=== PATIENT | female | born 1940 | race Caucasian/White ===

== ENCOUNTER 2019-07-21 08:13 | Outpatient (CLI) | payer MEDICARE, SELFPAY ==
[2019-07-21 08:27] LABS: Basophils Absolute Auto 0.03 K/mm3 (0.00-0.10); Basophils Percent Auto 0.4 % (0.0-1.0); Eosinophils Absolute Auto 0.29 K/mm3 (0.02-0.50); Eosinophils Percent Auto 3.7 % (1.0-6.0); Hematocrit 42.3 % (35.0-42.0); Hemoglobin 14.2 g/dL (11.7-13.8); Immature Granulocyte Absolute 0.02 K/mm3 (0.00-0.00); Immature Granulocyte Percent A 0.3 % (0.0-0.0); Lymphocytes Absolute Auto 2.96 K/mm3 (1.10-4.50); Lymphocytes Percent Auto 37.9 % (18.0-42.0); Mean Corpuscular HGB Conc 33.6 g/dL (32.0-36.0); Mean Corpuscular Hemoglobin 30.5 pg (27.0-31.0); Mean Platelet Volume 9.1 fl (9.2-11.8); Monocytes Absolute Auto 0.55 K/mm3 (0.10-0.90); Neutrophils Percent Auto 50.7 % (50.0-70.0); Platelet Count Result 251 K/mm3 (150-420); Red Blood Count 4.65 M/mm3 (4.20-5.40); Red Cell Distribution Width 13.3 % (11.6-14.4); White Blood Count 7.8 K/mm3 (4.8-10.8)
[2019-07-21 08:36] LABS: Hemoglobin A1C 6.1 % (<5.7)
[2019-07-21 09:27] LABS: Alanine Aminotransferase 34 U/L (14-59); Albumin Level 3.7 g/dL (3.4-5.0); Alkaline Phosphatase 80 U/L (46-116); Anion Gap 13.1 mmol/L (7-16); Aspartate Amino Transferase 28 U/L (15-37); Bilirubin,Total 0.7 mg/dL (0.00-1.00); Blood Urea Nitrogen 16 mg/dL (7-18); Calcium 9.6 mg/dL (8.5-10.1); Carbon Dioxide 29 mmol/L (21-32); Chloride 104 mmol/L (98-108); Cholesterol 162 mg/dL (0-200); Creatine Kinase 74 U/L (26-192); Estimated Glomerular Filt Rate 57; Free T4 Free Thyroxine 0.96 ng/dL (0.76-1.46); Glucose 111 mg/dL (70-99); HDL Direct 47 mg/dL (40-60); LDL Cholesterol Calculated 74 mg/dL (<130); Osmolality Calculated 296 mOsm/kg (285-295); Potassium 4.1 mmol/L (3.5-5.1); Sodium 142 mmol/L (136-145); Thyroid Stimulating Hormone 4.94 uIU/mL (0.36-3.74); Total Protein 7.3 g/dL (6.4-8.2); Triglycerides 203 mg/dL (0-150)
[2019-07-22 11:22] LABS: Appearance Urine Clear (Clear); Bilirubin Urine Negative (Negative); Blood Urine Negative (Negative); Color Urine Yellow (Yellow); Glucose Urine UA Negative (Negative); Ketones Urine Negative (Negative); Leukocyte Esterase Ur Negative (Negative); Nitrate Urine Negative (Negative); Protein Urine Negative (Negative); Specific Grav Ur 1.025 (1.010-1.020); Urobilinogen Urine 0.2 mg/dL (0.2-1.0)
[2019-07-22 11:23] LABS: Add Urine Microscopic? NO
[2019-07-25 12:19] LABS: Vitamin D 25 Hydroxy 35 ng/mL (30-100)
== END 2019-07-21 08:14 | disposition home or self-care (01) ==
PROVIDERS: Visit Provider Internal Medicine
DX: E78.2 Mixed hyperlipidemia (principal); E11.9 Type 2 diabetes mellitus without complications; I10 Essential (primary) hypertension; M79.7 Fibromyalgia; E03.4 Atrophy of thyroid (acquired); R53.83 Other fatigue; E55.9 Vitamin D deficiency, unspecified
CPT/HCPCS: 36415; 80053; 80061; 81003; 82306; 82550; 83036; 84439; 84443; 84481; 85025

== ENCOUNTER 2020-02-09 07:48 | Outpatient (CLI) | payer MEDICARE, SELFPAY ==
--- NOTE | ~2020-02-09 | US_ITS ---
EXAMINATION: US carotid duplex BI DATE: 02/09/2020 08:37 INDICATION: Carotid stenosis TECHNIQUE: Grayscale, color Doppler, and pulsed Doppler images of the cervical carotid arteries were obtained. The degree of vessel stenosis is placed in one of the following categories: normal, <50%, 5 0-69%, >=70% but less than near-occlusion, near-occlusion, or total occlusion. Note that percent sten osis relative to normal distal artery lumen diameter is indirectly measured from velocity measurement s as described by Nirav, et al. Radiology 2003; [id number]:[id number]. Notes: Normal: Peak systolic velocity <125 centimeters/sec and no plaque <50%. Peak systolic velocity <125 ( EDV <40; ICA/CCA PSV ratio <2.0; used these factors only a tandem lesions or low cardiac output or co ntralateral disease) 50-69 %: PSV 125-230 (EDV 40-100; ratio 2-4) >= 70% but less than near occlusion: PSV greater than 230 (EDV > 100; ratio> 4.0) Near Occlusion: PSV that is variable; markedly narrowed lumen Occlusion: Absent flow on color/spectral Doppler and no lumen on carpenter scale. COMPARISON: None. FINDINGS: Incidental note is made of bilateral thyroid masses measuring 2 cm maximum dimension on the right and 1.8 cm on the left. RIGHT: The right common carotid artery (CCA) peak systolic velocity (PSV) is 82 cm/s. The right internal car otid artery (ICA) PSV is 104 cm/s. The right ICA end-diastolic velocity (EDV) is 24 cm/s. The right I CA/CCA PSV ratio is 1.3. The external carotid artery (ECA) PSV is 77 cm/s. There is antegrade flow in the right vertebral artery. LEFT: The left CCA PSV is 111 cm/s. The left ICA PSV is 108 cm/s. The left ICA EDV is 29 cm/s. The left ICA /CCA PSV ratio is 1.0. The ECA PSV is 69 cm/s. There is antegrade flow in the left vertebral artery. IMPRESSION: 1. Less than 50% stenosis in the right internal carotid artery by sonographic criteria. 2. Less than 50% stenosis in the left internal carotid artery by sonographic criteria. 3: Bilateral thyroid masses. Dedicated thyroid ultrasound recommended. Reviewed, dictated and finalized at location A. IMPRESSION: 1. Less than 50% stenosis in the right internal carotid artery by sonographic c riteria. 2. Less than 50% stenosis in the left internal carotid artery by sonographic cr iteria. 3: Bilateral thyroid masses. Dedicated thyroid ultrasound recommended.
--- NOTE | ~2020-02-09 | MM_ITS ---
EXAMINATION: MM screening johnson BI w anton HISTORY: Screening mammogram TECHNIQUE: Craniocaudal and mediolateral oblique 3-D tomosynthesis images were obtained and synthetic 2-D images were generated. CAD analysis was submitted and interpreted. COMPARISON: No prior mammogram is available for comparison at this institution. BREAST PARENCHYMAL COMPOSITION: The breasts are heterogeneously dense, which may obscure small masses . FINDINGS: There is no mammographic evidence for malignancy in the right breast. There are new subareo lar/periareolar masses, largest measuring 1.6 cm. IMPRESSION: 1. New left breast masses. 2. Additional mammographic views and possible breast ultrasound are recommended. BI-RADS Category 0: Incomplete: Needs additional imaging evaluation. Reviewed, dictated and finalized at location A. IMPRESSION: 1. New left breast masses. 2. Additional mammographic views and possible breast ultrasound are recommended . BI-RADS Category 0: Incomplete: Needs additional imaging evaluation.
[2020-02-09 08:11] LABS: Add Urine Microscopic? YES; Appearance Urine Clear (Clear); Bilirubin Urine Negative (Negative); Blood Urine Negative (Negative); Color Urine Yellow (Yellow); Glucose Urine UA Negative (Negative); Ketones Urine Negative (Negative); Leukocyte Esterase Ur Trace (Negative); Nitrate Urine Negative (Negative); Protein Urine Negative (Negative); Specific Grav Ur >= 1.030 (1.010-1.020); Urobilinogen Urine 0.2 mg/dL (0.2-1.0); pH Urine 5.5 (5.0-8.0)
[2020-02-09 08:16] LABS: Hemoglobin A1C 6.3 % (<5.7)
[2020-02-09 08:21] LABS: Bacteria Urine 4+ /hpf; RBC Urine 0-2 /hpf (0-2); Squamous Epithelial Cell Urine Many /hpf (Few)
[2020-02-09 08:37] LABS: Creatinine Urine 267.08 mg/dL (40-278); MALB Creatinine Ratio 3.4 mg/g (0-30); Microalbumin Urine Random 9.2 mg/L
[2020-02-09 08:57] LABS: Alanine Aminotransferase 38 U/L (14-59); Albumin Level 3.8 g/dL (3.4-5.0); Alkaline Phosphatase 73 U/L (46-116); Aspartate Amino Transferase 28 U/L (15-37); Bilirubin,Total 0.6 mg/dL (0.00-1.00); Blood Urea Nitrogen 15 mg/dL (7-18); Calcium 9.2 mg/dL (8.5-10.1); Carbon Dioxide 29 mmol/L (21-32); Chloride 101 mmol/L (98-108); Cholesterol 157 mg/dL (0-200); Creatine Kinase 163 U/L (26-192); Estimated Glomerular Filt Rate 51; Free T4 Free Thyroxine 1.08 ng/dL (0.76-1.46); Glucose 101 mg/dL (70-99); HDL Direct 51 mg/dL (40-60); LDL Cholesterol Calculated 84 mg/dL (<130); Osmolality Calculated 290 mOsm/kg (285-295); Sodium 140 mmol/L (136-145); Thyroid Stimulating Hormone 3.82 uIU/mL (0.36-3.74); Total Protein 6.9 g/dL (6.4-8.2); Triglycerides 108 mg/dL (0-150)
== END 2020-02-09 07:49 | disposition home or self-care (01) ==
LOC: CHSIMG 07:49
PROVIDERS: PCP Internal Medicine; Visit Provider Internal Medicine
DX: Z12.31 Encounter for screening mammogram for malignant neoplasm of breast (principal); E03.4 Atrophy of thyroid (acquired); I10 Essential (primary) hypertension; E78.2 Mixed hyperlipidemia; R73.01 Impaired fasting glucose; I65.23 Occlusion and stenosis of bilateral carotid arteries
CPT/HCPCS: 36415; 77063; 77067; 80053; 80061; 81001; 82043; 82550; 83036; 84439; 84443; 93880

== ENCOUNTER 2020-02-16 09:56 | Outpatient (CLI) | payer MEDICARE, SELFPAY ==
--- NOTE | ~2020-02-16 | MMUS_ITS ---
EXAMINATION: MM diagnostic johnson LT w anton, US breast LT limited HISTORY: Left breast mass on screening mammogram TECHNIQUE: Additional 3-D tomosynthesis images of the left breast were performed and synthetic 2-D im ages were generated. CAD analysis was submitted and interpreted. High resolution limited left breast ultrasound was performed. COMPARISON: 02/08/2019, 10/04/2018, 09/20/2018, 07/25/2016 FINDINGS: MAMMOGRAPHIC FINDINGS: Obscured masses are present in the anterior and middle third of the upper outer quadrant of the breas t which measure up to 1.6 cm. Some demonstrate interval increase in size when compared to prior mammo grams. No definite suspicious calcification or architectural distortion are identified. ULTRASOUND: There is a 1.5 cm cyst at the 1:00 location 2 cm from the nipple corresponding to the largest mammogr aphic mass identified. Several additional smaller cysts are present. There is a 6 mm oval, circumscri bed, parallel, hypoechoic mass with posterior acoustic enhancement and no internal vascularity at the 1:00 location 2 cm from the nipple. IMPRESSION: 1. Cysts and a probably benign mass at the 1:00 location in the upper outer quadrant of the breast. 2. Recommend 6 month follow-up left diagnostic mammogram and ultrasound. BI-RADS category 3, probably benign findings. Reviewed, dictated and finalized at location A. IMPRESSION: 1. Cysts and a probably benign mass at the 1:00 location in the upper outer lora drant of the breast. 2. Recommend 6 month follow-up left diagnostic mammogram and ultrasound. BI-RADS category 3, probably benign findings.
--- NOTE | ~2020-02-16 | US_ITS ---
EXAMINATION: US thyroid DATE: 02/16/2020 11:05 INDICATION: Thyroid nodule. TECHNIQUE: Multiple ultrasound images of the thyroid were obtained. COMPARISON: None. FINDINGS: The right thyroid lobe measures 3.7 x 2.2 x 1.5 cm. The left thyroid lobe measures 3.8 x 2.0 x 1.0 c m. The thyroid demonstrates heterogeneous echogenicity and normal vascularity. In the right thyroid lobe, there is a 2.2 cm solid, hypoechoic, [id number]-mymn-cebe nodule with ill-defined margin without ech ogenic foci (TI-RADS TR4). In the left thyroid lobe, there is a 13 mm solid, hyperechoic, wider-than- tall nodule with ill-defined margin without echogenic foci (TR3). IMPRESSION: 1. Thyroid nodules. Ultrasound-guided fine-needle aspiration of the right thyroid nodule is recommend ed. Reviewed, dictated and finalized at location A. IMPRESSION: 1. Thyroid nodules. Ultrasound-guided fine-needle aspiration of the right thyro id nodule is recommended.
== END 2020-02-16 09:57 | disposition home or self-care (01) ==
LOC: CHSIMG 09:57
PROVIDERS: PCP Internal Medicine; Visit Provider Internal Medicine
DX: E04.1 Nontoxic single thyroid nodule (principal); R92.8 Other abnormal and inconclusive findings on diagnostic imaging of breast
CPT/HCPCS: 76536; 76642; 77061; 77065; G0279

== ENCOUNTER 2020-03-04 10:00 | Outpatient (CLI) | payer MEDICARE, SELFPAY ==
--- NOTE | ~2020-03-04 | US_ITS ---
EXAMINATION: US FNA w image guidance DATE: 03/04/2020 11:00 INDICATION: Right thyroid nodule. TECHNIQUE: The procedure and its benefits, risks, and benefits were discussed with the patient. Risks specifical ly discussed included bleeding. The patient verbalized understanding of the risks and agreed to proce ed. The neck was prepped and draped in the usual sterile manner. 1% lidocaine was used for local ane sthesia. 5 passes were made with a 25G needle into the lesion. Appropriate needle location was docu mented with continuous sonographic guidance. There were no immediate complications. The patient unde rstood to call the ordering physician for results after a week and a half and verbalized that underst anding. FINDINGS: Grayscale ultrasound images demonstrate needles advanced into a 2.2 cm hypoechoic solid nodule in rig ht thyroid lobe for biopsy. IMPRESSION: 1. Ultrasound-guided fine needle aspiration of a right thyroid nodule. Reviewed, dictated and finalized at location A.
== END 2020-03-04 10:01 | disposition home or self-care (01) ==
PROVIDERS: PCP Internal Medicine; Visit Provider Internal Medicine
DX: E04.9 Nontoxic goiter, unspecified (principal)
CPT/HCPCS: 10005; 88173; 88305

== ENCOUNTER 2020-07-26 10:34 | Outpatient (CLI) | payer MEDICARE, SELFPAY ==
[2020-07-26 10:42] LABS: Basophils Absolute Auto 0.03 K/mm3 (0.00-0.10); Basophils Percent Auto 0.5 % (0.0-1.0); Eosinophils Absolute Auto 0.23 K/mm3 (0.02-0.50); Eosinophils Percent Auto 3.6 % (1.0-6.0); Hematocrit 41.9 % (35.0-42.0); Hemoglobin 13.6 g/dL (11.7-13.8); Immature Granulocyte Absolute 0.03 K/mm3 (0.00-0.00); Immature Granulocyte Percent A 0.5 % (0.0-0.0); Lymphocytes Absolute Auto 2.47 K/mm3 (1.10-4.50); Lymphocytes Percent Auto 38.7 % (18.0-42.0); Mean Corpuscular HGB Conc 32.5 g/dL (32.0-36.0); Mean Corpuscular Hemoglobin 29.7 pg (27.0-31.0); Mean Corpuscular Volume 91.5 fL (78.0-102.0); Mean Platelet Volume 9.1 fl (9.2-11.8); Monocytes Absolute Auto 0.39 K/mm3 (0.10-0.90); Monocytes Percent Auto 6.1 % (2.0-11.0); Neutrophils Absolute Auto 3.2 K/mm3 (1.7-7.2); Neutrophils Percent Auto 50.6 % (50.0-70.0); Platelet Count Result 285 K/mm3 (150-420); Red Blood Count 4.58 M/mm3 (4.20-5.40); Red Cell Distribution Width 13.6 % (11.6-14.4); White Blood Count 6.4 K/mm3 (4.8-10.8)
[2020-07-26 11:50] LABS: Erythrocyte Sedimentation Rate 42 mm/hr (0-20)
[2020-07-26 12:10] LABS: Anion Gap 9 mmol/L (8-16); Blood Urea Nitrogen 18 mg/dL (7-18); CRP 0.5 mg/dL (0.0-0.9); Calcium 9.1 mg/dL (8.5-10.1); Carbon Dioxide 29 mmol/L (21-32); Chloride 104 mmol/L (98-108); Estimated Glomerular Filt Rate 55; Glucose 118 mg/dL (70-99); Osmolality Calculated 296 mOsm/kg (285-295); Potassium 4.2 mmol/L (3.5-5.1); Sodium 142 mmol/L (136-145); Uric Acid 8.1 mg/dL (2.6-6.0)
== END 2020-07-26 10:35 | disposition home or self-care (01) ==
LOC: CHSLAB 10:35
PROVIDERS: PCP Internal Medicine; Visit Provider Internal Medicine
DX: M79.89 Other specified soft tissue disorders (principal); M79.676 Pain in unspecified toe(s)
CPT/HCPCS: 36415; 80048; 84550; 85025; 85652; 86140

== ENCOUNTER 2020-08-20 09:48 | Outpatient (CLI) | payer MEDICARE, SELFPAY ==
--- NOTE | ~2020-08-20 | MMUS_ITS ---
EXAMINATION: MM diagnostic johnson LT w anton, US breast LT limited HISTORY: Six-month follow-up for probably benign left breast mass TECHNIQUE: Craniocaudal, mediolateral, and mediolateral oblique 3-D tomosynthesis images of the left breast were performed and synthetic 2-D images were generated. CAD analysis was submitted and interpr eted. High resolution limited left breast ultrasound was performed. COMPARISON: 02/16/2020, 02/09/2020, 10/04/2018, 09/20/2018 BREAST PARENCHYMAL COMPOSITION: The breasts are heterogeneously dense, which may obscure small masses . FINDINGS: MAMMOGRAPHIC FINDINGS: Again seen are obscured masses in the anterior and middle third of the breast without suspicious inte rval change. No suspicious calcification or architectural distortion are identified. ULTRASOUND: There is a 1.4 cm cyst at the 1:00 location 2 cm from the nipple. A 0.7 cm cyst is present at the 12: 00 location 2 cm from the nipple. No persistent hypoechoic mass is identified. IMPRESSION: 1. No mammographic or sonographic evidence of malignancy. 2. Recommend routine screening mammography, due on the right in six months. BI-RADS Category 2: Benign finding(s). Reviewed, dictated and finalized at location A. B IMPRESSION: 1. No mammographic or sonographic evidence of malignancy. 2. Recommend routine screening mammography, due on the right in six months. BI-RADS Category 2: Benign finding(s).
== END 2020-08-20 09:49 | disposition home or self-care (01) ==
LOC: CHSIMG 09:49
PROVIDERS: PCP Internal Medicine; Visit Provider Internal Medicine
DX: R92.8 Other abnormal and inconclusive findings on diagnostic imaging of breast (principal)
CPT/HCPCS: 76642; 77061; 77065; G0279

== ENCOUNTER 2020-09-22 08:42 | Outpatient (CLI) | payer MEDICARE, SELFPAY ==
[2020-09-22 08:57] LABS: Basophils Absolute Auto 0.04 K/mm3 (0.00-0.10); Basophils Percent Auto 0.5 % (0.0-1.0); Eosinophils Percent Auto 3.8 % (1.0-6.0); Hematocrit 40.7 % (35.0-42.0); Immature Granulocyte Absolute 0.02 K/mm3 (0.00-0.00); Immature Granulocyte Percent A 0.3 % (0.0-0.0); Lymphocytes Absolute Auto 3.44 K/mm3 (1.10-4.50); Lymphocytes Percent Auto 43.6 % (18.0-42.0); Mean Corpuscular HGB Conc 34.4 g/dL (32.0-36.0); Mean Corpuscular Hemoglobin 30.5 pg (27.0-31.0); Mean Corpuscular Volume 88.7 fL (78.0-102.0); Mean Platelet Volume 9.2 fl (9.2-11.8); Monocytes Absolute Auto 0.52 K/mm3 (0.10-0.90); Monocytes Percent Auto 6.6 % (2.0-11.0); Neutrophils Absolute Auto 3.6 K/mm3 (1.7-7.2); Neutrophils Percent Auto 45.2 % (50.0-70.0); Platelet Count Result 287 K/mm3 (150-420); Red Blood Count 4.59 M/mm3 (4.20-5.40); Red Cell Distribution Width 13.6 % (11.6-14.4); White Blood Count 7.9 K/mm3 (4.8-10.8)
[2020-09-22 09:14] LABS: Hemoglobin A1C 6.2 % (<5.7)
[2020-09-22 09:55] LABS: Erythrocyte Sedimentation Rate 44 mm/hr (0-20)
[2020-09-22 10:19] LABS: Alanine Aminotransferase 35 U/L (14-59); Albumin Level 3.6 g/dL (3.4-5.0); Alkaline Phosphatase 82 U/L (46-116); Anion Gap 8 mmol/L (8-16); Aspartate Amino Transferase 25 U/L (15-37); Bilirubin,Total 0.5 mg/dL (0.00-1.00); Blood Urea Nitrogen 19 mg/dL (7-18); CRP < 0.5 mg/dL (0.0-0.9); Calcium 9.2 mg/dL (8.5-10.1); Carbon Dioxide 32 mmol/L (21-32); Chloride 102 mmol/L (98-108); Cholesterol 260 mg/dL (0-200); Creatine Kinase 66 U/L (26-192); Estimated Glomerular Filt Rate 49; Free T3 2.69 pg/mL (2.18-3.98); Free T4 Free Thyroxine 1.11 ng/dL (0.76-1.46); Glucose 104 mg/dL (70-99); HDL Direct 39 mg/dL (40-60); LDL Cholesterol Calculated 176 mg/dL (<130); Osmolality Calculated 296 mOsm/kg (285-295); Potassium 3.9 mmol/L (3.5-5.1); Sodium 142 mmol/L (136-145); Thyroid Stimulating Hormone 1.04 uIU/mL (0.36-3.74); Total Protein 7.1 g/dL (6.4-8.2); Triglycerides 223 mg/dL (0-150); Uric Acid 6.6 mg/dL (2.6-6.0); Vitamin B12 552 pg/mL (193-986)
[2020-09-23 09:05] LABS: Add Urine Microscopic? NO; Appearance Urine Clear (Clear); Bilirubin Urine Negative (Negative); Blood Urine Negative (Negative); Color Urine Yellow (Yellow); Glucose Urine UA Negative (Negative); Ketones Urine Negative (Negative); Leukocyte Esterase Ur Negative (Negative); Nitrate Urine Negative (Negative); Protein Urine Negative (Negative); Specific Grav Ur >= 1.030 (1.010-1.020); Urobilinogen Urine 0.2 mg/dL (0.2-1.0); pH Urine 5.5 (5.0-8.0)
[2020-09-27 20:12] LABS: Vitamin D 25 Hydroxy 30 ng/mL (30-100)
== END 2020-09-22 08:43 | disposition home or self-care (01) ==
LOC: CHSLAB 08:43
PROVIDERS: PCP Internal Medicine; Visit Provider Internal Medicine
DX: E79.0 Hyperuricemia without signs of inflammatory arthritis and tophaceous disease (principal); I10 Essential (primary) hypertension; E78.2 Mixed hyperlipidemia; E03.4 Atrophy of thyroid (acquired); E11.42 Type 2 diabetes mellitus with diabetic polyneuropathy; G62.9 Polyneuropathy, unspecified; E55.9 Vitamin D deficiency, unspecified
CPT/HCPCS: 36415; 80053; 80061; 81003; 82306; 82550; 82607; 83036; 84439; 84443; 84481; 84550; 85025; 85652; 86140

== ENCOUNTER 2021-02-16 15:42 | Outpatient (CLI) | payer MEDICARE, SELFPAY ==
--- NOTE | ~2021-02-16 | MR_ITS ---
EXAMINATION: MR lumbar spine wo con DATE: 02/16/2021 16:50 INDICATION: Lumbar spinal stenosis. TECHNIQUE: Magnetic resonance imaging (MRI) of the lumbar spine was performed without intravenous con trast. Sequences included sagittal T2-weighted FSE, sagittal T2-weighted FS FSE, sagittal T1-weighted FSE, and axial T2-weighted FSE. COMPARISON: Lumbar spine MRI 04/17/2015 FINDINGS: There is 6 mm anterolisthesis of L4 on L5. Vertebral body heights are normal. There is mild ly decreased disc height at L3-L4, L4-L5, and L5-S1. The distal spinal cord signal intensity is yasmin l. The conus medullaris is at L1. The following disc levels are specifically discussed: L1-L2: The disc is mildly bulging. There is mild bilateral facet joint osteoarthritis. There is no ne ural foraminal stenosis. There is mild central canal stenosis. L2-L3: The disc is mildly bulging. There is mild bilateral facet joint osteoarthritis. There is no ne ural foraminal stenosis. There is no central canal stenosis. L3-L4: The disc is bulging. There is moderate bilateral facet joint osteoarthritis. There is mild teodoro ateral neural foraminal stenosis. There is mild central canal stenosis. L4-L5: The disc does not extend beyond the endplate margin. There is severe bilateral facet joint ost eoarthritis. There is mild bilateral neural foraminal stenosis. There is mild central canal stenosis. L5-S1: The disc does not extend beyond the endplate margin. There is severe bilateral facet joint ost eoarthritis. There is mild left neural foraminal stenosis. There is no central canal stenosis. IMPRESSION: 1. Mild lumbar spondylosis, stable from 04/17/2015. Reviewed, dictated and finalized at location A.
== END 2021-02-16 15:43 | disposition home or self-care (01) ==
PROVIDERS: PCP Internal Medicine; Visit Provider Orthopaedic Surgery
DX: M47.817 Spondylosis without myelopathy or radiculopathy, lumbosacral region (principal); M48.07 Spinal stenosis, lumbosacral region
CPT/HCPCS: 72148

== ENCOUNTER 2021-03-23 17:05 | Outpatient (RCR) | payer MEDICARE, SELFPAY ==
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
--- NOTE | 2021-03-31 15:19 | PTOPEVAL ---
Thank you for referring Nayely Hicks to [facility].? The patient is scheduled to be seen for therapy? ____x/week for ___ weeks. Please review, sign, date and return this plan of care ALIVIA. I agree with and certify that the following plan of care is medically necessary. Referring Physician Date Admitting Provider: Attending Provider: Kamila Rob, RETURNER Referring Provider: *PT Outpatient Evaluation Start: 03/23/21 17:17 Freq: Status: Active Protocol: Document 03/31/21 15:00 [facility] (Rec: 03/31/21 15:19 [facility] [id number]) Therapy Assessment Status Assessment Status Assessment Status Discharge Evaluation Information Problem Diagnosis vertigo Onset 03/03/21 Additional Evaluation Detail DHI = 4% functionally declined Subjective Information patient reports she feels Query Text:As Reported By Patient/ great this date. she reports Family no more symptoms of dizziness or vertigo since her first therapy visit. Pain Assessment Timing of Pain Assessment Timing of Pain Assessment Assessment Self Report Self Report Pain Level 0 Pain Score Pain Score 0: Self Report Palpation Assessment Palpation Palpation negative migue garcia pike negative nystagmus patient completing cawthrone roya exercises in supine and sitting at home. PT Clinical Summary Clinical Summary Protocol: PTEVCODE PT Clinical Summary mrs. hicks has met all goals for therapy regarding her BPPV symptoms. she reports being symptom free now, and ready to begin therapy on her back. she will DC skilled PT this date and continue with cawthrone roya (CC) supine, sitting, and standing habituation exercises independently at home for 1 more week. Persons Assisting in Goal Achievement patient Patient/Caregiver Informed of Benefits/ Yes Risks of Rehabilitation Patient/Caregiver Participated in Plan Yes of Care Patient/Caregiver Agreed with Problem Yes List/POC/Goals Treatment Frequency and Duration DC to independent CC exercises PT Procedures Place of Service Place of Service Clinic Visit: [id number] PT Minutes Total Minutes Of Individual PT This 11 Session (Minutes) Query Text:The Provision O
== END 2021-03-31 15:24 | disposition home or self-care (01) ==
LOC: CHSPT 17:05
PROVIDERS: PCP Nurse Practitioner Family; Visit Provider Nurse Practitioner Family
DX: R42 Dizziness and giddiness (principal)
CPT/HCPCS: 97110; 97161

== ENCOUNTER 2021-03-31 09:31 | Outpatient (CLI) | payer MEDICARE, SELFPAY ==
[2021-03-31 09:48] LABS: Basophils Absolute Auto 0.02 K/mm3 (0.00-0.10); Basophils Percent Auto 0.3 % (0.0-1.0); Eosinophils Absolute Auto 0.26 K/mm3 (0.02-0.50); Eosinophils Percent Auto 3.5 % (1.0-6.0); Hematocrit 40.5 % (35.0-42.0); Hemoglobin 13.4 g/dL (11.7-13.8); Immature Granulocyte Absolute 0.01 K/mm3 (0.00-0.00); Immature Granulocyte Percent A 0.1 % (0.0-0.0); Lymphocytes Absolute Auto 2.79 K/mm3 (1.10-4.50); Lymphocytes Percent Auto 37.8 % (18.0-42.0); Mean Corpuscular HGB Conc 33.1 g/dL (32.0-36.0); Mean Corpuscular Hemoglobin 29.8 pg (27.0-31.0); Monocytes Absolute Auto 0.39 K/mm3 (0.10-0.90); Monocytes Percent Auto 5.3 % (2.0-11.0); Neutrophils Absolute Auto 3.9 K/mm3 (1.7-7.2); Platelet Count Result 253 K/mm3 (150-420); Red Cell Distribution Width 13.3 % (11.6-14.4); White Blood Count 7.4 K/mm3 (4.8-10.8)
[2021-03-31 10:49] LABS: Alanine Aminotransferase 28 U/L (14-59); Albumin Level 3.3 g/dL (3.4-5.0); Alkaline Phosphatase 73 U/L (46-116); Anion Gap 12 mmol/L (8-16); Aspartate Amino Transferase 16 U/L (15-37); Bilirubin,Total 0.4 mg/dL (0.00-1.00); Blood Urea Nitrogen 10 mg/dL (7-18); Calcium 8.9 mg/dL (8.5-10.1); Carbon Dioxide 30 mmol/L (21-32); Chloride 106 mmol/L (98-108); Cholesterol 149 mg/dL (0-200); Creatine Kinase 51 U/L (26-192); Estimated Glomerular Filt Rate > 60; Free T3 2.81 pg/mL (2.18-3.98); Free T4 Free Thyroxine 1.14 ng/dL (0.76-1.46); Glucose 103 mg/dL (70-99); HDL Direct 49 mg/dL (40-60); LDL Cholesterol Calculated 65 mg/dL (<130); Osmolality Calculated 305 mOsm/kg (285-295); Sodium 148 mmol/L (136-145); Thyroid Stimulating Hormone 0.09 uIU/mL (0.36-3.74); Total Protein 6.4 g/dL (6.4-8.2); Triglycerides 173 mg/dL (0-150); Uric Acid 6.1 mg/dL (2.6-6.0)
[2021-03-31 15:07] LABS: Add Urine Microscopic? NO; Appearance Urine Clear (Clear); Bilirubin Urine Negative (Negative); Blood Urine Negative (Negative); Color Urine Light Yellow (Yellow); Glucose Urine UA Negative (Negative); Ketones Urine Negative (Negative); Leukocyte Esterase Ur Negative (Negative); Nitrate Urine Negative (Negative); Protein Urine Negative (Negative); Urobilinogen Urine 0.2 mg/dL (0.2-1.0); pH Urine 7.5 (5.0-8.0)
[2021-03-31 15:16] LABS: Creatinine Urine 48.89 mg/dL (40-278); MALB Creatinine Ratio 26.5 mg/g (0-30); Microalbumin Urine Random < 13.0 mg/L
== END 2021-03-31 09:32 | disposition home or self-care (01) ==
LOC: CHSLAB 09:34
PROVIDERS: PCP Internal Medicine; Visit Provider Internal Medicine
DX: E78.2 Mixed hyperlipidemia (principal); I10 Essential (primary) hypertension; E03.4 Atrophy of thyroid (acquired); E11.42 Type 2 diabetes mellitus with diabetic polyneuropathy; G62.9 Polyneuropathy, unspecified; E79.0 Hyperuricemia without signs of inflammatory arthritis and tophaceous disease
CPT/HCPCS: 36415; 80053; 80061; 81003; 82043; 82550; 83036; 84439; 84443; 84481; 84550; 85025

== ENCOUNTER 2021-04-05 14:59 | Outpatient (RCR) | payer MEDICARE, SELFPAY ==
--- NOTE | 2021-04-05 17:00 | PTOPEVAL ---
Thank you for referring Nayely Mtz to [facility].? The patient is scheduled to be seen for therapy? ____x/week for ___ weeks. Please review, sign, date and return this plan of care ALIVIA. I agree with and certify that the following plan of care is medically necessary. Referring Physician Date Admitting Provider: Attending Provider: Luis Alberto Carter MD Referring Provider: *PT Outpatient Evaluation Start: 04/05/21 15:01 Freq: Status: Active Protocol: Document 04/05/21 15:01 [facility] (Rec: 04/05/21 16:06 [facility] [email or web address]) Therapy Assessment Status Assessment Status Assessment Status Evaluation Evaluation Information Problem Diagnosis low back pain Onset 02/09/21 Subjective Information Patient states that she has Query Text:As Reported By Patient/ had back pain for awhile. She Family states that it hurts the worst when she walks for a distance , stands for a period of time, works in the yard, navigating stairs, and getting in and out of the car. The patient states that the R side is worse than the L. Patient states she got an MRI which showed some spodylosis. Patient states that if she bends over it feels a bit better. Patient states that her goal for therapy is to be able to walk and navigate steps easier. Prior Level of Function Activity Level (Last 3 Months) Occupation retired Hand Dominance Ambidextrous Activity of Daily Living Ability Independent Indoor/Home Mobility Independent Community Mobility Independent Stairs Ability Independent Functional Cognition (Planning, Shopping Independent , Taking Medications) Cooking Yes Cleaning Yes Laundry Yes Shopping Yes Driving Yes Pain Assessment Timing of Pain Assessment Timing of Pain Assessment Assessment Pain Scale Pain Scale Used Numeric (1 - 10) Self Report Pain Assessment Lower Back Reported Pain Level 4 Pain Description Aching,Dull Greatest Pain Intensity 7 Pain Score Pain Score 4: Self Report Interventions Used Interventions Used By Clinicians Activity or ADL's,Exercise Cervical and Lumbar ROM Lumbar
--- NOTE | 2021-04-20 16:05 | PTOPEVAL ---
Thank you for referring Nayely Mtz to [facility].? The patient is scheduled to be seen for therapy? ____x/week for ___ weeks. Please review, sign, date and return this plan of care ALIVIA. I agree with and certify that the following plan of care is medically necessary. Referring Physician Date Admitting Provider: Attending Provider: Luis Alberto Carter MD Referring Provider: *PT Outpatient Evaluation Start: 04/05/21 15:01 Freq: Status: Active Protocol: Document 04/20/21 15:00 [facility] (Rec: 04/20/21 16:01 [facility]CR [email or web address]) Therapy Assessment Status Assessment Status Assessment Status Discharge Evaluation Information Problem Diagnosis low back pain Onset 02/09/21 Subjective Information Patient reports that since Query Text:As Reported By Patient/ beginning therapy for her back Family , her pain has been minimal. She feels she is able to do more before needing a break such as mopping. She states the pain subsides quicker as well. She believes she can do all of the exercises at home and can be discharged at this time. Pain Assessment Timing of Pain Assessment Timing of Pain Assessment Assessment Pain Scale Pain Scale Used Numeric (1 - 10) Self Report Pain Assessment Lower Back Reported Pain Level 4 Lowest Pain Intensity 0 Greatest Pain Intensity 4 Pain Score Pain Score 4: Self Report Interventions Used Interventions Used By Clinicians Activity or ADL's,Electrical Stimulation,Exercise,Heat Cervical and Lumbar ROM Lumbar ROM Lumbar ROM 75% of Normal Lower Extremity Muscle Strength Testing Hip Strength Right Hip Flexion Strength 5 Normal Hip Abduction Strength 4 Good Left Hip Flexion Strength 5 Normal Hip Abduction Strength 4 Good Knee Strength Right Knee Flexion Strength 5 Normal Knee Extension Strength 5 Normal Left Knee Flexion Strength 5 Normal Knee Extension Strength 5 Normal Muscle Length Testing Muscle Length Testing Piriformis w/Hip Neutral (R) Moderate Tightness,(L) Moderate Tightness Naomi's Test Hip Muscle Length (R) Moderate Tightness,(L) Moderate Tightness Left Hamstring Length 35 Query Text:(90 - 90 Position) Right Hamstring Length 25 Query Text:(90 - 90 Position) Palpation Assessment Palpation Palpation
== END 2021-04-20 16:33 | disposition home or self-care (01) ==
LOC: CHSPT 14:59
PROVIDERS: PCP Internal Medicine; Visit Provider Orthopaedic Surgery
DX: M47.816 Spondylosis without myelopathy or radiculopathy, lumbar region (principal)
CPT/HCPCS: 97014; 97110; 97161; G0283

== ENCOUNTER 2021-04-22 13:57 | Outpatient (RCR) | payer MEDICARE, SELFPAY ==
--- NOTE | 2021-04-22 16:01 | PTOPEVAL ---
Thank you for referring Nayely Mtz to [facility].? The patient is scheduled to be seen for therapy? ____x/week for ___ weeks. Please review, sign, date and return this plan of care ALIVIA. I agree with and certify that the following plan of care is medically necessary. Referring Physician Date Admitting Provider: Attending Provider: Jacinda Beck MD Referring Provider: *PT Outpatient Evaluation Start: 04/22/21 13:58 Freq: Status: Active Protocol: Document 04/22/21 13:59 ACR (Rec: 04/22/21 15:17 ACR [email or web address]) Therapy Assessment Status Assessment Status Assessment Status Evaluation Evaluation Information Problem Diagnosis neck and R shoulder pain Onset 04/13/21 Subjective Information Patient states that she has Query Text:As Reported By Patient/ pain in the neck, shoulder Family blade, and in the shoulder especially when she lifts her arm up. Patient states that pain is up and down depending on the weather. Patient denies numbness and tingling, but reports pain in the thenar eminence. Patient also denies headaches. She states it is difficult to put her clothes on, looking into her blind spots when driving, looking down to read or watching TV, and reaching overhead. Patient states massage and exercise is helpful. Patient reports her goal for therapy is to have less tightness and stiffness. Prior Level of Function Activity Level (Last 3 Months) Occupation retired Hand Dominance Ambidextrous Activity of Daily Living Ability Independent Indoor/Home Mobility Independent Community Mobility Independent Stairs Ability Independent Functional Cognition (Planning, Shopping Independent , Taking Medications) Cooking Yes Cleaning Yes Laundry Yes Shopping Yes Driving Yes Pain Assessment Timing of Pain Assessment Timing of Pain Assessment Assessment Pain Scale Pain Scale Used Numeric (1 - 10) Self Report Pain Assessment Neck Reported Pain Level 2 Lowest Pain Intensity 0 Greatest Pain Intensity
--- NOTE | 2021-05-18 15:06 | PTOPEVAL ---
Thank you for referring Nayely Mtz to [facility].? The patient is scheduled to be seen for therapy? __2__x/week for 4 visits. Please review, sign, date and return this plan of care ALIVIA. I agree with and certify that the following plan of care is medically necessary. Referring Physician Date Admitting Provider: Attending Provider: Jacinda Beck MD Referring Provider: *PT Outpatient Evaluation Start: 04/22/21 13:58 Freq: Status: Active Protocol: Document 05/18/21 14:00 [facility] (Rec: 05/18/21 15:05 [facility] [email or web address]) Therapy Assessment Status Assessment Status Assessment Status Progress Evaluation Information Problem Diagnosis neck and shoulder pain Onset 04/13/21 Subjective Information Pt. reports that pain is less Query Text:As Reported By Patient/ intense. She is sleeping Family better. She states that she is still limited in regards to turning her head while driving . she reports that mobility in her shoulder is better. She states that she was expereincing a fullness and tension in the right side of the neck which is no longer present. she reports she still avoids heavy lifting with the right arm. Pain Assessment Pain Scale Pain Scale Used Numeric (1 - 10) Self Report Pain Assessment Neck Reported Pain Level 1 Right Shoulder(s) Reported Pain Level 2 Pain Score Pain Score 1,2: Self Report Interventions Used Interventions Used By Clinicians Electrical Stimulation, Exercise,Heat Cervical and Lumbar ROM Cervical ROM Cervical Flexion (0-60) 45 Query Text:Active in Degrees Cervical Extension (0-70) 40 Query Text:Active in Degrees Cervical Rotation Right (0-90) 57 Query Text:Active in Degrees Cervical Rotation Left (0-90) 59 Query Text:Active in Degrees Upper Extremity Range of Motion Scapular/ Shoulder Range of Motion Right Shoulder Flexion - Active 159 Shoulder Medial Rotation - Active 80 Shoulder Lateral Rotation - Active 81 Upper Extremity Muscle Strength Testing Scapular/Shoulder Right Shoulder Flexion Strength 4+ Good + Shoulder Abduction Strength 4+ Good + Shoulder Medial Rotation Strength 4+ Good + Shoulder Lateral Rotation Strength 4 Good Left Shoulder Flexion Strength 4+ Good + Shoulder Abduction Strength 4+ Good + Shoulder Medial Rotation Strength 4+ Good
--- NOTE | 2021-06-02 14:10 | PTOPEVAL ---
Thank you for referring Nayely Mtz to [facility].? The patient is scheduled to be seen for therapy? ____x/week for ___ weeks. Please review, sign, date and return this plan of care ALIVIA. I agree with and certify that the following plan of care is medically necessary. Referring Physician Date Admitting Provider: Attending Provider: Jacinda Beck MD Referring Provider: *PT Outpatient Evaluation Start: 04/22/21 13:58 Freq: Status: Active Protocol: Document 06/02/21 13:00 ACR (Rec: 06/02/21 13:59 ACR [id number]) Therapy Assessment Status Assessment Status Assessment Status Discharge Evaluation Information Problem Subjective Information Patient states that she Query Text:As Reported By Patient/ believes therapy has really Family helped her and she needs to keep up with the exercises in order to maintain how good she feels. Patient states that she is able to read longer without increased pain, she is sleeping better, and she is able to put her clothes on with better ease. Patient reports that she still has some stiffness, but it is not as bad as before. Pain Assessment Timing of Pain Assessment Timing of Pain Assessment Pre-Treatment Pain Scale Pain Scale Used Numeric (1 - 10) Self Report Pain Assessment Neck Reported Pain Level 2 Greatest Pain Intensity 4 Right Shoulder(s) Reported Pain Level 0 Greatest Pain Intensity 4 Pain Score Pain Score 2,0: Self Report Interventions Used Interventions Used By Clinicians Activity or ADL's,Electrical Stimulation,Exercise,Heat Cervical and Lumbar ROM Cervical ROM Cervical Flexion (0-60) 46 Query Text:Active in Degrees Cervical Extension (0-70) 40 Query Text:Active in Degrees Cervical Rotation Right (0-90) 62 Query Text:Passive in Degrees Cervical Rotation Left (0-90) 50 Query Text:Passive in Degrees Upper Extremity Range of Motion Scapular/ Shoulder Range of Motion Right Shoulder Flexion - Active 168 Shoulder Medial Rotation - Active 79 Shoulder Lateral Rotation - Active 77 Upper Extremity Muscle Strength Testing Scapular/Shoulder Right Shoulder Flexion Strength 5 Normal Shoulder Abduction Strength 5 Normal Shoulder Medial Rotation Strength 5 Normal Shoulder Lateral Rotation Strength 5 Normal Left Shoulder Flexion Strength 5 Normal Shoulder Abduction Strength
== END 2021-06-02 15:12 | disposition home or self-care (01) ==
LOC: CHSPT 13:57
PROVIDERS: PCP Internal Medicine; Visit Provider Internal Medicine
DX: M54.2 Cervicalgia (principal); M25.511 Pain in right shoulder
CPT/HCPCS: 97014; 97110; 97140; 97161; G0283

== ENCOUNTER 2021-09-27 08:36 | Outpatient (CLI) | payer MEDICARE, SELFPAY ==
[2021-09-27 09:01] LABS: Basophils Absolute Auto 0.04 K/mm3 (0.00-0.10); Basophils Percent Auto 0.5 % (0.0-1.0); Eosinophils Absolute Auto 0.23 K/mm3 (0.02-0.50); Eosinophils Percent Auto 2.8 % (1.0-6.0); Hematocrit 45.3 % (35.0-42.0); Hemoglobin 14.9 g/dL (11.7-13.8); Immature Granulocyte Absolute 0.02 K/mm3 (0.00-0.00); Immature Granulocyte Percent A 0.2 % (0.0-0.0); Lymphocytes Absolute Auto 2.89 K/mm3 (1.10-4.50); Lymphocytes Percent Auto 35.2 % (18.0-42.0); Mean Corpuscular HGB Conc 32.9 g/dL (32.0-36.0); Mean Corpuscular Volume 91.3 fL (78.0-102.0); Mean Platelet Volume 9.5 fl (9.2-11.8); Monocytes Absolute Auto 0.39 K/mm3 (0.10-0.90); Monocytes Percent Auto 4.8 % (2.0-11.0); Neutrophils Absolute Auto 4.6 K/mm3 (1.7-7.2); Neutrophils Percent Auto 56.5 % (50.0-70.0); Platelet Count Result 238 K/mm3 (150-420); Red Blood Count 4.96 M/mm3 (4.20-5.40); Red Cell Distribution Width 13.3 % (11.6-14.4); White Blood Count 8.2 K/mm3 (4.8-10.8)
[2021-09-27 09:08] LABS: Add Urine Microscopic? NO; Appearance Urine Clear (Clear); Bilirubin Urine Negative (Negative); Blood Urine Negative (Negative); Color Urine Light Yellow (Yellow); Glucose Urine UA Negative (Negative); Ketones Urine Negative (Negative); Leukocyte Esterase Ur Negative (Negative); Nitrate Urine Negative (Negative); Protein Urine Negative (Negative); Specific Grav Ur 1.025 (1.010-1.020); Urobilinogen Urine 0.2 mg/dL (0.2-1.0); pH Urine 5.5 (5.0-8.0)
[2021-09-27 09:23] LABS: Creatinine Urine 160.23 mg/dL (40-278); MALB Creatinine Ratio 8.1 mg/g (0-30); Microalbumin Urine Random < 13.0 mg/L
[2021-09-27 09:27] LABS: Hemoglobin A1C 6.1 % (<5.7)
[2021-09-27 09:57] LABS: Alanine Aminotransferase 28 U/L (14-59); Albumin Level 3.7 g/dL (3.4-5.0); Alkaline Phosphatase 80 U/L (46-116); Anion Gap 9 mmol/L (8-16); Aspartate Amino Transferase 16 U/L (15-37); Bilirubin,Total 0.5 mg/dL (0.00-1.00); Blood Urea Nitrogen 19 mg/dL (7-18); Calcium 9.3 mg/dL (8.5-10.1); Carbon Dioxide 31 mmol/L (21-32); Chloride 103 mmol/L (98-108); Cholesterol 160 mg/dL (0-200); Creatine Kinase 47 U/L (26-192); Estimated Glomerular Filt Rate 57; Free T4 Free Thyroxine 1.11 ng/dL (0.76-1.46); Glucose 117 mg/dL (70-99); HDL Direct 54 mg/dL (40-60); LDL Cholesterol Calculated 72 mg/dL (<130); Osmolality Calculated 299 mOsm/kg (285-295); Potassium 3.9 mmol/L (3.5-5.1); Sodium 143 mmol/L (136-145); Thyroid Stimulating Hormone 0.57 uIU/mL (0.36-3.74); Total Protein 7.2 g/dL (6.4-8.2); Triglycerides 169 mg/dL (0-150); Uric Acid 6.1 mg/dL (2.6-6.0); Vitamin B12 371 pg/mL (193-986)
[2021-09-27 10:00] LABS: CRP < 0.5 mg/dL (0.0-0.9)
[2021-09-27 10:03] LABS: Erythrocyte Sedimentation Rate 40 mm/hr (0-20)
[2021-09-30 14:54] LABS: Vitamin D 25 Hydroxy 25 ng/mL (30-100)
== END 2021-09-27 08:37 | disposition home or self-care (01) ==
LOC: CHSLAB 08:38
PROVIDERS: PCP Internal Medicine; Visit Provider Internal Medicine
DX: E78.2 Mixed hyperlipidemia (principal); I10 Essential (primary) hypertension; R73.01 Impaired fasting glucose; E03.4 Atrophy of thyroid (acquired); E79.0 Hyperuricemia without signs of inflammatory arthritis and tophaceous disease; G62.9 Polyneuropathy, unspecified; M81.0 Age-related osteoporosis without current pathological fracture
CPT/HCPCS: 36415; 80053; 80061; 81003; 82043; 82306; 82550; 82607; 83036; 84439; 84443; 84481; 84550; 85025; 85652; 86140

== ENCOUNTER 2021-09-30 11:42 | Outpatient (CLI) | payer MEDICARE, SELFPAY ==
--- NOTE | ~2021-09-30 | MM_ITS ---
EXAMINATION: MM screening [facility] BI [facility] [place] HISTORY: Screening TECHNIQUE: Craniocaudal and mediolateral oblique 3-D tomosynthesis images were obtained and synthetic 2-D images were generated. CAD analysis was submitted and interpreted. COMPARISON: Comparison to multiple prior studies sequentially, with oldest reviewed study dated 03/2019. BREAST PARENCHYMAL COMPOSITION: The breasts are heterogeneously dense, which may obscure small masses . FINDINGS: Benign left breast masses are stable. There is no evidence of suspicious mass, calcificatio n, or architectural distortion to suggest malignancy in either breast. There has been no suspicious i nterval change. IMPRESSION: 1. No mammographic evidence of malignancy. 2. Recommend routine screening mammography in one year. BI-RADS Category 2: Benign finding(s). Reviewed, dictated and finalized at location A. [employer]
== END 2021-09-30 11:43 | disposition home or self-care (01) ==
LOC: CHSIMG 11:42
PROVIDERS: PCP Internal Medicine; Visit Provider Internal Medicine
DX: Z12.31 Encounter for screening mammogram for malignant neoplasm of breast (principal)
CPT/HCPCS: 77063; 77067

== ENCOUNTER 2021-12-02 09:44 | Outpatient (CLI) | payer MEDICARE, SELFPAY ==
--- NOTE | 2021-12-02 10:52 | ECG_ITS ---
Measurements Intervals [place] Rate: 58 P: 0 NC: 152 QRS: 27 QRSD: 81 T: 20 QT: 419 QTc: 413 Interpretive Statements SINUS BRADYCARDIA OTHERWISE NORMAL ECG NO PREVIOUS ECG AVAILABLE FOR COMPARISON Electronically Signed On 12-02-2021 15:26:19 CDT by Arpan Valencia M.D.
[2021-12-02 11:21] LABS: Basophils Percent Auto 0.5 % (0.2-1.2); Eosinophils Absolute Auto 0.3 K/mm3 (0-0.3); Eosinophils Percent Auto 3.9 % (0-4.4); Hematocrit 41.4 % (37.0-47.0); Hemoglobin 13.7 g/dL (12.0-15.0); Immature Granulocyte Absolute 0.02 K/mm3 (0.00-0.031); Immature Granulocyte Percent A 0.2 % (0-0.5); Lymphocytes Absolute Auto 3.47 K/mm3 (0.9-3.2); Lymphocytes Percent Auto 39.7 % (18.3-44.2); Mean Corpuscular HGB Conc 33.1 g/dl (32-36); Mean Corpuscular Hemoglobin 30.4 pg (26-34); Mean Corpuscular Volume 91.8 fl (80-100); Mean Platelet Volume 9.3 fl (7.4-10.4); Monocytes Absolute Auto 0.6 K/mm3 (0.1-0.6); Monocytes Percent Auto 6.7 % (2.6-8.5); Neutrophils Absolute Auto 4.3 K/mm3 (1.3-6.7); Platelet Count Result 266 k/mm3 (150-375); Red Blood Count 4.51 M/mm3 (4.2-5.4); Red Cell Distribution Width 13.9 % (11.5-14.5); White Blood Count 8.8 K/mm3 (4.5-10.0)
[2021-12-02 11:36] LABS: Albumin Level 4.4 g/dL (3.5-5.1); Anion Gap 9 mmol/L (8-16); Blood Urea Nitrogen 17 mg/dL (7-17); Calcium 9.3 mg/dL (8.4-10.2); Carbon Dioxide 26 mmol/L (22-30); Chloride 104 mmol/L (98-107); Estimated Glomerular Filt Rate > 60; Glucose 105 mg/dL (65-110); Potassium 3.7 mmol/L (3.4-5.0); Sodium 139 mmol/L (137-145)
[2021-12-02 11:39] LABS: Urine Cotinine NEGATIVE
== END 2021-12-02 09:45 | disposition home or self-care (01) ==
LOC: ANHSURGERY 09:47
PROVIDERS: PCP Internal Medicine; Visit Provider Orthopaedic Surgery
DX: Z01.818 Encounter for other preprocedural examination (principal); M17.11 Unilateral primary osteoarthritis, right knee
CPT/HCPCS: 36415; 80048; 80307; 82040; 85025; 86850; 86900; 86901; 87070; 93005

== ENCOUNTER 2021-12-14 01:31 | Day surgery (SDC) | payer MEDICARE, SELFPAY ==
--- NOTE | 2021-12-02 09:48 | PC.NURSE ---
Report to the Outpatient Waiting Room, entrance under the green pavilion located off [facility], at time _0600_ on date _12/14/21_. OR Time: _0730_. - You and your visitor will be asked a series of questions to screen for COVID 19 for your protection. - A mask is required within the hospital. One visitor will be allowed to accompany the patient into the hospital. Patients visitor will be instructed to remain with patient at all times or leave the building. We will allow the visitor to come back to the postoperative area when patient is ready. Preoperative COVID Testing Requirements: NONE Patients may have clear liquids (water, carbonated beverages, clear teas, apple juice) until 3 hours prior to surgery (0430 AM) with a maximum of 20 ounces. - No food from midnight until time of surgery Take the following medications with a SIP of water the morning of surgery: _DULOXETINE, LEVOTHYROXINE, METOPROLOL_ Medications to discontinue _ ALEVE 7 DAYS PRIOR TO SURGERY PER DR. CHATTERJEE, Date to take last dose 12/06/21, ALL VITAMINS & SUPPLEMENTS 3 DAYS PRIOR TO SURGERY PER ANESTHESIA, Date to take last dose 12/10/21_ Please no make-up, nail sinhala, hairspray, perfume, deodorant, or body powder the day of surgery. No jewelry (including any body piercings) or valuables the day of surgery, leave them at home. Please take a shower or bath the night before, or the morning of, surgery with an antibacterial soap. Wear comfortable, loose fitting clothing. - Jewelry must be removed prior to entering the operating room. Rings and piercings that are not removed may be cut off. - The hospital will not accept responsibility for valuables. - Please leave all valuables, including medications, at home the day of surgery. If you are going home after surgery, a licensed corporate driver must drive you home. - NO public transportation without another adult. - We recommend that an adult stay with you for 24 hours following discharge. - We also recommend that you do not drive, make important decision, drink alcoholic beverages, or take any drugs that were not prescribed by your health care provider for at least 24 hours after your discharge time. Follow any additional instructions given to you from DR. CHATTERJEE. Instructions given to ___PT and asked if any additional questions and then verbalized understanding. Patient advised to call surgeon office or pre surgery nurse liaison [phone] if any additional questions.
[2021-12-02 10:03] VITALS: BP 154/76; PULSE 64; RESP 18; TEMP 36.5; O2SAT 94; BMI 37.3
--- NOTE | 2021-12-12 17:36 | PM.IMHP ---
H&P: HPI History of Present Illness Date/Time: 12/12/21 17:36 81-year-old female patient who presents today for a right total knee arthroplasty. She has been having pain in this knee for years progressively worsening. She has advanced medial compartment osteoarthritis. She has tried cortisone injections in the has given her minimal relief. She takes Aleve 2 per day again with minimal relief. She not only pain but also give way episodes in the knee which are worrying her about falling. She feels at this point she would like proceed with total knee arthroplasty Rather than continuing nonsurgical treatment. <KENDALL Marcum - Last Filed: 12/12/21 17:41> Chief Complaint: right knee DJD <KENDALL Marcum - Last Filed: 12/12/21 17:41> Review of Systems Review of Systems: All systems reviewed & are unremarkable except as noted in HPI and below <KENDALL Marcum - Last Filed: 12/12/21 17:41> [facility] Past Medical History Medical History: Medical History Arthritis Fibromyalgia Hyperlipidemia Hypertension Hypothyroid JULIANNE (obstructive sleep apnea) SVT (supraventricular tachycardia) <KENDALL Marcum - Last Filed: 12/12/21 17:41> Social History Social History: Social History Years smoked: 15 Smoking status: Former smoker Tobacco type: cigarettes Second hand tobacco smoke exposure: No Additional smoking assessment comments: STATES <PK/DAY/15YRS-QUIT 1991, CURRENTLY DENIES ALL FORMS OF TOBBACO USE Alcohol intake: current Alcohol use details: STATES 1-2 DRINKS/MONTH Substance use: current Substance use type: marijuana Other substance usage details: 1 EDIBLE GUMMY NIGHTLY FOR SLEEP Last use: 12/01/21 Living arrangements: with family Spiritual care concerns: No <KENDALL Marcum - Last Filed: 12/12/21 17:41> Meds Home Medications and Allergies Home medications: Home Medications Medication Instructions Recorded Confirmed Type Cannabis 1 gummy HS 12/02/21 12/14/21 History Total Restore 1 tab-cap BID 12/02/21 12/14/21 History allopurinol 100 mg PO QAM 12/02/21 12/14/21 History cyanocobalamin (vitamin B-12) 2,500 mcg PO QAM 12/02/21 12/14/21 History duloxetine 20 mg PO BID 12/02/21 12/14/21 History levothyroxine 100 mcg PO QAM 12/02/21 12/14/21 History lidocaine 1 applic TOPICAL DAILY PRN 12/02/21 12/02/21 History losartan-hydrochlorothiazide 1 tablet HS 12/02/21 12/14/21 History melatonin 5 mg PO HS 12/02/21 12/14/21 History metoprolol succinate 25 mg PO QAM 12/02/21 12/14/21 History naproxen sodium [Aleve] 220 mg PO BID PRN 12/02/21 12/14/21 History oxybutynin chloride 10 mg PO QAM 12/02/21 12/14/21 History pantoprazole 40 mg PO QAM 12/02/21 12/14/21 History rosuvastatin 10 mg PO HS 12/02/21 12/14/21 History tizanidine 2 mg HS 12/02/21 12/14/21 History <KENDALL Marcum - Last Filed: 12/12/21 17:41> Allergies/Adverse reactions: Allergies Allergy/AdvReac Type Severity Reaction Status Date / Time Penicillins Allergy Severe LIPS AND Unverified 12/14/21 06:02 MOUTH SWELLED Sulfa (Sulfonamide Allergy Severe Rash, Unverified 12/14/21 06:02 Antibiotics) ITCHING <KENDALL Marcum - Last Filed: 12/12/21 17:41> Exam Narrative: 81-year-old female alert pleasant. She is 5 ft 1 hand to 198 lb. BMI is 37.4. Her right knee range of motion is from 12-95 degrees. She has no effusion in the right knee. Normal quad strength. Moderately severe tenderness over the medial joint line palpation. Hip range of motion is full without discomfort. Negative Stinchfield maneuver. 2+ dorsalis pedis and post tibial artery pulse palpable. Normal sensation to light touch to her lower extremities. There is no edema in either lower extremity. <KENDALL Marcum - Last Filed: 12/12/21 17:41> Resp: Auscultation: clear to auscultat
[2021-12-14] VITALS (16 sets, daily range): BP systolic 134–170; BP diastolic 57–91; PULSE 70–91; RESP 10–20; TEMP 36.3–36.8; O2SAT 91–99
--- NOTE | ~2021-12-14 | XR_ITS ---
EXAMINATION: XR knee RT 2V DATE: 12/14/2021 11:33 INDICATION: Total right knee arthroplasty. Postop. TECHNIQUE: 2 views of right knee were obtained. COMPARISON: Right knee radiographs 04/04/2016 FINDINGS: There is a total right knee arthroplasty with patellar resurfacing in near-anatomic alignme nt. No fracture. There is gas in the knee joint and soft tissues, consistent with recent surgery. IMPRESSION: 1. Total right knee arthroplasty in near-anatomic alignment. Reviewed, dictated and finalized at location B.
[2021-12-14] MEDS: ACETAMINOPHEN 500 MG TABLET 1000 MG PO ×3 (06:23→23:22)
[2021-12-14] MEDS: LACTATED RINGERS 1,000 ML 30 ML IV CONT ×2 (06:35→11:36)
--- NOTE | 2021-12-14 06:49 | WPDANESEPPF ---
Anes - Initial Pre Proc Eval Procedure: Operation Date: 12/14/21 07:30 Proposed Procedures p Right Total Knee Arthroplasty - Luis Alberto Carter MD Date/Time: 12/14/21 06:49 Surgeon: Luis Alberto Carter MD Pre Op Diagnosis: OA right knee Patient Data Age: 81 Gender: F Height: 1.56 m Weight: 89.1 kg Last Vital Signs Temp 36.4 C L 12/14/21 06:01 Pulse 70 12/14/21 06:01 Resp 20 12/14/21 06:01 BP 148/79 H 12/14/21 06:01 Pulse Ox 99 12/14/21 06:01 Allergies Allergy/AdvReac Type Severity Reaction Status Date / Time Penicillins Allergy Severe LIPS AND Unverified 12/14/21 06:02 MOUTH SWELLED Sulfa (Sulfonamide Allergy Severe Rash, Unverified 12/14/21 06:02 Antibiotics) ITCHING Home Medications Medication Instructions Recorded Confirmed Type Cannabis 1 gummy HS 12/02/21 12/14/21 History Total Restore 1 tab-cap BID 12/02/21 12/14/21 History allopurinol 100 mg PO QAM 12/02/21 12/14/21 History cyanocobalamin (vitamin B-12) 2,500 mcg PO QAM 12/02/21 12/14/21 History duloxetine 20 mg PO BID 12/02/21 12/14/21 History levothyroxine 100 mcg PO QAM 12/02/21 12/14/21 History lidocaine 1 applic TOPICAL DAILY PRN 12/02/21 12/02/21 History losartan-hydrochlorothiazide 1 tablet HS 12/02/21 12/14/21 History melatonin 5 mg PO HS 12/02/21 12/14/21 History metoprolol succinate 25 mg PO QAM 12/02/21 12/14/21 History naproxen sodium [Aleve] 220 mg PO BID PRN 12/02/21 12/14/21 History oxybutynin chloride 10 mg PO QAM 12/02/21 12/14/21 History pantoprazole 40 mg PO QAM 12/02/21 12/14/21 History rosuvastatin 10 mg PO HS 12/02/21 12/14/21 History tizanidine 2 mg HS 12/02/21 12/14/21 History Patient hx anesthesia problems: post op nausea/vomiting Family hx anesthesia problems: none Results Review: All pre-operative results and documents have been reviewed as part of the pre-operative evaluation. [facility] Past Medical History Medical History Arthritis Fibromyalgia Hyperlipidemia Hypertension Hypothyroid JULIANNE (obstructive sleep apnea) SVT (supraventricular tachycardia) Social History Social History Years smoked: 15 Smoking status: Former smoker Tobacco type: cigarettes Second hand tobacco smoke exposure: No Additional smoking assessment comments: STATES <PK/DAY/15YRS-QUIT 1991, CURRENTLY DENIES ALL FORMS OF TOBBACO USE Alcohol intake: current Alcohol use details: STATES 1-2 DRINKS/MONTH Substance use: current Substance use type: marijuana Other substance usage details: 1 EDIBLE GUMMY NIGHTLY FOR SLEEP Last use: 12/01/21 Living arrangements: with family Spiritual care concerns: No Anes - Eval Final PreProcedure Day of Procedure 12/14/21 06:49 Patient weight: obese Heart: regular rate and rhythm Lungs: decreased breath sounds Airway: Mallampati scale class II Neurological: alert and oriented Last oral intake: >/= 8 hours ASA classification: III Emergent: no Anesthetic plan: proceed Anesthesia type and monitoring: general LMA and standard monitoring Results Review: All pre-operative results and documents have been reviewed as part of the pre-operative evaluation. Informed Consent: The patient's anesthetic plan and its attendant risks and benefits were discussed with the patient/family/POA. Questions were solicited and answers provided to the satisfaction of the patient/family/POA.
[2021-12-14] MEDS: TRANEXAMIC ACID 1,000MG/ISO100 1,000 MG/100 ML BAG 200 MG IVPB (07:00)
--- NOTE | 2021-12-14 07:18 | WPDHPUPDATE1 ---
History and Physical Update Update Date/Time: 12/14/21 07:18 History and Physical has been reviewed, including an updated exam of the patient. There are NO changes in the patient's condition. Risks, benefits, and alternatives have been discussed and questions answered. Patient agrees to proceed with procedure.
[2021-12-14] MEDS: ceFAZolin 2 GM/D5W 50 ML 2 GM/50 ML BAG IVPB (07:30)
[2021-12-14] MEDS: ceFAZolin SODIUM 1 GM VIAL 3 GM IRRIGATION (08:03)
[2021-12-14] MEDS: GENTAMICIN BONE CEMENT REFOBACIN 1 EACH TOPICAL (08:05)
[2021-12-14] MEDS: ceFAZolin SODIUM 1 GM VIAL IV PUSH (10:39)
[2021-12-14] MEDS: TRANEXAMIC ACID 1,000 MG/10 ML AMPUL 1000 MG IV PUSH (10:41)
--- NOTE | 2021-12-14 11:27 | W.PM.PROC2 ---
Procedure Note - Detailed Date of Procedure 12/14/21 Pre-op Diagnosis OA right knee and LEFT KNEE Post-op Diagnosis Same Procedure Performed RIGHT TOTAL KNEE ARTHROPLASTY, CORTISONE INJECTION LEFT KNEE Surgeon Luis Alberto Carter MD [employer] Wil[place] Anesthesia General Description of Procedure Patient was brought to the operating room and general anesthesia was administered. She received 2 g of Ancef weight based vancomycin 1 g of tranexamic acid preoperatively. The left knee was prepped with chlorhexidine alcohol prepped and 80 mg of Depo-Medrol 3 cc 1% lidocaine injected without difficulty. The right knee was prepped draped usual fashion. Limb was exsanguinated tourniquet elevated to 300 mmHg. She had at least 10 degree flexion contracture under anesthesia. Under anesthesia I could get her to bend about 105? this hard endpoint. Wilmer 7 in longitudinal midline incision was used and a vastus medialis splitting approach utilized splitting the vastus medialis at the superior pole of the patella. Infrapatellar and suprapatellar fat pads were excised a quadriceps synovectomy carried out. The patella measured 22 mm in thickness. It was scalloped centrally. It was cut to 16 mm and protector cap applied. Bone quality looks very good. A guide alfa was inserted down the femoral canal after aspiration of canal contents using 5 degree valgus cutting bushing 9 mm of bone removed the distal femur. Next the tibial plateau was cut attempting to make a skim cut off the low point of the medial tibial plateau.. This was a mm shy of the defect posteromedially on the tibia. This removed about 8.5 mm laterally. Meniscal remnants were excised and the PCL recessed. Flexion gap was too tight to accept the 8 mm spacer at 90? and the lateral side except the tight10 mm. Therefore, an additional 2 mm of bone removed the tibial plateau at this time. The cut was made perpendicular to the axis of the tibia. Flexion gap now measured 8 mm medially and 11 mm laterally. Sizing guide was applied the femur set at 4? of external rotation which matched Whitesides line. Posterior referencing pinholes were placed. The 62.5 cutting block was applied but we could see this was going to notch. She had a significant curve into flexion of the distal femur so we went up to the 65 and made cuts for the 65. The 65 course was too wide. The flexion gap seemed close. The lateral side was about 1 mm with the 10 CR at 90? of flexion and the medial side about a mm half. The tibia was punched after sizing this to a 67 placed at proper rotation which fit line to line medial to lateral anteromedial the posterolateral. It is displaced at proper rotation. Bone quality in the tibial plateau and distal femur was excellent. We trialed with the 10 insert. At 90? we had appropriate anterior stability with the 10 insert. We had removed medial tibial osteophyte and posteromedial tibial osteophyte. The medial side was slightly looser than the lateral side which I felt was appropriate. The knee was quite tight and extension. Satisfied with the rotation of the femur we elected to remove about a mm and half of distal femur and in doing so increased the flexion slightly. The 62.5 cutting block was now applied the femur in slight flexion and the anterior cut was made until her as flush with cortex and in this position we pinned the cutting block with the threaded pins maintain this position. Chamfer cuts were made and the size 62.5 femur fit nicely with no significant mediolateral overhang in the fit. Posterior femoral osteophytes were removed. We had made a provisional central posterior capsular release earlier but a more thorough posterior release was performed this time releasing the posterior capsule from the lateral gastroc tendon insertion to the medial gastroc tendon surface. On trialing, the knee with a 10 insert had a fairly positive bounce. There was no significant medial plate a valgus stress in fle
--- NOTE | 2021-12-14 11:44 | W.PM.PROC2 ---
Procedure Note - Detailed Date of Procedure 12/14/21 Pre-op Diagnosis OA right knee Post-op Diagnosis Same Procedure Performed see Surgeon Luis Alberto Carter MD Description of Procedure see Implants biomet Estimated Blood Loss -250.0 Tourniquet Time 105 Drains No Packing No Pathology None sent Complications No immediate complications Condition Stable Disposition PACU
[2021-12-14] MEDS: ONDANSETRON INJ 4 MG/2 ML VIAL IV PUSH ×2 (13:00→16:53)
--- NOTE | 2021-12-14 13:30 | SUR.PHASEI ---
this nurse was about to send pt up stairs and then pt started to become nauseated and sweating. VSS. pt denies any cp/sob jaw or shoulder pain. this nurse called dr strickland and he ordered 12.5 of Benadryl
[2021-12-14] MEDS: diphenhydrAMINE HCl INJ 50 MG/ML VIAL 12.5 MG IV PUSH (13:33)
--- NOTE | 2021-12-14 13:56 | PC.NURSE ---
This patient, Nayely Mtz, was admitted to 2 Medical Room 256-. Patient/family oriented to hospital policies and general routines including ID bracelet, bed and alarms, visiting hours, pain management, procedures, bathroom and other care routines, personal items, smoking policy, room service/diet, and visiting hours. Information on how to activate the Rapid Response Team has been discussed. Patient/Family are encouraged to report perceived risks to care and to ask questions if they do not understand what they are told or what they should do.
--- NOTE | 2021-12-14 14:00 | PCOTNOTE ---
Attempted OT evaluation, per RN hold due to patient not feeling well at this time, will follow.
[2021-12-14] MEDS: SODIUM CHLORIDE 0.9% IV 1,000 ML 125 ML IV CONT (14:29)
[2021-12-14] MEDS: DULoxetine HCL 20 MG CAPSULE.DR PO (16:49)
[2021-12-14] MEDS: SENNA/DOCUSATE SODIUM TABLET 2 TAB PO (16:49)
[2021-12-14] MEDS: oxyCODONE HCL (*CRX) 5 MG TAB IR PO ×2 (16:49→20:31)
[2021-12-14] MEDS: LOSARTAN POTASSIUM 50 MG TABLET PO (20:30)
[2021-12-14] MEDS: FAMOTIDINE 20 MG TABLET PO (20:30)
[2021-12-14] MEDS: hydroCHLOROthiazide 12.5 MG CAPSULE PO (20:30)
[2021-12-14] MEDS: ROSUVASTATIN 10 MG TABLET PO (20:31)
[2021-12-14] MEDS: TIZANIDINE HCL 2 MG TABLET PO (20:33)
[2021-12-14 20:55] LABS: Basophils Percent Auto 0.3 % (0.2-1.2); Eosinophils Absolute Auto 0.5 K/mm3 (0-0.3); Eosinophils Percent Auto 3.4 % (0-4.4); Hematocrit 37.8 % (37.0-47.0); Hemoglobin 12.3 g/dL (12.0-15.0); Immature Granulocyte Absolute 0.04 K/mm3 (0.00-0.031); Immature Granulocyte Percent A 0.3 % (0-0.5); Lymphocytes Percent Auto 7.3 % (18.3-44.2); Mean Corpuscular HGB Conc 32.5 g/dl (32-36); Mean Corpuscular Hemoglobin 30.7 pg (26-34); Mean Corpuscular Volume 94.3 fl (80-100); Mean Platelet Volume 9.6 fl (7.4-10.4); Monocytes Absolute Auto 0.8 K/mm3 (0.1-0.6); Neutrophils Absolute Auto 12.6 K/mm3 (1.3-6.7); Neutrophils Percent Auto 83.7 % (45.5-73.1); Platelet Count Result 232 k/mm3 (150-375); Red Blood Count 4.01 M/mm3 (4.2-5.4); Red Cell Distribution Width 13.3 % (11.5-14.5); White Blood Count 15.1 K/mm3 (4.5-10.0)
[2021-12-14 21:09] LABS: Alanine Aminotransferase 22 U/L (4-35); Albumin Level 3.9 g/dL (3.5-5.1); Alkaline Phosphatase 58 U/L (38-126); Anion Gap 9 mmol/L (8-16); Aspartate Amino Transferase 35 U/L (14-36); Bilirubin,Total 0.5 mg/dL (0.2-1.3); Blood Urea Nitrogen 14 mg/dL (7-17); Calcium 8.1 mg/dL (8.4-10.2); Carbon Dioxide 25 mmol/L (22-30); Chloride 102 mmol/L (98-107); Estimated CRCL calculation 58 ml/min; Estimated Glomerular Filt Rate > 60; Glucose 173 mg/dL (65-110); Potassium 3.6 mmol/L (3.4-5.0); Sodium 136 mmol/L (137-145)
[2021-12-14] MEDS: WATER FOR IRRIGATION, STERILE 1,000 ML BOTTLE 1000 ML (22:34)
[2021-12-14] MEDS: BENZOCAINE/MENTHOL (*BKC) 18 EA LOZENGE 1 LOZENGE PO (22:43)
--- NOTE | 2021-12-14 22:56 | PM.IMCN ---
Assessment and Plan Assessment and plan (1) JULIANNE (obstructive sleep apnea): Code(s): G47.33 - Obstructive sleep apnea (adult) (pediatric) Status: Acute Assessment and Plan: continue CPAP with home settings (2) Hypothyroid: Code(s): E03.9 - Hypothyroidism, unspecified Status: Acute Assessment and Plan: TSH normal, continue synthroid (3) Hypertension: Code(s): I10 - Essential (primary) hypertension Status: Acute Assessment and Plan: continue losartan and HCTZ, continue toprol xl (4) Hyperlipidemia: Code(s): E78.5 - Hyperlipidemia, unspecified Status: Acute Assessment and Plan: continue crestor (5) Arthritis: Code(s): M19.90 - Unspecified osteoarthritis, unspecified site Status: Acute Assessment and Plan: s/p R TKA and L knee steroid injection 12/14/21. Pain management per ortho. On DVT ppx with eliquis per ortho. Encouraged IS use (6) Leukocytosis: Code(s): D72.829 - Elevated white blood cell count, unspecified Status: Acute Assessment and Plan: likely 2/2 stress post-op, continue to monitor HPI Data of Consult Consult date: 12/14/21 Requesting Physician: Luis Alberto Carter MD Primary Care Provider: Jacinda Beck MD Consult Narrative Narrative: Nayely Mtz is a 81 year old female PMHx of hypothyroidism, JULIANNE on CPAP, HTN/HLD, gout. Presented for elective R TKA and L knee steroid injection. Patient denies any pain. Denies fevers/chills, SOB, cough, CP, palpitations, v/d/c, dysuria, hematuria, blood in stool. Patient states she was nauseous post-op, but now resolved. Review of Systems Review of Systems: 10 point ROS completed, negative unless otherwise specified per HPI PMFSH Past Medical History Medical History (Updated 12/14/21 @ 23:08 by John Galvan DO) Arthritis Fibromyalgia Hyperlipidemia Hypertension Hypothyroid JULIANNE (obstructive sleep apnea) SVT (supraventricular tachycardia) Social History Social History Years smoked: 15 Smoking status: Former smoker Second hand tobacco smoke exposure: No Additional smoking assessment comments: STATES <PK/DAY/15YRS-QUIT 1991, CURRENTLY DENIES ALL FORMS OF TOBBACO USE Alcohol intake: current Alcohol use details: STATES 1-2 DRINKS/MONTH Substance use: current Substance use type: marijuana Other substance usage details: 1 EDIBLE GUMMY NIGHTLY FOR SLEEP Last use: 12/01/21 Spiritual care concerns: No Meds Home Medications and Allergies Home Medications Medication Instructions Recorded Confirmed Type Cannabis 1 gummy 12/02/21 12/14/21 History Total Restore 1 tab-cap BID 12/02/21 12/14/21 History allopurinol 100 mg PO QAM 12/02/21 12/14/21 History cyanocobalamin (vitamin B-12) 2,500 mcg PO QAM 12/02/21 12/14/21 History duloxetine 20 mg PO BID 12/02/21 12/14/21 History levothyroxine 100 mcg PO QAM 12/02/21 12/14/21 History lidocaine 1 applic TOPICAL DAILY PRN 12/02/21 12/14/21 History losartan-hydrochlorothiazide 1 tablet HS 12/02/21 12/14/21 History melatonin 5 mg PO HS 12/02/21 12/14/21 History metoprolol succinate 25 mg PO QAM 12/02/21 12/14/21 History naproxen sodium [Aleve] 220 mg PO BID PRN 12/02/21 12/14/21 History oxybutynin chloride 10 mg PO QAM 12/02/21 12/14/21 History pantoprazole 40 mg PO QAM 12/02/21 12/14/21 History rosuvastatin 10 mg PO HS 12/02/21 12/14/21 History tizanidine 2 mg HS 12/02/21 12/14/21 History Allergies Allergy/AdvReac Type Severity Reaction Status Date / Time Penicillins Allergy Severe LIPS AND Verified 12/14/21 14:51 MOUTH SWELLED Sulfa (Sulfonamide Allergy Severe Rash, Verified 12/14/21 14:51 Antibiotics) ITCHING Vital Signs Vital Signs - 24 hr 12/14/21 06:01 12/14/21 11:35 12/14/21 11:50 Temperature 97.5 F L 98.2 F Pulse Rate 70 76 77 Respiratory Rate 20 10 L 11 L Blood Pressure 148/79
[2021-12-14] MEDS: MELATONIN 5 MG TABLET PO (23:22)
[2021-12-15 00:30] VITALS: BP 118/60; PULSE 80; RESP 14; TEMP 36.7; O2SAT 98
[2021-12-15 03:11] VITALS: PULSE 80; O2SAT 96
[2021-12-15] MEDS: BENZOCAINE/MENTHOL (*BKC) 18 EA LOZENGE 1 LOZENGE PO (05:00)
[2021-12-15] MEDS: oxyCODONE HCL (*CRX) 5 MG TAB IR PO ×4 (05:17→13:40)
[2021-12-15 05:46] VITALS: BP 120/52; PULSE 78; RESP 16; TEMP 36.4; O2SAT 95
[2021-12-15 06:16] LABS: Basophils Percent Auto 0.3 % (0.2-1.2); Hemoglobin 10.9 g/dL (12.0-15.0); Immature Granulocyte Absolute 0.04 K/mm3 (0.00-0.031); Immature Granulocyte Percent A 0.3 % (0-0.5); Lymphocytes Absolute Auto 1.59 K/mm3 (0.9-3.2); Lymphocytes Percent Auto 13.6 % (18.3-44.2); Mean Corpuscular HGB Conc 31.1 g/dl (32-36); Mean Corpuscular Hemoglobin 30.4 pg (26-34); Mean Corpuscular Volume 97.5 fl (80-100); Mean Platelet Volume 9.8 fl (7.4-10.4); Monocytes Percent Auto 8.4 % (2.6-8.5); Neutrophils Absolute Auto 9.1 K/mm3 (1.3-6.7); Neutrophils Percent Auto 77.4 % (45.5-73.1); Platelet Count Result 232 k/mm3 (150-375); Red Blood Count 3.59 M/mm3 (4.2-5.4); Red Cell Distribution Width 13.5 % (11.5-14.5); White Blood Count 11.7 K/mm3 (4.5-10.0)
[2021-12-15 06:24] LABS: Anion Gap 9 mmol/L (8-16); Blood Urea Nitrogen 15 mg/dL (7-17); Carbon Dioxide 25 mmol/L (22-30); Chloride 100 mmol/L (98-107); Estimated CRCL calculation 51 ml/min; Estimated Glomerular Filt Rate > 60; Glucose 158 mg/dL (65-110); Sodium 134 mmol/L (137-145)
--- NOTE | 2021-12-15 07:23 | PM.PNORT ---
Subjective Subjective Date/Time Seen: 12/15/21 07:23POD 1 avss alert, pt having a lot of nausea yesterday , no vomiting, PT unable to work with pt due to that, pt has been up to chair and to restroom multiple times overnight, dressing dry , pain is controlled well, plan to have pt work with PT today if does well plan to send home this afternoon, labs-noted Objective Data Vital Signs Vital Signs: Vital Signs - 24 hr 12/14/21 11:35 12/14/21 11:50 12/14/21 12:05 Temperature 36.8 C Pulse Rate 76 77 86 Respiratory Rate 10 L 11 L 12 Blood Pressure 136/66 141/66 H 134/68 Pulse Oximetry 94 93 93 12/14/21 12:25 12/14/21 12:40 12/14/21 12:55 Temperature Pulse Rate 91 81 82 Respiratory Rate 16 16 14 Blood Pressure 169/91 H 170/84 H 159/74 H Pulse Oximetry 94 95 95 12/14/21 13:10 12/14/21 13:25 12/14/21 13:40 Temperature Pulse Rate 75 80 74 Respiratory Rate 14 14 10 L Blood Pressure 169/88 H 156/85 H 160/57 H Pulse Oximetry 95 95 96 12/14/21 14:08 12/14/21 14:36 12/14/21 15:36 Temperature 36.5 C 36.7 C 36.3 C L Pulse Rate 78 78 79 Respiratory Rate 14 14 14 Blood Pressure 134/89 143/70 H 138/78 Pulse Oximetry 98 99 99 12/14/21 20:00 12/14/21 22:33 12/14/21 22:55 Temperature 36.5 C Pulse Rate 80 83 Respiratory Rate 16 Blood Pressure 152/64 H Pulse Oximetry 99 91 92 12/15/21 00:30 12/15/21 03:11 12/15/21 05:46 Temperature 36.7 C 36.4 C Pulse Rate 80 80 78 Respiratory Rate 14 16 Blood Pressure 118/60 120/52 L Pulse Oximetry 98 96 95 Intake/Output Intake/Output: Intake & Output 12/12/21 12/13/21 12/14/21 12/15/21 23:59 23:59 23:59 23:59 Intake Total 2500 550 Balance 2500 550 Meds/Results Medications: Active Medications Generic Name Dose Route Start Last Admin Trade Name Freq PRN Reason Stop Dose Admin Acetaminophen 1,000 mg 12/14/21 18:00 12/15/21 05:17 Acetaminophen 500 Mg Tablet PO Not Given Q6HR [facility] Allopurinol 100 mg 12/15/21 09:00 Allopurinol 100 Mg Tablet PO QAM [facility] Apixaban 2.5 mg 12/15/21 09:00 Apixaban 2.5 Mg Tablet PO 12/26/21 21:01 Q12HR [facility] Benzocaine 1 lozenge 12/14/21 22:16 12/15/21 05:00 Benzocaine/Menthol (*[facility]) 18 Ea Lozenge PO 1 lozenge PRN PRN Administration Sore Throat Cephalexin HCl 500 mg 12/15/21 12:00 Cephalexin 500 Mg Capsule PO Q6HR [facility] Diphenhydramine HCl 25 mg 12/14/21 13:51 Diphenhydramine Hcl Inj 50 Mg/Ml Vial IV PUSH Q6H PRN Itching Duloxetine HCl 20 mg 12/14/21 17:00 12/14/21 16:49 Duloxetine Hcl 20 Mg Capsule.Dr PO 20 mg BID [facility] Administration Famotidine 20 mg 12/14/21 21:00 12/14/21 20:30 Famotidine 20 Mg Tablet PO 20 mg Q12HR [facility] Administration Hydrochlorothiazide 12.5 mg 12/14/21 21:00 12/14/21 20:30 Hydrochlorothiazide 12.5 Mg Capsule PO 01/13/22 20:59 12.5 mg HS [facility] Administration Cefazolin Sodium 1 gm in 50 mls @ 100 mls/hr 12/14/21 15:00 12/15/21 06:49 Ancef 1 Gm/D5w 50 Ml Pm IVPB 12/15/21 07:29 100 mls/hr Q8H [facility] Administration Levothyroxine Sodium 100 mcg 12/15/21 09:00 Levothyroxine Sodium 100 Mcg Tablet PO QAM [facility] Losartan Potassium 50 mg 12/14/21 21:00 12/14/21 20:30 Losartan Potassium 50 Mg Tablet PO 01/13/22 20:59 50 mg HS [facility] Administration Magnesium Hydroxide 30 ml 12/14/21 13:51 Magnesium Hydroxide Susp 30 Ml Udc PO BID PRN Constipation Melatonin 5 mg 12/14/21 23:10 12/14/21 23:22 Melatonin 5 Mg Tablet PO 5 mg HS LAYNE Administration Meloxicam 7.5 mg 12/15/21 08:00 Meloxicam 7.5 Mg Tablet PO DAILY@0800 [facility] Metoprolol Succinate 25 mg 12/15/21 09:00 Metoprolol Succinate Ext Rel 25 Mg Tabcr PO QAM [facility] Naloxone HCl 0.1 mg 12/14/21 13:51 Naloxone Hcl 0.4 Mg/Ml Vial IV PUSH Q2M PRN Opiate Reversal Ondansetron HCl 4 mg 12/14/21 13:51 12/14/21 16:53 Ondansetron Inj 4 Mg/2 Ml Vial IV PUSH 4
--- NOTE | 2021-12-15 07:31 | PM.DS ---
DS: Admitting Diagnosis Discharge Date 12/15 Admitting Diagnosis Right knee DJD DS: Summary Hospital Course Hospital Course: Stable Time Spent with Patient Time attestation: Total time spent providing and/or coordinating discharge services: 81 y/o female who under went right total knee by dr Carter on 12/14. Patient had quite a bit of nausea postoperatively that improved overnight. No episodes of vomiting. She was up to the restroom overnight multiple times doing well. She sat up in the chair date of surgery tolerated this well. Overall pain is well controlled with the scheduled Tylenol as well as the oxycodone 5 mg and meloxicam 7.5 mg. Patient is weight-bearing as tolerated. She will be discharged to home on 12/15. She is on Eliquis for DVT prophylaxis. She was calm and Senokot and MiraLax. She is on a 10 day course of Keflex as well. Patient was advised to keep leg elevated to help with swelling she has outpatient therapy starting next Sunday. She was advise any questions or concerns she should call the office otherwise we will see her at her appointment date. DS: Data Data Completed and Pending Labs on day of discharge: Labs from last 24 hours 12/15/21 12/15/21 12/14/21 05:55 05:55 20:45 WBC 11.7 H RBC 3.59 L Hgb 10.9 L Hct 35.0 L MCV 97.5 MCH 30.4 MCHC 31.1 L RDW 13.5 Plt Count 232 MPV 9.8 Immature Gran % (Auto) 0.3 Neut % (Auto) 77.4 H Lymph % (Auto) 13.6 L [place] % (Auto) 8.4 Eos % (Auto) 0.0 Baso % (Auto) 0.3 Lymph # (Auto) 1.59 [place] # (Auto) 1.0 H Eos # (Auto) 0.0 Baso # (Auto) 0.0 Abs Immat Gran (auto) 0.04 H Absolute Neuts (auto) 9.1 H Absolute Nucleated RBC 0.0 Nucleated RBC % 0.0 Sodium 134 L Potassium 4.0 Chloride 100 Carbon Dioxide 25 Anion Gap 9 BUN 15 Creatinine 0.80 Estim Creat Clear Calc 51 Estimated GFR > 60 Glucose 158 H Calcium 8.0 L Total Bilirubin AST ALT Alkaline Phosphatase Total Protein Albumin TSH 0.680 12/14/21 12/14/21 20:45 20:45 WBC 15.1 H RBC 4.01 L Hgb 12.3 Hct 37.8 MCV 94.3 MCH 30.7 MCHC 32.5 RDW 13.3 Plt Count 232 MPV 9.6 Immature Gran % (Auto) 0.3 Neut % (Auto) 83.7 H Lymph % (Auto) 7.3 L [place] % (Auto) 5.0 Eos % (Auto) 3.4 Baso % (Auto) 0.3 Lymph # (Auto) 1.10 [place] # (Auto) 0.8 H Eos # (Auto) 0.5 H Baso # (Auto) 0.0 Abs Immat Gran (auto) 0.04 H Absolute Neuts (auto) 12.6 H Absolute Nucleated RBC 0.0 Nucleated RBC % 0.0 Sodium 136 L Potassium 3.6 Chloride 102 Carbon Dioxide 25 Anion Gap 9 BUN 14 Creatinine 0.70 Estim Creat Clear Calc 58 Estimated GFR > 60 Glucose 173 H Calcium 8.1 L Total Bilirubin 0.5 AST 35 ALT 22 Alkaline Phosphatase 58 Total Protein 7.0 Albumin 3.9 TSH Discharge Plan Discharge Patient Disposition: Home, Self-Care Discharge Instructions: LUIS ALBERTO CARTER M.D SOLOM[facility], [place] [address] [address] POST-OPERATIVE DISCHARGE INSTRUCTIONS TOTAL KNEE ARTHROPLASTY 1. When resting, lie on back with leg elevated above heart to minimize swelling. Significant swelling could indicate a blood clot and if this occurs call the office (or go to the ER) to have a venous ultrasound. 2. Do exercise 5 times a day. 3. Do not sit with leg down except for meals. 4. Wound Care: Nursing will give additional dressings at discharge. Patient to change dressing at home 1 week from surgery, then maintain until seen in office. 5. May shower with dressing in place. . Stand Alone Forms: General Discharge Instructions Follow-up/Referrals: Luis Alberto Carter MD [Physician] - Keep Reg. Scheduled Appt. Discharge Medications: New polyethylene glycol 3350 [Miralax] 17 gram Powder In Packet 17 g PO QAM Qty: 30 RF: 0 sennosides-docusate sodi
[2021-12-15] MEDS: allopurinoL 100 MG TABLET PO (08:28)
[2021-12-15] MEDS: APIXABAN 2.5 MG TABLET PO (08:29)
[2021-12-15] MEDS: PANTOPRAZOLE 40 MG TABLET PO (08:30)
[2021-12-15] MEDS: DULoxetine HCL 20 MG CAPSULE.DR PO (08:30)
--- NOTE | 2021-12-15 08:30 | PM.IMPN ---
Progress Note: A&P Assessment and Plan (1) S/P TKR (total knee replacement): Code(s): Z96.659 - Presence of unspecified artificial knee joint Status: Acute Assessment and Plan: POD 1 Post op care per ortho Analgesics and antiemetic on board PT/OT DVT per ortho (2) JULIANNE (obstructive sleep apnea): Code(s): G47.33 - Obstructive sleep apnea (adult) (pediatric) Status: Acute Assessment and Plan: continue CPAP with home settings (3) Hypothyroid: Code(s): E03.9 - Hypothyroidism, unspecified Status: Acute Assessment and Plan: TSH normal, continue synthroid (4) Hypertension: Code(s): I10 - Essential (primary) hypertension Status: Acute Assessment and Plan: Current BP is 145/70 seems stable continue losartan and HCTZ, continue toprol xl (5) Hyperlipidemia: Code(s): E78.5 - Hyperlipidemia, unspecified Status: Acute Assessment and Plan: continue crestor (6) Arthritis: Code(s): M19.90 - Unspecified osteoarthritis, unspecified site Status: Acute Assessment and Plan: s/p R TKA and L knee steroid injection 12/14/21. Pain management per ortho. On DVT ppx with eliquis per ortho. Encouraged IS use (7) Leukocytosis: Code(s): D72.829 - Elevated white blood cell count, unspecified Status: Acute Assessment and Plan: likely 2/2 stress post-op, continue to monitor Trending down and is 11.7 today Time Spent With Patient Time with patient: Greater than 35 minutes Subjective Date/time seen: 12/15/21 0830 Interval history: Patient is doing well today. It seems most of her issues from yesterday with nausea, vomiting, dizziness all were stem from anesthesia. She also states that she had a sore throat however she has been using throat lozenges which have been working well. Her other complaint was that she feels that she has not and her buttocks and thigh and was requesting something like Biofreeze. She has been walking and her pain with walking or pressure movement activity is 7 to 8/10 and stated that the medication does help. She is moving her leg back and forth and working her knee. She denies any chest pain, shortness a breath, nausea, vomiting, diarrhea, constipation, weakness or fatigue. Patient looks to be stable for discharge at this time Review of Systems Review of Systems: All systems reviewed & are unremarkable except as noted in HPI and below Exam Const: General: cooperative, healthy appearing, no acute distress, well developed, alert and awake Nutritional Appearance: well nourished Orientation/consciousness: oriented to person, oriented to place, oriented to time and patient oriented x3 Limitations: no limitations HENMT: Head: normal to inspection Ears: hearing grossly normal bilaterally General nose exam: Normal external nose present Mouth: Yes Normal oral and palatal mucosa present, Yes lip normal and Yes tongue normal Teeth and gingiva: abnormal tooth and associated gingiva and poor dentition Eyes: General: appearance normal, both eyes and all related structures Neck: Neck: normal visual inspection, full ROM, trachea midline and supple Chest: Chest palpation & inspection: normal inspection of the chest Resp: Effort & Inspection: normal respiratory effort and able to speak in complete sentences Auscultation: clear to auscultation bilaterally Cardio: Jugular venous distension: no JVD Rate: regular rate Rhythm: regular rhythm Heart sounds: S1 normal heart sound present and S2 normal heart sound present Peripheral pulses: Peripheral pulses 2+ throughout GI: Inspection: normal to inspection GI Palp: Yes Soft to palpation and No Tenderness to palpation present (GI) Auscultation: normal bowel sounds Skin: General skin exam: normal color Lesions: no lesions Rashes: no rashes Trauma: laceration Wounds: wounds
[2021-12-15] MEDS: METOPROLOL SUCCINATE EXT REL 25 MG TABCR PO (08:31)
[2021-12-15] MEDS: LEVOTHYROXINE SODIUM 100 MCG TABLET PO (08:31)
[2021-12-15] MEDS: MELOXICAM 7.5 MG TABLET PO (08:32)
[2021-12-15] MEDS: SENNA/DOCUSATE SODIUM TABLET 2 TAB PO (08:34)
[2021-12-15] MEDS: polyethylene glycoL 3350 17 GM POWD.PACK PO (08:41)
[2021-12-15 09:34] VITALS: BP 145/70; PULSE 84; RESP 12; TEMP 36.7; O2SAT 93
[2021-12-15] MEDS: FAMOTIDINE 20 MG TABLET PO (10:50)
[2021-12-15 11:36] VITALS: BP 135/52; PULSE 89; RESP 14; TEMP 36.2; O2SAT 96
[2021-12-15] MEDS: CEPHALEXIN 500 MG CAPSULE PO (11:55)
[2021-12-15] MEDS: ACETAMINOPHEN 500 MG TABLET 1000 MG PO (11:56)
--- NOTE | 2021-12-15 14:25 | P.PNAN_ITS ---
Anes - Prog Note Post-Op Date/Time: 12/15/21 14:25 Cardiovascular status: normal Respiratory status: normal Airway patency: baseline Mental status: baseline Post-Op hydration status: normal Vital Signs: Last Vital Signs Temp 36.2 C L 12/15/21 11:36 Pulse 89 12/15/21 11:36 Resp 14 12/15/21 11:36 BP 135/52 L 12/15/21 11:36 Pulse Ox 96 12/15/21 11:36 Pain Score (VAS): 4 I/O: Intake & Output 12/14/21 12/15/21 12/15/21 23:59 07:59 15:59 Intake Total 1300 550 600 Balance 1300 550 600 Laboratory Tests 12/15/21 05:55 12/15/21 05:55 12/14/21 12/14/21 12/14/21 20:45 20:45 20:45 WBC 15.1 H RBC 4.01 L Hgb 12.3 Hct 37.8 MCV 94.3 MCH 30.7 MCHC 32.5 RDW 13.3 Plt Count 232 MPV 9.6 Immature Gran % (Auto) 0.3 Neut % (Auto) 83.7 H Lymph % (Auto) 7.3 L [place] % (Auto) 5.0 Eos % (Auto) 3.4 Baso % (Auto) 0.3 Lymph # (Auto) 1.10 [place] # (Auto) 0.8 H Eos # (Auto) 0.5 H Baso # (Auto) 0.0 Abs Immat Gran (auto) 0.04 H Absolute Neuts (auto) 12.6 H Absolute Nucleated RBC 0.0 Nucleated RBC % 0.0 Sodium 136 L Potassium 3.6 Chloride 102 Carbon Dioxide 25 Anion Gap 9 BUN 14 Creatinine 0.70 Estim Creat Clear Calc 58 Estimated GFR > 60 Glucose 173 H Calcium 8.1 L Total Bilirubin 0.5 AST 35 ALT 22 Alkaline Phosphatase 58 Total Protein 7.0 Albumin 3.9 TSH 0.680 12/15/21 12/15/21 05:55 05:55 WBC 11.7 H RBC 3.59 L Hgb 10.9 L Hct 35.0 L MCV 97.5 MCH 30.4 MCHC 31.1 L RDW 13.5 Plt Count 232 MPV 9.8 Immature Gran % (Auto) 0.3 Neut % (Auto) 77.4 H Lymph % (Auto) 13.6 L [place] % (Auto) 8.4 Eos % (Auto) 0.0 Baso % (Auto) 0.3 Lymph # (Auto) 1.59 [place] # (Auto) 1.0 H Eos # (Auto) 0.0 Baso # (Auto) 0.0 Abs Immat Gran (auto) 0.04 H Absolute Neuts (auto) 9.1 H Absolute Nucleated RBC 0.0 Nucleated RBC % 0.0 Sodium 134 L Potassium 4.0 Chloride 100 Carbon Dioxide 25 Anion Gap 9 BUN 15 Creatinine 0.80 Estim Creat Clear Calc 51 Estimated GFR > 60 Glucose 158 H Calcium 8.0 L Total Bilirubin AST ALT Alkaline Phosphatase Total Protein Albumin TSH Patient Feedback: Patient satisfied with anesthetic care.
== END 2021-12-15 14:40 | disposition home or self-care (01) ==
LOC: ANHSURGERY 07:47 → ANH2MED 13:53
PROVIDERS: Internal Medicine; Physician Assistant Surgical; PCP Internal Medicine; Visit Provider Orthopaedic Surgery
PROC: (CPT 27447; principal; 2021-12-14 07:30)
DX: M17.0 Bilateral primary osteoarthritis of knee (principal); M25.561 Pain in right knee; E03.9 Hypothyroidism, unspecified; M19.90 Unspecified osteoarthritis, unspecified site; M79.7 Fibromyalgia; E78.5 Hyperlipidemia, unspecified; I10 Essential (primary) hypertension; G47.33 Obstructive sleep apnea (adult) (pediatric); I47.1 Supraventricular tachycardia; Z87.891 Personal history of nicotine dependence; E66.9 Obesity, unspecified; Z68.36 Body mass index [BMI] 36.0-36.9, adult; D72.829 Elevated white blood cell count, unspecified; F12.90 Cannabis use, unspecified, uncomplicated
CPT/HCPCS: 27447; 20610; 36415; 73560; 80048; 80053; 80307; 82040; 84443; 85025; 86850; 86900; 86901; 87070; 93005; 97110; 97116; 97161; 97165; 97530; A9270; C1713; C1776; J0171; J0690; J1040; J1100; J1200; J2250; J2270; J2405; J2704; J2795; J3010; J3370; J7030; J7120

== ENCOUNTER 2021-12-19 12:49 | Outpatient (RCR) | payer MEDICARE, SELFPAY ==
--- NOTE | 2021-12-19 13:48 | PTOPEVAL ---
Thank you for referring Nayely Mtz to [facility].? The patient is scheduled to be seen for therapy? ___2_x/week for 12 visits. Please review, sign, date and return this plan of care ALIVIA. I agree with and certify that the following plan of care is medically necessary. Referring Physician Date Admitting Provider: Attending Provider: Luis Alberto Carter MD Referring Provider: *PT Outpatient Evaluation Start: 12/19/21 13:06 Freq: Status: Active Protocol: Document 12/19/21 13:07 AMADOR (Rec: 12/19/21 13:24 AMADOR [id number]) Therapy Assessment Status Assessment Status Assessment Status Evaluation Outpatient Past Medical History Neurological History Hx Neurological Disorders No Significant History Cardiovascular History Hx Cardiac Arrhythmia Yes: SVT 2000 Hx Hypercholesterolemia Yes Hx Hypertension Yes Respiratory History Hx Sleep Apnea Yes: UTILIZES CPAP Gastrointestinal History Hx Irritable Bowel Yes Genitourinary History Hx Bladder Surgery Yes: BLADDER REPAIR FOR INCONTINENCE Musculoskeletal History Hx Arthritis Yes: GENERALIZED Hx Fibromyalgia Yes Hematological History Hx Hematological Disorders No Significant History Endocrine History Hx Hypothyroidism Yes HEENT History Hx Cataracts Yes: BILATERALLY REMOVED Hx Other HEENT Disorders Yes: GLASSES, TMJ RT SIDE Integumentary History Hx Skin Disorders No Significant History Reproductive History Hx Other Reproductive Disorders Yes: BSO WITH BLADDER REPAIR Psychosocial History Hx Depression Yes Pain History Has Past Pain Affected Your Daily Life Yes: ARTHRITIS Anesthesia History Hx Post-Op Nausea/Vomiting Yes Other History Hx Cancer Yes: CERVICAL Evaluation Information Problem Diagnosis Right TKA Onset 12/14/21 Subjective Information Pt. reports she underwent Query Text:As Reported By Patient/ right TKA last week. She Family states that she has been doing exercise at home. She reports that pain is in the front of the right knee. She reports that she is currently using a walker. She reports that she was independent with all IADL's prior to surgery and did not require use of an AD. She reports her goal is to return to walking normal. Pain Assessment Timing of Pain Assessment Timing of Pain Assessment P
== END 2022-01-26 17:47 | disposition home or self-care (01) ==
LOC: CHSPT 12:49
PROVIDERS: Visit Provider Orthopaedic Surgery
DX: M17.11 Unilateral primary osteoarthritis, right knee (principal); Z96.651 Presence of right artificial knee joint
CPT/HCPCS: 97016; 97110; 97112; 97116; 97161; 97530

== ENCOUNTER 2022-03-20 07:16 | Outpatient (CLI) | payer MEDICARE, SELFPAY ==
[2022-03-20 07:35] LABS: Add Urine Microscopic? NO; Appearance Urine Clear (Clear); Bilirubin Urine Negative (Negative); Blood Urine Negative (Negative); Color Urine Yellow (Yellow); Glucose Urine UA Negative (Negative); Ketones Urine Negative (Negative); Leukocyte Esterase Ur Negative (Negative); Nitrate Urine Negative (Negative); Protein Urine Negative (Negative); Specific Grav Ur 1.025 (1.010-1.020); Urobilinogen Urine 0.2 mg/dL (0.2-1.0); pH Urine 5.5 (5.0-8.0)
[2022-03-20 07:43] LABS: Basophils Absolute Auto 0.04 K/mm3 (0.00-0.10); Basophils Percent Auto 0.5 % (0.0-1.0); Eosinophils Absolute Auto 0.33 K/mm3 (0.02-0.50); Eosinophils Percent Auto 3.9 % (1.0-6.0); Hematocrit 39.2 % (35.0-42.0); Hemoglobin 12.6 g/dL (11.7-13.8); Immature Granulocyte Absolute 0.02 K/mm3 (0.00-0.00); Immature Granulocyte Percent A 0.2 % (0.0-0.0); Lymphocytes Absolute Auto 3.73 K/mm3 (1.10-4.50); Lymphocytes Percent Auto 43.7 % (18.0-42.0); Mean Corpuscular HGB Conc 32.1 g/dL (32.0-36.0); Mean Corpuscular Volume 90.1 fL (78.0-102.0); Mean Platelet Volume 9.5 fl (9.2-11.8); Monocytes Absolute Auto 0.52 K/mm3 (0.10-0.90); Monocytes Percent Auto 6.1 % (2.0-11.0); Neutrophils Absolute Auto 3.9 K/mm3 (1.7-7.2); Neutrophils Percent Auto 45.6 % (50.0-70.0); Platelet Count Result 300 K/mm3 (150-420); Red Blood Count 4.35 M/mm3 (4.20-5.40); Red Cell Distribution Width 13.7 % (11.6-14.4); White Blood Count 8.5 K/mm3 (4.8-10.8)
[2022-03-20 09:04] LABS: Hemoglobin A1C 6.4 % (<5.7)
[2022-03-20 09:09] LABS: Erythrocyte Sedimentation Rate 47 mm/hr (0-20)
[2022-03-20 09:24] LABS: Alanine Aminotransferase 24 U/L (14-59); Albumin Level 3.3 g/dL (3.4-5.0); Alkaline Phosphatase 86 U/L (46-116); Anion Gap 8 mmol/L (8-16); Aspartate Amino Transferase 18 U/L (15-37); Bilirubin,Total 0.3 mg/dL (0.00-1.00); Blood Urea Nitrogen 18 mg/dL (7-18); CRP < 0.2 mg/dL (0.0-0.9); Calcium 9.1 mg/dL (8.5-10.1); Carbon Dioxide 31 mmol/L (21-32); Chloride 105 mmol/L (98-108); Cholesterol 148 mg/dL (0-200); Creatine Kinase 84 U/L (26-192); Estimated Glomerular Filt Rate 55; Free T3 2.45 pg/mL (2.18-3.98); Free T4 Free Thyroxine 1.06 ng/dL (0.76-1.46); Glucose 104 mg/dL (70-99); HDL Direct 45 mg/dL (40-60); LDL Cholesterol Calculated 61 mg/dL (<130); Osmolality Calculated 299 mOsm/kg (285-295); Potassium 4.1 mmol/L (3.5-5.1); Sodium 144 mmol/L (136-145); Thyroid Stimulating Hormone 1.15 uIU/mL (0.36-3.74); Total Protein 6.5 g/dL (6.4-8.2); Triglycerides 212 mg/dL (0-150); Vitamin B12 1137 pg/mL (193-986)
[2022-03-22 22:29] LABS: Vitamin D 25 Hydroxy 26 ng/mL (30-100)
== END 2022-03-20 07:17 | disposition home or self-care (01) ==
LOC: CHSLAB 07:18
PROVIDERS: PCP Internal Medicine; Visit Provider Internal Medicine
DX: G62.9 Polyneuropathy, unspecified (principal); I10 Essential (primary) hypertension; E79.0 Hyperuricemia without signs of inflammatory arthritis and tophaceous disease; E78.2 Mixed hyperlipidemia; E03.4 Atrophy of thyroid (acquired); M81.0 Age-related osteoporosis without current pathological fracture; R73.01 Impaired fasting glucose
CPT/HCPCS: 36415; 80053; 80061; 81003; 82306; 82550; 82607; 83036; 84439; 84443; 84481; 85025; 85652; 86140

== ENCOUNTER 2022-10-02 09:43 | Outpatient (CLI) | payer MEDICARE, SELFPAY ==
--- NOTE | ~2022-10-02 | MM_ITS ---
EXAMINATION: MM screening johnson BI w anton HISTORY: Screening mammogram TECHNIQUE: Craniocaudal and mediolateral oblique 3-D tomosynthesis images were obtained and synthetic 2-D images were generated. CAD analysis was submitted and interpreted. COMPARISON: September 30, 2021 bilateral screening mammogram August 20, 2020 diagnostic left mammogram and limited left breast ultrasound 02/16/2020 diagnostic left mammogram and limited left breast ultrasound 02/09/2020 bilateral screening mammogram BREAST PARENCHYMAL COMPOSITION: FINDINGS: There is a biopsy marker in each breast. History of bilateral benign breast biopsies. Circumscribed 1.4 cm opacity is noted in the inner aspect of the mid to upper outer left breast; this has benign mammographic features.. Possible architectural distortion in the anterior mid to upper outer left breast. Diagnostic left mammogram and left breast ultrasound examination are recommended. Otherwise there is no evidence of suspicious mass, calcification, or architectural distortion to sug gest malignancy in either breast. There has been no is another suspicious interval change. IMPRESSION: 1. Possible architectural distortion in the mid to upper outer left breast 2. Diagnostic left mammogram and left breast ultrasound examination are recommended. BI-RADS Category 0: Incomplete: Needs additional imaging evaluation. Reviewed, dictated and finalized at location A. LESS TUBE DRAWER IMPRESSION: 1. Possible architectural distortion in the mid to upper outer left breast 2. Diagnostic left mammogram and left breast ultrasound examination are recomme nded. BI-RADS Category 0: Incomplete: Needs additional imaging evaluation.
[2022-10-02 09:56] LABS: Basophils Absolute Auto 0.03 K/mm3 (0.00-0.10); Basophils Percent Auto 0.4 % (0.0-1.0); Eosinophils Percent Auto 3.7 % (1.0-6.0); Hematocrit 39.7 % (35.0-42.0); Immature Granulocyte Absolute 0.02 K/mm3 (0.00-0.00); Immature Granulocyte Percent A 0.2 % (0.0-0.0); Lymphocytes Absolute Auto 3.06 K/mm3 (1.10-4.50); Lymphocytes Percent Auto 38.1 % (18.0-42.0); Mean Corpuscular HGB Conc 32.7 g/dL (32.0-36.0); Mean Corpuscular Hemoglobin 29.5 pg (27.0-31.0); Mean Corpuscular Volume 90.2 fL (78.0-102.0); Mean Platelet Volume 9.2 fl (9.2-11.8); Monocytes Absolute Auto 0.46 K/mm3 (0.10-0.90); Monocytes Percent Auto 5.7 % (2.0-11.0); Neutrophils Absolute Auto 4.2 K/mm3 (1.7-7.2); Neutrophils Percent Auto 51.9 % (50.0-70.0); Platelet Count Result 278 K/mm3 (150-420); Red Cell Distribution Width 14.3 % (11.6-14.4)
[2022-10-02 10:01] LABS: Add Urine Microscopic? YES; Appearance Urine Clear (Clear); Bilirubin Urine Negative (Negative); Blood Urine Negative (Negative); Color Urine Light Yellow (Yellow); Glucose Urine UA Negative (Negative); Ketones Urine Negative (Negative); Leukocyte Esterase Ur Trace (Negative); Nitrate Urine Negative (Negative); Protein Urine Negative (Negative); Specific Grav Ur 1.025 (1.010-1.020); Urobilinogen Urine 0.2 mg/dL (0.2-1.0)
[2022-10-02 10:07] LABS: Bacteria Urine Trace /hpf; RBC Urine None seen /hpf (0-2); Squamous Epithelial Cell Urine Few /hpf (Few); WBC Urine 0-3 /hpf (0-3)
[2022-10-02 10:08] LABS: Hemoglobin A1C 6.2 % (<5.7)
[2022-10-02 10:12] LABS: Creatinine Urine 139.15 mg/dL (40-278); MALB Creatinine Ratio 9.3 mg/g (0-30); Microalbumin Urine Random < 13.0 mg/L
[2022-10-02 10:40] LABS: Alanine Aminotransferase 23 U/L (14-59); Albumin Level 3.6 g/dL (3.4-5.0); Alkaline Phosphatase 88 U/L (46-116); Anion Gap 6 mmol/L (8-16); Aspartate Amino Transferase 18 U/L (15-37); Bilirubin,Total 0.5 mg/dL (0.00-1.00); Blood Urea Nitrogen 14 mg/dL (7-18); Calcium 8.9 mg/dL (8.5-10.1); Carbon Dioxide 32 mmol/L (21-32); Chloride 106 mmol/L (98-108); Creatine Kinase 89 U/L (26-192); Estimated Glomerular Filt Rate > 60; Free T3 2.42 pg/mL (2.18-3.98); Free T4 Free Thyroxine 1.08 ng/dL (0.76-1.46); Glucose 97 mg/dL (70-99); Osmolality Calculated 298 mOsm/kg (285-295); Potassium 3.9 mmol/L (3.5-5.1); Sodium 144 mmol/L (136-145); Thyroid Stimulating Hormone 1.74 uIU/mL (0.36-3.74); Uric Acid 5.9 mg/dL (2.6-6.0)
[2022-10-03 17:42] LABS: Cholesterol 151 mg/dL (0-200); HDL Direct 48 mg/dL (40-60); LDL Cholesterol Calculated 73 mg/dL (<130); Triglycerides 148 mg/dL (0-150)
== END 2022-10-02 09:44 | disposition home or self-care (01) ==
LOC: CHSIMG 09:45
PROVIDERS: PCP Internal Medicine; Visit Provider Internal Medicine
DX: Z12.31 Encounter for screening mammogram for malignant neoplasm of breast (principal); E03.4 Atrophy of thyroid (acquired); I10 Essential (primary) hypertension; E78.2 Mixed hyperlipidemia; E79.0 Hyperuricemia without signs of inflammatory arthritis and tophaceous disease; E11.42 Type 2 diabetes mellitus with diabetic polyneuropathy; R92.8 Other abnormal and inconclusive findings on diagnostic imaging of breast
CPT/HCPCS: 36415; 77063; 77067; 80053; 80061; 81001; 82043; 82550; 83036; 84439; 84443; 84481; 84550; 85025

== ENCOUNTER 2022-10-09 09:23 | Outpatient (CLI) | payer MEDICARE, SELFPAY ==
--- NOTE | ~2022-10-09 | MMUS_ITS ---
EXAMINATION: MM diagnostic johnson LT w anton, US breast LT complete HISTORY: Possible architectural distortion reported in anterior mid to upper outer left breast on Sep screening mammogram TECHNIQUE: Additional 3-D tomosynthesis images of the left breast were performed and synthetic 2-D im ages were generated. CAD analysis was submitted and interpreted. High resolution complete left breast ultrasound examination including all 4 quadrants and subareolar area was performed. COMPARISON: October 02, 2022 bilateral screening mammogram FINDINGS: MAMMOGRAPHIC FINDINGS: There is a circumscribed approximately 12 mm opacity in the anterior upper outer left breast, likely benign. There is focal architectural distortion and an adjacent biopsy marker in the upper inner to mid left breast. History of prior benign left breast biopsy. ULTRASOUND: 2:00 near nipple: 9.9 x 13.6 x 11.8 mm sonolucency with through transmission posterior enhancement, c onsistent with simple cyst. 6:00 near nipple: 2.5 x 2.6 x 2.1 mm cyst No suspicious mass or shadowing or other significant sonographic abnormality of the left breast is de tected. IMPRESSION: 1. Benign findings 2. Routine annual mammographic screening is recommended BI-RADS Category 2: Benign finding(s). Reviewed, dictated and finalized at location A. T OFFICE SPEC IMPRESSION: 1. Benign findings 2. Routine annual mammographic screening is recommended BI-RADS Category 2: Benign finding(s).
== END 2022-10-09 09:24 | disposition home or self-care (01) ==
LOC: CHSIMG 09:24
PROVIDERS: PCP Internal Medicine; Visit Provider Internal Medicine
DX: R92.8 Other abnormal and inconclusive findings on diagnostic imaging of breast (principal)
CPT/HCPCS: 76641; 77061; 77065; G0279

== ENCOUNTER 2023-01-26 14:18 | Outpatient (RCR) | payer MEDICARE, SELFPAY ==
--- NOTE | 2023-01-26 14:04 | PTOPEVAL1 ---
Assessment and note entered by JT File, PT Evaluation Information Assessment Status Evaluation Diagnosis lower back pain, sciatica Onset 01/10/23 Subjective Information patient reports she has been having symptoms for a few months. she reports she has pain from the back down the bilateral legs. she reports it runs down the glutes and to the sides of the legs. she reports it will switch from side to side. she reports she also feels she has knots in her thighs. she reports she has tried steroids and mm relaxors/anti-inflamatories. she reports the pain will still come and go. she reports today is a better day, but sitting too long causes increased pain and stiffness. she reports she does not feel even with her hips. she reports she does wear a lift on the L LE. she reports she has increased pain with standing, walking, and lifting. she reports prior to a few months she was able to clean house, sit, and standing without limitations or pain. she reports she also was not having an issue with steps prior to her symptoms beginning, but now has increased pain and has to hold onto the door jams to get up steps. Reported Pain Level Pain Score 1: Self Report Assessment PT Clinical Summary mrs. hicks is an 82 yo woman who presents to skilled PT services for evaluation and treatment of lower back pain/sciatica. she presents with deficits in trunk mobility, LE strength, core stability, and is tender to palpation in the bilateral hips/buttocks. she would benefit from continued skilled PT and exercises to improve her objective/functional deficits and progress towards a return to her prior level functional activity performance and quality of life. Plan of Care Interventions Electrical Stimulation,Gait Training,Hot Pack/Cold Pack,Manual Therapy,Neuro Re-education,Patient/ Caregiver Educati,Therapeutic Activities, Therapeutic Exercise PT Services Indicated Yes Treatment Frequency and 3x weekly for 12 visits Duration These treatments will address the objective and functional deficits as defined above. The patient will be advanced safely and appropriately in order for the patient to progress towards his/her prior level of function. Additional exercises will be introduced and as well as a comprehensive home exercise program upon discharge, if needed, ?to ensure carryover of functional gains achieved in the clinic. This treatment plan has been reviewed and agreement upon by the patient.
== END 2023-02-26 14:09 | disposition home or self-care (01) ==
LOC: CHSPT 14:18
PROVIDERS: Visit Provider Orthopaedic Surgery
DX: M54.50 Low back pain, unspecified (principal); H81.13 Benign paroxysmal vertigo, bilateral
CPT/HCPCS: 95992; 97014; 97110; 97140; 97161; G0283

== ENCOUNTER 2023-04-01 13:21 | Outpatient (CLI) | payer MEDICARE, SELFPAY ==
--- NOTE | ~2023-04-01 | MR_ITS ---
EXAMINATION: MR lumbar spine wo con DATE: 04/01/2023 14:14 INDICATION: Low back pain. TECHNIQUE: Magnetic resonance imaging (MRI) of the lumbar spine was performed without intravenous con trast. Sequences included sagittal T2-weighted FSE, sagittal T2-weighted FS FSE, sagittal T1-weighted FSE, and axial T2-weighted FSE. COMPARISON: Lumbar spine MRI 02/16/2021 FINDINGS: There is 3 degrees levocurvature of lumbar spine. There is 6 mm anterolisthesis of L4 on L5 and 4 mm anterolisthesis of L5 on S1. There are Schmorl's nodes at multiple levels. There is mildly decreased disc height at L3-L4 and L4-L5. The distal spinal cord signal intensity is normal. The conu s medullaris is at T12-L1. The following disc levels are specifically discussed: L1-L2: The disc is bulging. There is mild bilateral facet joint osteoarthritis. There is mild left ne ural foraminal stenosis. There is mild central canal stenosis. L2-L3: The disc is bulging. There is severe right and mild left facet joint osteoarthritis. There is mild bilateral neural foraminal stenosis. There is mild central canal stenosis. L3-L4: The disc is bulging. There is severe right and moderate left facet joint osteoarthritis. There is mild bilateral neural foraminal stenosis. There is mild central canal stenosis. L4-L5: The disc is bulging. There is severe bilateral facet joint osteoarthritis. There is mild bilat eral neural foraminal stenosis. There is mild central canal stenosis. L5-S1: The disc is bulging. There is severe bilateral facet joint osteoarthritis. There is mild left neural foraminal stenosis. There is mild central canal stenosis. IMPRESSION: 1. Mild lumbar spondylosis, stable from 02/16/2021. Reviewed, dictated and finalized at location A.
== END 2023-04-01 13:22 | disposition home or self-care (01) ==
LOC: ANHIMG 13:25
PROVIDERS: PCP Internal Medicine; Visit Provider Physician Assistant Surgical
DX: M47.896 Other spondylosis, lumbar region (principal)
CPT/HCPCS: 72148

== ENCOUNTER 2023-05-02 08:03 | Outpatient (CLI) | payer MEDICARE, SELFPAY ==
[2023-05-02 08:17] LABS: Basophils Absolute Auto 0.03 K/mm3 (0.00-0.10); Basophils Percent Auto 0.4 % (0.0-1.0); Eosinophils Absolute Auto 0.28 K/mm3 (0.02-0.50); Eosinophils Percent Auto 4.2 % (1.0-6.0); Hematocrit 38.2 % (35.0-42.0); Hemoglobin 12.3 g/dL (11.7-13.8); Immature Granulocyte Absolute 0.02 K/mm3 (0.00-0.00); Immature Granulocyte Percent A 0.3 % (0.0-0.0); Lymphocytes Absolute Auto 2.91 K/mm3 (1.10-4.50); Lymphocytes Percent Auto 43.2 % (18.0-42.0); Mean Corpuscular HGB Conc 32.2 g/dL (32.0-36.0); Mean Corpuscular Hemoglobin 28.9 pg (27.0-31.0); Mean Corpuscular Volume 89.9 fL (78.0-102.0); Mean Platelet Volume 9.4 fl (9.2-11.8); Monocytes Absolute Auto 0.58 K/mm3 (0.10-0.90); Monocytes Percent Auto 8.6 % (2.0-11.0); Neutrophils Absolute Auto 2.9 K/mm3 (1.7-7.2); Neutrophils Percent Auto 43.3 % (50.0-70.0); Platelet Count Result 258 K/mm3 (150-420); Red Blood Count 4.25 M/mm3 (4.20-5.40); Red Cell Distribution Width 15.6 % (11.6-14.4); White Blood Count 6.7 K/mm3 (4.8-10.8)
[2023-05-02 08:30] LABS: Appearance Urine Clear (Clear); Bilirubin Urine Negative (Negative); Blood Urine Negative (Negative); Color Urine Yellow (Yellow); Glucose Urine UA Negative (Negative); Ketones Urine Negative (Negative); Leukocyte Esterase Ur Negative (Negative); Nitrate Urine Negative (Negative); Protein Urine Negative (Negative); Specific Grav Ur >= 1.030 (1.010-1.020); Urobilinogen Urine 0.2 mg/dL (0.2-1.0); pH Urine 5.5 (5.0-8.0)
[2023-05-02 08:34] LABS: Add Urine Microscopic? NO
[2023-05-02 08:38] LABS: Creatinine Urine 287.96 mg/dL (40-278); Hemoglobin A1C 6.2 % (<5.7); MALB Creatinine Ratio 4.5 mg/g (0-30); Microalbumin Urine Random < 13.0 mg/L
[2023-05-02 09:24] LABS: Alanine Aminotransferase 25 U/L (14-59); Albumin Level 3.3 g/dL (3.4-5.0); Alkaline Phosphatase 72 U/L (46-116); Anion Gap 11 mmol/L (8-16); Aspartate Amino Transferase 27 U/L (15-37); Bilirubin,Total 0.4 mg/dL (0.00-1.00); Blood Urea Nitrogen 19 mg/dL (7-18); Carbon Dioxide 27 mmol/L (21-32); Chloride 108 mmol/L (98-108); Cholesterol 137 mg/dL (0-200); Creatine Kinase 65 U/L (26-192); Estimated Glomerular Filt Rate > 60; Free T3 2.27 pg/mL (2.18-3.98); Free T4 Free Thyroxine 0.93 ng/dL (0.76-1.46); Glucose 97 mg/dL (70-99); HDL Direct 48 mg/dL (40-60); LDL Cholesterol Calculated 64 mg/dL (<130); Osmolality Calculated 304 mOsm/kg (285-295); Potassium 4.2 mmol/L (3.5-5.1); Sodium 146 mmol/L (136-145); Thyroid Stimulating Hormone 5.82 uIU/mL (0.36-3.74); Total Protein 6.3 g/dL (6.4-8.2); Triglycerides 124 mg/dL (0-150); Vitamin B12 676 pg/mL (193-986)
== END 2023-05-02 08:04 | disposition home or self-care (01) ==
LOC: CHSLAB 08:05
PROVIDERS: PCP Internal Medicine; Visit Provider Internal Medicine
DX: E78.2 Mixed hyperlipidemia (principal); I10 Essential (primary) hypertension; E03.4 Atrophy of thyroid (acquired); G62.9 Polyneuropathy, unspecified; E11.42 Type 2 diabetes mellitus with diabetic polyneuropathy; E79.0 Hyperuricemia without signs of inflammatory arthritis and tophaceous disease
CPT/HCPCS: 36415; 80053; 80061; 81003; 82043; 82550; 82607; 83036; 84439; 84443; 84481; 85025

== ENCOUNTER 2023-05-18 08:56 | Outpatient (CLI) | payer MEDICARE, SELFPAY ==
--- NOTE | ~2023-05-18 | CT_ITS ---
EXAMINATION: CT abdomen pelvis w con DATE: 05/18/2023 09:29 INDICATION: Left lower quadrant abdominal pain TECHNIQUE: Computed tomography (CT) of the abdomen and pelvis was performed with 100 CC Omnipaque 350 intravenous contrast. Automated exposure control and iterative reconstruction technique were employe d. Exam dose: 1005.89 mGy-cm total exam DLP. COMPARISON: 12/12/2017 CT abdomen pelvis FINDINGS: The lung bases are clear. Heart size is within normal limits. No pericardial or pleural eff usion. Small sliding hiatal hernia. Suspected stones in the dependent aspect of the gallbladder; ultrasound would be more definitive for evaluation of the gallbladder. Hepatic steatosis. No hepatic, splenic, pancreatic, adrenal space-occupying mass lesion. No bile duct or pancreatic duct dilatation or pancreatic calcification. No splenomegaly. Heterogeneous approximately 1.6 hypoenhancing mass lesion is noted in the medial aspect of the upper pole the right kidney. Hypernephroma is suspected. 1.4 cm right renal cyst. A couple of additional very small right renal cysts are suggested. No left renal mass lesion is detected. No urinary tract calculus or hydroureteronephrosis. Status post hysterectomy. Diverticulosis of the colon; no CT evidence of diverticulitis. No bowel obstruction, bowel wall thick ening, pneumatosis or intraperitoneal free air is detected. Small fat-containing umbilical hernia. Prominent degenerative change at the apophyseal joints of the lumbar spine with associated grade 1 an terolisthesis at L4-5. Diffuse idiopathic skeletal hyperostosis of the thoracolumbar spine. No suspicious osteolytic or osteoblastic lesions are identified. IMPRESSION: Diverticulosis of the colon; no CT evidence of diverticulitis 1.6 cm medial upper pole right renal soft tissue mass suspicious for hypernephroma Right renal cysts Hepatic steatosis. Suspected cholelithiasis; consider gallbladder confirmation Small sliding hiatal hernia. Status post hysterectomy Reviewed, dictated and finalized at [facility]. Reviewed, dictated and finalized at location B. IMPRESSION: Diverticulosis of the colon; no CT evidence of diverticulitis 1.6 cm medial upper pole right renal soft tissue mass suspicious for hypernephr semaj Right renal cysts Hepatic steatosis. Suspected cholelithiasis; consider gallbladder confirmation Small sliding hiatal hernia. Status post hysterectomy
== END 2023-05-18 08:57 | disposition home or self-care (01) ==
LOC: CHSIMG 08:57
PROVIDERS: PCP Internal Medicine; Visit Provider Internal Medicine
DX: R10.32 Left lower quadrant pain (principal); K57.90 Diverticulosis of intestine, part unspecified, without perforation or abscess without bleeding; N28.89 Other specified disorders of kidney and ureter; K76.0 Fatty (change of) liver, not elsewhere classified; K44.9 Diaphragmatic hernia without obstruction or gangrene; Z90.710 Acquired absence of both cervix and uterus
CPT/HCPCS: 74177; Q9967

== ENCOUNTER 2023-05-30 14:09 | Outpatient (CLI) | payer MEDICARE, SELFPAY ==
--- NOTE | ~2023-05-30 | MR_ITS ---
EXAMINATION: MR abdomen wo/w con DATE: 05/30/2023 15:28 INDICATION: Renal cell carcinoma. TECHNIQUE: Magnetic resonance imaging (MRI) of the abdomen was performed without and with 17 mL Multi Ben intravenous contrast. COMPARISON: CT abdomen and pelvis 05/18/2023 FINDINGS: There is diffuse hepatic steatosis. There is a small sliding hiatal hernia. There are gallstones in t he gallbladder, which is contracted. There is cystic dilatation of the fundus of the gallbladder, con sistent with adenomyomatosis. The spleen, pancreas, and adrenal glands are normal. There are cysts in the kidneys measuring up to 13 mm on the right. There is a 16 mm enhancing mass in right kidney cont aining fat, consistent with an angiomyolipoma. There are no dilated loops of bowel. There are no path ologically enlarged lymph nodes. There is no free intraperitoneal fluid. IMPRESSION: 1. 16 mm mass containing fat in right kidney, consistent with an angiomyolipoma. Reviewed, dictated and finalized at location E. IMPRESSION: 1. 16 mm mass containing fat in right kidney, consistent with an angiomyolipoma .
== END 2023-05-30 14:10 | disposition home or self-care (01) ==
PROVIDERS: PCP Internal Medicine; Visit Provider Internal Medicine
DX: C64.1 Malignant neoplasm of right kidney, except renal pelvis (principal)
CPT/HCPCS: 74183; A9577

== ENCOUNTER 2023-06-06 06:23 | Day surgery (SDC) | payer MEDICARE, SELFPAY ==
[2023-05-30 14:54] VITALS: BMI 35.6
[2023-06-06 07:13] VITALS: BP 162/71; PULSE 73; RESP 16; TEMP 36.3; O2SAT 97
[2023-06-06] MEDS: LACTATED RINGERS 1,000 ML 150 ML IV CONT (07:21)
--- NOTE | 2023-06-06 08:22 | WPDANESEPPF ---
Anes - Initial Pre Proc Eval Procedure: Operation Date: 06/06/23 08:30 Proposed Procedures p Diagnostic Colonoscopy - Wei Kinney DO Date/Time: 06/06/23 08:22 Surgeon: Wei Kinney DO Pre Op Diagnosis: Change in bowel habits, LLQ pain Patient Data Age: 82 Gender: F Height: 1.57 m Weight: 86.5 kg Last Vital Signs Temp 36.3 C L 06/06/23 07:13 Pulse 73 06/06/23 07:13 Resp 16 06/06/23 07:13 BP 162/71 H 06/06/23 07:13 Pulse Ox 97 06/06/23 07:13 O2 Del Method Room Air 06/06/23 07:13 Allergies Allergy/AdvReac Type Severity Reaction Status Date / Time Penicillins Allergy Severe LIPS AND Verified 06/06/23 07:13 MOUTH SWELLED Sulfa (Sulfonamide Allergy Severe Rash, Verified 06/06/23 07:13 Antibiotics) ITCHING Home Medications Medication Instructions Recorded Confirmed Type allopurinol 100 mg tablet 100 mg PO QAM 12/02/21 06/06/23 History duloxetine 20 mg capsule,delayed 20 mg PO BID 12/02/21 06/06/23 History release levothyroxine 100 mcg tablet 100 mcg PO QAM 12/02/21 06/06/23 History losartan 50 mg-hydrochlorothiazide 1 tablet HS 12/02/21 06/06/23 History 12.5 mg tablet metoprolol succinate 25 mg 25 mg PO QAM 12/02/21 06/06/23 History tablet,extended release 24 hr oxybutynin chloride 10 mg 10 mg PO QAM 12/02/21 06/06/23 History tablet,extended release 24 hr pantoprazole 40 mg tablet,delayed 40 mg PO QAM 12/02/21 06/06/23 History release rosuvastatin 10 mg tablet 10 mg PO HS 12/02/21 06/06/23 History tizanidine 4 mg tablet 2 mg HS 12/02/21 06/06/23 History polyethylene glycol 3350 17 gram 17 g PO QAM #30 ea 12/15/21 06/06/23 Rx oral powder packet (Miralax) sennosides 8.6 mg-docusate sodium 2 tab PO BID #60 tabs 12/15/21 06/06/23 Rx 50 mg tablet (Senokot-S) Adult One Daily Multivitamin 1 cap PO DAILY 05/31/23 06/06/23 History cholecalciferol (vitamin D3) 1 cap PO DAILY 05/31/23 06/06/23 History meloxicam 15 mg tablet 15 mg PO DAILY 05/31/23 06/06/23 History Patient hx anesthesia problems: none Family hx anesthesia problems: none Results Review: All pre-operative results and documents have been reviewed as part of the pre-operative evaluation. [facility] Past Medical History Medical History Arthritis Fibromyalgia Hyperlipidemia Hypertension Hypothyroid JULIANNE (obstructive sleep apnea) SVT (supraventricular tachycardia) Social History Social History Years smoked: 15 Smoking status: Former smoker Second hand tobacco smoke exposure: No Additional smoking assessment comments: STATES <PK/DAY/15YRS-QUIT 1991, CURRENTLY DENIES ALL FORMS OF TOBBACO USE Alcohol intake: current Alcohol use details: STATES 1-2 DRINKS/MONTH Substance use: current Substance use type: marijuana Other substance usage details: 1 EDIBLE GUMMY NIGHTLY FOR SLEEP Last use: 12/01/21 Living arrangements: with family Spiritual care concerns: No Anes - Eval Final PreProcedure Day of Procedure 06/06/23 08:22 Patient weight: obese Heart: regular rate and rhythm Lungs: clear to auscultation Airway: Mallampati scale Neurological: alert and oriented Last oral intake: >/= 8 hours ASA classification: III Emergent: no Anesthetic plan: proceed Anesthesia type and monitoring: general GIVS and standard monitoring Results Review: All pre-operative results and documents have been reviewed as part of the pre-operative evaluation. Informed Consent: The patient's anesthetic plan and its attendant risks and benefits were discussed with the patient/family/POA. Questions were solicited and answers provided to the satisfaction of the patient/family/POA.
--- NOTE | 2023-06-06 08:43 | PM.IMHP ---
H&P: HPI History of Present Illness Date/Time: 06/06/23 08:43 Chief Complaint: LLQ pain Narrative: 82 yo woman presents for colonoscopy. She has been experiencing LLQ pain but CT was normal. Her last colonoscopy was several years ago. She denies fam hx colon cancer. Review of Systems Review of Systems: All systems reviewed & are unremarkable except as noted in HPI and below Constitutional: Constitutional: Denies chills, Denies fever(s), Denies headache(s) and Denies weight loss Eyes: Eyes: Denies change in vision ENT: Denies dizziness, Denies headache(s), Denies neck mass and Denies throat swelling Cardiovascular: Cardiovascular: Denies chest pain, Denies lightheadedness and Denies dyspnea Respiratory: Respiratory: Denies cough, Denies dyspnea and Denies wheezing Gastrointestinal: Gastrointestinal: Denies abdominal pain, Denies change in bowel habits, Denies nausea and Denies vomiting Genitourinary: Genitourinary: Denies hematuria and Denies dysuria Musculoskeletal: Musculoskeletal: Reports as per HPI Integumentary/Breasts: Skin/Breast: Reports as per HPI Neurologic: Denies dizziness and Denies headache(s) Allergic/Immunologic: Allergic/Immunologic: Denies throat swelling and Denies wheezing PMFSH Past Medical History Medical History Arthritis Fibromyalgia Hyperlipidemia Hypertension Hypothyroid JULIANNE (obstructive sleep apnea) SVT (supraventricular tachycardia) Social History Social History Years smoked: 15 Smoking status: Former smoker Second hand tobacco smoke exposure: No Additional smoking assessment comments: STATES <PK/DAY/15YRS-QUIT 1991, CURRENTLY DENIES ALL FORMS OF TOBBACO USE Alcohol intake: current Alcohol use details: STATES 1-2 DRINKS/MONTH Substance use: current Substance use type: marijuana Other substance usage details: 1 EDIBLE GUMMY NIGHTLY FOR SLEEP Last use: 12/01/21 Living arrangements: with family Spiritual care concerns: No Meds Home Medications and Allergies Home Medications Medication Instructions Recorded Confirmed Type allopurinol 100 mg tablet 100 mg PO QAM 12/02/21 06/06/23 History duloxetine 20 mg capsule,delayed 20 mg PO BID 12/02/21 06/06/23 History release levothyroxine 100 mcg tablet 100 mcg PO QAM 12/02/21 06/06/23 History losartan 50 mg-hydrochlorothiazide 1 tablet HS 12/02/21 06/06/23 History 12.5 mg tablet metoprolol succinate 25 mg 25 mg PO QAM 12/02/21 06/06/23 History tablet,extended release 24 hr oxybutynin chloride 10 mg 10 mg PO QAM 12/02/21 06/06/23 History tablet,extended release 24 hr pantoprazole 40 mg tablet,delayed 40 mg PO QAM 12/02/21 06/06/23 History release rosuvastatin 10 mg tablet 10 mg PO HS 12/02/21 06/06/23 History tizanidine 4 mg tablet 2 mg HS 12/02/21 06/06/23 History polyethylene glycol 3350 17 gram 17 g PO QAM #30 ea 12/15/21 06/06/23 Rx oral powder packet (Miralax) sennosides 8.6 mg-docusate sodium 2 tab PO BID #60 tabs 12/15/21 06/06/23 Rx 50 mg tablet (Senokot-S) Adult One Daily Multivitamin 1 cap PO DAILY 05/31/23 06/06/23 History cholecalciferol (vitamin D3) 1 cap PO DAILY 05/31/23 06/06/23 History meloxicam 15 mg tablet 15 mg PO DAILY 05/31/23 06/06/23 History Allergies Allergy/AdvReac Type Severity Reaction Status Date / Time Penicillins Allergy Severe LIPS AND Verified 06/06/23 07:13 MOUTH SWELLED Sulfa (Sulfonamide Allergy Severe Rash, Verified 06/06/23 07:13 Antibiotics) ITCHING Vital Signs Vital Signs - 24 hr 06/06/23 07:13 Temperature 36.3 C L Pulse Rate 73 Respiratory Rate 16 Blood Pressure 162/71 H Pulse Oximetry 97 Oxygen Delivery Room Air Exam Const: General: no acute distress and alert Orientation/consciousness: patient oriented x3 HENMT: Head: normocephalic and atraumatic Ears: hearing grossly normal bilateral
[2023-06-06 09:15] VITALS: BP 150/73; PULSE 70; RESP 18; O2SAT 96
[2023-06-06 09:25] VITALS: BP 145/78; PULSE 64; RESP 16; O2SAT 98
[2023-06-06 09:35] VITALS: BP 156/60; PULSE 60; RESP 16; O2SAT 99
--- NOTE | 2023-06-06 09:39 | WPDANESPN ---
Anes - Prog Note Post-Op Date/Time: 06/06/23 09:39 Cardiovascular status: normal Respiratory status: normal Airway patency: baseline Mental status: baseline Vital Signs: Last Vital Signs Temp 36.3 C L 06/06/23 07:13 Pulse 64 06/06/23 09:25 Resp 16 06/06/23 09:25 BP 145/78 H 06/06/23 09:25 Pulse Ox 98 06/06/23 09:25 O2 Del Method Room Air 06/06/23 09:25 Pain Score (VAS): 0/10 I/O: Intake & Output 06/05/23 06/06/23 06/06/23 23:59 07:59 15:59 Intake Total 400 Balance 400 Patient Feedback: Patient satisfied with anesthetic care.
== END 2023-06-06 09:50 | disposition home or self-care (01) ==
PROVIDERS: PCP Internal Medicine; Visit Provider Surgery
PROC: 0DJD8ZZ Inspection of Lower Intestinal Tract, Via Natural or Artificial Opening Endoscopic (ICD-10-PCS; CPT 45378; principal; 2023-06-06 08:30)
DX: R10.32 Left lower quadrant pain (principal); K57.30 Diverticulosis of large intestine without perforation or abscess without bleeding
CPT/HCPCS: 45330

== ENCOUNTER 2023-07-02 07:27 | Outpatient (CLI) | payer MEDICARE, SELFPAY ==
--- NOTE | ~2023-07-02 | XR_ITS ---
EXAMINATION: XR_ENEMABAC_CR DATE: 07/02/2023 09:13 INDICATION: Left lower quadrant abdominal pain TECHNIQUE: A financial compliance examiner radiograph was obtained. A catheter was inserted into the patient's rectum. Contra st was infused by gravity. Gas was infused by hand pump. A total of 46 fluoroscopic spot images and 1 5 conventional radiographs were obtained. Fluoroscopy exposure time was 1.2 minutes. COMPARISON: CT dated 05/18/2023 FINDINGS: There is an adequate prep with only negligible amount of mobile stool or gas bubbles within the colon . Mild to moderate sigmoid predominant diverticulosis. No strictures, polyps/masses or concerning muc osal irregularities identified. IMPRESSION: 1. Mild to moderate sigmoid predominant diverticulosis. Reviewed, dictated and finalized at location A. RICT ADVISER
== END 2023-07-02 07:28 | disposition home or self-care (01) ==
PROVIDERS: PCP Internal Medicine; Visit Provider Surgery
DX: K57.30 Diverticulosis of large intestine without perforation or abscess without bleeding (principal)
CPT/HCPCS: 74280

== ENCOUNTER 2023-11-16 08:48 | Outpatient (CLI) | payer MEDICARE, SELFPAY ==
[2023-11-16 09:11] LABS: Basophils Absolute Auto 0.04 K/mm3 (0.00-0.10); Basophils Percent Auto 0.5 % (0.0-1.0); Eosinophils Absolute Auto 0.28 K/mm3 (0.02-0.50); Eosinophils Percent Auto 3.8 % (1.0-6.0); Hematocrit 37.9 % (35.0-42.0); Hemoglobin 12.3 g/dL (11.7-13.8); Immature Granulocyte Absolute 0.02 K/mm3 (0.00-0.00); Immature Granulocyte Percent A 0.3 % (0.0-0.0); Lymphocytes Absolute Auto 2.63 K/mm3 (1.10-4.50); Mean Corpuscular HGB Conc 32.5 g/dL (32-36); Mean Corpuscular Hemoglobin 28.9 pg (27.0-31.0); Mean Platelet Volume 9.3 fl (9.2-11.8); Monocytes Absolute Auto 0.45 K/mm3 (0.10-0.90); Monocytes Percent Auto 6.2 % (2.0-11.0); Neutrophils Absolute Auto 3.88 K/mm3 (1.70-7.20); Neutrophils Percent Auto 53.2 % (50.0-70.0); Platelet Count Result 267 K/mm3 (150-420); Red Blood Count 4.26 M/mm3 (4.20-5.40); Red Cell Distribution Width 14.2 % (11.6-14.4); White Blood Count 7.3 K/mm3 (4.8-10.8)
[2023-11-16 09:12] LABS: Appearance Urine Clear (Clear); Bilirubin Urine Negative (Negative); Blood Urine Negative (Negative); Color Urine Yellow (Yellow); Glucose Urine UA Negative (Negative); Ketones Urine Negative (Negative); Leukocyte Esterase Ur Trace LEU/UL (Negative); Nitrate Urine Negative (Negative); Protein Urine Negative (Negative); Specific Grav Ur >= 1.030 (1.010-1.020); Urobilinogen Urine 0.2 mg/dL (0.2-1.0)
[2023-11-16 09:15] LABS: Add Urine Microscopic? YES; Bacteria Urine Trace /hpf; RBC Urine None seen /hpf (0-2); Squamous Epithelial Cell Urine Few /hpf (Few); WBC Urine 0-5 /hpf (0-3)
[2023-11-16 09:19] LABS: Creatinine Urine 235.02 mg/dL (40-278); MALB Creatinine Ratio 21.6 mg/g (0-30); Microalbumin Urine Random 50.9 mg/L
[2023-11-16 09:23] LABS: Hemoglobin A1C 5.7 % (<5.7)
[2023-11-16 10:16] LABS: Alanine Aminotransferase 23 U/L (14-59); Albumin Level 3.4 g/dL (3.4-5.0); Alkaline Phosphatase 74 U/L (46-116); Anion Gap 10 mmol/L (4-12); Aspartate Amino Transferase 18 U/L (15-37); Bilirubin,Total 0.3 mg/dL (0.00-1.00); Blood Urea Nitrogen 25 mg/dL (7-18); Calcium 8.8 mg/dL (8.5-10.1); Carbon Dioxide 26 mmol/L (21-32); Chloride 107 mmol/L (98-108); Cholesterol 153 mg/dL (0-200); Creatine Kinase 59 U/L (26-192); Estimated Glomerular Filt Rate 50; Free T3 2.14 pg/mL (2.18-3.98); Free T4 Free Thyroxine 0.99 ng/dL (0.76-1.46); Glucose 94 mg/dL (70-99); HDL Direct 52 mg/dL (40-60); LDL Cholesterol Calculated 74 mg/dL (<130); Osmolality Calculated 300 mOsm/kg (285-295); Potassium 4.2 mmol/L (3.5-5.1); Sodium 143 mmol/L (136-145); Total Protein 6.4 g/dL (6.4-8.2); Triglycerides 137 mg/dL (0-150); Uric Acid 5.6 mg/dL (2.6-6.0)
== END 2023-11-16 08:49 | disposition home or self-care (01) ==
LOC: CHSLAB 08:50
PROVIDERS: PCP Internal Medicine; Visit Provider Internal Medicine
DX: N39.0 Urinary tract infection, site not specified (principal); E78.2 Mixed hyperlipidemia; I10 Essential (primary) hypertension; E03.4 Atrophy of thyroid (acquired); E11.42 Type 2 diabetes mellitus with diabetic polyneuropathy; E79.0 Hyperuricemia without signs of inflammatory arthritis and tophaceous disease
CPT/HCPCS: 36415; 80053; 80061; 81001; 82043; 82550; 83036; 84439; 84443; 84481; 84550; 85025

== ENCOUNTER 2023-11-23 11:59 | Outpatient (CLI) | payer MEDICARE, SELFPAY ==
--- NOTE | ~2023-11-23 | MM_ITS ---
EXAMINATION: MM screening [facility] BI [facility] [place] HISTORY: Screening TECHNIQUE: Craniocaudal and mediolateral oblique 3-D tomosynthesis images were obtained and synthetic 2-D images were generated. CAD analysis was submitted and interpreted. COMPARISON: Comparison to multiple prior studies sequentially, with oldest reviewed study dated 02/08. BREAST PARENCHYMAL COMPOSITION: Not dense: There are scattered areas of fibroglandular density. FINDINGS: There is no evidence of suspicious mass, calcification, or architectural distortion to sugg est malignancy in either breast. There has been no suspicious interval change. IMPRESSION: 1. No mammographic evidence of malignancy. 2. Recommend routine screening mammography in one year. BI-RADS Category 1: Negative Reviewed, dictated and finalized at location A.
== END 2023-11-23 12:00 | disposition home or self-care (01) ==
LOC: CHSIMG 12:01
PROVIDERS: PCP Internal Medicine; Visit Provider Internal Medicine
DX: Z12.31 Encounter for screening mammogram for malignant neoplasm of breast (principal)
CPT/HCPCS: 77063; 77067

== ENCOUNTER 2023-12-06 13:32 | Outpatient (CLI) | payer MEDICARE, SELFPAY ==
--- NOTE | 2023-12-06 13:39 | ECG_ITS ---
SEE SCANNED COPY FOR CONFIRMED REPORT MTDD
== END 2023-12-06 13:33 | disposition home or self-care (01) ==
LOC: CHSCARD 13:36
PROVIDERS: PCP Internal Medicine; Visit Provider Internal Medicine Cardiovascular Disease
DX: Z01.810 Encounter for preprocedural cardiovascular examination (principal); R00.1 Bradycardia, unspecified
CPT/HCPCS: 93005

== ENCOUNTER 2023-12-07 13:21 | Outpatient (CLI) | payer MEDICARE, SELFPAY ==
[2023-12-07 15:12] LABS: Urine Cotinine NEGATIVE
== END 2023-12-07 13:22 | disposition home or self-care (01) ==
LOC: ANHSURGERY 13:27
PROVIDERS: PCP Internal Medicine; Visit Provider Orthopaedic Surgery
DX: Z01.818 Encounter for other preprocedural examination (principal); M17.12 Unilateral primary osteoarthritis, left knee
CPT/HCPCS: 80307; 87081

== ENCOUNTER 2023-12-24 00:59 | Day surgery (SDC) | payer MEDICARE, SELFPAY ==
[2023-12-07 13:57] VITALS: BP 158/75; PULSE 65; RESP 16; TEMP 37.2; O2SAT 98; BMI 37.1
--- NOTE | 2023-12-07 14:15 | PC.NURSE ---
Report to the Outpatient Waiting Room, entrance under the green pavilion located off [facility], at time ___6:00AM____ on date ___12/24/23____. Planned Procedure Time: __7:30AM . Time changes happen often and if your time is changed the preop area will call you the afternoon before. - You and your visitor will be asked to self-screen and do not enter if you have any COVID symptoms. - A mask is optional within the hospital at this time. Patients may have clear liquids (water, carbonated beverages, clear teas, apple juice) until 3 hours prior to surgery with a maximum of 20 ounces. - No food from midnight until time of surgery. Take the following medications with a SIP of water the morning of surgery: ____DULOXETINE, LEVOTHYROXINE DO NOT STOP ANY OF YOUR OTHER PRESCRIPTION MEDICATIONS PRIOR TO SURGERY ?EXCEPT THE FOLLOWING Medications to discontinue per physician __HOLD MELOXICAM AND VITAMINS/SUPPLEMENTS 7 DAYS PRE-OP PER DR CHATTERJEE Date to take last dose____12/16/23 Please no make-up, nail citizen of [place], hairspray, perfume, deodorant, or body powder the day of surgery. No jewelry (including any body piercings) or valuables the day of surgery, leave them at home. Please take a shower or bath the night before, or the morning of, surgery with an antibacterial soap. Wear comfortable, loose fitting clothing. - Jewelry must be removed prior to entering the operating room. Rings and piercings that are not removed may be cut off. - The hospital will not accept responsibility for valuables. - Please leave all valuables, including medications, at home the day of surgery. If you are going home after surgery, a licensed concrete truck driver must drive you home. - NO public transportation without another adult if you receive anesthesia. - We recommend that an adult stay with you for 24 hours following discharge. - We also recommend that you do not drive, make important decision, drink alcoholic beverages, or take any drugs that were not prescribed by your health care provider for at least 24 hours after your discharge time. Follow any additional instructions given to you from your surgeon. If you or anyone in your household have experienced Covid symptoms in the past week, please notify your surgeon or the nurse liaison at the phone number below for possible testing. Telephone instructions given to ___PATIENT and asked if any additional questions and then verbalized understanding. Patient advised to call surgeon office or pre surgery nurse liaison [phone] if any additional questions.
[2023-12-24] VITALS (16 sets, daily range): BP systolic 107–160; BP diastolic 51–83; PULSE 71–95; RESP 12–18; TEMP 35.7–36.5; O2SAT 93–100
--- NOTE | ~2023-12-24 | XR_ITS ---
EXAMINATION: [id number] DATE: 12/24/2023 13:05 INDICATION: Postoperative evaluation following left total knee arthroplasty. TECHNIQUE: Anteroposterior and lateral views of the left knee were obtained. COMPARISON: None. FINDINGS: Left total knee arthroplasty with patellar resurfacing appears well seated and in near anatomic align ment. No fractures identified. Expected postoperative subcutaneous and intra-articular gas. IMPRESSION: 1. Left total knee arthroplasty, negative for postoperative purposes. Reviewed, dictated and finalized at location B.
--- NOTE | 2023-12-24 06:47 | PM.IMHP ---
H&P: HPI History of Present Illness Date/Time: 12/24/23 06:47 Chief Complaint: Severe osteoarthritis left knee Narrative: patient is an 83-year-old female who has advanced osteoarthritis in her left knee and presents for total knee arthroplasty. She underwent right total knee arthroplasty November of 2021 and did well. Her knee replacement was complicated by severe nausea day after surgery which limit her from participating physical therapy the day after. She had significant flexion contractures in both knees and since her knee replacement she has worn a felt heel lift under the left knee as the right knee was straightened out She is a patient of Dr Beck. She has failed non operative management. She continues to take meloxicam 15 mg daily and has had several cortisone injections which have failed to give her lasting relief. She did see Dr. Pulliam last month for cardiac clearance. History of PSVT. Patient has history of torturous colon and diverticulosis. Radiographs demonstrate lido-dt-pdud medial compartment osteoarthritis moderately severe lateral compartment osteoarthritis pronounced osteophytes throughout the knee. [facility] Past Medical History Medical History Arthritis Diverticulosis Fibromyalgia Hyperlipidemia Hypertension Hypothyroid JULIANNE (obstructive sleep apnea) SVT (supraventricular tachycardia) Tortuous colon Surgical History Surgical History History of bladder repair surgery History of partial hysterectomy History of tonsillectomy History of total right knee replacement 11/2021 Family History Family History Father CHF (congestive heart failure) Diabetes mellitus Mother Cerebrovascular accident Son Melanoma Diabetes mellitus Social History Social History Smoking packs per day: 1 Smoking cigarettes per day: 20.0 Years smoked: 15 Smoking pack-years: 15.00 Smoking status: Former smoker Tobacco type: cigarettes Second hand tobacco smoke exposure: No Smoking end date: 02/11/88 Additional smoking assessment comments: STATES <PK/DAY/15YRS-QUIT 1991, CURRENTLY DENIES ALL FORMS OF TOBBACO USE Alcohol intake: current Alcohol use details: STATES 1-2 DRINKS/MONTH Substance use: current Substance use type: marijuana Other substance usage details: 1 EDIBLE GUMMY NIGHTLY FOR SLEEP Do You Feel Safe in your Home?: Yes Lack of Transportation: No Lack of Food: Never True Current Housing: I Have Housing Concerned About Future Housing: No Difficulty Paying Gas/Electric Bills: No Difficulty Paying for Meds: No Currently Unemployed: No Education: Master's Degree or Higher Difficulty w/ Childcare or Family Care: No Living arrangements: with family Additional living arrangements comments: [facility] Occupation/Education: retired Spiritual care concerns: No Meds Home Medications and Allergies Home Medications Medication Instructions Recorded Confirmed Type allopurinol 100 mg tablet 100 mg PO [facility] 12/02/21 12/24/23 History duloxetine 20 mg capsule,delayed 20 mg PO BID 12/02/21 12/24/23 History release levothyroxine 100 mcg tablet 100 mcg PO [facility] 12/02/21 12/24/23 History losartan 50 mg-hydrochlorothiazide 2 tablet PO [facility] 12/02/21 12/24/23 History 12.5 mg tablet metoprolol succinate 25 mg 25 mg PO 12/02/21 12/24/23 History tablet,extended release 24 hr pantoprazole 40 mg tablet,delayed 40 mg PO [facility] 12/02/21 12/24/23 History release rosuvastatin 10 mg tablet 10 mg PO HS 12/02/21 12/24/23 History tizanidine 4 mg tablet 4 mg PO 12/02/21 12/24/23 History meloxicam 15 mg tablet 15 mg PO DAILY 05/31/23 12/24/23 History Thc, Cbd, Cbn 0.5 gummy PO 12/07/23 12/24/23 History cholecalciferol (vitamin D3) 25 50 m
--- NOTE | 2023-12-24 06:57 | WPDANESEPPF ---
Anes - Initial Pre Proc Eval Procedure: Operation Date: 12/24/23 07:30 Proposed Procedures p Left Total Knee Arthroplasty - Luis Alberto Carter MD Date/Time: 12/24/23 06:57 Surgeon: Luis Alberto Carter MD Pre Op Diagnosis: OA left knee Patient Data Age: 83 Gender: F Height: 1.55 m Weight: 89.2 kg Last Vital Signs Temp 99.0 F 12/07/23 13:57 Pulse 65 12/07/23 13:57 Resp 16 12/07/23 13:57 BP 158/75 H 12/07/23 13:57 Pulse Ox 98 12/07/23 13:57 O2 Del Method Room Air 12/07/23 13:57 Allergies Allergy/AdvReac Type Severity Reaction Status Date / Time Penicillins Allergy Severe LIPS AND Verified 12/07/23 13:36 MOUTH SWELLED Sulfa (Sulfonamide Allergy Severe Rash, Verified 12/07/23 13:36 Antibiotics) ITCHING Home Medications Medication Instructions Recorded Confirmed Type allopurinol 100 mg tablet 100 mg PO QAM 12/02/21 12/07/23 History duloxetine 20 mg capsule,delayed 20 mg PO BID 12/02/21 12/07/23 History release levothyroxine 100 mcg tablet 100 mcg PO QAM 12/02/21 12/07/23 History losartan 50 mg-hydrochlorothiazide 2 tablet PO QAM 12/02/21 12/07/23 History 12.5 mg tablet metoprolol succinate 25 mg 25 mg PO HS 12/02/21 12/07/23 History tablet,extended release 24 hr pantoprazole 40 mg tablet,delayed 40 mg PO QAM 12/02/21 12/07/23 History release rosuvastatin 10 mg tablet 10 mg PO HS 12/02/21 12/07/23 History tizanidine 4 mg tablet 4 mg PO HS 12/02/21 12/07/23 History meloxicam 15 mg tablet 15 mg PO DAILY 05/31/23 12/07/23 History Thc, Cbd, Cbn 0.5 gummy PO HS 12/07/23 12/07/23 History cholecalciferol (vitamin D3) 25 50 mcg PO DAILY 12/07/23 12/07/23 History mcg (1,000 unit) capsule dimenhydrinate 25 mg chewable 25 mg PO Q4-6H PRN Vertigo 12/07/23 12/07/23 History tablet (Dramamine) inulin 2.5 gram chewable tablet 2.5 g PO DAILY 12/07/23 12/07/23 History multivitamin 1 tablet PO DAILY 12/07/23 12/07/23 History oxybutynin chloride 5 mg tablet 5 mg PO DAILY 12/07/23 12/07/23 History vitamin B complex 1 ea PO BID 12/07/23 12/07/23 History Patient hx anesthesia problems: post op nausea/vomiting Family hx anesthesia problems: none Results Review: All pre-operative results and documents have been reviewed as part of the pre-operative evaluation. [facility] Past Medical History Medical History Arthritis Diverticulosis Fibromyalgia Hyperlipidemia Hypertension Hypothyroid JULIANNE (obstructive sleep apnea) SVT (supraventricular tachycardia) Tortuous colon Surgical History Surgical History History of bladder repair surgery History of partial hysterectomy History of tonsillectomy History of total right knee replacement 11/2021 Family History Family History Father CHF (congestive heart failure) Diabetes mellitus Mother Cerebrovascular accident Son Melanoma Diabetes mellitus Social History Social History Smoking packs per day: 1 Smoking cigarettes per day: 20.0 Years smoked: 15 Smoking pack-years: 15.00 Smoking status: Former smoker Tobacco type: cigarettes Second hand tobacco smoke exposure: No Smoking end date: 02/11/88 Additional smoking assessment comments: STATES <PK/DAY/15YRS-QUIT 1991, CURRENTLY DENIES ALL FORMS OF TOBBACO USE Alcohol intake: current Alcohol use details: STATES 1-2 DRINKS/MONTH Substance use: current Substance use type: marijuana Other substance usage details: 1 EDIBLE GUMMY NIGHTLY FOR SLEEP Do You Feel Safe in your Home?: Yes Lack of Transportation: No Lack of Food: Never True Current Housing: I Have Housing Concerned About Future Housing: No Difficulty Paying Gas/Electric Bills: No Difficulty Paying for Meds: No Currently Unemployed: No Ed
[2023-12-24] MEDS: LACTATED RINGERS 1,000 ML 30 ML IV CONT ×2 (07:00→12:35)
[2023-12-24] MEDS: ACETAMINOPHEN 500 MG TABLET 1000 MG PO ×3 (07:00→23:39)
[2023-12-24] MEDS: TRANEXAMIC ACID 1,000MG/ISO100 1,000 MG/100 ML BAG 200 MG IVPB (07:00)
[2023-12-24] MEDS: VANCOMYCIN 1,250 MG/NS 250 ML BAG 166.67 MG IVPB (07:00)
--- NOTE | 2023-12-24 07:07 | WPDHPUPDATE1 ---
History and Physical Update Update Date/Time: 12/24/23 07:07 History and Physical has been reviewed, including an updated exam of the patient. There are NO changes in the patient's condition. Risks, benefits, and alternatives have been discussed and questions answered. Patient agrees to proceed with procedure.
[2023-12-24] MEDS: ceFAZolin 2 GM/D5W 50 ML 2 GM/50 ML BAG IVPB (07:35)
[2023-12-24] MEDS: ceFAZolin SODIUM 1 GM VIAL 3 GM IRRIGATION (09:26)
[2023-12-24] MEDS: SODIUM CHLORIDE 0.9% IV 37.7 ML, MORPHINE SULFATE INJ (*CRX) 2 MG, ROPivacaine HCL 1% 2... INFILTRATE (09:27)
[2023-12-24] MEDS: ceFAZolin SODIUM 1 GM VIAL 2 GM IV PUSH (11:33)
[2023-12-24] MEDS: TRANEXAMIC ACID 1,000 MG/10 ML AMPUL 1000 MG IV PUSH (11:36)
--- NOTE | 2023-12-24 12:04 | W.PM.PROC2 ---
Procedure Note - Detailed Date of Procedure 12/24/23 Pre-op Diagnosis OA left knee Post-op Diagnosis Same Procedure Performed Left total knee arthroplasty Surgeon Luis Alberto Carter MD Photographer [employer] Irine[place] Anesthesia General Description of Procedure Patient was brought to the operating room and general anesthesia was administered. The left knee showed range of motion from 15-85 degrees under anesthesia. It could not be pushed into further flexion. She received 2 g of Ancef weight based vancomycin 1 g of tranexamic acid preoperatively as well as 8 mg of Decadron. The left knee was prepped draped usual fashion. Limb was exsanguinated tourniquet elevated to 300 mmHg. A 7 in longitudinal midline incision was used as vastus medialis splitting approach utilized splitting the vastus medialis at the level the superior pole of patella. The lateral retinaculum was very tight and a conservative lateral retinacular release was performed stain distal to the superior lateral geniculate vessels. Infrapatellar and suprapatellar fat pads were excised quadriceps synovectomy carried out. Patella measured 22 mm in thickness was cut to 15.5 mm protector cap applied. A guide alfa was inserted down the femoral canal after aspiration of canal contents using the 5 degree cutting bushing 9 mm of bone removed the distal femur. Next the tibial plateau was cut. We made a skin cut just under the low point of the medial tibial plateau. She had severe tibial wear medially posteriorly with pronounced anterior subluxation of tibia on femur in flexion. Meniscal remnants were excised and the PCL recessed the extent possible. Large encroaching osteophytes removed from the intercondylar notch this time. Flexion gap at 90? measured only 5 mm medially 7 mm laterally. Additional 3 mm of bone removed the tibial plateau at this time. After making this cut we could see that there was evidence of ununited posteromedial tibial osteophyte. This was quite thin. The deep capsule was firmly attached still to the mid medial tibial plateau margin. We avoided stripping any medial capsule because she did not have a varus deformity. The femoral sizing guide was applied the distal femur posterior referencing pinholes placed set at 3? of external rotation which matched [place] line. The size 65 cutting block was applied as we are unsure of any change in rotation be necessary of femoral cuts. AP and chamfer cuts were made. The 65 trial was too wide. Posterior femoral osteophyte was removed at this time and this was very large. Thorough posterior capsular release was performed from the femur. On trialing we had equal play with the 10 CR insert 2 mm medial 2 mm lateral opening at 90?. In extension however the medial side opened up 4 mm the lateral side 2 mm. We lacked a few degrees of extension with barely positive bounce with the 10 insert. I felt that using posterior stabilized would be best for this patient. The tibia was sized to a 63. The 67 was going to overhang a little bit anteromedial or posterolateral at proper rotation. Bone quality was excellent. This was punched. The femur was downsized to the 62.5 which fit line to line medial to lateral. The intercondylar box was cut for the open box. On trialing we still lacked just a few degrees of extension but we had play medially laterally as discussed above. We revisited the posterior capsule release and completed this from the insertion of the lateral gastrocnemius to the insertion of the medial gastrocnemius to mobilize the fabella laterally over the and on read trialing now the knee came out to full extension with negative bounce with 3 mm medial opening 1 mm lateral opening. At 90? there were 2 or 3 mm of anterior drawer with a PS insert and 1-2 mm of medial and lateral opening to valgus and varus stress at 90?. [place] flexion was to 125. The patella was sized to a 31 thin and we trialed and there was central patellar tracking throughout r
--- NOTE | 2023-12-24 14:35 | ADMGEN ---
This patient, Nayely Mtz, was admitted to -. Patient/family oriented to hospital policies and general routines including ID bracelet, bed and alarms, visiting hours, pain management, procedures, bathroom and other care routines, personal items, smoking policy, room service/diet, and visiting hours. Information on how to activate the Rapid Response Team has been discussed. Patient/Family are encouraged to report perceived risks to care and to ask questions if they do not understand what they are told or what they should do.
[2023-12-24] MEDS: ceFAZolin 1 GM/NS 50 ML 1 GM/50 ML BAG IVPB ×2 (16:04→23:43)
[2023-12-24] MEDS: SENNA/DOCUSATE SODIUM TABLET 2 TAB PO (16:04)
[2023-12-24] MEDS: oxyCODONE HCL (*CRX) 2.5 MG TAB IR PO ×3 (16:04→23:39)
[2023-12-24] MEDS: SODIUM CHLORIDE 0.9% IV 1,000 ML 125 ML IV CONT (16:04)
[2023-12-24] MEDS: DULoxetine HCL 20 MG CAPSULE.DR PO (16:05)
[2023-12-24] MEDS: VANCOMYCIN 1,000 MG/NS 250 ML 1,000 MG/250 ML BAG 125 MG IVPB (17:51)
--- NOTE | 2023-12-24 18:45 | WPDCN ---
Assessment and Plan Assessment and plan (1) Primary osteoarthritis of left knee: Code(s): M17.12 - Unilateral primary osteoarthritis, left knee Status: Acute Assessment and Plan: Postoperative day 0 status post left total knee arthroplasty. Wound care, pain control, and DVT prophylaxis deferred to Dr. Carter. (2) Hypertension: Code(s): I10 - Essential (primary) hypertension Status: Acute Assessment and Plan: Blood pressures were reviewed and they have been running a bit high postoperatively likely due to pain. Continue antihypertensives and monitor blood pressures closely. (3) Hyperlipidemia: Code(s): E78.5 - Hyperlipidemia, unspecified Status: Acute Assessment and Plan: Continue resume his statin and check LFTs in a.m. (4) Hypothyroidism: Code(s): E03.9 - Hypothyroidism, unspecified Status: Acute Assessment and Plan: Continue levothyroxine; recent TSH was well within normal limits. (5) Obstructive sleep apnea on CPAP: Code(s): G47.33 - Obstructive sleep apnea (adult) (pediatric) Status: Acute Assessment and Plan: Patient may use CPAP from home. Plan Thank you for allowing us to participate in this patient's care. Please do not hesitate to contact us with any questions. HPI Data of Consult Date/Time: 12/24/23 21:00 Requesting Physician: Luis Alberto Carter MD Consult Narrative Reason for consult: Medical management Narrative: This is an 83-year-old female with osteoarthritis, fibromyalgia, hypertension, hyperlipidemia, hypothyroidism, and obstructive sleep apnea whom the hospitalist service has been consulted for help managing her medical conditions postoperatively. She presented today for elective left total knee arthroplasty due to ongoing pain despite conservative outpatient treatment. Her surgery was performed under general anesthesia with no immediate complications documented. Postoperatively she has done well. Her pain is well controlled. She denies fever, chills, sweats, chest pain, shortness a breath. She also denies paresthesias, skin color, and temperature changes distal to the surgical site. No history of venous thromboembolism. Regarding her chronic medical conditions, she reports that they are well controlled on medication. She is compliant with her CPAP at nighttime. Review of Systems Review of Systems: 12 systems were reviewed and are negative except for as per HPI. [facility] Past Medical History Medical History Arthritis Diverticulosis Fibromyalgia Hyperlipidemia Hypertension Hypothyroidism Obstructive sleep apnea on CPAP Supraventricular tachycardia (2000) Tortuous colon Surgical History Surgical History History of appendectomy History of bladder repair surgery History of partial hysterectomy For cervical cancer. 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 Code status: Full code. Smoking packs per day: 1 Smoking cigarettes per day: 20.0 Years smoked: 15 Smoking pack-years: 15.00 Smoking status: Former smoker Second hand tobacco smoke exposure: No Alcohol intake: current Alcohol use details: 1 to 2 drinks a month. Do You Feel Safe in your Home?: Yes Lack of Transportation: No Lack of Food: Never True Current Housing: I Have Housing Concerned About Future Housing: No [place]
[2023-12-24] MEDS: TIZANIDINE HCL 4 MG TABLET PO (20:40)
[2023-12-24] MEDS: ROSUVASTATIN 10 MG TABLET PO (20:40)
[2023-12-24] MEDS: METOPROLOL SUCCINATE EXT REL 25 MG TABCR PO (20:40)
[2023-12-24] MEDS: WATER FOR IRRIGATION, STERILE 1,000 ML BOTTLE 1000 ML (23:23)
[2023-12-25] VITALS: BP 108/50; PULSE 63; PULSE 68; RESP 16; TEMP 36.3; O2SAT 96
[2023-12-25 04:00] VITALS: BP 112/51; PULSE 65; PULSE 84; RESP 16; TEMP 36.3; O2SAT 99
[2023-12-25] MEDS: ACETAMINOPHEN 500 MG TABLET 1000 MG PO (05:42)
[2023-12-25] MEDS: LEVOTHYROXINE SODIUM 100 MCG TABLET PO (05:43)
[2023-12-25] MEDS: VANCOMYCIN 1,000 MG/NS 250 ML 1,000 MG/250 ML BAG 125 MG IVPB (05:43)
[2023-12-25 06:41] LABS: Basophils Percent Auto 0.2 % (0.2-1.2); Eosinophils Percent Auto 0.1 % (0-4.4); Hematocrit 28.9 % (37.0-47.0); Hemoglobin 9.7 g/dL (12.0-15.0); Immature Granulocyte Absolute 0.07 K/mm3 (0.00-0.031); Immature Granulocyte Percent A 0.5 % (0-0.5); Lymphocytes Absolute Auto 2.12 K/mm3 (0.9-3.2); Lymphocytes Percent Auto 15.1 % (18.3-44.2); Mean Corpuscular HGB Conc 33.6 g/dl (32-36); Mean Corpuscular Hemoglobin 30.3 pg (26-34); Mean Corpuscular Volume 90.3 fl (80-100); Mean Platelet Volume 9.7 fl (7.4-10.4); Monocytes Absolute Auto 1.2 K/mm3 (0.1-0.6); Monocytes Percent Auto 8.6 % (2.6-8.5); Neutrophils Absolute Auto 10.6 K/mm3 (1.3-6.7); Neutrophils Percent Auto 75.5 % (45.5-73.1); Platelet Count Result 231 k/mm3 (150-375); Red Cell Distribution Width 13.9 % (11.5-14.5); White Blood Count 14.1 K/mm3 (4.5-10.0)
[2023-12-25 07:00] LABS: Alanine Aminotransferase 17 U/L (6-35); Albumin Level 3.6 g/dL (3.5-5.1); Alkaline Phosphatase 56 U/L (38-126); Anion Gap 6 mmol/L (4-12); Aspartate Amino Transferase 32 U/L (14-36); Bilirubin,Total 0.5 mg/dL (0.2-1.3); Blood Urea Nitrogen 24 mg/dL (7-17); Calcium 8.7 mg/dL (8.4-10.2); Carbon Dioxide 26 mmol/L (22-30); Chloride 101 mmol/L (98-107); Estimated CRCL calculation 42 ml/min; Estimated Glomerular Filt Rate 53; Glucose 123 mg/dL (65-110); Potassium 3.6 mmol/L (3.4-5.0); Sodium 133 mmol/L (137-145)
[2023-12-25 07:56] VITALS: BP 120/50; PULSE 65; RESP 18; TEMP 36.2; O2SAT 96
[2023-12-25 08:00] VITALS: PULSE 65; RESP 18; O2SAT 96
--- NOTE | 2023-12-25 09:20 | PM.IMPN ---
Progress Note: A&P Assessment and Plan (1) Primary osteoarthritis of left knee: Code(s): M17.12 - Unilateral primary osteoarthritis, left knee Status: Acute Assessment and Plan: Postoperative day 0 status post left total knee arthroplasty. Wound care, pain control, and DVT prophylaxis deferred to Dr. Carter. (2) Hypertension: Code(s): I10 - Essential (primary) hypertension Status: Acute Assessment and Plan: Blood pressures were reviewed and they have been running a bit high postoperatively likely due to pain. Continue antihypertensives 12/24- BP stabilized (3) Hyperlipidemia: Code(s): E78.5 - Hyperlipidemia, unspecified Status: Acute Assessment and Plan: Continue resume his statin check LFTs - WNL (4) Hypothyroidism: Code(s): E03.9 - Hypothyroidism, unspecified Status: Acute Assessment and Plan: Continue levothyroxine; recent TSH was well within normal limits. (5) Obstructive sleep apnea on CPAP: Code(s): G47.33 - Obstructive sleep apnea (adult) (pediatric) Status: Acute Assessment and Plan: Patient may use CPAP from home. Plan Thank you for allowing us to participate in this patient's care. Please do not hesitate to contact us with any questions. Subjective Date/time seen: 12/25/23 09:20 Review of Systems Review of Systems: 12 systems were reviewed and are negative except for as per HPI. Exam Narrative: General: Well-developed, nontoxic-appearing female in the semi-Leung position in bed. Weight: 87.1 kg. BMI: 36.3. HEENT: PERRL, EOMI. Sclera anicteric. Oral mucosa moist. Neck: Supple. Respiratory: Lungs are clear to auscultation bilaterally. Cardiovascular: Regular rate and rhythm with S1-S2. Gastrointestinal: Abdomen is soft, nontender, and nondistended with positive bowel sounds. Skin: Warm and dry. No rash or lesions on limited exam. Extremities: No cyanosis, clubbing, or edema. Radial and pedal pulses intact. Musculoskeletal: Left knee dressing is clean, dry, intact. She is neurovascularly intact distal to the surgical site. Neurological: Alert. Cranial nerves 2-12 grossly intact. No gross focal deficits to casual conversation. Psychiatric: Pleasant and cooperative with normal mood and affect. Judgment and insight intact. Objective Data Vital Signs Vital Signs: Vital Signs - 24 hr 12/24/23 12:35 12/24/23 12:45 12/24/23 13:00 Temperature 97.7 F Pulse Rate 79 80 87 Respiratory Rate 13 13 15 Blood Pressure 107/51 L 122/61 141/73 H Pulse Oximetry 94 93 93 Oxygen Delivery Simple Face Mask Simple Face Mask Simple Face Mask Oxygen Flow Rate 8 8 8 12/24/23 13:04 12/24/23 13:15 12/24/23 13:30 Temperature Pulse Rate 95 93 Respiratory Rate 16 13 Blood Pressure 156/83 H 158/62 H Pulse Oximetry 97 99 100 Oxygen Delivery Simple Face Mask Nasal Cannula Nasal Cannula Oxygen Flow Rate 8 2 2 12/24/23 13:45 12/24/23 14:00 12/24/23 14:15 Temperature Pulse Rate 94 94 92 Respiratory Rate 14 12 12 Blood Pressure 160/70 H 154/74 H 153/59 H Pulse Oximetry 100 100 100 Oxygen Delivery Nasal Cannula Nasal Cannula Nasal Cannula Oxygen Flow Rate 2 2 2 12/24/23 14:56 12/24/23 16:20 12/24/23 16:00 Temperature Pulse Rate 88 Respiratory Rate Blood Pressure Pulse Oximetry Oxygen Delivery Room Air Room Air Oxygen Flow Rate 12/24/23 14:55 12/24/23 15:10 12/24/23 15:50 Temperature 97.1 F L 97.7 F 97.1 F L Pulse Rate 90 86 88 Respiratory Rate 18 18 16 Blood Pressure 139/57 L 148/66 H 140/66 Pulse Oximetry 99 98 95 Oxygen Delivery Oxygen Flow Rate 12/24/23 16:40 12/24/23 20:00 12/24/23 20:00 Temperature 96.2 F L 97.5 F L Pulse Rate 81 76 Respiratory Rate 16 18 Blood Pressure 139/56 L 122/75 Pulse Oximetry 97 93 93 Oxygen Delivery Room Air Oxygen Flow Rate 12/25/23 00:00 12/24/23 20:00 12/25/23 0
[2023-12-25] MEDS: ceFAZolin 1 GM/NS 50 ML 1 GM/50 ML BAG IVPB (09:33)
[2023-12-25] MEDS: oxyBUTYnin CHLORIDE XL 5 MG TAB.ER.24 PO (09:34)
[2023-12-25] MEDS: SENNA/DOCUSATE SODIUM TABLET 2 TAB PO (09:34)
[2023-12-25] MEDS: PANTOPRAZOLE 40 MG TABLET PO (09:35)
[2023-12-25] MEDS: amLODIPine BESYLATE 5 MG TABLET PO (09:35)
[2023-12-25] MEDS: MELOXICAM 7.5 MG TABLET PO (09:35)
[2023-12-25] MEDS: APIXABAN 2.5 MG TABLET PO (09:35)
[2023-12-25] MEDS: DULoxetine HCL 20 MG CAPSULE.DR PO (09:35)
[2023-12-25] MEDS: CHOLECALCIFEROL 1,000 UNITS TABLET 2000 UNITS PO (09:35)
[2023-12-25] MEDS: oxyCODONE HCL (*CRX) 2.5 MG TAB IR PO (09:35)
[2023-12-25] MEDS: LOSARTAN POTASSIUM 50 MG TABLET PO (09:35)
[2023-12-25] MEDS: polyethylene glycoL 3350 17 GM POWD.PACK PO (09:36)
--- NOTE | 2023-12-25 09:52 | WPDANESPN ---
Anes - Prog Note Post-Op Date/Time: 12/25/23 09:52 Cardiovascular status: normal Respiratory status: normal Airway patency: baseline Mental status: baseline Post-Op hydration status: normal Vital Signs: Last Vital Signs Temp 36.2 C L 12/25/23 07:56 Pulse 65 12/25/23 07:56 Resp 18 12/25/23 07:56 BP 120/50 L 12/25/23 07:56 Pulse Ox 96 12/25/23 07:56 O2 Del Method Room Air 12/24/23 20:00 O2 Flow Rate 2 12/24/23 14:15 Pain Score (VAS): 09/22 I/O: Intake & Output 12/24/23 12/25/23 12/25/23 23:59 07:59 15:59 Intake Total 540 600 Balance 540 600 Laboratory Tests 12/25/23 05:42 12/25/23 05:42 12/25/23 05:42 WBC 14.1 H RBC 3.20 L Hgb 9.7 L Hct 28.9 L MCV 90.3 MCH 30.3 MCHC 33.6 RDW 13.9 Plt Count 231 MPV 9.7 Immature Gran % (Auto) 0.5 Neut % (Auto) 75.5 H Lymph % (Auto) 15.1 L [place] % (Auto) 8.6 H Eos % (Auto) 0.1 Baso % (Auto) 0.2 Lymph # (Auto) 2.12 [place] # (Auto) 1.2 H Eos # (Auto) 0.0 Baso # (Auto) 0.0 Abs Immat Gran (auto) 0.07 H Absolute Neuts (auto) 10.6 H Absolute Nucleated RBC 0.000 Nucleated RBC % 0.0 Sodium 133 L Potassium 3.6 Chloride 101 Carbon Dioxide 26 Anion Gap 6 BUN 24 H Creatinine 1.00 Estim Creat Clear Calc 42 Estimated GFR 53 L Glucose 123 H Calcium 8.7 Magnesium 2.0 Total Bilirubin 0.5 Direct Bilirubin 0.0 AST 32 ALT 17 Alkaline Phosphatase 56 Total Protein 6.0 L Albumin 3.6 Post-procedural complaints: none Patient Feedback: Patient satisfied with anesthetic care.
--- NOTE | 2023-12-25 09:53 | PM.PNORT ---
Progress Note: A&P Assessment and Plan (1) Status post left knee replacement: Code(s): Z96.652 - Presence of left artificial knee joint Status: Acute Assessment and Plan: patient is postop day 1 after left total knee arthroplasty yesterday. She has done very well. Unlike her experience with severe nausea after her right knee replacement 2 years ago, she has had no nausea With this knee replacement. Her pain is minimal. On exam she has intact sensorimotor function the left foot and she is able do a straight leg raise quite easily moves leg around easily. There is no blood on the dressing visible. She has mild swelling around the knee no swelling in the foot or calf. She was up weight-bearing as tolerated several times last night to go to the bathroom and finds that she has no difficulty with ambulation and she feels that she will be safe going home today. Her laboratory studies today show hemoglobin 9.7 mild to moderate acute blood loss anemia, creatinine is 1.0 which is down from 1.1 on her preop testing. I have discussed with her that long-term it would be best that she no longer take the meloxicam 15 mg daily as it may contribute to further impairment of renal function over time. I am going to prescribe the 7.5 mg daily for the next 2 weeks that she can use if she has rather severe pain but if she does not she will avoid that. Subjective Subjective Date/Time Seen: 12/25/23 09:53 Objective Data Vital Signs Vital Signs: Vital Signs - 24 hr 12/24/23 12:35 12/24/23 12:45 12/24/23 13:00 Temperature 36.5 C Pulse Rate 79 80 87 Respiratory Rate 13 13 15 Blood Pressure 107/51 L 122/61 141/73 H Pulse Oximetry 94 93 93 Oxygen Delivery Simple Face Mask Simple Face Mask Simple Face Mask Oxygen Flow Rate 8 8 8 12/24/23 13:04 12/24/23 13:15 12/24/23 13:30 Temperature Pulse Rate 95 93 Respiratory Rate 16 13 Blood Pressure 156/83 H 158/62 H Pulse Oximetry 97 99 100 Oxygen Delivery Simple Face Mask Nasal Cannula Nasal Cannula Oxygen Flow Rate 8 2 2 12/24/23 13:45 12/24/23 14:00 12/24/23 14:15 Temperature Pulse Rate 94 94 92 Respiratory Rate 14 12 12 Blood Pressure 160/70 H 154/74 H 153/59 H Pulse Oximetry 100 100 100 Oxygen Delivery Nasal Cannula Nasal Cannula Nasal Cannula Oxygen Flow Rate 2 2 2 12/24/23 14:56 12/24/23 16:20 12/24/23 16:00 Temperature Pulse Rate 88 Respiratory Rate Blood Pressure Pulse Oximetry Oxygen Delivery Room Air Room Air Oxygen Flow Rate 12/24/23 14:55 12/24/23 15:10 12/24/23 15:50 Temperature 36.2 C L 36.5 C 36.2 C L Pulse Rate 90 86 88 Respiratory Rate 18 18 16 Blood Pressure 139/57 L 148/66 H 140/66 Pulse Oximetry 99 98 95 Oxygen Delivery Oxygen Flow Rate 12/24/23 16:40 12/24/23 20:00 12/24/23 20:00 Temperature 35.7 C L 36.4 C L Pulse Rate 81 76 Respiratory Rate 16 18 Blood Pressure 139/56 L 122/75 Pulse Oximetry 97 93 93 Oxygen Delivery Room Air Oxygen Flow Rate 12/25/23 00:00 12/24/23 20:00 12/25/23 00:00 Temperature 36.3 C L Pulse Rate 63 79 68 Respiratory Rate 16 Blood Pressure 108/50 L Pulse Oximetry 96 Oxygen Delivery Oxygen Flow Rate 12/25/23 04:00 12/25/23 04:00 12/25/23 07:56 Temperature 36.3 C L 36.2 C L Pulse Rate 84 65 65 Respiratory Rate 16 18 Blood Pressure 112/51 L 120/50 L Pulse Oximetry 99 96 Oxygen Delivery Oxygen Flow Rate Intake/Output Intake/Output: Intake & Output 12/22/23 12/23/23 12/24/23 12/25/23 23:59 23:59 23:59 23:59 Intake Total 640 600 Balance 640 600 Meds/Results Medications: Active Medications Generic Name Dose Route Start Last Admin Trade Name Freq PRN Reason Stop Dose Admin Acetaminophen 1,000 mg 12/24/23 12:00 12/25/23 05:42 Acetaminophen 500 Mg Tablet PO 1,000 mg Q6H [facility] Administration Allopurinol 100 mg 12/25/23 09:00 Allopurinol 100 Mg Tablet PO QAM [facility] Amlodipin
--- NOTE | 2023-12-25 10:14 | PM.DS ---
DS: Admitting Diagnosis Discharge Date 12/21/2023 Admitting Diagnosis osteoarthritis left DS: Discharge Diagnosis Discharge Diagnosis (1) Status post left knee replacement: Code(s): Z96.652 - Presence of left artificial knee joint Status: Acute DS: Summary Hospital Course Hospital Course: patient has had an uneventful postoperative course. She does not have the severe nausea that she had 2 years ago with her other knee replacement. Hemoglobin is 9.7 mild to moderate acute blood loss anemia. Creatinine is stable at 1.0. It was 1.1 preoperatively indicating mild renal insufficiency. I have advised her that it would be best for her to not take the meloxicam anymore. I have left her instructions to call us if her pain becomes severe and she requires locks a cam in the early postoperative period and we would use 7.5 mg daily. She is having essentially no significant discomfort and has been up walking around and tolerating this very well so we will not send her home with meloxicam and just use the oxycodone and Tylenol for pain. She did have 1 episode of relatively low blood pressure systolic 108 around midnight last night. Prior to that it had been elevated in the 150s and this morning systolic blood pressure was 120 we will ask the hospitalist service to make recommendations on her antihypertensive medication regimen she should take after going home. I did put her hydrochlorothiazide component of the losartan hydrochlorothiazide combo on hold minimize risk of elevation of creatinine perioperatively. Time Spent with Patient Time attestation: Total time spent providing and/or coordinating discharge services: DS: Data Data Completed and Pending Labs on day of discharge: Labs from last 24 hours 12/25/23 05:42 WBC 14.1 H RBC 3.20 L Hgb 9.7 L Hct 28.9 L MCV 90.3 MCH 30.3 MCHC 33.6 RDW 13.9 Plt Count 231 MPV 9.7 Immature Gran % (Auto) 0.5 Neut % (Auto) 75.5 H Lymph % (Auto) 15.1 L [place] % (Auto) 8.6 H Eos % (Auto) 0.1 Baso % (Auto) 0.2 Lymph # (Auto) 2.12 [place] # (Auto) 1.2 H Eos # (Auto) 0.0 Baso # (Auto) 0.0 Abs Immat Gran (auto) 0.07 H Absolute Neuts (auto) 10.6 H Absolute Nucleated RBC 0.000 Nucleated RBC % 0.0 Sodium 133 L Potassium 3.6 Chloride 101 Carbon Dioxide 26 Anion Gap 6 BUN 24 H Creatinine 1.00 Estim Creat Clear Calc 42 Estimated GFR 53 L Glucose 123 H Calcium 8.7 Magnesium 2.0 Total Bilirubin 0.5 Direct Bilirubin 0.0 AST 32 ALT 17 Alkaline Phosphatase 56 Total Protein 6.0 L Albumin 3.6 Discharge Plan Discharge Patient Disposition: Home, Self-Care Discharge Instructions: TAMELA CHATTERJEE M.D [facility] [address] [address] [address] [place] [address] POST-OPERATIVE DISCHARGE INSTRUCTIONS TOTAL KNEE ARTHROPLASTY 1. When resting, do not rest in the chair.When resting, lie on your back, with back flat on the couch or bed, with leg elevated above heart to minimize swelling. You may put a pillow under your head. . Significant swelling could indicate a blood clot and if this occurs call the office (or go to the ER) to have a venous ultrasound. Therefore, do not rest in a chair. 2. At least five times a day spend several minutes stretching your knee into flexion while sitting in the chair and also stretching your knee out straight The abilities to bend your knee fully and straighten your knee fully are two most important knee functions to focus on during your recovery. 3. It is ok to sit in chair to eat, use the toilet and receive a guest and to do your stretching exercises, but, sitting in a chair will cause your leg to swell. Therefore, avoid additional time sitting in the chair. and don't rest in the chair. 4. Wound Care: Nursing will give you an additional Mepilex dressing at the time of discharge. Patient to remove the dressing and apply a new Mepilex dressing at home 7 days after mujica
--- NOTE | 2023-12-25 11:47 | PM.IMCN ---
Assessment and Plan Assessment and plan (1) Primary osteoarthritis of left knee: Code(s): M17.12 - Unilateral primary osteoarthritis, left knee Status: Acute (2) Hypertension: Code(s): I10 - Essential (primary) hypertension Status: Acute Assessment and Plan: She had been taking metoprolol 25 mg, losartan 25/hctz12.5 mg and her bp was elevated. 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 She had mild bump in cr. She had low BP at 108 last night. - so will hold HCTZ and start losartan 50mg. she is to contine amlodipine 5 mg and metoprolol. Monitor BP in am and PM and keep log. Goal to stay under 140/90. She needs to f/u with pcp within a week or two for BP med adjustment and lab repeat to see if Cr back to normal. I disucss the regimen with her and she knows to reach out to PCP if any low/nenita BP readings. There had been a lot of adjustements lately so need to get on a regimen now and eval by her (3) Hyperlipidemia: Code(s): E78.5 - Hyperlipidemia, unspecified Status: Acute Assessment and Plan: continue home meds (4) Hypothyroidism: Code(s): E03.9 - Hypothyroidism, unspecified Status: Acute (5) Obstructive sleep apnea on CPAP: Code(s): G47.33 - Obstructive sleep apnea (adult) (pediatric) Status: Acute HPI Date of Consult Consult date: 12/25/23 Requesting Physician: Luis Alberto Carter MD Primary Care Provider: Jacinda Beck MD Consult Narrative Reason for consult: BP med Narrative: Nayely Mtz is a 83 year old female postop day 1 after left total knee arthroplasty yesterday.? She has done very well. She had been taking metoprolol 25 mg, losartan 25/hctz12.5 mg and her bp was elevated. 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 She had mild bump in cr. She had low BP at 108 last night. - so will hold HCTZ and start losartan 50mg. she is to contine amlodipine 5 mg and metoprolol. Monitor BP in am and PM and keep log. Goal to stay under 140/90. She needs to f/u with pcp within a week or two for BP med adjustment and lab repeat to see if Cr back to normal. I disucss the regimen with her and she knows to reach out to PCP if any low/nenita BP readings. There had been a lot of adjustements lately so need to get on a regimen now and eval by herp Review of Systems Cardiovascular: Cardiovascular: Denies chest pain and Denies diaphoresis Respiratory: Respiratory: Denies chest congestion and Denies cough Genitourinary: Genitourinary: Denies hematuria Integumentary/Breasts: Skin/Breast: Denies breast pain Neurologic: Denies Abnormal speech present [facility] Past Medical History Medical History Arthritis Diverticulosis Fibromyalgia Hyperlipidemia Hypertension Hypothyroidism Obstructive sleep apnea on CPAP Supraventricular tachycardia (2000) Tortuous colon Surgical History Surgical History History of appendectomy History of bladder repair surgery History of partial hysterectomy For cervical cancer. 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 Code status: Full code. Smoking packs per day: 1 Smoking cigarettes per day: 20.0 Years smoked: 15 Smoking pack-years: 15.00 Smoking status: Former smoker Second hand tobacco smoke exposure: No Alcohol intake: current Alcohol use details: 1 to 2 drinks a month.
[2023-12-25 11:48] VITALS: BP 119/48; PULSE 72; RESP 16; TEMP 36.7; O2SAT 97
== END 2023-12-25 13:15 | disposition home or self-care (01) ==
LOC: ANHSURGERY 06:03 → ANH3MEDSUR 14:40
PROVIDERS: Physician Assistant; PCP Internal Medicine; Visit Provider Orthopaedic Surgery
PROC: (CPT 27447; principal; 2023-12-24 07:30)
DX: M17.12 Unilateral primary osteoarthritis, left knee (principal); D62 Acute posthemorrhagic anemia; I10 Essential (primary) hypertension; E78.5 Hyperlipidemia, unspecified; E03.9 Hypothyroidism, unspecified; I47.10 Supraventricular tachycardia, unspecified; M79.7 Fibromyalgia; G47.33 Obstructive sleep apnea (adult) (pediatric); Z87.891 Personal history of nicotine dependence; E66.01 Morbid (severe) obesity due to excess calories; Z68.41 Body mass index [BMI] 40.0-44.9, adult
CPT/HCPCS: 27447; 36415; 73560; 80048; 80076; 80307; 83735; 85025; 86850; 86900; 86901; 87081; 97110; 97116; 97161; 97165; 97530; 97535; A9270; C1713; C1776; J0171; J0330; J0690; J1100; J1170; J1200; J1885; J2270; J2405; J2704; J2795; J3010; J3370; J7030; J7120

== ENCOUNTER 2023-12-27 11:04 | Outpatient (RCR) | payer MEDICARE, SELFPAY ==
--- NOTE | 2023-12-27 11:52 | OPREHPOC ---
Outpatient Therapy Plan of Care This is a Multidisciplinary Plan of Care that may contain components documented by all disciplines (PT, OT, and ST.) PT Problem 1 PT Problem #1 Knowledge Deficit PT Goal 1 Goal 1. independent and compliant with HEP Target Visit 6 PT Problem 2 PT Problem #2 Pain PT Goal 1 Goal 1. 2/10 pain or less in the L knee to return to prior level functional activity performance/ quality of life. Target Visit 12 PT Problem 3 PT Problem #3 Impaired Range of Motion PT Goal 1 Goal 1. 0-120 degrees active L knee mobility Target Visit 12 PT Problem 4 PT Problem #4 Impaired Strength PT Goal 1 Goal 1. 4/5 or better L hip flex 2. 5/5 L knee strength 3. 5/5 L ankle DF Target Visit 12 PT Problem 5 PT Problem #5 Impaired Functional Mobil PT Goal 1 Goal 1. LEFS to display 30% or less functional deficits 2. patient to display 2cm or less girth measurement difference compared to the R knee jt line. 3. patient to return to normal gait mechanics on level surface without AD 4. patient to ambulate up and down steps with reciprocal gait mechanics with 1 hand rail hold Target Visit 12
--- NOTE | 2023-12-27 11:52 | PTOPEVAL1 ---
Assessment and note entered by JT File, PT Evaluation Information Assessment Status Evaluation Diagnosis s/p L TKA Onset 12/24/23 Subjective Information patient had a L TKA on 12/24/23. she has had a R TKA in the past. she reports so far this one is harder than the R one. she reports she has had a lot more pain with this knee. she reports she went home Sunday after surgery, and has had a rough go at it since being home. she reports she almost went to the hospital due to pain yesterday. she reports the surgeon told her she was very stiff. patient reports the surgeon told her he had to do more cleaning/scraping with this knee. she reports she returns to the surgeon for follow up on 01/04/24. Reported Pain Level Pain Score 2: Self Report Assessment PT Clinical Summary mrs. hicks is an 83 yo woman who presents to skilled PT services for evaluation and treatment s /p L TKA. she does have a history of a R TKA in the past few years. today, she displays deficits in rom, strength, flexibility, gait mechanics, and displays swelling and pain. continued skilled PT is indicated to improve patients objective/ functional deficits and progress towards return to prior level functional activity performance and quality of life. Plan of Care Interventions Electrical Stimulation,Gait Training,Hot Pack/Cold Pack,Intermittent Compression,Manual Therapy, Neuro Re-education,Patient/Caregiver Educati, Therapeutic Activities,Therapeutic Exercise PT Services Indicated Yes Treatment Frequency and 3x weekly for 12 visits Duration These treatments will address the objective and functional deficits as defined above. The patient will be advanced safely and appropriately in order for the patient to progress towards his/her prior level of function. Additional exercises will be introduced and as well as a comprehensive home exercise program upon discharge, if needed, ?to ensure carryover of functional gains achieved in the clinic. This treatment plan has been reviewed and agreement upon by the patient.
--- NOTE | 2024-01-24 09:44 | OPREHPOC ---
Outpatient Therapy Plan of Care This is a Multidisciplinary Plan of Care that may contain components documented by all disciplines (PT, OT, and ST.) PT Problem 1 PT Problem #1 Knowledge Deficit PT Goal 1 Goal 1. independent and compliant with HEP Target Visit 6 Progress Met PT Problem 2 PT Problem #2 Pain PT Goal 1 Goal 1. 2/10 pain or less in the L knee to return to prior level functional activity performance/ quality of life. Target Visit 19 Progress Not Met PT Problem 3 PT Problem #3 Impaired Range of Motion PT Goal 1 Goal 1. 0-120 degrees active L knee mobility Target Visit 19 Progress Not Met PT Problem 4 PT Problem #4 Impaired Strength PT Goal 1 Goal 1. 4/5 or better L hip flex 2. 5/5 L knee strength 3. 5/5 L ankle DF Target Visit 19 Progress Not Met PT Problem 5 PT Problem #5 Impaired Functional Mobil PT Goal 1 Goal 1. LEFS to display 30% or less functional deficits 2. patient to display 2cm or less girth measurement difference compared to the R knee jt line. 3. patient to return to normal gait mechanics on level surface without AD 4. patient to ambulate up and down steps with reciprocal gait mechanics with 1 hand rail hold Target Visit 19 Progress Not Met
--- NOTE | 2024-01-24 09:44 | PTOPPROG ---
Assessment and note entered by JT File, PT Evaluation Information Assessment Status Progress Diagnosis s/p L TKA Onset 12/24/23 Subjective Information patient reports the knee feels Alright today. however, she reports she has been dealing with sciatic symptoms. she reports these symptoms are worse currently than the knee pain. she reports bending the knee increases her sciatic pain. she reports she is walking with a cane around the home . Assessment PT Clinical Summary mrs. hicks presents to skilled PT for her 10th skilled therapy visit today. she presents today with improved L knee rom since her initial evaluation, and improved gait mechanics with a walker. however, she has been complicated by the development of sciatica in the L LE during her rehab of L TKA. she has made progress towards goals for ambulation, rom, and pain as of this date. however, given her continued deficits in objective/functional measures and slowed progress due to sciatica, patient would benefit from continued skilled PT. Plan of Care Interventions Electrical Stimulation,Gait Training,Hot Pack/Cold Pack,Intermittent Compression,Manual Therapy, Neuro Re-education,Patient/Caregiver Educati, Therapeutic Activities,Therapeutic Exercise PT Services Indicated Yes Treatment Frequency and continue skilled PT 3x weekly for 9 more visits Duration from today (19 total) These treatments will address the objective and functional deficits as defined above. The patient will be advanced safely and appropriately in order for the patient to progress towards his/her prior level of function. Additional exercises will be introduced and as well as a comprehensive home exercise program upon discharge, if needed, ?to ensure carryover of functional gains achieved in the clinic. This treatment plan has been reviewed and agreement upon by the patient.
--- NOTE | 2024-01-28 15:56 | PCPTNOTE ---
Pt. called and cancelled her appointment on this date due to being ill.
--- NOTE | 2024-01-31 09:27 | PCPTNOTE ---
left VM with surgeons office regarding getting a progressive brace to increase flexion or trying dry needling to the quads.
--- NOTE | 2024-02-01 17:02 | PCPTNOTE ---
surgeon called back today to report he does not want to brace or splint the patient at this time. he would also not like to do any dry needling yet. he is confident in continuing exercises (espeically the chair knee flexion stretch) to gain her remaining knee flexion rom.
--- NOTE | 2024-02-11 13:48 | PTOPPROG ---
Assessment and note entered by Arpan Santos Evaluation Information Assessment Status Discharge Diagnosis s/p L TKA ICD-10 Condition Codes (PT) Pain in left knee M25.562,Z47.1 Onset 12/24/23 Subjective Information Pt. reports that she is happy with her functional outcome. She reports that she notices pain across the knee that is limiting her. She notices that she does have consistent swelling. She reports she returns to the doctor in about 2 weeks. She reports she is noticing that the left knee remains stiff Assessment PT Clinical Summary Pt. has attended a total of 19 treatment sessions. She has had a difficult time establishing ROM due to chronic edema in the left knee. She is educated in regards to techniques to reduce edema and assures that she has been using them at home. While she demonstrates good functional improvements, recommend continued skilled PT up until her follow up with doctor to continue to normalize mobility in order to maximize function. Plan of Care Interventions Electrical Stimulation,Manual Therapy,Neuro Re- education,Patient/Caregiver Educati,Therapeutic Activities,Therapeutic Exercise PT Services Indicated Yes Treatment Frequency and 2x/week x 4 visits Duration These treatments will address the objective and functional deficits as defined above. The patient will be advanced safely and appropriately in order for the patient to progress towards his/her prior level of function. Additional exercises will be introduced and as well as a comprehensive home exercise program upon discharge, if needed, ?to ensure carryover of functional gains achieved in the clinic. This treatment plan has been reviewed and agreement upon by the patient.
--- NOTE | 2024-03-13 08:23 | OPREHPOC ---
Outpatient Therapy Plan of Care This is a Multidisciplinary Plan of Care that may contain components documented by all disciplines (PT, OT, and ST.) PT Problem 1 PT Problem #1 Knowledge Deficit PT Goal 1 Goal 1. independent and compliant with HEP Target Visit 6 Progress Met PT Problem 2 PT Problem #2 Pain PT Goal 1 Goal 1. 2/10 pain or less in the L knee to return to prior level functional activity performance/ quality of life. Target Visit 23 Progress Met PT Problem 3 PT Problem #3 Impaired Range of Motion PT Goal 1 Goal 1. 0-120 degrees active L knee mobility Target Visit 23 Progress Not Met PT Problem 4 PT Problem #4 Impaired Strength PT Goal 1 Goal 1. 4/5 or better L hip flex 2. 5/5 L knee strength 3. 5/5 L ankle DF Target Visit 19 Progress Met PT Problem 5 PT Problem #5 Impaired Functional Mobil PT Goal 1 Goal 1. LEFS to display 30% or less functional deficits . not met 2. patient to display 2cm or less girth measurement difference compared to the R knee jt line. not met 3. patient to return to normal gait mechanics on level surface without AD. met 4. patient to ambulate up and down steps with reciprocal gait mechanics with 1 hand rail hold. met Target Visit 23 Progress Partially Met
--- NOTE | 2024-03-13 08:24 | PTOPDC ---
Assessment and note entered by JT File, PT Evaluation Information Assessment Status Discharge Diagnosis s/p L TKA ICD-10 Condition Codes (PT) Pain in left knee M25.562,Z47.1 Onset 12/24/23 Subjective Information patient reports she feels Good today. she reports she has been DC'd from her surgeons care. she reports she is ready to DC skilled PT today. she reports she will continue her HEP independent at home. Assessment PT Clinical Summary mrs. hicks presents to skilled PT services having been DC'd from MD services for the L knee. she presents today having met all goals for skilled PT, except for LEFS score and arom of the L knee. she is walking without pain and with normal gait mechanics. she will DC skilled PT this date, and continue with HEP independent at home. she was instructed to follow up with PT if any regression occurs. Plan of Care PT Services Indicated Yes
== END 2024-02-28 14:42 | disposition home or self-care (01) ==
LOC: CHSPT 11:04
PROVIDERS: PCP Internal Medicine; Visit Provider Orthopaedic Surgery
DX: M17.12 Unilateral primary osteoarthritis, left knee (principal); Z96.652 Presence of left artificial knee joint
CPT/HCPCS: 97014; 97016; 97110; 97112; 97140; 97150; 97161; G0283

== ENCOUNTER 2024-01-04 08:05 | Outpatient (CLI) | payer MEDICARE, SELFPAY ==
[2024-01-04 08:57] LABS: Basophils Percent Auto 0.4 % (0.2-1.2); Eosinophils Absolute Auto 0.2 K/mm3 (0-0.3); Eosinophils Percent Auto 2.3 % (0-4.4); Hematocrit 28.2 % (37.0-47.0); Hemoglobin 8.8 g/dL (12.0-15.0); Immature Granulocyte Absolute 0.08 K/mm3 (0.00-0.031); Immature Granulocyte Percent A 0.8 % (0-0.5); Lymphocytes Absolute Auto 2.03 K/mm3 (0.9-3.2); Lymphocytes Percent Auto 20.4 % (18.3-44.2); Mean Corpuscular HGB Conc 31.2 g/dl (32-36); Mean Corpuscular Hemoglobin 29.7 pg (26-34); Mean Corpuscular Volume 95.3 fl (80-100); Mean Platelet Volume 8.9 fl (7.4-10.4); Monocytes Absolute Auto 0.5 K/mm3 (0.1-0.6); Monocytes Percent Auto 4.7 % (2.6-8.5); Neutrophils Absolute Auto 7.1 K/mm3 (1.3-6.7); Neutrophils Percent Auto 71.4 % (45.5-73.1); Platelet Count Result 417 k/mm3 (150-375); Red Blood Count 2.96 M/mm3 (4.2-5.4); Red Cell Distribution Width 15.5 % (11.5-14.5)
== END 2024-01-04 08:06 | disposition home or self-care (01) ==
PROVIDERS: PCP Internal Medicine; Visit Provider Orthopaedic Surgery
DX: D64.9 Anemia, unspecified (principal)
CPT/HCPCS: 36415; 85025

== ENCOUNTER 2024-02-11 11:06 | Outpatient (CLI) | payer MEDICARE, SELFPAY ==
[2024-02-11 11:18] LABS: Hematocrit 36.2 % (35.0-42.0); Hemoglobin 11.4 g/dL (11.7-13.8); Mean Corpuscular HGB Conc 31.5 g/dL (32-36); Mean Corpuscular Hemoglobin 27.4 pg (27.0-31.0); Mean Platelet Volume 8.6 fl (9.2-11.8); Platelet Count Result 461 K/mm3 (150-420); Red Blood Count 4.16 M/mm3 (4.20-5.40); Red Cell Distribution Width 13.8 % (11.6-14.4); White Blood Count 9.6 K/mm3 (4.8-10.8)
[2024-02-11 12:10] LABS: Anion Gap 8 mmol/L (4-12); Blood Urea Nitrogen 15 mg/dL (7-18); Calcium 9.5 mg/dL (8.5-10.1); Carbon Dioxide 28 mmol/L (21-32); Chloride 102 mmol/L (98-108); Estimated Glomerular Filt Rate > 60; Ferritin 44 ng/mL (8-252); Glucose 93 mg/dL (70-99); Iron 39 ug/dL (50-170); Osmolality Calculated 286 mOsm/kg (285-295); Potassium 4.2 mmol/L (3.5-5.1); Sodium 138 mmol/L (136-145)
== END 2024-02-11 11:07 | disposition home or self-care (01) ==
LOC: CHSLAB 11:07
PROVIDERS: PCP Internal Medicine; Visit Provider Internal Medicine
DX: I10 Essential (primary) hypertension (principal); D64.9 Anemia, unspecified
CPT/HCPCS: 36415; 80048; 82728; 83540; 85027

== ENCOUNTER 2024-03-13 07:50 | Outpatient (CLI) | payer MEDICARE, SELFPAY ==
[2024-03-13 08:03] LABS: Hematocrit 36.8 % (35.0-42.0); Hemoglobin 11.7 g/dL (11.7-13.8); Mean Corpuscular HGB Conc 31.8 g/dL (32-36); Mean Corpuscular Hemoglobin 26.7 pg (27.0-31.0); Mean Corpuscular Volume 83.8 fL (78.0-102.0); Mean Platelet Volume 8.6 fl (9.2-11.8); Platelet Count Result 379 K/mm3 (150-420); Red Blood Count 4.39 M/mm3 (4.20-5.40); Red Cell Distribution Width 14.1 % (11.6-14.4); White Blood Count 8.2 K/mm3 (4.8-10.8)
[2024-03-13 09:13] LABS: Anion Gap 8 mmol/L (4-12); Blood Urea Nitrogen 20 mg/dL (7-18); Calcium 9.3 mg/dL (8.5-10.1); Carbon Dioxide 30 mmol/L (21-32); Chloride 104 mmol/L (98-108); Estimated Glomerular Filt Rate > 60; Ferritin 25 ng/mL (8-252); Glucose 100 mg/dL (70-99); Iron 40 ug/dL (50-170); Osmolality Calculated 296 mOsm/kg (285-295); Potassium 4.1 mmol/L (3.5-5.1); Sodium 142 mmol/L (136-145)
== END 2024-03-13 07:51 | disposition home or self-care (01) ==
LOC: CHSLAB 07:51
PROVIDERS: PCP Internal Medicine; Visit Provider Internal Medicine
DX: D50.9 Iron deficiency anemia, unspecified (principal); E86.0 Dehydration; I10 Essential (primary) hypertension
CPT/HCPCS: 36415; 80048; 82728; 83540; 85027

== ENCOUNTER 2024-05-21 08:55 | Outpatient (CLI) | payer MEDICARE, SELFPAY ==
[2024-05-21 09:18] LABS: Basophils Absolute Auto 0.03 K/mm3 (0.00-0.10); Basophils Percent Auto 0.4 % (0.0-1.0); Eosinophils Absolute Auto 0.27 K/mm3 (0.02-0.50); Eosinophils Percent Auto 3.3 % (1.0-6.0); Hematocrit 41.1 % (35.0-42.0); Hemoglobin 13.8 g/dL (11.7-13.8); Immature Granulocyte Absolute 0.02 K/mm3 (0.00-0.00); Immature Granulocyte Percent A 0.2 % (0.0-0.0); Lymphocytes Absolute Auto 3.26 K/mm3 (1.10-4.50); Lymphocytes Percent Auto 40.1 % (18.0-42.0); Mean Corpuscular HGB Conc 33.6 g/dL (32-36); Mean Corpuscular Hemoglobin 28.1 pg (27.0-31.0); Mean Corpuscular Volume 83.7 fL (78.0-102.0); Mean Platelet Volume 8.8 fl (9.2-11.8); Monocytes Absolute Auto 0.53 K/mm3 (0.10-0.90); Monocytes Percent Auto 6.5 % (2.0-11.0); Neutrophils Absolute Auto 4.01 K/mm3 (1.70-7.20); Neutrophils Percent Auto 49.5 % (50.0-70.0); Platelet Count Result 316 K/mm3 (150-420); Red Blood Count 4.91 M/mm3 (4.20-5.40); Red Cell Distribution Width 16.9 % (11.6-14.4); White Blood Count 8.1 K/mm3 (4.8-10.8)
[2024-05-21 09:19] LABS: Add Urine Microscopic? YES; Appearance Urine Clear (Clear); Bilirubin Urine Negative (Negative); Blood Urine Negative (Negative); Color Urine Light Yellow (Yellow); Glucose Urine UA Negative (Negative); Ketones Urine Negative (Negative); Leukocyte Esterase Ur 2+ (Negative); Nitrate Urine Negative (Negative); Protein Urine Negative (Negative); Specific Grav Ur <= 1.005 (1.010-1.020); Urobilinogen Urine 0.2 mg/dL (0.2-1.0)
[2024-05-21 09:24] LABS: Bacteria Urine Trace /hpf; RBC Urine 0-2 /hpf (0-2); Squamous Epithelial Cell Urine Few /hpf (Few)
[2024-05-21 09:26] LABS: Creatinine Urine 51.08 mg/dL (40-278); Hemoglobin A1C 5.8 % (<5.7); MALB Creatinine Ratio 25.4 mg/g (0-30); Microalbumin Urine Random < 13.0 mg/L
[2024-05-21 10:17] LABS: Alanine Aminotransferase 27 U/L (14-59); Albumin Level 3.6 g/dL (3.4-5.0); Alkaline Phosphatase 90 U/L (46-116); Anion Gap 9 mmol/L (4-12); Aspartate Amino Transferase 18 U/L (15-37); Bilirubin,Total 0.6 mg/dL (0.00-1.00); Blood Urea Nitrogen 18 mg/dL (7-18); Calcium 9.4 mg/dL (8.5-10.1); Carbon Dioxide 30 mmol/L (21-32); Chloride 102 mmol/L (98-108); Cholesterol 169 mg/dL (0-200); Creatine Kinase 184 U/L (26-192); Estimated Glomerular Filt Rate 50; Ferritin 81 ng/mL (8-252); Free T3 2.81 pg/mL (2.18-3.98); Free T4 Free Thyroxine 1.05 ng/dL (0.76-1.46); Glucose 106 mg/dL (70-99); HDL Direct 49 mg/dL (40-60); Iron 66 ug/dL (50-170); LDL Cholesterol Calculated 78 mg/dL (<130); Osmolality Calculated 293 mOsm/kg (285-295); Potassium 3.3 mmol/L (3.5-5.1); Sodium 141 mmol/L (136-145); Thyroid Stimulating Hormone 2.99 uIU/mL (0.36-3.74); Total Protein 7.1 g/dL (6.4-8.2); Triglycerides 208 mg/dL (0-150)
== END 2024-05-21 08:56 | disposition home or self-care (01) ==
LOC: CHSLAB 08:57
PROVIDERS: PCP Internal Medicine; Visit Provider Internal Medicine
DX: E03.4 Atrophy of thyroid (acquired) (principal); I10 Essential (primary) hypertension; E78.2 Mixed hyperlipidemia; E79.0 Hyperuricemia without signs of inflammatory arthritis and tophaceous disease; E11.42 Type 2 diabetes mellitus with diabetic polyneuropathy
CPT/HCPCS: 36415; 80053; 80061; 81001; 82043; 82550; 82728; 83036; 83540; 84439; 84443; 84481; 85025

== ENCOUNTER 2024-06-12 11:56 | Outpatient (CLI) | payer MEDICARE, SELFPAY ==
--- NOTE | 2024-06-12 12:03 | ECHO_ITS ---
Patient Info Name: Nayely Mtz Age: 83 years : 1940 Gender: Female Ht: 61 in Wt: 194 lbs BSA: 1.99 m2 HR: 65 bpm BP: 145 / 102 mmHg Heart Rhythm: Sinus Rhythm Technical Quality: Good Exam Date: 06/12/2024 11:55 AM Exam Location: [facility] Patient Status: Outpatient Admit Date: 06/12/2024 Staff Ordering Physician: Tonny Pulliam DO Casino Runner: Jonathan Becerra RDCS Attending Provider: Tonny Pulliam DO Referring Physician: Heraclio FERRIS; Exam Type: CA echo doppler color flow Study Info Indications - localized edema Complete two-dimensional, color flow and Doppler transthoracic echocardiogram is performed. Summary 1. Complete two-dimensional, color flow and Doppler transthoracic echocardiogram is performed. 2. Left ventricular chamber dimension is normal. 3. Left ventricular systolic function is normal, estimated at 60-65%. 4. There is mild concentric increased left ventricular wall thickness. 5. The left ventricular diastolic function is grade I diastolic dysfunction. 6. E/e' 9 is minimally elevated. 7. There is mild aortic valve sclerosis. 8. There is mild aortic valve regurgitation. 9. There is trace tricuspid valve regurgitation. 10. No pulmonary hypertension, estimated pulmonary arterial systolic pressure is 37 mmHg. 11. There is trace pulmonic regurgitation. Left Ventricle E/e' 9 is minimally elevated. Left ventricular chamber dimension is normal. Left ventricular systolic function is normal, estimated at 60-65%. There is mild concentric increased left ventricular wall thickness. The left ventricular diastolic function is grade I diastolic dysfunction. Right Ventricle Right ventricular systolic function is normal and with normal TAPSE 2.4 cm. Right ventricular chamber dimension is normal. Left Atria Left atrial chamber dimension is normal. Right Atria Right atrial chamber dimension is normal. Aortic Valve The aortic valve is trileaflet. There is mild aortic valve sclerosis. There is no aortic valve stenosis. There is mild aortic valve regurgitation. Pulmonic Valve There is trace pulmonic regurgitation. Mitral Valve There is no mitral valve stenosis. There is no mitral valve regurgitation. Tricuspid Valve There is trace tricuspid valve regurgitation. No pulmonary hypertension, estimated pulmonary arterial systolic pressure is 37 mmHg. Pericardium/Pleural There is no pericardial effusion. Inferior Vena Cava Normal inferior vena cava with >50% collapse upon inspiration consistent with normal right atrial pressure, 5 mmHg. Aorta The aortic root size at the sinus of Valsalva is normal. Left Ventricular Outflow Tract Name Value Normal LVOT 2D LVOT Diameter 2.0 cm LVOT Doppler LVOT Peak Velocity 114 cm/s LVOT Peak Gradient 5 mmHg LVOT Mean Gradient 3 mmHg LVOT VTI 28 cm LVOT VTI/AV VTI Ratio 0.8 LVOT Stroke Volume 88 ml Pulmonic Valve Name Value Normal PV Regurgitation Doppler OH Peak End Diastolic Velocity 96 cm/s Mitral Valve Name Value Normal MV Doppler MV Decel Wayne 258 cm/s2 MV PHT 81 ms MV Area (PHT) 2.7 cm2 4.0-5.0 MV Diastolic Function MV E Peak Velocity 72 cm/s MV A Peak Velocity 91 cm/s MV E/A 0.8 MV Decel Time 279 ms Tricuspid Valve Name Value Normal TV Regurgitation Doppler TR Peak Velocity 284 cm/s TR Peak Gradient 32 mmHg Estimated PAP/RSVP RA Pressure 5 mmHg <=5 PA Systolic Pressure 37 mmHg <36 RV Systolic Pressure 37 mmHg <36 Aortic Valve Name Value Normal AV Doppler AV Peak Velocity 150 cm/s AV Peak Gradient 9 mmHg AV Mean Gradient 6 mmHg AV VTI 36 cm AV Area (Cont Eq VTI) 2.4 cm2 >=3.0 AV Area (Cont Eq Santosh) 2.4 cm2 AV V1/V2 Ratio 0.76 AV Regurgitation 2D LVOT Area 3.1 cm2 AV Regurgitation Doppler AR Decel Time 31,485 ms AR Decel Wayne 10 cm/s2 AR PHT 9,131 ms Ventricles Name Value Normal LV Dimensions 2D/MM IVS Diastolic Thickness (2D) 1.3 cm 0.6-1.0 LVID Diastole (2D) 4.5 cm 3.8-5.2 LVIW Diastolic Thickness (2D) 1.3 cm 0.6-0.9 LVID Systole (2D) 3.1 cm 2.2-3.5 LVOT Diameter 2.0 cm LV Mass (2D Cubed) 219.19 g 67.00-162.00 LV Mass Index (2D Cubed) 110 g/m2 43-95 Relative Wall Thickness (2D) 0.57 LV Fractional Shortening/Ejection Fraction 2D/MM LV Fractional Shortening (2D) 31 % 27-45 LV EF (2D Teicholz) 58 % 54-74 LV Diastolic Volume (4C MOD) 88 ml LV EF (4C MOD) 58 % LV Diastolic Volume (2C MOD) 104 ml LV EF (2C MOD) 77 % LV Diastolic Volume (BP MOD) 96 ml 46-106 LV Diastolic Volume Index (BP MOD) 48 ml/m2 29-61 LV Systolic Volume (BP MOD) 31 ml 14-42 LV Systolic Volume Index (BP MOD) 16 ml/m2 8-24 LV EF (BP MOD) 68 % 54-74 LV Diastolic Length (4C) 7.9 cm LV Systolic Length (4C) 6.2 cm LV Stroke Volume (4C MOD) 51 ml Atria Name Value Normal LA Dimensions LA Volume (4C A-L) 19 ml LA Volume (BP A-L) 22 ml RA Dimensions RA Area (4C) 8.2 cm2 <=18.0 Report Signatures
== END 2024-06-12 11:57 | disposition home or self-care (01) ==
LOC: CHSIMG 11:56
PROVIDERS: PCP Internal Medicine; Visit Provider Internal Medicine Cardiovascular Disease
DX: R60.0 Localized edema (principal); I35.8 Other nonrheumatic aortic valve disorders; I35.1 Nonrheumatic aortic (valve) insufficiency; I50.30 Unspecified diastolic (congestive) heart failure
CPT/HCPCS: 93306

== ENCOUNTER 2024-06-16 08:56 | Outpatient (CLI) | payer MEDICARE, SELFPAY ==
[2024-06-16 10:22] LABS: Anion Gap 10 mmol/L (4-12); Blood Urea Nitrogen 20 mg/dL (7-18); Calcium 9.2 mg/dL (8.5-10.1); Carbon Dioxide 29 mmol/L (21-32); Chloride 103 mmol/L (98-108); Estimated Glomerular Filt Rate 44; Glucose 99 mg/dL (70-99); Magnesium 2.4 mg/dL (1.8-2.4); Osmolality Calculated 296 mOsm/kg (285-295); Potassium 3.8 mmol/L (3.5-5.1); Sodium 142 mmol/L (136-145)
== END 2024-06-16 08:57 | disposition home or self-care (01) ==
LOC: CHSLAB 08:57
PROVIDERS: PCP Internal Medicine; Visit Provider Internal Medicine Cardiovascular Disease
DX: E78.5 Hyperlipidemia, unspecified (principal)
CPT/HCPCS: 36415; 80048; 83735

== ENCOUNTER 2024-07-28 11:42 | Outpatient (CLI) | payer MEDICARE, SELFPAY ==
[2024-07-28 12:39] LABS: Anion Gap 12 mmol/L (4-12); Blood Urea Nitrogen 23 mg/dL (7-18); Calcium 10.1 mg/dL (8.5-10.1); Carbon Dioxide 28 mmol/L (21-32); Chloride 103 mmol/L (98-108); Estimated Glomerular Filt Rate 49; Glucose 119 mg/dL (70-99); Osmolality Calculated 300 mOsm/kg (285-295); Sodium 143 mmol/L (136-145)
== END 2024-07-28 11:43 | disposition home or self-care (01) ==
PROVIDERS: PCP Internal Medicine; Visit Provider Nurse Practitioner Family
DX: I10 Essential (primary) hypertension (principal)
CPT/HCPCS: 36415; 80048

== ENCOUNTER 2025-01-22 14:54 | Outpatient (CLI) | payer MEDICARE, SELFPAY ==
--- NOTE | ~2025-01-22 | CT_ITS ---
CT abdomen pelvis w con Ordering provider: Irene Waldron, INTRAOPERATIVE NEURO TECH History: 84 years Female with . diverticulitis, rectal bleeding . Comparison: May 18, 2023 Technique: CT abdomen and pelvis with IV and without oral contrast. Automated exposure control and it erative reconstruction technique were employed. The dose-length product was 887.19 mGy-cm. 100 mL Omn ipaque 350 was given IV. Findings: VISUALIZED LOWER CHEST: Normal. UPPER ABDOMINAL ORGANS: Liver: Fat infiltration. Gallbladder: Cholelithiasis. Spleen: Normal. Stomach/duodenum: Sliding hiatus hernia. Pancreas: Normal. Adrenals: Normal. Kidneys: Small hypodensity seen in the left kidney upper pole anteriorly measuring 1.3 cm. Mass canno t be excluded. Follow-up advised. A cyst is seen in the right kidney lower pole measuring 1.5 cm. Soft tissue density seen previously in the right kidney upper pole measures 1.8 cm. Mass cannot be ex cluded. Follow-up advised. Calcification seen in the right upper abdomen with surrounding soft tissue density is not changed. No definite ureteric stones. PELVIC ORGANS: The bladder is underfilled. BOWEL AND MESENTERY: Colon: Thickened wall of the sigmoid and descending colon colon is seen which may indicate colitis. D iverticulitis is less likely. Possibility of a thrombus in the vein draining the sigmoid colon and de scending is noted which raises the possibility of venous ischemia. Follow-up advised. The appendix is not demonstrated. Small Bowel: Normal. No obstruction. Peritoneum/mesentery: No free air. Trace of free fluid is seen in the right and left paracolic gutter .. No mesenteric lymphadenopathy. RETROPERITONEUM: Mild atheromatous disease of the abdominal aorta. Soft tissue density seen anterior to the left psoas muscle measuring 1.9 cm suggestive of enlarged lymph node which appears slightly l arger than the previous study.. MUSCULOSKELETAL: Superficial soft tissues: The superficial soft tissues are normal. Bones: Age appropriate degenerative changes of the spine. Bilateral sacroiliacs. Bilateral hip osteoa rthritic changes. Pubic symphysitis. IMPRESSION: 1. Thrombosis seen in one of the tributaries of the portal vein which drains the descending and sigm oid colon which raises the possibility of venous ischemic changes. Other differential of the thickeni ng seen in the sigmoid and descending colon includes colitis and diverticulitis. 2. Cholelithiasis. 3. Fat infiltration of the liver. 4. Sliding hiatus hernia. 5. Bilateral renal hypodensities which may indicate masses. Further evaluation and Follow-up advised . 6. Retroperitoneal lymphadenopathy. The hematology technologist was able to reach to the doctor of the patient and he will inform her of t he findings. This was done at 6:34 PM on January 22, 2025. Reviewed, dictated and finalized at location A. IMPRESSION: 1. Thrombosis seen in one of the tributaries of the portal vein which drains t he descending and sigmoid colon which raises the possibility of venous ischemic changes. Other differential of the thickening seen in the sigmoid and descendi ng colon includes colitis and diverticulitis. 2. Cholelithiasis. 3. Fat infiltration of the liver. 4. Sliding hiatus hernia. 5. Bilateral renal hypodensities which may indicate masses. Further evaluation and Follow-up advised. 6. Retroperitoneal lymphadenopathy. The hematology technologist was able to reach to the doctor of the patient and h e will inform her of the findings. This was done at 6:34 PM on January 22, 2025.
[2025-01-22 15:27] LABS: Basophils Absolute Auto 0.03 K/mm3 (0.00-0.10); Basophils Percent Auto 0.2 % (0.0-1.0); Eosinophils Absolute Auto 0.26 K/mm3 (0.02-0.50); Hemoglobin 12.6 g/dL (11.7-13.8); Immature Granulocyte Absolute 0.05 K/mm3 (0.00-0.00); Immature Granulocyte Percent A 0.4 % (0.0-0.0); Lymphocytes Percent Auto 28.8 % (18.0-42.0); Mean Corpuscular HGB Conc 32.3 g/dL (32-36); Mean Corpuscular Hemoglobin 29.7 pg (27.0-31.0); Mean Platelet Volume 9.4 fl (9.2-11.8); Monocytes Absolute Auto 0.69 K/mm3 (0.10-0.90); Monocytes Percent Auto 5.4 % (2.0-11.0); Neutrophils Percent Auto 63.2 % (50.0-70.0); Platelet Count Result 283 K/mm3 (150-420); Red Blood Count 4.24 M/mm3 (4.20-5.40); Red Cell Distribution Width 13.6 % (11.6-14.4); White Blood Count 12.8 K/mm3 (4.8-10.8)
[2025-01-22 15:33] LABS: Alanine Aminotransferase 15 U/L (6-35); Albumin Level 3.9 g/dL (3.5-5.1); Alkaline Phosphatase 70 U/L (38-126); Anion Gap 6 mmol/L (4-12); Aspartate Amino Transferase 23 U/L (14-36); Bilirubin,Total 0.8 mg/dL (0.2-1.3); Blood Urea Nitrogen 13 mg/dL (7-17); Calcium 8.6 mg/dL (8.4-10.2); Carbon Dioxide 27 mmol/L (22-30); Chloride 107 mmol/L (98-107); Estimated Glomerular Filt Rate 56; Glucose 91 mg/dL (65-110); Osmolality Calculated 290 mOsm/kg (285-295); Sodium 140 mmol/L (137-145)
--- OUTSIDE RECORDS SUMMARY | 2025-01-22 15:34 | XMS_ITS | Encounter Summary ---
Author Organization [facility] Address [address] [place] [address] Care Team Providers Care Teacher Kindergarten Name Role Phone Unavailable Primary Care Provider Unavailabl e Encounter Details Date Type Department Care Team (Late st Contact Info) Description 11/11/1998 Outpatient Historical [facility] Winifred Monteiro MD [address] [place] [address] Ventricular flutter (CMS/HCC) (Primary Dx) Social History Tobacco Use Types Packs/Day Years Used Date Smoking Tobacco: Never Assessed Comments Unknown Sex and Gender Information Value Date Recorded Sex Assigned at Not on file 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
--- OUTSIDE RECORDS SUMMARY | 2025-01-22 15:34 | XMS_ITS | Clinical Summary ---
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
--- OUTSIDE RECORDS SUMMARY | 2025-01-22 15:34 | XMS_ITS | Data Portability ---
Author Organization [place] [facility], Main Office Address [address] [place] [address] Care Team Providers Care Classification Control Clerk Name Role Phone MARBELLA CONLEY Primary Care Provider MARBELLA CONLEY Referring Provider Assessment Encounter Date Assessment Date Assessment LastModified by Organization Details LastModified Time 01/10/2023 01/10/2023 HPI: Patient returns. She is here for 2 complaints. First 1 is that she is ready for another injection in the left knee. Last 1 was 3 months ago. She has severe osteoarthritis in the knee and gets relatively good relief from the injections. Her 2nd complaint is that she has been having pain in the low back. This pain goes across low back occasionally into the right leg. This pain started earlier this year. She has been helping out a friend starting in August and has been doing a lot more lifting and carrying to help her friend and she contributes her symptoms to that. We have seen her in the past for her back in 2020. She had an MRI scan done at that time which showed minimal pathology. Her back was doing well up until August when she started helping her friend. Patient at this point is on no anti-inflammatorie s. She has been on them in the past and tolerated them well but just has not been taking them. She has been taking A muscle relaxer for her back but has run out of that. Physical exam: 82-year-old female alert pleasant. She is obese through the abdomen. Her left knee she has a 15 degree flexion contracture and flexes to 125 . Her right knee range of motion is from 0-130 degrees. Left knee she has moderate tenderness over the medial joint line palpation. Hip range of motion is full without discomfort bilaterally. She has no numbness or tingling in the right leg or the left leg. She has a negative straight leg raise in both legs. She has normal motor function in both lower extremities. There is no tenderness the low back to palpation. After ChloraPrep was used on skin 20 mg Kenalog and 3 cc of 0.5% ropivacaine was injected into the left knee. Risk of infection discussed. 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 There has been advancement on the x-rays. Overall her symptoms in the left knee are very tolerable. She remains using the heel lift in the left shoe that we gave her in her recovery from the right total knee arthroplasty. When she walks she walks very smoothly without limp. She wishes to continue with injections in the knee and we will see her in 3 months for that. With regard to her low back pain she has no neurological deficits. I have recommended putting her back on meloxicam which she has taken in the past and tolerated this well. I am also going to refill her muscle relaxers. Also going to prescribe her a Medrol Dosepak, she will take this 1st and once this has been completed she was advised start taking meloxicam after that to avoid any GI upset. Recommended a course of formal physical therapy on her low back and will set this up as well. I will see her back in a month for re-evaluation. 30 minutes was spent treatment patient more than half of this heip-pa-pvmh conversation Not available 01/10/2023 16:48:03 02/07/2023 02/07/2023 HPI: Patient returns. She is here for follow-up of her low back pain. She with physical therapy. She took the Medrol Dosepak as well as taking the meloxicam 15 mg daily. All this helped quite a bit with her symptoms. She will occasionally get a twinge of pain in her back but overall very satisfactory improvement. She has 1 more visit with therapy today. She is going to continue the meloxicam. Patient wanted to discuss total knee arthroplasty. She has severe bicompartmental osteoarthritis with a significant flexion contracture in the left knee. She has been using the heel left in the left shoe but feels that she is still not walking normally and the knee is bothering her enough on a daily basis that she is thinking about having her knee replaced as she did on the right. She is a very youthful 82-year-old in did very well with her right total knee and I think would do equally as well with the left. Right now her is dealing with an inguinal hernia that is going to need surgery and she is waiting to figure out when he is going to have surgery and recovery before she makes a definite decision on surgery. I will schedule her to come back in 2 months for repeat cortisone injection in the left knee if she feels she needs it. If she decides she wants to discuss surgery she will call and reschedule with Dr. Carter for surgical consultation. 20 minutes was spent in treatment patient more than half of this in wfzz-ev-mckn conversation Not available 02/07/2023 14:35:29 04/04/2023 04/04/2023 HPI: Patient returns. She had an MRI scan down on some of her L-spine. Show some mild degenerative changes in her back. Mild neuroforaminal stenosis at multi levels. No central spinal stenosis. No moderate to severe foraminal stenosis . Her back is still a bit sore. Last time I saw her she was doing better after physical therapy and the Medrol Dosepak. Patient feels that her left knee being arthritic and having limited range motion is probably aggravating her back and I would agree with this. She is also having some more soreness in her right knee replacement which was done in November 2021. Again I think this is more been overloaded issue than anything else. Patient remains on meloxicam 15 mg daily. Impression: Patient has degenerative changes in her back which were overall very mild particularly for age. Again I think a lot of her symptoms are coming from the fact that left knee has a significant flexion contracture and she is walking comes today for pain in left knee. She feels that she wants to proceed with total knee arthroplasty on the left. She wishes to do this in late June once her has finished his deer hunting season which she is very adamant about doing every year. We will plan on having her come in mid May to have surgical consultation and planning to proceed and late June. We talked about cortisone injection in the knee and she did not feel that she needed did at this point. Discussed with her that be on today we would not be able do a cortisone injection without to laying her surgery she understands that. Not available 04/04/2023 14:32:01 07/30/2023 07/30/2023 Impression: Patient has advanced osteoarthritis left knee pronounced stiffness. She is happy with her result of her right knee replacement that was done in December 02 and she would like to proceed with left knee replacement as she feels her left knee is causing her a great deal of pain as well as limiting her activity substantially. I have discussed risks of surgery with her in detail. I reviewed that there will be numbness lateral to the incision that patients have difficulty kneeling after knee replacement in some patients will have chronic anterior knee pain. Risk of infection was discussed and I reviewed my preference for her using antibiotics before any dental work in the future. Risk of blood clots was discussed. We discussed use of Eliquis for 2 weeks and the aspirin twice daily for 4 weeks after surgery and she use this regimen her last knee replacement and tolerated this well. Risk of component loosening wear fracture ligament injury instability and need for revision surgery was discussed. Risk of stiffness bleeding transfusion nerve injury and medical complications such as heart attack stroke pulmonary embolism and were reviewed. I discussed with her that risk of mortality in Octogenarians is 1/200. We would ask Dr. Rankin for a formal cardiac risk assessment before surgery as well as have her see Dr. Conley for pre-surgical medical evaluation. I have given her a copy of the Ortho info on total knee replacement for review and recommended that she stop the meloxicam 7 days before surgery. We will plan to use low-dose 7.5 mg meloxicam in the postop period for pain control as we did last time. Her questions were answered. Time schedule this for her as discussed. 40 minutes were spent total care this patient more than half the time spent in xahh-mw-lvla care. Not available 08/06/2023 15:08:23 Plan of Treatment Reminders Order Date Submit Date Provider Last Modified By Organization Details Last Modified Time Details Appointments None recorded. Lab None recorded. Referral None recorded. Procedures injection/a spiration joint/bursa (PROC) - in office procedure, administere d by provider 2022 023 [email or web address] In-Office Order, Internal Use Only DO Not Attach Compendium DO Not Attach Compendium, Do Not Delete/merge, [id number] 3 15:24:21 Surgeries None recorded. Imaging XR, knee 2022 023 [email or web address] [facility] [place], [address], [place], [address], 3 17:25:16 XR, knee 2022 023 [email or web address] [facility] [place], [address], [place], [address], 3 17:25:16 Medication Orders Medrol (William) 4 mg tablets in a dose pack 2022 023 [facility], [address], [place], [address], 3 15:10:12 meloxicam 15 mg tablet 2022 023 [facility], [address] [place], [address], 3 17:02:21 tizanidine 4 mg tablet 2022 023 [facility], [address], [place], [address], 3 17:02:21 Kenalog 10 mg/mL suspension for injection 2022 023 [email or web address] [facility], [address], [place], [address], 3 15:10:01 ropivacaine (PF) 5 mg/mL (0.5 %) injection solution 2022 023 [email or web address] [facility], [address], [place], [address], 3 15:10:19 Patient TargetsNo targets recorded. Patient Instructions Encounter Date Encounter Id Patient Instructions Last Modified By Organization Details Last Modified Time 01/10/2023 [id number] physical therapy* [email or web address] Not availab le 01/10/2023 15:34:59 Reason for Referral None Reported. Results Created Date Observation Date Name Description Value Unit Range Abnormal Flag Note LastModifiedBy Organization Detail LastModifiedTime 01/11/20 XR, knee No observ ation record ed. [facility] [place] [address], [place], [address], 01/10/2023 16:43:17 01/11/20 XR, knee No observ ation record ed. [facility] [place] [address], [place], [address], 01/10/2023 16:42:58 04/01/2004/01/2023 MRI, lumba r spine , w/o contr ast No observ ation record ed. [address], [place], [address], 04/02/2023 09:06:50 Result Notes None recorded. Problems Name Problem SNOMED Code Status Onset Date Resolution Date Notes Provider Name and Address Organization Details Recorded Time Osteoarthr itis of left knee joint 6117403326157 09 Active 2021 Not Available [facility] 3 22:43:58 Osteoarthr itis 548516825 Active 2021 Not Available [facility] 3 22:43:58 Low back pain 583059272 Active 2022 Oralia Melgoza CMA null, [place] [facility] 15:32:44 Problem Notes None recorded. Procedures Surgical History Date Name Laterality Status Provider Name and Address Organization Details Recorded Time procedure on urinary bladder completed Not Available [facility] 10/11/2022 22:42:41 Hysterectomy, Partial completed Not Available [facility] 10/11/2022 22:42:41 Tonsillectomy completed Camille LATHAM S [facility] 01/10/2023 14:40:59 Imaging Results None recorded. Procedure Notes None recorded. Medical Equipment None Reported. Allergies Allergen ID Allergen Name Allergen Category Reaction Reaction Severity Criticality Documentation Date Start Date Code Code System Note Provider Name and Address Organization Details Recorded Time 69725 Substance with sulfonami de structure and antibacte rial mechanism of action (substanc e) medicatio n Not available Not available Not available 10/11/2022 36401 8003 SNOMED Not Available [facility] 3 22:45:25 14334 Product containin g penicilli n (product) medicatio n facial swelling Not available Not available 10/11/2022 15578 8001 SNOMED Not Available [facility] 3 22:45:25 Medications Name Sig Start Date Stop Date Status Note LastModified by Organization Details LastModified Time prednisone 10 mg tablet 11/15 completed Not Available Not Available Not Available oxybutynin chloride ER 10 mg tablet,exte nded release 24 hr active Not Available Not Available Not Available tizanidine 4 mg tablet take 1 tablet PO daily active Not Available Not Available No t Available valacyclovi r 1 gram tablet active Not Available Not Available Not Available meloxicam 15 mg tablet Take 1 tablet every day by oral route. active Not Available Not Available No t Available bupivacaine HCl 0.5 % (5 mg/mL) injection solution In office injection administe red by the provider 10/31 completed Not Available Not Available Not Available allopurinol 100 mg tablet active Not Available Not Available Not Available tramadol 50 mg tablet 05/30 completed Not Available Not Available Not Available meloxicam 7.5 mg tablet Take 1 tablet every day by oral route. active Not Available Not Available No t Available levothyroxi ne 100 mcg tablet active Not Available Not Available Not Available Kenalog 10 mg/mL suspension for injection in office procedure , administe red by provider 07/30 completed NDC: 0003- 0494- 20 Not Available Not Available Not Available cephalexin 500 mg capsule 01/11 completed Not Available Not Available Not Available pantoprazol e 40 mg tablet,chelsi yed release active Not Available Not Available Not Available lidocaine 5 % topical patch active Not Available Not Available Not Available metoprolol succinate ER 25 mg tablet,exte nded release 24 hr active Not Available Not Available Not Available methylpredn isolone 4 mg tablets in a dose pack Take the medrol dose pack PO as directed 07/30 completed Not Available Not Available Not Available losartan 50 mg-hydrochl orothiazide 12.5 mg tablet active Not Available Not Available Not Available oxybutynin chloride 5 mg tablet active Not Available Not Available No t Available oxycodone 5 mg tablet Take 1 tablet every 4 hours by oral route. active Not Available Not Available No t Available rosuvastati n 10 mg tablet active Not Available Not Available Not Available duloxetine 20 mg capsule,del ayed release active Not Available Not Available Not Available lidocaine (PF) 10 mg/mL (1 %) injection solution In office injection administe red by the provider 10/31 completed [facility]: [phone]- [phone]- [phone] Not Available Not Available Not Available lidocaine (PF) 5 mg/mL (0.5 %) injection solution In office injection administe red by the provider 01/10 completed Not Available Not Available Not Available ropivacaine (PF) 5 mg/mL (0.5 %) injection solution in office procedure , administe red by provider 07/30 completed [facility] [phone] Not Available Not Available Not Available Eliquis 2.5 mg tablet 01/11 completed Not Available Not Available Not Available lidocaine 5 % medicated patch and dimethicone 5 % topical cream active Not Available Not Available Not Available Vitals Date Recorded Body height Provider Name an d Address Organization Details Last Updated DateTime 10/04/2022 154.94 cm Not Available [facility] 22:43:01 Date Recorded Body height Body mass index (BMI) Body weight Provider Name and Address Organization Details Last Updated DateTime 01/10/2023 154.94 cm 37.6 kg/m2 15306.[address] [employer] [facility] [employer] [facility] 01/10/2023 14:45:37 Date Recorded Body height Provider Name an d Address Organization Details Last Updated DateTime 02/07/2023 154.94 cm CARLOS Harmon [facility] [employer] [facility] 02/07/2023 14:02:14 Date Recorded Body height Provider Name an d Address Organization Details Last Updated DateTime 04/04/2023 154.94 cm [facility] [place] [employer] [facility] 04/04/2023 14:08:02 Date Recorded Body height Body mass index (BMI) Body weight Provider Name and Address Organization Details Last Updated DateTime 07/30/2023 154.94 cm 36.3 kg/m2 [address]3988.[address] [facility] [employer] [facility] 07/30/2023 15:18:19 Social History Question Answer Notes LastModified by [employer] Details LastModified Time Tobacco Smoking Status Former Smoker quit 1984 Not Available [facility] 10/11/2022 22:42:22 What Was The Date Of Your Most Recent Tobacco Screening? 11/15/2020 [id number] Information not available 10/11/2022 Sex: Unknown Functional Status Question Answer Note LastModified by [employer] Details LastModified Time What is your level of alcohol consumption? Occasional [id number] Information not available 10/11/2022 Mental Status None recorded. Family History Relationship Description Onset Age of this Age Resolved Age Notes LastModified by Organization Details LastModified Time Father Heart disease [id number] Not available 10/11/2022 22:42:42 Father Diabetes mellitus [id number] Not available 10/11/2022 22:42:42 Mother Heart disease [id number] Not available 10/11/2022 22:42:42 Mother Family history of stroke [id number] Not available 10/11/2022 22:42:42 Sister Complication of anesthesia nausea [id number] Not available 10/11/2022 22:42:42 Medical History Condition Response BLINDNESS N KIDNEY STONES N MRSA N CARPAL TUNNEL SYNDROME N LUNG DISEASE/DISORDER N HISTORY OF DRUG ABUSE N RADIATION / CHEMOTHERAPY N COPD N SPORTS INJURY N ANKLE PAIN N BLOOD DISEASES N SCHIZOPHRENIA N SHINGLES N BOWEL PROBLEMS N SHOULDER PAIN N DEPRESSION (INCLUDING POST ) N STROKE/TIA N KNEE PAIN N ULCERS N BENIGN PROSTATIC HYPERPLASIA N OBESITY N GERD/NAUSEA N ANEURYSM N URINARY/BLADDER/KIDNEY PROBLEMS N CORONARY ARTERY DISEASE (CAD) N ADDICTION CONCERNS N USE OF BLOOD THINNERS N SKIN PROBLEMS Y EMPHYSEMA N MUSCLE,JOINT OR BONE PROBLEMS N DVT N STOMACH ULCERS N BLOOD CLOTS N USE OF NSAIDS N CONCUSSION OR SPINAL TRAUMA N NEUROPATHY N AIDS/HIV N FRACTURES N ELBOW PAIN N HYPERTENSION Y TOURETTE'S N ANXIETY DISORDER N Metal allergy N BLOOD TRANSFUSION N ANEMIA/BLOOD DISORDER N BIPOLAR DISORDER N BRONCHITIS N OSTEOARTHRITIS N TUBERCULOSIS N FOOT PROBLEM N HEART VALVE DISORDERS N ALLERGIES/HAYFEVER N SOFT TISSUE INJURY N INFECTIOUS DISEASE N HEART ARRHYTHMIA N INSOMNIA N RHEUMATOID ARTHRITIS N HIGH CHOLESTEROL / HYPERLIPIDEMIA N EDEMA N CHRONIC PAIN SYNDROME N CAROTID BLOCKAGE N BACK / NECK PROBLEMS N HAVE YOU BEEN HOSPITALIZED OR SEEN IN [facility] IN THE PAST YEAR ? N BURSITIS N HERNIATED DISC N DIALYSIS N FIBROMYALGIA N OSTEOPOROSIS N ARTHRITIS Y NO SIGNIFICANT PAST MEDICAL HISTORY N PERIPHERAL NEUROPATHY N DIABETES, TYPE N HEARTBURN / REFLUX N HEPATITIS / LIVER DISEASE N GOUT Y SLEEP DISORDER N ALZHEIMER'S DISEASE N HERPES N SEIZURES/EPILEPSY N HEADACHES/MIGRAINES N VASCULAR DISEASE N HIP PAIN N Blood Disorder N DIZZINESS N HEAD TRAUMA OR INJURY N HEART DISEASE/HEART PROBLEMS N MULTIPLE SCLEROSIS N CARDIAC ARRHYTHMIA N CANCER: SPECIFY Y ANESTHESIA COMPLICATIONS N ATRIAL FIBRILLATION N AUTOIMMUNE DISEASE N Gynecological HistoryNo gynecological history recorded. Obstetrics History GPAL:G 0 P 0 0 0 0 Past Encounters Encounter ID Performer Location Encounter Start Date Encounter Closed Date Diagnosis/Indication Diagnosis SNOMED-CT Code Diagnosis ICD10 Code Diagnosis Note [id number] Luis Alberto Carter MD [facility] [place] [address] [facility] [address] [address] [place] [address] 11/15/2020 00:00:00 11/15/2020 16:57:30 [id number] Luis Alberto Carter MD [facility] [place] [address] [facility] [address] [place] [address] 02/09/2021 00:00:00 02/20/2021 12:36:50 [id number] Luis Alberto Carter MD [facility] [place] [address] [facility] [address] [place] [address] 03/16/2021 00:00:00 03/20/2021 17:04:20 [id number] Luis Alberto Carter MD [facility] [place] [address] [facility] [address] [place] [address] 05/30/2021 00:00:00 05/30/2021 14:52:01 [id number] Luis Alberto Carter MD [facility] [place] [address] [place] [address] 2021 00:00:00 2021 14:44:22 [id number] Luis Alberto Carter MD [facility] [place] [address] [place] [address] 10/31/2021 00:00:00 10/31/2021 16:09:18 [id number] Luis Alberto Carter MD [facility] [place] [address] [place] [address] 12/26/2021 00:00:00 12/26/2021 14:43:43 [id number] MD [facility] [place] [address] [place] [address] 01/11/2022 00:00:00 01/16/2022 13:02:21 [id number] MD SATNAM [facility] [place] [address] [place] [address] 01/25/2022 00:00:00 01/25/2022 11:18:51 [id number] MD SATNAM [facility] [place] [address] [place] [address] 03/08/2022 00:00:00 03/08/2022 11:30:38 [id number] Luis Alberto Carter MD [facility] [place] [address] [place] [address] 06/21/2022 00:00:00 06/21/2022 16:26:19 [id number] MD SATNAM [facility] [place] [address] [place] [address] 10/04/2022 00:00:00 10/04/2022 15:40:47 [id number] MD SATNAM [facility] [place] [address] [place] [address] 01/10/2023 14:20:46 01/10/2023 17:25:15 Osteoarthritis of left knee joint 0137124771 07169 M17.12 History of right total knee replacement 5955226285 901010 Z96.651 Low back pain 812210395 M54.50 [id number] Luis Alberto Carter MD [facility] [place] [address] [place] [address] 02/07/2023 13:59:05 02/07/2023 14:52:03 Low back pain 708313173 M54.50 [id number] Luis Alberto Carter MD [facility] [place] [address] [place] [address] 04/04/2023 14:03:52 04/04/2023 14:57:57 Low back pain 576994139 M54.50 [id number] Luis Alberto Carter MD [facility] [place] [address] [place] [address] 07/30/2023 15:04:17 08/08/2023 15:20:06 Osteoarthritis of left knee joint 4695708851 93954 M17.12 Health Concerns Section Related Observation LastModified by Organization Detai ls LastModified Time None Recorded Concern Status LastModified by Organization Details LastModified Time None Recorded Advance Directives Directive None Recorded Payers Insurance Date Sequence Insurance Name Policy Number Policy Meek Covered Member ID Meek Member ID Guarantor Name 08/09/2023 1 [employer] (MEDICARE REPLACEMENT/ ADVANTAGE - PPO) [id number] 1 Nayely Mtz [id number] Nayely Mtz Notes Date Note Type Note Provider Name and Address Organization Details Recorded Time 07/30/2023 text/html patient returns. She has decided that she would like to proceed with left total knee replacement. Her back pain has improved. She continues to take meloxicam 15 mg daily. X-rays of her left knee from January demonstrate [id number]-hc-ilid medial compartment osteoarthritis in the left knee moderately severe lateral compartment joint space narrowing and huge posterior femoral osteophytes. Patient underwent right total knee arthroplasty in November 2021 she is pleased with her result. She did have severe nausea the day after surgery and had to stay in the hospital an extra day because of that. Patient has a CPAP machine that she uses and would bring that in with her. She saw her card cutter helper Dr. Rankin 2 months ago and he said that she should be stable from a cardiac standpoint to undergo knee replacement. Luis Alberto Carter MD [address] [place] [address], [place], [id number], [place] - [facility] 08/06/2023 15:08:47 OBGyn Episode No OBEpisode recorded.
--- OUTSIDE RECORDS SUMMARY | 2025-01-22 15:34 | XMS_ITS | Clinical Summary ---
Author Organization [facility] Address [address] [place] [address] Care Team Providers Care Certified Forklift Operator Name Role Phone Michael Beck MD Primary Care Provider Unavailabl e Source Comments [facility],non-owned Affiliates and Associated Physician Practices is amultiple site organization consisting of ambulatory clinics and hospital sitesin [place], [place], [place] and [place]. This disclosure is being madepursuant to the Care Everywhere program and may not contain all information available regarding this patient. Last updated 18.[facility] Allergies Active Allergy Reactions Criticality Noted Date Comments Penicillins Swelling Low 01/16/2017 Sulfa Drugs Other Low 01/16/2017 Flu like symptoms Medications * Be aware that medications may not be up to date on this document. Alwaysverify current medications with the patient. pantoprazole EC (PROTONIX) 20 MG tablet Take by mouth. 7 Active metoprolol succinate XL 24hr (TOPROL XL) 25 MG tablet Take 25 mg by mouth DAILY. 7 Active losartan - hydroCHLOROthiazide (HYZAAR) 50-12.5 MG tablet Take by mouth. 7 Active DULoxetine (CYMBALTA) 20 MG capsule Take by mouth. 7 Active rosuvastatin (CRESTOR) 5 MG tablet Take by mouth. 7 Active levothyroxine (SYNTHROID) 25 MCG tablet Take by mouth. 7 Active traMADol (ULTRAM) 50 MG tablet Take by mouth. 7 Active oxybutynin (DITROPAN) 5 MG tablet Take 10 mg by mouth. 7 Active aspirin (ASPIRIN) 81 MG tablet Take 81 mg by mouth DAILY. 7 Active tiZANidine HCl 4 MG Take 4 mg by mouth TID. 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 Overview (11/12/2017): inframammary folds and inguinal folds Anxiety disorder 01/16/2017 Irritable bowel syndrome without diarrhea 2016 Pure hypercholesterolemia 01/16/2017 Malignant neoplasm of cervix uteri 01/16/2017 Fibromyalgia 01/16/2017 Major depressive disorder, single episode 2016 Essential (primary) hypertension 01/16/2017 Osteoarthritis 01/16/2017 Encounters Date Type Department Care Team Description 12/15/2024 Travel from Last 3 Months Family History Medical History Relation Name Comments Cancer - Skin, Melanoma Sister Stat us: Alive Cancer - Skin, Melanoma Son Stat us: Alive Relation Name Status Comments Sister Son Social History Tobacco Use Types Packs/Day Years Used Date Smoking Tobacco: Former Smokeless Tobacco: Never Alcohol Use Standard Drinks/Week Comments Yes 0 (1 standard drink = 0.6 oz pur e alcohol) Comments Unknown Sex and Gender Information Value Date Recorded Sex Assigned at Not on file 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 Gender Identity Not on file Sexual Orientation Not on file Last Filed Vital Signs Vital Sign Reading Time Taken Comments Blood Pressure - - Pulse - - Temperature - - Respiratory Rate - - Oxygen Saturation - - Inhaled Oxygen Concentration - - Weight 90.3 kg (199 lb) 01/16/2017 5:38 PM CDT Height 160 cm (5' 3) 01/16/2017 5:38 PM CDT Body Mass Index 35.25 01/16/2017 5:38 PM CDT Plan of Treatment Upcoming Encounters Date Type Department Care Team (Late st Contact Info) Description 02/23/2025 1:00 PM CDT Office Visit [facility] - [facility] [address] [place] [phone] Wei Hart, DMD [address] [place] [address] [place] [address] Health Maintenance Due Date Last Done Comments BONE DENSITY TESTING 1942 DTAP/TDAP/TD VACCINES (1 - Tdap) 1961 PNEUMOCOCCAL VACCINE 50+ (1 of 1 - PCV) 1992 ZOSTER VACCINE (1 of 2) 1992 Respiratory Syncytial Virus (RSV) Vaccine Pt: or over 60 yrs (1 - 1-dose 75+ series) 2017 COVID-19 VACCINE ( - 2023-2 5 season) 2024 DEPRESSION SCREENING 08/13/2024 MEDICARE AWV CALENDAR YEAR 2024 INFLUENZA VACCINE (Season Ended) 2025 HEPATITIS B VACCINE Aged Out No longe r eligible based on patient's age to complete this topic HIB VACCINE Aged Out No longer eligi ble based on patient's age to complete this topic HPV VACCINE Aged Out No longer eligi ble based on patient's age to complete this topic MENINGOCOCCAL (Group B) VACC INE SHARED DECISION-MAKING Aged Out No longer eligibl e based on patient's age to complete this topic MENINGOCOCCAL GROUPS A/C/Y/W VACCINE Aged Out No longer eligible b ased on patient's age to complete this topic Insurance [facility] MANAGED MEDICARE ADV AETNA MEDICARE ADV Care Teams Certified Forklift Operator Relationship Specialty Start Date End Date Michael Beck MD PCP - General 03/15/20
== END 2025-01-22 14:55 | disposition home or self-care (01) ==
LOC: CHSLAB 14:57
PROVIDERS: PCP Internal Medicine; Visit Provider Nurse Practitioner Family
DX: K57.92 Diverticulitis of intestine, part unspecified, without perforation or abscess without bleeding (principal); K62.5 Hemorrhage of anus and rectum; R10.31 Right lower quadrant pain; I81 Portal vein thrombosis; K80.20 Calculus of gallbladder without cholecystitis without obstruction; K76.0 Fatty (change of) liver, not elsewhere classified; K44.9 Diaphragmatic hernia without obstruction or gangrene; N20.0 Calculus of kidney; R59.0 Localized enlarged lymph nodes
CPT/HCPCS: 36415; 74177; 80053; 85025; Q9967

== ENCOUNTER 2025-01-22 19:10 | Emergency (ER) | payer MEDICARE, SELFPAY ==
[2025-01-22] VITALS (32 sets, daily range): BP systolic 57–155; BP diastolic 43–134; PULSE 59–76; RESP 12–26; TEMP 36; O2SAT 94–100
--- OUTSIDE RECORDS SUMMARY | 2025-01-22 19:13 | XMS_ITS | Encounter Summary ---
Author Organization [employer] Address 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
--- OUTSIDE RECORDS SUMMARY | 2025-01-22 19:13 | XMS_ITS | Clinical Summary ---
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
--- OUTSIDE RECORDS SUMMARY | 2025-01-22 19:13 | XMS_ITS | Clinical Summary ---
Author Organization [facility] Address [address] [place] [address] Care Team Providers Care Roustabout Pusher Name Role Phone Michael Beck MD Primary Care Provider Unavailabl e Source Comments [facility],non-owned Affiliates and Associated Physician Practices is amultiple site organization consisting of ambulatory clinics and hospital sitesin [place], [place], [place] and [place]. This disclosure is being madepursuant to the Care Everywhere program and may not contain all information available regarding this patient. 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
--- NOTE | 2025-01-22 19:31 | ECG_ITS ---
Test Date: 2025-01-22 19:37:47 Measurements Intervals [place] Rate: 68 P: -10 MO: 137 QRS: 14 QRSD: 86 T: 29 QT: 409 QTc: 437 Interpretive Statements SINUS RHYTHM EARLY PRECORDIAL R/S TRANSITION BASELINE ARTIFACT- I, II, AVR, AVL, AVF BORDERLINE ECG No previous ECG available for comparison Electronically Signed On 01-22-2025 21:02:59 CDT by Tonyn Pulliam D.O.
[2025-01-22 19:52] LABS: Occult Blood Positive (Negative)
--- OUTSIDE RECORDS SUMMARY | 2025-01-22 19:58 | XMS_ITS | Clinical Summary ---
Author Organization [facility] [employer] Address [address] [place] [address] Care Team Providers Care Walnut Dehydrator Operator Name Role Phone Michael Beck MD Primary Care Provider Unavailabl e Source Comments [facility] [employer],non-owned Affiliates and Associated Physician Practices is amultiple site organization consisting of ambulatory clinics and hospital sitesin [place], [place], [place] and [place]. This disclosure is being madepursuant to the Care Everywhere program and may not contain all information available regarding this patient. 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
--- OUTSIDE RECORDS SUMMARY | 2025-01-22 19:58 | XMS_ITS | Clinical Summary ---
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
--- OUTSIDE RECORDS SUMMARY | 2025-01-22 19:58 | XMS_ITS | Encounter Summary ---
Author Organization [employer] Address [address] [place] [address] Care Team Providers Care Assistant Manager Of Operations Name Role Phone Unavailable Primary Care Provider Unavailabl e Encounter Details Date Type Department Care Team (Late st Contact Info) Description 11/11/1998 Outpatient Historical [facility] Winifred Monteiro MD 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
[2025-01-22 20:04] LABS: Partial Thromboplastin Time 26.8 Sec (23.9-30.70); Prothrombin Time 10.9 Seconds (9.50-12.1)
[2025-01-22 20:07] LABS: Lactic Acid Reflex 1.7 mmol/L (0.4-2.0); Lipase 38 U/L (23-300)
[2025-01-22] MEDS: metroNIDAZOLE 500 MG/ISO 100ML 500 MG/100 ML BAG 100 MG IVPB (22:01)
[2025-01-22] MEDS: CIPROFLOXACIN 400 MG/D5W 200ML 200 ML 200 MG IVPB (22:02)
[2025-01-22] MEDS: MORPHINE SULFATE (*CRX) 2 MG/ML INJ IV PUSH (22:08)
[2025-01-22] MEDS: SODIUM CHLORIDE 0.9% IV 1,000 ML 999 ML IV CONT (22:08)
[2025-01-22 22:58] LABS: Basophils Absolute Auto 0.04 K/mm3 (0.00-0.10); Basophils Percent Auto 0.3 % (0.0-1.0); Eosinophils Absolute Auto 0.24 K/mm3 (0.02-0.50); Hematocrit 34.3 % (35.0-42.0); Hemoglobin 11.1 g/dL (11.7-13.8); Immature Granulocyte Absolute 0.04 K/mm3 (0.00-0.00); Immature Granulocyte Percent A 0.3 % (0.0-0.0); Lymphocytes Absolute Auto 3.09 K/mm3 (1.10-4.50); Lymphocytes Percent Auto 26.1 % (18.0-42.0); Mean Corpuscular HGB Conc 32.4 g/dL (32-36); Mean Corpuscular Hemoglobin 30.1 pg (27.0-31.0); Mean Platelet Volume 9.2 fl (9.2-11.8); Monocytes Absolute Auto 0.67 K/mm3 (0.10-0.90); Monocytes Percent Auto 5.6 % (2.0-11.0); Neutrophils Absolute Auto 7.78 K/mm3 (1.70-7.20); Neutrophils Percent Auto 65.7 % (50.0-70.0); Platelet Count Result 233 K/mm3 (150-420); Red Blood Count 3.69 M/mm3 (4.20-5.40); Red Cell Distribution Width 13.5 % (11.6-14.4); White Blood Count 11.9 K/mm3 (4.8-10.8)
[2025-01-22 23:08] LABS: Partial Thromboplastin Time 27.6 Sec (23.9-30.70); Prothrombin Time 11.4 Seconds (9.50-12.1)
[2025-01-22] MEDS: HEPARIN SODIUM 5,000 UNITS/ML VIAL 5000 UNITS IV PUSH (23:25)
[2025-01-22] MEDS: HEPARIN SOD/D5W 100 UNITS/ML 25,000 UNITS/250 ML BAG 12 UNITS IV CONT (23:25)
--- NOTE | 2025-01-22 23:46 | ED_ITS ---
HPI - Abdominal Pain General Chief Complaint: Recheck/Abnormal Lab/Rx Stated Complaint: occluded portal vein Time Seen by Provider: 01/22/25 19:12 Source: patient Mode of arrival: ambulatory Limitations: no limitations History of Present Illness HPI narrative: This is an 84-year-old female that presents from her primary care doctor's office with abdominal pain has a history of diverticulitis had an outpatient CT scan of the abdomen pelvis which showed portal vein thrombus. The patient has been having abdominal pain the left lower quadrant for the last couple of days and follow with her primary. Her primary center to the emergency room for further evaluation, patient has a history of diverticulitis with rectal bleed no overt rectal bleeding currently. There is no hematemesis no melena no fever chills no jaundice no chest pain or shortness of breath. Patient has a history of diverticulitis, hypothyroidism hypertension hyperlipidemia. MD elicited complaint: abdominal pain Onset (ago): day(s) Pain Consistency: constant Location: diffuse Quality: aching Related Data Home Medications ?Medication ?Instructions ?Recorded ?Confirmed ?Last Taken ?Type allopurinol 100 mg tablet 100 mg PO QAM 12/02/21 12/24/24 06/04/23 History duloxetine 20 mg capsule,delayed 20 mg PO BID 12/02/21 12/24/24 12/24/23 05:00 History release levothyroxine 100 mcg tablet 100 mcg PO QAM 12/02/21 12/24/24 12/24/23 05:00 History pantoprazole 40 mg tablet,delayed 40 mg PO QAM 12/02/21 12/24/24 06/05/23 History release rosuvastatin 10 mg tablet 10 mg PO HS 12/02/21 12/24/24 06/04/23 History Thc, Cbd, Cbn 0.5 gummy PO HS 12/07/23 12/24/24 Unknown History oxybutynin chloride 5 mg tablet 5 mg PO DAILY 12/07/23 12/24/24 Unknown History bisoprolol fumarate 10 mg tablet 10 mg PO 11/27/24 12/24/24 Unknown History Allergies Allergy/AdvReac Type Severity Reaction Status Date / Time Penicillins Allergy Severe LIPS AND Verified 01/22/25 20:50 MOUTH SWELLED Sulfa (Sulfonamide Allergy Severe Rash, Verified 01/22/25 20:50 Antibiotics) ITCHING Review of Systems 2 Review of Systems: All systems reviewed & are unremarkable except as noted in HPI and below PMFSH Past Medical History Medical History Supraventricular tachycardia (2000) Hypothyroidism Obstructive sleep apnea on CPAP Tortuous colon Diverticulosis Hypertension Hyperlipidemia Fibromyalgia Arthritis Surgical History Surgical History 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 History of tonsillectomy Family History Family History Father CHF (congestive heart failure) Diabetes mellitus Mother Cerebrovascular accident Son Melanoma Diabetes mellitus Sibling No problems noted. Social History Social History Social History: Surrogate medical decision maker: Jos Mtz, spouse. Code status: Full code. Smoking packs per day: 1 Smoking cigarettes per day: 20.0 Years smoked: 15 Smoking pack-years: 15.00 Smoking status: Former smoker Second hand tobacco smoke exposure: No Alcohol intake: current Alcohol use details: 1 to 2 drinks a month. Substance use: current Substance use type: marijuana Other substance usage details: gummies Do You Feel Safe in your Home?: Yes Lack of Transportation: No Lack of Food: Never True Current Housing: I Have Housing Concerned About Future Housing: No Difficulty Paying Gas/Electric Bills: No Difficulty Paying for Meds: No Currently Unemployed: No Education: Master's Degree or Higher Difficulty w/ Childcare or Family Care: No Living arrangements: with family Additional living arrangements comments: Lives with spouse in [place]. Occupation/Education: retired Additional occupation/education comments: [employer] Gender identity (if verbalized by the patient): Female Spiritual care concerns: No Exam 2 Const: General: healthy appearing and no acute distress O rientation/consciousness: patient oriented x3 Limitations: no limitations HENMT: Head: normal to inspection Eyes: Conjunctivae: conjunctivae normal Pupils: Equal, round and reactive pupils present EOM: EOMs intact bilaterally Neck: Neck: normal visual inspection, no lymphadenopathy and no meningeal signs Chest: Chest palpation & inspection: normal inspection of the chest Resp: Effort & Inspection: normal respiratory effort Auscultation: clear to auscultation bilaterally Cardio: Rate: regular rate Rhythm: regular rhythm GI: GI Palp: Yes Soft to palpation and Yes Tenderness to palpation present (GI) Auscultation: normal bowel sounds : General: Yes bladder normal to palpation Back/Spine/Pelvis: Back: no CVA tenderness Skin: General skin exam: normal color Rashes: no rashes Neuro: General: patient oriented x3, moves all extremities, no meningeal signs and no focal motor deficits Extrem: General: normal to inspection and no clubbing, cyanosis or edema Psych: Mental Status: mental status grossly normal Affect: normal affect Course Course Emergency Course: Patient had a CT scan of the abdomen pelvis which shows a thrombosis of the tributaries portal vein. So the thickening seen in the sigmoid and descending colon which includes colitis and diverticulitis. Patient blood work performed which showed a blood white blood cell count of 12.8 with an H&H of 12 and 39. Patient had a guaiac-positive stool, lactic acid of 1.7. Vital signs blood pressure 137/82. Patient with some CT scan evidence of portal thrombosis started on heparin with a bolus and current heparin drip with IV fluids and with evidence of diverticulitis started on Cipro and Flagyl. Patient given morphine for pain control, and spoke with [facility] were hospitalist and General Surgeon accepted the patient for transfer. Vital Signs Vital signs: Vital Signs Temperature 36.0 C L 01/22/25 19:16 Pulse Rate 70 01/22/25 19:16 Respiratory Rate 18 01/22/25 19:16 Blood Pressure 142/67 H 01/22/25 19:16 Pulse Oximetry 96 01/22/25 19:16 Oxygen Delivery Room Air 01/22/25 19:16 Temperature 36.0 C L 01/22/25 19:16 Pulse Rate 64 01/22/25 21:45 Respiratory Rate 17 01/22/25 21:31 Blood Pressure 124/66 01/22/25 21:45 Pulse Oximetry 96 01/22/25 21:45 Oxygen Delivery Room Air 01/22/25 19:16 MDM - Abdominal Pain Lab Data 01/22/25 22:50 Labs: Lab Results 01/22/25 01/22/25 Range/Units 19:40 22:50 WBC 11.9 H (4.8-10.8) K/mm3 RBC 3.69 L (4.20-5.40) M/mm3 Hgb 11.1 L (11.7-13.8) g/dL Hct 34.3 L (35.0-42.0) % MCV 93.0 (78.0-102.0) fL MCH 30.1 (27.0-31.0) pg MCHC 32.4 (32-36) g/dL RDW 13.5 (11.6-14.4) % Plt Count 233 (150-420) K/mm3 MPV 9.2 (9.2-11.8) fl Immature Gran % (Auto) 0.3 H (0.0-0.0) % Neut % (Auto) 65.7 (50.0-70.0) % Lymph % (Auto) 26.1 (18.0-42.0) % Griggs % (Auto) 5.6 (2.0-11.0) % Eos % (Auto) 2.0 (1.0-6.0) % Baso % (Auto) 0.3 (0.0-1.0) % Lymph # (Auto) 3.09 (1.10-4.50) K/mm3 Griggs # (Auto) 0.67 (0.10-0.90) K/mm3 Eos # (Auto) 0.24 (0.02-0.50) K/mm3 Baso # (Auto) 0.04 (0.00-0.10) K/mm3 Abs Immat Gran (auto) 0.04 H (0.00-0.00) K/mm3 Absolute Neuts (auto) 7.78 H (1.70-7.20) K/mm3 Absolute Nucleated RBC 0.00 (0.00-0.00) K/mm3 Nucleated RBC % 0.0 (0-0.0) % PT 10.9 11.4 (9.50-12.1) Seconds INR 1.0 1.0 APTT 26.8 27.6 (23.9-30.70) Sec Lactic Acid 1.7 (0.4-2.0) mmol/L Lipase 38 (23-300) U/L Stool Occult Blood Positive A (Negative) Critical Care Time Critical Care Time Critical Care Time: No Discharge Plan Discharge Clinical Impression: Portal vein thrombosis, Diverticulitis Patient Disposition: Acute Care Hospital Condition: Stable Patient Language: Montenegrin Prescriptions: No Action bisoprolol fumarate 10 mg tablet 10 mg PO allopurinol 100 mg Tablet 100 mg PO QAM levothyroxine 100 mcg Tablet 100 mcg PO QAM pantoprazole 40 mg Tablet,Delayed Release (Dr/Ec) 40 mg PO QAM rosuvastatin 10 mg Tablet 10 mg PO HS duloxetine 20 mg Capsule,Delayed Release(Dr/Ec) 20 mg PO BID oxybutynin chloride 5 mg Tablet 5 mg PO DAILY Thc, Cbd, Cbn 0.5 gummy PO HS losartan 50 mg tablet 50 mg PO DAILY Qty: 60 0RF spironolactone 25 mg tablet See Rx Instructions .ROUTE .COMPLEX Qty: 30 5RF Dose Instruction: TAKE ONE TABLET BY MOUTH DAILY Rx Instructions: TAKE ONE TABLET BY MOUTH DAILY Follow-up/Referrals: Jacinda Beck MD [Primary Care Provider] - Time of Disposition: 23:51
[2025-01-23] VITALS: BP 141/62; PULSE 63; RESP 14; O2SAT 97
[2025-01-23 00:01] VITALS: PULSE 66; RESP 22; O2SAT 96
[2025-01-23 00:15] VITALS: PULSE 64
[2025-01-23 00:23] VITALS: PULSE 66
[2025-01-23 00:30] VITALS: PULSE 63
--- NOTE | 2025-01-24 13:42 | PC.NURSE ---
blood culture preliminary no growth
--- NOTE | 2025-01-29 12:03 | PC.NURSE ---
Final blood culture results 2/2- no growth.
== END 2025-01-23 00:51 | disposition short-term general hospital (02) ==
PROVIDERS: Emergency Provider Emergency Medicine; PCP Internal Medicine
DX: I82.90 Acute embolism and thrombosis of unspecified vein (principal); K57.92 Diverticulitis of intestine, part unspecified, without perforation or abscess without bleeding; E03.9 Hypothyroidism, unspecified; I10 Essential (primary) hypertension; E78.5 Hyperlipidemia, unspecified; Z87.891 Personal history of nicotine dependence
CPT/HCPCS: 36415; 82272; 83605; 83690; 85025; 85610; 85730; 87040; 93005; 96361; 96365; 96368; 96375; 99285; J0744; J1644; J1836; J2270; J7030

== ENCOUNTER 2025-03-04 15:48 | Outpatient (CLI) | payer MEDICARE, SELFPAY ==
--- OUTSIDE RECORDS SUMMARY | 2025-03-04 15:51 | XMS_ITS | Clinical Summary ---
Author Organization [facility] Address [address] [place] [address] Phone Care Team Providers Care Solar Manager Name Role Phone Jacinda Beck MD Primary Care Provider + Allergies Active Allergy Reactions Criticality Noted Date Comments Penicillins Anaphylaxis High 01/23/2025 Sulfa (Sulfonamide Antibiotics) Rash Low 01/11 Medications DULoxetine (CYMBALTA) 30 mg Capsule, Delayed Release(E.C.) Take 30 mg by mouth 2 times daily. Active allopurinoL (ZYLOPRIM) 100 mg tablet Take 100 mg by mouth daily. Active levothyroxine 100 mcg tablet Take 100 mcg by mouth daily in the morning. Active pantoprazole (PROTONIX) 40 mg Tablet, Delayed Release (E.C.) Take 40 mg by mouth daily. Active rosuvastatin (CRESTOR) 10 mg tablet Take 10 mg by mouth daily. Active oxyBUTYnin (DITROPAN XL) 10 mg Extended Release 24 hour tablet Take 10 mg by mouth daily. Active bisoprolol (ZEBETA) 10 mg tablet Take 10 mg by mouth daily. Active losartan (COZAAR) 100 mg tablet Take 100 mg by mouth daily. Active spironolactone (ALDACTONE) 25 mg tablet Take 25 mg by mouth daily. Active apixaban (ELIQUIS) 5 mg tablet Take 2 Tablets (10 mg) by mouth 2 times daily for 6 days, THEN 1 Tablet (5 mg) 2 times daily. 144 Tablet 5 03/31/20 25 Active ciprofloxacin HCl (CIPRO) 500 mg tablet Take 1 Tablet (500 mg) by mouth 2 times daily for 10 days. Already has 7 days of antibiotics at home (additional 3 days to complete 10 day course) 6 Tablet 02/04/20 Active Problems Problem Noted Date Diagnosed Date Acute diverticulitis 01/24/2025 Hematochezia 01/24/2025 Sigmoid diverticulitis 01/23/2025 Portal vein thrombosis 01/23/2025 Primary hypertension 01/23/2025 JULIANNE (obstructive sleep apnea) 01/23/2025 Encounters Date Type Department Care Team Description 02/10/2025 External Device Data [facility] ABSTRACTION Provider, Abstract 02/10/2025 External Device Data [facility] ABSTRACTION Provider, Abstract 01/28/2025 External Device Data [facility] ABSTRACTION Provider, Abstract 01/27/2025 External Device Data [facility] ABSTRACTION Provider, Abstract 01/27/2025 External Device Data [facility] ABSTRACTION Provider, Abstract 01/23/2025 2:13 AM CDT - 01/24/2025 2:45 PM CDT Hospital Encounter [address] [place] [address] Dave Ramos, Miah Gracia MD Collins, Samantha, DO Sigmoid diverticulitis Discharge Disposition: Home or Self Care 01/23/2025 Travel from Last 3 Months Family History Medical History Relation Name Comments Heart Disease Father Stroke Mother Relation Name Status Comments Father Mother Social History Tobacco Use Types Packs/Day Years Used Date Smoking Tobacco: Never Tobacco Cessation:Counseling Given: Not Answered Comments Unknown Sex and Gender Information Value Date Recorded Sex Assigned at Not on file 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 Gender Identity Not on file Sexual Orientation Not on file Last Filed Vital Signs Vital Sign Reading Time Taken Comments Blood Pressure 111/53 01/24/2025 5:41 AM CDT Pulse 61 01/24/2025 5:41 AM CDT Temperature 36.4 C (97.6 F) 01/24/2025 5:41 AM CDT Respiratory Rate 16 01/24/2025 5:41 AM CDT Oxygen Saturation 98% 01/24/2025 5:41 AM CDT Inhaled Oxygen Concentration - - Weight 90.3 kg (199 lb) 01/23/2025 2:17 AM CDT Height 156.2 cm (5' 1.5) 01/23/2025 2:17 AM CDT Body Mass Index 36.99 01/23/2025 2:17 AM CDT Plan of Treatment Health Maintenance Due Date Last Done Comments DTAP/TDAP/TD VACCINES (1 - Tdap) 1959 PNEUMOCOCCAL VACCINE 50+ YEARS (1 of 1 - PCV) 09/05/18 93 ZOSTER VACCINE (1 of 2) 1992 OSTEOPOROSIS SCREENING 2007 RSV VACCINE (60+ or ) (1 - 1-dose 75+ series) 2017 INFLUENZA VACCINE (#1) 2025 Procedures Procedure Name Priority Date/Time Associated Diagnosis Comments US ABDOMEN LIMITED Routine 01/24/2025 8: 55 AM CDT CBC WITH DIFFERENTIAL Routine 01/24/2025 4:06 AM CDT EKG 12-LEAD Routine 01/23/2025 10:22 AM CDT C-REACTIVE PROTEIN Routine 01/23/2025 4: 59 AM CDT BASIC METABOLIC PANEL Timed Study 01/23/2025 4:59 AM CDT CBC WITH DIFFERENTIAL Routine 01/23/2025 4:59 AM CDT from Last 3 Months Results * US ABDOMEN LIMITED (01/24/2025 8:55 AM CDT) Anatomical Region Laterality Modality Abdomen Ultrasound 01/24/2025 8:56 AM CDT Impressions 01/24/2025 9:05 AM CDT IMPRESSION: 1. No sonographic evidence of an acute abnormality in the abdomen. 2. Sludge in the gallbladder. No cholelithiasis or evidence of cholecystitis. 3. No biliary ductal dilation. 4. Mildly hyperechoic hepatic echotexture, as can be seen in the setting of mild diffuse hepatic steatosis or other hepatic parenchymal disease. DICTATION LOCATION: [facility] Dee[facility]arekchristen Klein 01/24/2025 9:05 AM CDT EXAMINATION: US ABDOMEN LIMITED DATE: 01/24/2025 8:55 AM. HISTORY: Right upper quadrant abdominal pain. COMPARISON: None available. TECHNIQUE: Multiple grayscale and color Doppler ultrasound images of the right upper quadrant of the abdomen were obtained and saved to PACS. FINDINGS: Liver: The hepatic echotexture is homogeneous and mildly hyperechoic. There is no evidence of hepatic surface nodularity or a focal liver lesion. Vasculature: The visualized main portal and hepatic veins are patent with a normal direction of flow. The visualized abdominal aorta and inferior vena cava are normal in appearance on limited evaluation. Gallbladder: There is sludge in the gallbladder. There are no shadowing gallstones visualized. There is no gallbladder wall thickening or pericholecystic fluid. The sonographic West's sign is negative. Bile ducts: There is no intrahepatic or extrahepatic biliary ductal dilation. The common bile duct measures up to 4.3 mm in diameter. Right kidney: The right kidney measures 11.3 cm in length. Right renal cortical thickness and echogenicity are normal. There is no evidence of right hydronephrosis. There is a 1.2 x 1.0 x 1.2 cm anechoic benign simple cyst in the inferior right kidney. Pancreas: The pancreas is unremarkable on limited evaluation. Portions of the pancreas are obscured by bowel gas. Other: There is no evidence of ascites. Procedure Note Quinten Riggs MD - 01/24/2025 EXAMINATION: US ABDOMEN LIMITED DATE: 01/24/2025 8:55 AM. HISTORY: Right upper quadrant abdominal pain. COMPARISON: None available. TECHNIQUE: Multiple grayscale and color Doppler ultrasound images of the right upper quadrant of the abdomen were obtained and saved to PACS. FINDINGS: Liver: The hepatic echotexture is homogeneous and mildly hyperechoic. There is no evidence of hepatic surface nodularity or a focal liver lesion. Vasculature: The visualized main portal and hepatic veins are patent with a normal direction of flow. The visualized abdominal aorta and inferior vena cava are normal in appearance on limited evaluation. Gallbladder: There is sludge in the gallbladder. There are no shadowing gallstones visualized. There is no gallbladder wall thickening or pericholecystic fluid. The sonographic West's sign is negative. Bile ducts: There is no intrahepatic or extrahepatic biliary ductal dilation. The common bile duct measures up to 4.3 mm in diameter. Right kidney: The right kidney measures 11.3 cm in length. Right renal cortical thickness and echogenicity are normal. There is no evidence of right hydronephrosis. There is a 1.2 x 1.0 x 1.2 cm anechoic benign simple cyst in the inferior right kidney. Pancreas: The pancreas is unremarkable on limited evaluation. Portions of the pancreas are obscured by bowel gas. Other: There is no evidence of ascites. IMPRESSION: 1. No sonographic evidence of an acute abnormality in the abdomen. 2. Sludge in the gallbladder. No cholelithiasis or evidence of cholecystitis. 3. No biliary ductal dilation. 4. Mildly hyperechoic hepatic echotexture, as can be seen in the setting of mild diffuse hepatic steatosis or other hepatic parenchymal disease. DICTATION LOCATION: Leanna Oswald us Luisa Cortes DO US ORDERABLES Final Result * (ABNORMAL) CBC WITH DIFFERENTIAL (01/24/2025 4:06 AM CDT) Only the most recent of2 resultswithin the time period is included. WBC 8.8 4.0 - 9.8 K/uL 01/24/2025 4:42 AM CDT [facility] RBC 3.68(L) 3.90 - 4.90 M/uL 01/24/2025 4:42 AM CDT [facility] HEMOGLOBIN 10.8(L) 11.8 - 14.8 g/dL 01/24/2025 4:42 AM CDT [facility] HEMATOCRIT 34.2(L) 35.5 - 44.0 % 01/24/2025 4:42 AM CDT [facility] MCV 92.9 82.0 - 99.0 fL 01/24/2025 4:42 AM CDT [facility] MCH 29.3 27.2 - 32.6 pg 01/24/2025 4:42 AM CDT [facility] MCHC 31.6 31.5 - 35.5 g/dL 01/24/2025 4:42 AM CDT [facility] RDW 13.4 11.5 - 14.5 % 01/24/2025 4:42 AM CDT [facility] - [facility] RDW-STDEV 45.9 37.1 - 48.7 fL 01/24/2025 4:42 AM [facility] - [facility] PLATELETS 230 140 - 350 K/uL 01/24/2025 4:42 AM [facility] - [facility] MPV 9.6 9.3 - 12.4 fL 01/24/2025 4:42 AM [facility] - [facility] NEUTROPHILS 57 % 01/24/2025 4:42 AM [facility] LYMPHOCYTES 31 % 01/24/2025 4:42 AM [facility] MONOCYTES 7 % 01/24/2025 4:42 AM [facility] - [facility] EOSINOPHILS 3 % 01/24/2025 4:42 AM [facility] - [facility] BASOPHILS 1 % 01/24/2025 4:42 AM [facility] - [facility] IMMATURE GRANULOCYTES 1 % 01/24/2025 4:42 AM [facility] - [facility] Comment:IG (Immature Granulo cyte) count includes Metamyelocytes, Myelocytes, and Promyelocytes NEUTROPHIL ABSOLUTE 5.05 1.90 - 7.00 K/uL 01/24/2025 4:42 AM [facility] - . [facility] LYMPHOCYTE ABSOLUTE 2.74 0.70 - 4.50 K/uL 01/24/2025 4:42 AM [facility] - . [facility] MONOCYTE ABSOLUTE 0.65 0.10 - 1.30 K/uL 01/24/2025 4:42 AM [facility] - [facility] EOSINOPHIL ABSOLUTE 0.26 0.00 - 0.70 K/uL 01/24/2025 4:42 AM [facility] - [facility] BASOPHILS ABSOLUTE 0.04 0.00 - 0.20 K/uL 01/24/2025 4:42 AM [facility] - . [facility] IMMATURE GRANULOCYTES ABSOLUTE 0.04(H) 0.00 - 0.03 K/uL 01/24/2025 4:42 AM [facility] - . [facility] Blood Venipuncture / Unknown 01/24/2025 4:06 AM CDT 01/24/2025 4:15 AM CDT us Miah Orlando MD HEMATOLOGY ORDERABLES Final Resu lt [facility]# [id number] [address] [facility] [address] * EKG 12-LEAD (01/23/2025 10:22 AM CDT) 01/23/2025 10:2 2 AM CDT Narrative INTERFACE SYSTEM - 01/23/2025 11:18 AM CDT [facility] [address] [place] [address] Test Date: 2025-01-23 Pat Name: NAYELY MTZ Department: 41 Room: [facility] 1 Gender: Female Director Digital Advertising: ten : 1940 Requested By: DAVE Alvarez Order Number: [id number] Holland PARHAM: Charles Squires Measurements Intervals Bethany Rate: 59 P: 14 MA: 140 QRS: 30 QRSD: 84 T: 30 QT: 454 QTc: 450 Interpretive Statements Sinus rhythm Electronically Signed On 01-23-2025 11:18:02 CDT by Charles Squires Procedure Note Charles Squires MD - 01/23/2025 [facility] [address] [facility] [place] [address] Test Date: 2025-01-23 Pat Name: NAYELY MTZ Department: 41 Room: [facility] 1 Gender: Female Director Digital Advertising: ten : 1940 Requested By: DAVE Alvarez Order Number: [id number] Holland PARHAM: Charles Squires Measurements Intervals Bethany Rate: 59 P: 14 MA: 140 QRS: 30 QRSD: 84 T: 30 QT: 454 QTc: 450 Interpretive Statements Sinus rhythm Electronically Signed On 01-23-2025 11:18:02 CDT by Charles Squires us Luisa Cortes DO ECG ORDERABLES Final Result INTERFACE SYSTEM Refer to clinic/hospital department * (ABNORMAL) C-REACTIVE PROTEIN (01/23/2025 4:59 AM CDT) CRP 32.5(H) <5.0 mg/L 01/23/2025 6:15 AM CDT [facility] Blood Venipuncture / Unknown 01/23/2025 4:59 AM CDT 01/23/2025 5:27 AM CDT Miah Orlando MD CHEMISTRY ORDERABLES Final Resul t [facility] CLIA# [id number] [address] [place] [address] * (ABNORMAL) BASIC METABOLIC PANEL (01/23/2025 4:59 AM CDT) Pathologist [facility] SODIUM 139 136 - 145 mmol/L 01/23/2025 6:15 AM CDT [facility] POTASSIUM 3.7 3.5 - 5.0 mmol/L 01/23/2025 6:15 AM CDT [facility] CHLORIDE 107 98 - 107 mmol/L 01/23/2025 6:15 AM CDT [facility] - . [facility] CO2 22 22 - 29 mmol/L 01/23/2025 6:15 AM CDT [facility] CALCIUM 8.4(L) 8.6 - 10.2 mg/dL 01/23/2025 6:15 AM CDT [facility] - . [facility] BUN 11 8 - 23 mg/dL 01/23/2025 6:15 AM CDT [facility] - . [facility] CREATININE 0.94 0.51 - 0.95 mg/dL 01/23/2025 6:15 AM CDT [facility] Comment:The GFR result is no t clinically significant on patients <18 or >70 years of age. GLUCOSE 133(H) 74 - 99 mg/dL 01/23/2025 6:15 AM T [facility] GFR >60 mL/min/1.7 3 sq meter 01/23/2025 6:15 AM [facility] Comment:eGFR calculated with 2020 CKD-EPI equation. Vegetarian diet, extremely high or low muscle mass, and may affect results. Cystatin C with Glomerular Filtration Rate is a suitable alternative for these patients. ANION GAP 10 8 - 16 mmol/L 01/23/2025 6:15 AM [facility] Blood Venipuncture / Unknown 01/23/2025 4:59 AM CDT 01/23/2025 5:27 AM CDT Miah Orlando MD CHEMISTRY ORDERABLES Final Resul t [facility] [employer] [facility] CLIA# [id number] [address] [place] [address] from Last 3 Months Insurance [employer] O [facility] RX [employer] Medicare Part D RX [employer] Commercial Advance Directives For more information, please contact: [phone] * Full Code (Latest Code Status on File) Date Activated Date Inactivated Comments 01/23/2025 3:50 AM 01/24/2025 4:45 PM Care Teams Solar Manager Relationship Specialty Start Date End Date Jacinda Beck MD [address] [place] [id number] PCP - General Internal Medicine 01/23/25
--- OUTSIDE RECORDS SUMMARY | 2025-03-04 15:51 | XMS_ITS | Encounter Summary ---
Author Organization [facility] Address [address] [place] [address] Care Team Providers Care Help Desk Associate Name Role Phone Jacinda Beck MD Primary Care Provider + Encounter Details Date Type Department Care Team (Late st Contact Info) Description 11/11/1998 Outpatient Historical HIS NUCLEAR MEDICINE [facility] Winifred Monteiro MD 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 Gender Identity Not on file Sexual Orientation Not on file documented as of this encounter Plan of Treatment Not on file documented as of this encounter Visit Diagnoses Diagnosis Ventricular flutter (CMS/HCC)- Primary Ventricular flutter documented in this encounter Additional Health Concerns Infection Onset Date Last Indicated Resolved Time R/O GI Pathogen 01/23/2025 01/23/2025 01/24/2025 3 :30 PM CDT documented as of this encounter Care Teams Help Desk Associate Relationship Specialty Start Date End Date Jacinda Beck MD [address] [place] [id number] PCP - General Internal Medicine 01/23/25 documented as of this encounter
--- OUTSIDE RECORDS SUMMARY | 2025-03-04 15:51 | XMS_ITS | Clinical Summary ---
Author Organization [facility] Address [address] [place] [address] Care Team Providers Care Compliance Director Name Role Phone Jacinda Beck MD Primary Care Provider [phone] Chay Burnett MD Unavailable Unavailable Allergies Active Allergy Reactions Criticality Noted Date Comments Penicillins Unknown 03/22/2017 Sulfa Antibiotics Unknown 03/22/2017 Medications duloxetine 20 MG capsule Take 20 mg by mouth 2 (two) times daily. 01/18/2017 Active levothyroxine 88 MCG tablet Take 88 mcg by mouth daily. 12/18/2016 Active metoprolol succinate 25 MG 24 hr tablet 25 mg nightly. 12/18/2016 Active oxybutynin ER 10 MG 24 hr tablet Take 10 mg by mouth daily. 03/19/2017 Active pantoprazole 40 MG tablet Take 40 mg by mouth daily. 01/18/2017 Active tizanidine 4 MG tablet Take 2 mg by mouth nightly. 01/18/2017 Active traMADol 50 MG tablet Take 50 mg by mouth every 6 (six) hours as needed. 01/22/2017 Active hydrochlorothia zide 12.5 MG tablet Take 12.5 mg by mouth every morning. Active mirtazapine 7.5 MG Tab tabletIndicatio ns:Restless Sleep,take in place of tramadol. Take 7.5 mg by mouth nightly as needed. Indications: Restless Sleep, take in place of tramadol. Active Active Problems Problem Noted Date Diagnosed Date Paroxysmal SVT (supraventricular tachycardia) (H HS/HCC) 03/23/2017 Primary hypercholesterolemia 03/23/2017 Hypertension, essential Resolved Problems Problem Noted Date Diagnosed Date Resolved Date Heart palpitations 7 Family History Medical History Relation Comments Heart Attack Father Heart Attack Mother Stroke Mother Relation Status Comments Father (Age 91) Mother (Age 79) Sister 1 Alive Sister 2 Alive Social History Tobacco Use Types Packs/Day Years Used Date Smoking Tobacco: Former Cigarettes Q uit: 03/22/1988 Alcohol Use Standard Drinks/Week Comments Yes 0 (1 standard drink = 0.6 oz pur e alcohol) very little Comments Unknown Sex and Gender Information Value Date Recorded Sex Assigned at Not on file Legal Sex Female 10:34 AM CDT Gender Identity Not on file Sexual Orientation Not on file 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 Not on file Not on file Last Filed Vital Signs Vital Sign Reading Time Taken Comments Blood Pressure 110/68 03/22/2017 9:00 AM CDT Pulse 67 03/22/2017 9:00 AM CDT Temperature - - Respiratory Rate 16 03/22/2017 9:00 AM CDT Oxygen Saturation 96% 03/22/2017 9:00 AM CDT Inhaled Oxygen Concentration - - Weight 90.7 kg (200 lb) 03/22/2017 9:00 AM CDT Height 157.5 cm (5' 2) 03/22/2017 9:00 AM CDT Body Mass Index 36.58 03/22/2017 9:00 AM CDT Plan of Treatment Health Maintenance Due Date Last Done Comments DTaP, Tdap and Td Vaccines ( 1 - Tdap) 1961 Pneumococcal Vaccine: 50+ Ye ars (1 of 1 - PCV) 1992 Zoster Vaccines (1 of 2) 1992 Annual Medicare Wellness Visit 2007 Dexa Scan (General) 2007 RSV Immunization or 60+ Years (1 - 1-dose 75+ series) 2017 COVID-19 Vaccine ( - 2023-2 5 season) 2024 Meningococcal B Vaccine Aged Out No l onger eligible based on patient's age to complete this topic Meningococcal Vaccine Aged Out No cynthia josiah eligible based on patient's age to complete this topic RSV Immunizations Under 20 Months Aged Out No longer eligible based on patient's age to complete this topic Insurance MED REPLACE [facility] MEDICARE SOLUTIONS Care Teams Compliance Director Relationship Specialty Start Date End Date Jacinda Beck MD [address] [place] [phone] PCP - General INTERNAL MEDICINE 02/15/17 Chay Burnett MD formerly [facility] [place] [address] [place] Nurseryperson INTERVENTIONAL CARDIOLOGY 02/15/17
[2025-03-04 16:29] LABS: Anion Gap 5 mmol/L (4-12); Blood Urea Nitrogen 16 mg/dL (7-17); Calcium 9.0 mg/dL (8.4-10.2); Carbon Dioxide 27 mmol/L (22-30); Chloride 109 mmol/L (98-107); Estimated Glomerular Filt Rate > 60; Glucose 121 mg/dL (65-110); Osmolality Calculated 294 mOsm/kg (285-295); Potassium 4.3 mmol/L (3.4-5.0); Sodium 141 mmol/L (137-145)
[2025-03-04 16:33] LABS: Hematocrit 36.6 % (35.0-42.0); Hemoglobin 11.6 g/dL (11.7-13.8); Mean Corpuscular HGB Conc 31.7 g/dL (32-36); Mean Corpuscular Hemoglobin 28.5 pg (27.0-31.0); Mean Corpuscular Volume 89.9 fL (78.0-102.0); Platelet Count Result 357 K/mm3 (150-420); Red Blood Count 4.07 M/mm3 (4.20-5.40); White Blood Count 9.2 K/mm3 (4.8-10.8)
== END 2025-03-04 15:49 | disposition home or self-care (01) ==
LOC: CHSLAB 15:50
PROVIDERS: PCP Internal Medicine; Visit Provider Nurse Practitioner Family
DX: K57.92 Diverticulitis of intestine, part unspecified, without perforation or abscess without bleeding (principal)
CPT/HCPCS: 36415; 80048; 85027

== ENCOUNTER 2025-03-06 12:30 | Outpatient (CLI) | payer MEDICARE, SELFPAY ==
--- OUTSIDE RECORDS SUMMARY | 2025-03-06 12:36 | XMS_ITS | Clinical Summary ---
Author Organization [facility] Address [address] [place] [address] Phone Care Team Providers Care Coke Burner Name Role Phone Jacinda Beck MD Primary [...] (5 mg) 2 times daily. 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 DICTATION LOCATION: [facility] Osw[facility] Latoya 01/24/2025 9:05 AM CDT EXAMINATION: US ABDOMEN [...] or other hepatic parenchymal disease. DICTATION LOCATION: [facility] us Luisa Cortes DO US ORDERABLES Final Result * (ABNORMAL) CBC WITH DIFFERENTIAL (01/24/2025 4:06 AM CDT) Only the most recent of2 resultswithin the time period is included. WBC 8.8 4.0 - 9.8 K/uL 01/24/2025 4:42 AM CDT [employer] LABORATORY SERVICES [facility] RBC 3.68(L) 3.90 - 4.90 M/uL 01/24/2025 4:42 AM CDT [employer] LABORATORY SERVICES [facility] HEMOGLOBIN 10.8(L) 11.8 - 14.8 g/dL 01/24/2025 4:42 AM CDT [facility] LABORATORY SERVICES [facility] HEMATOCRIT 34.2(L) 35.5 - 44.0 % 01/24/2025 4:42 AM CDT [facility] LABORATORY SERVICES - [facility] MCV 92.9 82.0 - 99.0 fL 01/24/2025 4:42 AM CDT [facility] LABORATORY SERVICES [facility] MCH 29.3 27.2 - 32.6 pg 01/24/2025 4:42 AM CDT [facility] LABORATORY SERVICES [facility] MCHC 31.6 31.5 - 35.5 g/dL 01/24/2025 4:42 AM CDT [employer] LABORATORY SERVICES [facility] RDW 13.4 11.5 - 14.5 % 01/24/2025 4:42 AM CDT [facility] LABORATORY SERVICES [facility] RDW-STDEV 45.9 37.1 - 48.7 fL 01/24/2025 4:42 AM CDT [employer] LABORATORY SERVICES [facility] PLATELETS 230 140 - 350 K/uL 01/24/2025 4:42 AM CDT [employer] LABORATORY SERVICES - [facility] MPV 9.6 9.3 - 12.4 fL 01/24/2025 4:42 AM CDT [facility] LABORATORY SERVICES - . [facility] NEUTROPHILS 57 % 01/24/2025 4:42 AM T [facility] LABORATORY SERVICES - . [facility] LYMPHOCYTES 31 % 01/24/2025 4:42 AM T [facility] [employer] SERVICES - . [facility] MONOCYTES 7 % 01/24/2025 4:42 AM CDT [facility] LABORATORY SERVICES - . [facility] EOSINOPHILS 3 % 01/24/2025 4:42 AM CDT [facility] LABORATORY SERVICES - [facility] BASOPHILS 1 % 01/24/2025 4:42 AM CDT [facility] LABORATORY SERVICES - [facility] IMMATURE GRANULOCYTES 1 % 01/24/2025 4:42 AM T [facility] SERVICES - [facility] Comment:IG (Immature Granulo cyte) count includes Metamyelocytes, Myelocytes, and Promyelocytes NEUTROPHIL ABSOLUTE 5.05 1.90 - 7.00 K/uL 01/24/2025 4:42 AM CDT [facility] SERVICES [facility] LYMPHOCYTE ABSOLUTE 2.74 0.70 - 4.50 K/uL 01/24/2025 4:42 AM CDT [facility] LABORATORY SERVICES - . [facility] MONOCYTE ABSOLUTE 0.65 0.10 - 1.30 K/uL 01/24/2025 4:42 AM T [facility] LABORATORY [facility] - . [facility] EOSINOPHIL ABSOLUTE 0.26 0.00 - 0.70 K/uL 01/24/2025 4:42 AM T [facility] [facility] - . [facility] BASOPHILS ABSOLUTE 0.04 0.00 - 0.20 K/uL 01/24/2025 4:42 AM T [facility] SERVICES - [facility] IMMATURE GRANULOCYTES ABSOLUTE 0.04(H) 0.00 - 0.03 K/uL 01/24/2025 4:42 AM [facility] [employer] [facility] Blood Venipuncture / Unknown 01/24/2025 4:06 AM CDT 01/24/2025 4:15 AM CDT us Miah Orlando MD HEMATOLOGY ORDERABLES Final Resu lt [facility] LABORATORY SERVICES [facility]# [id number] [address] [place] [address] * EKG 12-LEAD (01/23/2025 10:22 AM CDT) 01/23/2025 10:2 2 AM CDT Narrative INTERFACE SYSTEM - 01/23/2025 11:18 AM CDT [facility] [address] [place] [address] Test Date: 2025-01-23 [facility] Department: 41 Room: [facility] 1 Gender: Female Junior Programmer: ten : 1940 Requested By: DAVE Alvarez Order Number: [id number] Reading MD: Charles Squires Measurements Intervals [place] Rate: 59 P: 14 [place]: 140 QRS: 30 QRSD: 84 T: 30 QT: 454 QTc: 450 Interpretive Statements Sinus rhythm Electronically Signed On 01-23-2025 11:18:02 CDT by Charles Squires Procedure Note Charles Squires MD - 01/23/2025 [facility] [address] [place] [address] Test Date: 2025-01-23 Pat [facility] Department: 41 Room: [facility] 1 Gender: Female Junior Programmer: ten : 1940 Requested By: DAVE Alvarez Order Number: [id number] Reading MD: Charles Squires Measurements Intervals [place] Rate: 59 P: 14 [place]: 140 QRS: 30 QRSD: 84 T: 30 QT: 454 QTc: 450 Interpretive Statements Sinus rhythm Electronically Signed On 01-23-2025 11:18:02 CDT by Charles Squires us Luisa Cortes DO ECG ORDERABLES Final Result INTERFACE SYSTEM Refer to clinic/hospital department * (ABNORMAL) C-REACTIVE PROTEIN (01/23/2025 4:59 AM CDT) CRP 32.5(H) <5.0 mg/L 01/23/2025 6:15 AM T [facility] Blood Venipuncture / Unknown 01/23/2025 4:59 AM CDT 01/23/2025 5:27 AM CDT Miah Orlando MD CHEMISTRY ORDERABLES Final Resul t [facility] [facility]# [id number] [address] [id number] * (ABNORMAL) BASIC METABOLIC PANEL (01/23/2025 4:59 AM CDT) Pathologist [facility] SODIUM 139 136 - 145 mmol/L 01/23/2025 6:15 AM [facility] LABORATORY [facility] POTASSIUM 3.7 3.5 - 5.0 mmol/L 01/23/2025 6:15 AM [facility] [employer] [facility] CHLORIDE 107 98 - 107 mmol/L 01/23/2025 6:15 AM [facility] CO2 22 22 - 29 mmol/L 01/23/2025 6:15 AM [facility] [employer] [facility] CALCIUM 8.4(L) 8.6 - 10.2 mg/dL 01/23/2025 6:15 AM [facility] LABORATORY [facility] BUN 11 8 - 23 mg/dL 01/23/2025 6:15 AM [facility] [employer] [facility] CREATININE 0.94 0.51 - 0.95 mg/dL 01/23/2025 6:[address] [facility] Comment:The GFR result is no t clinically significant on patients <18 or >70 years of age. GLUCOSE 133(H) 74 - 99 mg/dL 01/23/2025 6:15 AM [facility] [employer] [facility] GFR >60 mL/min/1.7 3 sq meter 01/23/2025 6:15 AM [facility] [employer] LABORATORY [facility] Comment:eGFR calculated with 2020 CKD-EPI equation. Vegetarian diet, extremely high or low muscle mass, and may affect results. Cystatin C with Glomerular Filtration Rate is a suitable alternative for these patients. ANION GAP 10 8 - 16 mmol/L 01/23/2025 6:15 AM CDT [facility] Blood Venipuncture / Unknown 01/23/2025 4:59 AM CDT 01/23/2025 5:27 AM CDT us Miah Orlando MD CHEMISTRY ORDERABLES Final Resul t [employer] [facility] CLIA# [id number] [address] [place] [address] from Last 3 Months Insurance [facility] RX AETNA Medicare Part D RX [employer] Commercial Advance Directives For more information, please contact: [phone] * Full Code (Latest Code Status on File) Date Activated Date Inactivated Comments 01/23/2025 3:50 AM 01/24/2025 4:45 PM Care Teams Coke Burner Relationship Specialty Start Date End Date Jacinda Beck MD [address] [place] [phone] PCP - General Internal Medicine 01/23/25
--- OUTSIDE RECORDS SUMMARY | 2025-03-06 12:36 | XMS_ITS | Encounter Summary ---
Author Organization [facility] Address 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
--- OUTSIDE RECORDS SUMMARY | 2025-03-06 12:36 | XMS_ITS | Clinical Summary ---
Author Organization [facility] Address [address] [place] [address] Care Team Providers Care Any Commodity Sales Deliverer Name Role Phone Jacinda Beck MD Primary Care Provider Chay Burnett MD Unavailable Unavailable Allergies Active [...] to complete this topic Insurance MED REPLACE [facility] MEDICARE SOLUTIONS Care Teams Any Commodity Sales Deliverer Relationship Specialty Start Date End Date Jacinda Beck MD [address] [place] [phone] PCP - General INTERNAL MEDICINE 02/15/17 Chay Burnett MD [facility] [place] [address] [place] Coal Deliverer INTERVENTIONAL CARDIOLOGY 02/15/17
[2025-03-06 12:49] LABS: Immature Reticulocyte Fraction 30.9 % (2.0-16.52); Reticulocyte Hemoglobin Conten 29.2 pg (28.0-35.0); Reticulocytes Absolute 0.08 M/mm3 (0.02-0.10)
[2025-03-06 13:02] LABS: Iron 58 ug/dL (37-170)
[2025-03-06 13:11] LABS: Percent Iron Saturation 13 % (20-50)
[2025-03-06 13:38] LABS: Ferritin 10.30 ng/mL (11.1-264)
[2025-03-06 14:09] LABS: Vitamin B12 360.0 pg/mL (239-931)
[2025-03-07 14:08] LABS: Folate, Hemolysate 311.0 ng/mL (Not Estab.); Folate, RBC 869 ng/mL (>498); Hematocrit 35.8 % (34.0-46.6)
== END 2025-03-06 12:31 | disposition home or self-care (01) ==
PROVIDERS: PCP Internal Medicine; Visit Provider Nurse Practitioner Family
DX: D64.9 Anemia, unspecified (principal)
CPT/HCPCS: 36415; 82607; 82728; 82746; 82747; 83540; 83550; 85046

== ENCOUNTER 2025-03-08 13:23 | Outpatient (CLI) | payer MEDICARE, SELFPAY ==
--- OUTSIDE RECORDS SUMMARY | 2025-03-08 13:27 | XMS_ITS | Encounter Summary ---
Author Organization [facility] Address [address] [place] [address] Care Team Providers Care Fur Cleaner Name Role Phone Jacinda Beck MD Primary Care Provider + Encounter Details Date Type Department Care Team (Late st Contact Info) Description 11/11/1998 Outpatient Historical [facility] Winifred Monteiro MD [address] [place], [place] [phone] Ventricular flutter (CMS/HCC) (Primary Dx) Social History Tobacco Use Types Packs/Day Years Used Date Smoking Tobacco: Never Assessed Comments Unknown Sex and Gender Information Value Date Recorded Sex Assigned at Not on file 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
--- OUTSIDE RECORDS SUMMARY | 2025-03-08 13:27 | XMS_ITS | Clinical Summary ---
Author Organization [facility] Address [address] [place] [address] Care Team Providers Care Dry Food Products Mixer Name Role Phone Jacinda Beck MD Primary Care Provider [phone] Chay Burnett MD Unavailable Unavailable Allergies Active [...] to complete this topic Insurance MED REPLACE [facility] MEDICARE SOLUTIONS Care Teams Dry Food Products Mixer Relationship Specialty Start Date End Date Jacinda Beck MD [address] [place] [phone] PCP - General INTERNAL MEDICINE 02/15/17 Chay Burnett MD [facility] [place] [address] [place] Gaming Department Head INTERVENTIONAL CARDIOLOGY 02/15/17
--- OUTSIDE RECORDS SUMMARY | 2025-03-08 13:27 | XMS_ITS | Clinical Summary ---
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 DICTATION LOCATION: [facility] us Luisa Cortes DO US ORDERABLES Final Result * (ABNORMAL) CBC WITH DIFFERENTIAL (01/24/2025 4:06 AM CDT) Only the most recent of2 resultswithin the time period is included. WBC 8.8 4.0 - 9.8 K/uL 01/24/2025 4:42 AM CDT [employer] LABORATORY SERVICES [facility] RBC 3.68(L) 3.90 - 4.90 M/uL 01/24/2025 4:42 AM CDT [employer] LABORATORY SERVICES [facility] HEMOGLOBIN 10.8(L) 11.8 - 14.8 g/dL 01/24/2025 4:42 AM CDT [employer] LABORATORY SERVICES [facility] HEMATOCRIT 34.2(L) 35.5 - 44.0 % 01/24/2025 4:42 AM CDT [employer] LABORATORY SERVICES - [facility] MCV 92.9 82.0 - 99.0 fL 01/24/2025 4:42 AM CDT [employer] LABORATORY SERVICES [facility] MCH 29.3 27.2 - 32.6 pg 01/24/2025 4:42 AM CDT [employer] LABORATORY SERVICES [facility] MCHC 31.6 31.5 - 35.5 g/dL 01/24/2025 4:42 AM CDT [employer] LABORATORY SERVICES [facility] RDW 13.4 11.5 - 14.5 % 01/24/2025 4:42 AM CDT [employer] LABORATORY SERVICES [facility] RDW-STDEV 45.9 37.1 - 48.7 fL 01/24/2025 4:42 AM CDT [employer] LABORATORY SERVICES [facility] PLATELETS 230 140 - 350 K/uL 01/24/2025 4:42 AM CDT [employer] LABORATORY SERVICES - [facility] MPV 9.6 9.3 - 12.4 fL 01/24/2025 4:42 AM CDT [facility] LABORATORY SERVICES - . [facility] NEUTROPHILS 57 % 01/24/2025 4:42 AM T [facility] LABORATORY SERVICES - . [facility] LYMPHOCYTES 31 % 01/24/2025 4:42 AM T [facility] [email or web address] SERVICES - . [facility] MONOCYTES 7 % 01/24/2025 4:42 AM CDT [facility] LABORATORY SERVICES - . [facility] EOSINOPHILS 3 % 01/24/2025 4:42 AM CDT [facility] LABORATORY SERVICES - [facility] BASOPHILS 1 % 01/24/2025 4:42 AM CDT [facility] LABORATORY SERVICES - [facility] IMMATURE GRANULOCYTES 1 % 01/24/2025 4:42 AM T [facility] [email or web address] SERVICES - [facility] Comment:IG (Immature Granulo cyte) count includes Metamyelocytes, Myelocytes, and Promyelocytes NEUTROPHIL ABSOLUTE 5.05 1.90 - 7.00 K/uL 01/24/2025 4:42 AM CDT [facility] [email or web address] SERVICES [facility] LYMPHOCYTE ABSOLUTE 2.74 0.70 - 4.50 K/uL 01/24/2025 4:42 AM CDT [facility] LABORATORY SERVICES - . [facility] MONOCYTE ABSOLUTE 0.65 0.10 - 1.30 K/uL 01/24/2025 4:42 AM T [facility] LABORATORY [facility] - . [facility] EOSINOPHIL ABSOLUTE 0.26 0.00 - 0.70 K/uL 01/24/2025 4:42 AM T [facility] [email or web address] [facility] - . [facility] BASOPHILS ABSOLUTE 0.04 0.00 - 0.20 K/uL 01/24/2025 4:42 AM T [facility] [email or web address] SERVICES - [facility] IMMATURE GRANULOCYTES ABSOLUTE 0.04(H) 0.00 - 0.03 K/uL 01/24/2025 4:42 AM [facility] [email or web address] [facility] Blood Venipuncture / Unknown 01/24/2025 4:06 AM CDT 01/24/2025 4:15 AM CDT us Miah Orlando MD HEMATOLOGY ORDERABLES Final Resu lt [facility] LABORATORY SERVICES [facility]# [id number] [address] [place] [address] * EKG 12-LEAD (01/23/2025 10:22 AM CDT) 01/23/2025 10:2 2 AM CDT Narrative INTERFACE SYSTEM - 01/23/2025 11:18 AM CDT [facility] [address] [place] [address] Test Date: 2025-01-23 Pat [facility] Department: 41 Room: [facility] 1 Gender: Female Drying Machine Receiver: ten : 1940 Requested By: DAVE Alvarez Order Number: [id number] Reading MD: Charles Squires Measurements Intervals [place] Rate: 59 P: 14 [place]: 140 QRS: 30 QRSD: 84 T: 30 QT: 454 QTc: 450 Interpretive Statements Sinus rhythm Electronically Signed On 01-23-2025 11:18:02 CDT by Charles Squires Procedure Note Charles Squires MD - 01/23/2025 [facility] [address] [place] [address] Test Date: 2025-01-23 Pat Name[facility] Department: 41 Room: [facility] 1 Gender: Female Drying Machine Receiver: ten : 1940 Requested By: DAVE Alvarez Order Number: [id number] Reading MD: Charles Squires Measurements Intervals [place] Rate: 59 P: 14 [place]: 140 QRS: 30 QRSD: 84 T: 30 QT: 454 QTc: 450 Interpretive Statements Sinus rhythm Electronically Signed On 01-23-2025 11:18:02 CDT by Charles Squires us Luisa Cortes DO ECG ORDERABLES Final Result INTERFACE SYSTEM Refer to clinic/hospital department * (ABNORMAL) C-REACTIVE PROTEIN (01/23/2025 4:59 AM CDT) CRP 32.5(H) <5.0 mg/L 01/23/2025 6:15 AM T [facility] [email or web address] [facility] Blood Venipuncture / Unknown 01/23/2025 4:59 AM CDT 01/23/2025 5:27 AM CDT Miah Orlando MD CHEMISTRY ORDERABLES Final Resul t [facility] [email or web address] [facility]# [id number] [address] [id number] * (ABNORMAL) BASIC METABOLIC PANEL (01/23/2025 4:59 AM CDT) Pathologist [facility] SODIUM 139 136 - 145 mmol/L 01/23/2025 6:15 AM [facility] LAB[facility] POTASSIUM 3.7 3.5 - 5.0 mmol/L 01/23/2025 6:15 AM [facility] 1calendar [email or web address] [facility] CHLORIDE 107 98 - 107 mmol/L 01/23/2025 6:15 AM [facility] CO2 22 22 - 29 mmol/L 01/23/2025 6:15 AM [facility] [email or web address] [facility] CALCIUM 8.4(L) 8.6 - 10.2 mg/dL 01/23/2025 6:15 AM [facility] LABOR[facility] BUN 11 8 - 23 mg/dL 01/23/2025 6:15 AM [facility] [email or web address] [facility] CREATININE 0.94 0.51 - 0.95 mg/dL 01/23/2025 6:15 AM T [facility] Comment:The GFR result is no t clinically significant on patients <18 or >70 years of age. GLUCOSE 133(H) 74 - 99 mg/dL 01/23/2025 6:15 AM [facility] 1[email or web address] [facility] GFR >60 mL/min/1.7 3 sq meter 01/23/2025 6:15 AM [facility] [employer] LABORATORY [facility] Comment:eGFR calculated with 2020 CKD-EPI equation. Vegetarian diet, extremely high or low muscle mass, and may affect results. Cystatin C with Glomerular Filtration Rate is a suitable alternative for these patients. ANION GAP 10 8 - 16 mmol/L 01/23/2025 6:15 AM CDT [facility] LABORATORY [facility] Blood Venipuncture / Unknown 01/23/2025 4:59 AM CDT 01/23/2025 5:27 AM CDT us Miah Orlando MD CHEMISTRY ORDERABLES Final Resul t 1calendar [email or web address] [facility] CLIA# [id number] [address] [place] [address] from Last 3 Months [facility] A[employer] Medicare Part D RX [employer] Commercial Advance Directives For more information, please contact: [phone] * Full Code (Latest Code Status on File) Date Activated Date Inactivated Comments 01/23/2025 3:50 AM 01/24/2025 4:45 PM Care Teams Communications Project Lead Relationship Specialty Start Date End Date Jacinda Beck MD [address] [place] [phone] PCP - General Internal Medicine 01/23/25
== END 2025-03-08 13:24 | disposition home or self-care (01) ==
LOC: CHSLAB 13:25
PROVIDERS: PCP Internal Medicine; Visit Provider Nurse Practitioner Family
DX: D64.9 Anemia, unspecified (principal)
CPT/HCPCS: 82272

== ENCOUNTER 2025-03-09 15:24 | Outpatient (CLI) | payer MEDICARE, SELFPAY ==
--- OUTSIDE RECORDS SUMMARY | 2025-03-09 15:29 | XMS_ITS | Clinical Summary ---
Author Organization [facility] Address [address] [place] [address] Care Team Providers Care Hand Silvering Supervisor Name Role Phone Jacinda Beck MD Primary Care Provider [phone] Chay Burnett MD Unavailable Unavailable Allergies Active [...] to complete this topic Insurance MED REPLACE [facility] MEDICARE SOLUTIONS Care Teams Hand Silvering Supervisor Relationship Specialty Start Date End Date Jacinda Beck MD [address] [place] [phone] PCP - General INTERNAL MEDICINE 02/15/17 Chay Burnett MD [facility] [place] [address] [place] Speech Lang Path Therapist INTERVENTIONAL CARDIOLOGY 02/15/17
--- OUTSIDE RECORDS SUMMARY | 2025-03-09 15:29 | XMS_ITS | Clinical Summary ---
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 DICTATION LOCATION: [facility] Darek us Luisa Cortes DO US ORDERABLES Final Result * (ABNORMAL) CBC WITH DIFFERENTIAL (01/24/2025 4:06 AM CDT) Only the most recent of2 resultswithin the time period is included. WBC 8.8 4.0 - 9.8 K/uL 01/24/2025 4:42 AM CDT [facility] RBC 3.68(L) 3.90 - 4.90 M/uL 01/24/2025 4:42 AM CDT [facility] HEMOGLOBIN 10.8(L) 11.8 - 14.8 g/dL 01/24/2025 4:42 AM CDT [facility] HEMATOCRIT 34.2(L) 35.5 - 44.0 % 01/24/2025 4:42 AM CDT [facility] MCV 92.9 82.0 - 99.0 fL 01/24/2025 4:42 AM CDT [facility] MCH 29.3 27.2 - 32.6 pg 01/24/2025 4:42 AM CDT [facility] MCHC 31.6 31.5 - 35.5 g/dL 01/24/2025 4:42 AM CDT [facility] RDW 13.4 11.5 - 14.5 % 01/24/2025 4:42 AM CDT [facility] RDW-STDEV 45.9 37.1 - 48.7 fL 01/24/2025 4:42 AM CDT [facility] - [facility] PLATELETS 230 140 - 350 K/uL 01/24/2025 4:42 AM T [facility] - . [facility] MPV 9.6 9.3 - 12.4 fL 01/24/2025 4:42 AM T [facility] - [facility] NEUTROPHILS 57 % 01/24/2025 4:42 AM [facility] - . [facility] LYMPHOCYTES 31 % 01/24/2025 4:42 AM [facility] - . [facility] MONOCYTES 7 % 01/24/2025 4:42 AM T [facility] - . [facility] EOSINOPHILS 3 % 01/24/2025 4:42 AM T [facility] - . [facility] BASOPHILS 1 % 01/24/2025 4:42 AM T [facility] - . [facility] IMMATURE GRANULOCYTES 1 % 01/24/2025 4:42 AM T [facility] - . [facility] Comment:IG (Immature Granulo cyte) count includes Metamyelocytes, Myelocytes, and Promyelocytes NEUTROPHIL ABSOLUTE 5.05 1.90 - 7.00 K/uL 01/24/2025 4:42 AM [facility] - . [facility] LYMPHOCYTE ABSOLUTE 2.74 0.70 - 4.50 K/uL 01/24/2025 4:42 AM T [facility] - . [facility] MONOCYTE ABSOLUTE 0.65 0.10 - 1.30 K/uL 01/24/2025 4:42 AM [facility] - . [facility] EOSINOPHIL ABSOLUTE 0.26 0.00 - 0.70 K/uL 01/24/2025 4:42 AM [facility] - . [facility] BASOPHILS ABSOLUTE 0.04 0.00 - 0.20 K/uL 01/24/2025 4:42 AM [facility] - . [facility] IMMATURE GRANULOCYTES ABSOLUTE 0.04(H) 0.00 - 0.03 K/uL 01/24/2025 4:42 AM [facility] - . [facility] Blood Venipuncture / Unknown 01/24/2025 4:06 AM CDT 01/24/2025 4:15 AM CDT Miah Orlando MD HEMATOLOGY ORDERABLES Final Resu lt [facility]# [id number] [address] [place] [address] * EKG 12-LEAD (01/23/2025 10:22 AM CDT) 01/23/2025 10:2 2 AM CDT Narrative INTERFACE SYSTEM - 01/23/2025 11:18 AM CDT [address] [address] Test Date: 2025-01-23 Pat Name: [facility] Department: 41 Room: [facility] 1 Gender: Female Rn Hospital: ten : 1940 Requested By: DAVE Alvarez Order Number: [id number] Reading : Charles Squires Measurements Intervals [place] Rate: 59 P: 14 DE: 140 QRS: 30 QRSD: 84 T: 30 QT: 454 QTc: 450 Interpretive Statements Sinus rhythm Electronically Signed On 01-23-2025 11:18:02 CDT by Charles Squires Procedure Note Charles Squires MD - 01/23/2025 [facility] [address] [place] [address] Test Date: 2025-01-23 Pat Name: [facility] Department: 41 Room: [facility] 1 Gender: Female Rn Hospital: ten : 1940 Requested By: DAVE Alvarez Order Number: [id number] Reading : Charles Squires Measurements Intervals [place] Rate: 59 P: 14 DE: 140 QRS: 30 QRSD: 84 T: 30 QT: 454 QTc: 450 Interpretive Statements Sinus rhythm Electronically Signed On 01-23-2025 11:18:02 CDT by Charles Squires Luisa Cortes DO ECG ORDERABLES Final Result Performing Organization Address City/[facility]/ZIP Co de Phone Number INTERFACE SYSTEM Refer to clinic/hospital department * (ABNORMAL) C-REACTIVE PROTEIN (01/23/2025 4:59 AM CDT) CRP 32.5(H) <5.0 mg/L 01/23/2025 6:15 AM T [facility] Blood Venipuncture / Unknown 01/23/2025 4:59 AM CDT 01/23/2025 5:27 AM CDT Miah Orlando MD CHEMISTRY ORDERABLES Final Resul t [facility]# [id number] [address] [facility] [place] [address] * (ABNORMAL) BASIC METABOLIC PANEL (01/23/2025 4:59 AM CDT) Pathologist [facility] SODIUM 139 136 - 145 mmol/L 01/23/2025 6:15 AM T [facility] POTASSIUM 3.7 3.5 - 5.0 mmol/L 01/23/2025 6:15 AM T [facility] CHLORIDE 107 98 - 107 mmol/L 01/23/2025 6:15 AM T [facility] CO2 22 22 - 29 mmol/L 01/23/2025 6:15 AM T [facility] CALCIUM 8.4(L) 8.6 - 10.2 mg/dL 01/23/2025 6:15 AM T [facility] BUN 11 8 - 23 mg/dL 01/23/2025 6:15 AM T [facility] CREATININE 0.94 0.51 - 0.95 mg/dL 01/23/2025 6:15 AM T [facility] Comment:The GFR result is no t clinically significant on patients <18 or >70 years of age. GLUCOSE 133(H) 74 - 99 mg/dL 01/23/2025 6:15 AM T [facility] GFR >60 mL/min/1.7 3 sq meter 01/23/2025 6:15 AM T [facility] Comment:eGFR calculated with 2020 CKD-EPI equation. Vegetarian diet, extremely high or low muscle mass, and may affect results. Cystatin C with Glomerular Filtration Rate is a suitable alternative for these patients. ANION GAP 10 8 - 16 mmol/L 01/23/2025 6:15 AM CDT [facility] Blood Venipuncture / Unknown 01/23/2025 4:59 AM CDT 01/23/2025 5:27 AM CDT us Miah Orlando MD CHEMISTRY ORDERABLES Final Resul t [facility] Ellie [facility] CLIA# [id number] [address] [address] from Last 3 Months Insurance AETNA PPO [facility] RX AETNA Medicare Part D RX [employer] Commercial Advance Directives For more information, please contact: [phone] * Full Code (Latest Code Status on File) Date Activated Date Inactivated Comments 01/23/2025 3:50 AM 01/24/2025 4:45 PM Care Teams Lithographic Photographer Apprentice Relationship Specialty Start Date End Date Jacinda Beck MD [address] [place] [phone] PCP - General Internal Medicine 01/23/25
--- OUTSIDE RECORDS SUMMARY | 2025-03-09 15:29 | XMS_ITS | Encounter Summary ---
Author Organization [facility] Address [address] [place] [address] Care Team Providers Care Environmental Management Specialist Name Role Phone Jacinda Beck MD Primary Care Provider + Encounter Details Date Type Department Care Team (Late st Contact Info) Description 11/11/1998 Outpatient Historical HIS NUCLEAR MEDICINE [facility] Winifred Monteiro MD 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
[2025-03-09 15:38] LABS: Hematocrit 35.6 % (35.0-42.0); Hemoglobin 11.2 g/dL (11.7-13.8); Immature Granulocyte Percent A 0.5 % (0.0-0.0); Lymphocytes Absolute Auto 3.27 K/mm3 (1.10-4.50); Mean Corpuscular HGB Conc 31.5 g/dL (32-36); Mean Corpuscular Hemoglobin 28.1 pg (27.0-31.0); Mean Corpuscular Volume 89.2 fL (78.0-102.0); Nucleated Red Blood Cells Absolute Auto 0.00 K/mm3 (0.00-0.00); Nucleated Red Blood Cells Perc 0.0 % (0-0.0); Platelet Count Result 374 K/mm3 (150-420); Red Blood Count 3.99 M/mm3 (4.20-5.40); White Blood Count 10.2 K/mm3 (4.8-10.8)
== END 2025-03-09 15:25 | disposition home or self-care (01) ==
LOC: CHSLAB 15:26
PROVIDERS: PCP Internal Medicine; Visit Provider Nurse Practitioner Family
DX: D50.9 Iron deficiency anemia, unspecified (principal)
CPT/HCPCS: 36415; 85025

== ENCOUNTER 2025-03-26 13:24 | Outpatient (CLI) | payer MEDICARE, SELFPAY ==
--- OUTSIDE RECORDS SUMMARY | 2025-03-26 13:29 | XMS_ITS | Encounter Summary ---
Author Organization [facility] Address [address] [place] [address] Care Team Providers Care Ophthalmology Surgical Technician Name Role Phone Jacinda Beck MD Primary Care Provider + Encounter Details Date Type Department Care Team (Late st Contact Info) Description 11/11/1998 Outpatient Historical [facility]UC[facility]IC[facility] Winifred Monteiro MD 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
--- OUTSIDE RECORDS SUMMARY | 2025-03-26 13:29 | XMS_ITS | Clinical Summary ---
Author Organization [facility] Address [address] [place] [address] Phone Care Team Providers Care Shopper Insights Manager Name Role Phone Jacinda Beck MD [...] Encounters Date Type Department Care Team Description 03/24/2025 External Device Data ST[facility] ABSTRACTION Provider, Abstract 03/10/2025 Abstract [facility] Gastroenterology [facility] [address] [facility] [address] [place] [address] Antonella Underwood RN 02/10/2025 External Device Data ST[facility] ABSTRACTION Provider, Abstract 02/10/2025 External Device Data [facility] ABSTRACTION Provider, Abstract 01/28/2025 External Device Data [facility] ABSTRACTION Provider, Abstract 01/27/2025 External Device Data [facility] ABSTRACTION Provider, Abstract 01/27/2025 External Device Data [facility] ABSTRACTION Provider, Abstract 01/23/2025 2:13 AM CDT - 01/24/2025 2:45 PM CDT Hospital Encounter [address] [place] [address] Dave Ramos, Miah Gracia MD Collins, Samantha, [...] on file Legal 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 DICTATION LOCATION: Leanna Oswald Narrative 01/24/2025 9:05 AM CDT EXAMINATION: US ABDOMEN [...] - 9.8 K/uL 01/24/2025 4:42 AM CDT [facility] RBC 3.68(L) 3.90 - 4.90 M/uL 01/24/2025 4:42 AM CDT [facility] HEMOGLOBIN 10.8(L) 11.8 - 14.8 g/dL 01/24/2025 4:42 AM CDT [facility] HEMATOCRIT 34.2(L) 35.5 - 44.0 % 01/24/2025 4:42 AM CDT [facility] MCV 92.9 82.0 - 99.0 fL 01/24/2025 4:42 AM CDT [facility] MCH 29.3 27.2 - 32.6 pg 01/24/2025 4:42 AM CDT [facility] MCHC 31.6 31.5 - 35.5 g/dL 01/24/2025 4:42 AM CDT [facility] RDW 13.4 11.5 - 14.5 % 01/24/2025 4:42 AM CDT [facility] - [facility] RDW-STDEV 45.9 37.1 - 48.7 fL 01/24/2025 4:42 AM [employer] - [facility] PLATELETS 230 140 - 350 K/uL 01/24/2025 4:42 AM [facility] - [facility] MPV 9.6 9.3 - 12.4 fL 01/24/2025 4:42 AM [facility] - . [facility] NEUTROPHILS 57 % 01/24/2025 4:42 AM [facility] - . [facility] LYMPHOCYTES 31 % 01/24/2025 4:42 AM [facility] - . [facility] MONOCYTES 7 % 01/24/2025 4:42 AM [facility] - . [facility] EOSINOPHILS 3 % 01/24/2025 4:42 AM [facility] - . [facility] BASOPHILS 1 % 01/24/2025 4:42 AM [facility] - . [facility] IMMATURE GRANULOCYTES 1 % 01/24/2025 4:42 AM [facility] - [facility] Comment:IG (Immature Granulo cyte) count includes Metamyelocytes, Myelocytes, and Promyelocytes NEUTROPHIL ABSOLUTE 5.05 1.90 - 7.00 K/uL 01/24/2025 4:42 AM [facility] - [facility] LYMPHOCYTE ABSOLUTE 2.74 0.70 - 4.50 K/uL 01/24/2025 4:42 AM [facility] - . [facility] MONOCYTE ABSOLUTE 0.65 0.10 - 1.30 K/uL 01/24/2025 4:42 AM [facility] - . [facility] EOSINOPHIL ABSOLUTE 0.26 0.00 - 0.70 K/uL 01/24/2025 4:42 AM [facility] - . [facility] BASOPHILS ABSOLUTE 0.04 0.00 - 0.20 K/uL 01/24/2025 4:42 AM [facility] - . [facility] IMMATURE GRANULOCYTES ABSOLUTE 0.04(H) 0.00 - 0.03 K/uL 01/24/2025 4:42 AM [facility] - [facility] Blood Venipuncture / Unknown 01/24/2025 4:06 AM CDT 01/24/2025 4:15 AM CDT us Miah Orlando MD HEMATOLOGY ORDERABLES Final Resu lt [facility] LAB[facility]ATORY SERVICES [facility]# [id number] [address] [facility] [place] [address] * EKG 12-LEAD (01/23/2025 10:22 AM CDT) 01/23/2025 10:2 2 AM CDT Narrative INTERFACE SYSTEM - 01/23/2025 11:18 AM CDT [place] [address] [place] [address] Test Date: 2025-01-23 [facility] Department: 41 Room: [facility] 1 Gender: Female Bindery Manager: ten : 1940 Requested By: DAVE Alvarez Order Number: [id number] [place] PARHAM: Charles Squires Measurements Intervals [place] Rate: 59 P: 14 WV: 140 QRS: 30 QRSD: 84 T: 30 QT: 454 QTc: 450 Interpretive Statements Sinus rhythm Electronically Signed On 01-23-2025 11:18:02 CDT by Charles Squires Procedure Note Charles Squires MD - 01/23/2025 [facility] [address] [facility] [place] [address] Test Date: 2025-01-23 Pat Name: NAYELY MTZ Department: 41 Room: [facility] 1 Gender: Female Bindery Manager: ten : 1940 Requested By: DAVE Alvarez Order Number: [id number] [place] PARHAM: Charles Squires Measurements Intervals [place] Rate: 59 P: 14 WV: 140 QRS: 30 QRSD: 84 T: 30 QT: 454 QTc: 450 Interpretive Statements Sinus rhythm Electronically Signed On 01-23-2025 11:18:02 CDT by Charles Duderija us Luisa Cortes DO ECG ORDERABLES Final Result INTERFACE SYSTEM Refer to clinic/hospital department * (ABNORMAL) C-REACTIVE PROTEIN (01/23/2025 4:59 AM CDT) CRP 32.5(H) <5.0 mg/L 01/23/2025 6:15 AM CDT [facility] Blood Venipuncture / Unknown 01/23/2025 4:59 AM CDT 01/23/2025 5:27 AM CDT Miah Orlando MD CHEMISTRY ORDERABLES Final Resul t Performing Organization Address City/[facility]/ZIP Co de Phone Number [facility] SERVICES [facility] CLIA# [id number] [address] [place] [address] * (ABNORMAL) BASIC METABOLIC PANEL (01/23/2025 4:59 AM CDT) SODIUM 139 136 - 145 mmol/L 01/23/2025 6:15 AM CDT [facility] - [facility] POTASSIUM 3.7 3.5 - 5.0 mmol/L 01/23/2025 6:15 AM CDT [facility] - [facility] CHLORIDE 107 98 - 107 mmol/L 01/23/2025 6:15 AM CDT [facility] [facility] - [facility] CO2 22 22 - 29 mmol/L 01/23/2025 6:15 AM CDT [facility] - [facility] CALCIUM 8.4(L) 8.6 - 10.2 mg/dL 01/23/2025 6:15 AM CDT [facility] - . [facility] BUN 11 8 - 23 mg/dL 01/23/2025 6:15 AM CDT [facility] - . [facility] CREATININE 0.94 0.51 - 0.95 mg/dL 01/23/2025 6:15 AM CDT [facility] - [facility] Comment:The GFR result is no t clinically significant on patients <18 or >70 years of age. GLUCOSE 133(H) 74 - 99 mg/dL 01/23/2025 6:15 AM T [facility] LABORATORY [facility] GFR >60 mL/min/1.7 3 sq meter 01/23/2025 6:15 AM [facility] Comment:eGFR calculated with 2020 CKD-EPI equation. Vegetarian diet, extremely high or low muscle mass, and may affect results. Cystatin C with Glomerular Filtration Rate is a suitable alternative for these patients. ANION GAP 10 8 - 16 mmol/L 01/23/2025 6:15 AM T [facility]ORY [facility] Blood Venipuncture / Unknown 01/23/2025 4:59 AM CDT 01/23/2025 5:27 AM CDT Miah Orlando MD CHEMISTRY ORDERABLES Final Resul t [facility] CLIA# [id number] [address] [place] [address] from Last 3 Months Insurance AETNA PPO [facility] RX AETNA Medicare Part D RX [employer] Commercial Advance Directives For more information, please contact: [phone] * Full Code (Latest Code Status on File) Date Activated Date Inactivated Comments 01/23/2025 3:50 AM 01/24/2025 4:45 PM Care Teams Shopper Insights Manager Relationship Specialty Start Date End Date Jacinda Beck MD [address] [place] [address] PCP - General Internal Medicine 01/23/25
--- OUTSIDE RECORDS SUMMARY | 2025-03-26 13:29 | XMS_ITS | Clinical Summary ---
Author Organization [facility] Address [address] [place] [address] Care Team Providers Care Manager Of Maintenance Name Role Phone Jacinda Beck MD Primary Care Provider [phone] Chay Burnett MD Unavailable Unavailable Allergies Active [...] to complete this topic Insurance MED REPLACE [facility] MEDICARE SOLUTIONS Care Teams Manager Of Maintenance Relationship Specialty Start Date End Date Jacinda Beck MD [address] [place] [phone] PCP - General INTERNAL MEDICINE 02/15/17 Chay Burnett MD [facility] [place] [address] [employer] Instructor INTERVENTIONAL CARDIOLOGY 02/15/17
[2025-03-26 14:07] LABS: Hematocrit 32.2 % (35.0-42.0); Hemoglobin 9.9 g/dL (11.7-13.8); Mean Corpuscular HGB Conc 30.7 g/dL (32-36); Mean Corpuscular Hemoglobin 27.3 pg (27.0-31.0); Mean Corpuscular Volume 89.0 fL (78.0-102.0); Platelet Count Result 370 K/mm3 (150-420); Red Blood Count 3.62 M/mm3 (4.20-5.40); White Blood Count 8.0 K/mm3 (4.8-10.8)
[2025-03-26 14:30] LABS: Alanine Aminotransferase 13 U/L (6-35); Albumin Level 4.1 g/dL (3.5-5.1); Alkaline Phosphatase 76 U/L (38-126); Anion Gap 8 mmol/L (4-12); Aspartate Amino Transferase 21 U/L (14-36); Bilirubin,Total 0.6 mg/dL (0.2-1.3); Blood Urea Nitrogen 17 mg/dL (7-17); Calcium 9.6 mg/dL (8.4-10.2); Carbon Dioxide 26 mmol/L (22-30); Chloride 107 mmol/L (98-107); Cholesterol 200 mg/dL (0-200); Creatine Kinase 74 U/L (30-135); Estimated Glomerular Filt Rate > 60; Glucose 119 mg/dL (65-110); HDL Direct 37 mg/dL; Osmolality Calculated 294 mOsm/kg (285-295); Potassium 4.7 mmol/L (3.4-5.0); Sodium 141 mmol/L (137-145); Total Protein 6.7 g/dL (6.3-8.2); Triglycerides 273 mg/dL (<150)
[2025-03-26 14:41] LABS: Hemoglobin A1C 6.3 % (<5.7)
[2025-03-26 14:48] LABS: Free T4 Free Thyroxine 1.23 ng/dL (0.78-2.19)
[2025-03-26 14:57] LABS: Free T3 3.12 pg/mL (2.18-3.98)
[2025-03-26 15:02] LABS: Thyroid Stimulating Hormone 0.788 uIU/mL (0.465-4.680)
== END 2025-03-26 13:25 | disposition home or self-care (01) ==
LOC: CHSLAB 13:26
PROVIDERS: PCP Internal Medicine; Visit Provider Nurse Practitioner Family
DX: D64.9 Anemia, unspecified (principal); E11.65 Type 2 diabetes mellitus with hyperglycemia; E78.2 Mixed hyperlipidemia; E03.9 Hypothyroidism, unspecified; N39.0 Urinary tract infection, site not specified
CPT/HCPCS: 36415; 80053; 80061; 82550; 83036; 84439; 84443; 84481; 85027

== ENCOUNTER 2025-03-27 09:22 | Outpatient (CLI) | payer MEDICARE, SELFPAY ==
--- OUTSIDE RECORDS SUMMARY | 2025-03-27 09:30 | XMS_ITS | Clinical Summary ---
Author Organization [facility] Address [address] [place] [address] Phone Care Team Providers Care Transition Program Manager Name Role Phone Jacinda Beck MD [...] Data STL ABSTRACTION Provider, Abstract 03/10/2025 Abstract [facility] Gastroenterology [facility] [address] [facility] [address] [place] [address] Antonella Underwood RN 02/10/2025 External Device Data STL ABSTRACTION Provider, Abstract 02/10/2025 External Device Data STL ABSTRACTION Provider, Abstract 01/28/2025 External Device Data STL ABSTRACTION Provider, Abstract 01/27/2025 External Device Data STL ABSTRACTION Provider, Abstract 01/27/2025 External Device Data STL ABSTRACTION Provider, Abstract 01/23/2025 2:13 AM CDT - 01/24/2025 2:45 PM CDT Hospital Encounter [address] [place] [address] Dave Ramos, Miah Gracia MD Collins, Samantha, [...] on file 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 Gender Identity Not on file Sexual Orientation [...] - 9.8 K/uL 01/24/2025 4:42 AM CDT [facility] RBC 3.68(L) 3.90 - 4.90 M/uL 01/24/2025 4:42 AM CDT [facility] HEMOGLOBIN 10.8(L) 11.8 - 14.8 g/dL 01/24/2025 4:42 AM CDT [facility] HEMATOCRIT 34.2(L) 35.5 - 44.0 % 01/24/2025 4:42 AM CDT [facility] MCV 92.9 82.0 - 99.0 fL 01/24/2025 4:42 AM CDT [facility] MCH 29.3 27.2 - 32.6 pg 01/24/2025 4:42 AM CDT [facility] MCHC 31.6 31.5 - 35.5 g/dL 01/24/2025 4:42 AM CDT [facility] RDW 13.4 11.5 - 14.5 % 01/24/2025 4:42 AM CDT [facility] RDW-STDEV 45.9 37.1 - 48.7 fL 01/24/2025 4:42 AM [employer] [facility] PLATELETS 230 140 - 350 K/uL 01/24/2025 4:42 AM [employer] [facility] MPV 9.6 9.3 - 12.4 fL 01/24/2025 4:42 AM [employer] [facility] - . [facility] NEUTROPHILS 57 % 01/24/2025 4:42 AM [employer] [facility] - . [facility] LYMPHOCYTES 31 % 01/24/2025 4:42 AM [employer] [facility] - . [facility] MONOCYTES 7 % 01/24/2025 4:42 AM [employer] [facility] - . [facility] EOSINOPHILS 3 % 01/24/2025 4:42 AM [employer] [facility] . [facility] BASOPHILS 1 % 01/24/2025 4:42 AM [employer] [facility] . [facility] IMMATURE GRANULOCYTES 1 % 01/24/2025 4:42 AM [employer] [facility] Comment:IG (Immature Granulo cyte) count includes Metamyelocytes, Myelocytes, and Promyelocytes NEUTROPHIL ABSOLUTE 5.05 1.90 - 7.00 K/uL 01/24/2025 4:42 AM [employer] [facility] LYMPHOCYTE ABSOLUTE 2.74 0.70 - 4.50 K/uL 01/24/2025 4:42 AM [employer] [facility] - . [facility] MONOCYTE ABSOLUTE 0.65 0.10 - 1.30 K/uL 01/24/2025 4:42 AM [employer] [facility] - . [facility] EOSINOPHIL ABSOLUTE 0.26 0.00 - 0.70 K/uL 01/24/2025 4:42 AM [employer] [facility] - . [facility] BASOPHILS ABSOLUTE 0.04 0.00 - 0.20 K/uL 01/24/2025 4:42 AM [employer] [facility] . [facility] IMMATURE GRANULOCYTES ABSOLUTE 0.04(H) 0.00 - 0.03 K/uL 01/24/2025 4:42 AM [employer] [facility] Blood Venipuncture / Unknown 01/24/2025 4:06 AM CDT 01/24/2025 4:15 AM CDT us Miah Orlando MD HEMATOLOGY ORDERABLES Final Resu lt [facility]# [id number] [address] [facility] [address] * EKG 12-LEAD (01/23/2025 10:22 AM CDT) 01/23/2025 10:2 2 AM CDT Narrative INTERFACE SYSTEM - 01/23/2025 11:18 AM CDT [place] [address] [place] [address] Test Date: 2025-01-23 [facility] Department: 41 Room: [facility] 1 Gender: Female Insurance Application Investigator: ten : 1940 Requested By: DAVE Alvarez Order Number: [id number] [place] PARHAM: Charles Squires Measurements Intervals [place] Rate: 59 P: 14 TX: 140 QRS: 30 QRSD: 84 T: 30 QT: 454 QTc: 450 Interpretive Statements Sinus rhythm Electronically Signed On 01-23-2025 11:18:02 CDT by Charles Squires Procedure Note Charles Squires MD - 01/23/2025 [facility] [address] [place] [address] Test Date: 2025-01-23 Pat Name: NAYELY MTZ Department: 41 Room: [facility] 1 Gender: Female Insurance Application Investigator: ten : 1940 Requested By: DAVE Alvarez Order Number: [id number] [place] PARHAM: Charles Squires Measurements Intervals [place] Rate: 59 P: 14 TX: 140 QRS: 30 QRSD: 84 T: 30 QT: 454 QTc: 450 Interpretive Statements Sinus rhythm Electronically Signed On 01-23-2025 11:18:02 CDT by Charles Duderija us Luisa Cortes DO ECG ORDERABLES Final Result INTERFACE SYSTEM Refer to clinic/hospital department * (ABNORMAL) C-REACTIVE PROTEIN (01/23/2025 4:59 AM CDT) CRP 32.5(H) <5.0 mg/L 01/23/2025 6:15 AM CDT [facility] Blood Venipuncture / Unknown 01/23/2025 4:59 AM CDT 01/23/2025 5:27 AM CDT Miah Orlando MD CHEMISTRY ORDERABLES Final Resul t Performing Organization Address City/[facility]/ZIP Co de Phone Number [facility] CLIA# [id number] [address] [place] [address] * (ABNORMAL) BASIC METABOLIC PANEL (01/23/2025 4:59 AM CDT) SODIUM 139 136 - 145 mmol/L 01/23/2025 6:15 AM CDT [facility] POTASSIUM 3.7 3.5 - 5.0 mmol/L 01/23/2025 6:15 AM CDT [facility] CHLORIDE 107 98 - 107 mmol/L 01/23/2025 6:15 AM CDT [facility] CO2 22 22 - 29 mmol/L 01/23/2025 6:15 AM CDT [facility] CALCIUM 8.4(L) 8.6 - 10.2 mg/dL 01/23/2025 6:15 AM CDT [facility] . [facility] BUN 11 8 - 23 mg/dL 01/23/2025 6:15 AM CDT [facility] . [facility] CREATININE 0.94 0.51 - 0.95 mg/dL 01/23/2025 6:15 AM CDT [facility] Comment:The GFR result is no t clinically significant on patients <18 or >70 years of age. GLUCOSE 133(H) 74 - 99 mg/dL 01/23/2025 6:15 AM T [facility] GFR >60 mL/min/1.7 3 sq meter 01/23/2025 6:15 AM [facility] Comment:eGFR calculated with 2020 CKD-EPI equation. Vegetarian diet, extremely high or low muscle mass, and may affect results. Cystatin C with Glomerular Filtration Rate is a suitable alternative for these patients. ANION GAP 10 8 - 16 mmol/L 01/23/2025 6:15 AM T [facility] Blood Venipuncture / Unknown 01/23/2025 4:59 AM CDT 01/23/2025 5:27 AM CDT Miah Orlando MD CHEMISTRY ORDERABLES Final Resul t [facility] CLIA# [id number] [address] [place] [address] from Last 3 Months Insurance [employer] PPO [facility] RX [employer] Medicare Part D RX [employer] Commercial Advance Directives For more information, please contact: [phone] * Full Code (Latest Code Status on File) Date Activated Date Inactivated Comments 01/23/2025 3:50 AM 01/24/2025 4:45 PM Care Teams Transition Program Manager Relationship Specialty Start Date End Date Jacinda Beck MD [address] [place] [address] PCP - General Internal Medicine 01/23/25
--- OUTSIDE RECORDS SUMMARY | 2025-03-27 09:30 | XMS_ITS | Encounter Summary ---
Author Organization [facility] Address 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
[2025-03-27 09:35] LABS: Add Urine Microscopic? YES; Appearance Urine Clear (Clear); Glucose Urine UA Negative (Negative); Leukocyte Esterase Ur 2+ LEU/UL (Negative); Nitrate Urine Negative (Negative); Specific Grav Ur 1.010 (1.010-1.020)
== END 2025-03-27 09:23 | disposition home or self-care (01) ==
LOC: CHSLAB 09:25
PROVIDERS: PCP Internal Medicine; Visit Provider Internal Medicine
DX: E11.65 Type 2 diabetes mellitus with hyperglycemia (principal); E78.2 Mixed hyperlipidemia; E03.9 Hypothyroidism, unspecified; N39.0 Urinary tract infection, site not specified; R82.90 Unspecified abnormal findings in urine
CPT/HCPCS: 81001; 87086

== ENCOUNTER 2025-04-08 12:45 | Outpatient (CLI) | payer MEDICARE, SELFPAY ==
--- OUTSIDE RECORDS SUMMARY | 2025-04-08 12:57 | XMS_ITS | Clinical Summary ---
Author Organization [facility] Address [address] [place] [address] Care Team Providers Care Public Relations Consultant Name Role Phone Jacinda Beck MD Primary Care Provider [phone] Chay Burnett MD Unavailable Unavailable Allergies Active [...] to complete this topic Insurance MED [facility] MEDICARE SOLUTIONS Care Teams Public Relations Consultant Relationship Specialty Start Date End Date Jacinda Beck MD [address] [place] [phone] PCP - General INTERNAL MEDICINE 02/15/17 Chay Burnett MD [facility] [place] [address] [employer] INTERVENTIONAL CARDIOLOGY 02/15/17
--- OUTSIDE RECORDS SUMMARY | 2025-04-08 12:57 | XMS_ITS | Encounter Summary ---
Author Organization [facility] Address [address] [place] [address] Care Team Providers Care It Infrastructure Consultant Name Role Phone Jacinda Beck MD Primary Care Provider + Encounter Details Date Type Department Care Team (Late st Contact Info) Description 11/11/1998 Outpatient Historical [facility] Winifred Monteiro MD [address] [place] [address] Ventricular flutter (CMS/HCC) (Primary Dx) Social History Tobacco Use Types Packs/Day Years Used Date Smoking Tobacco: Never Assessed Comments Unknown Sex and Gender Information Value Date Recorded Sex Assigned at Not on file Legal Sex Female 5:02 AM PROGRAM SUPPORT ASSISTANT Gender Identity Not on file Sexual Orientation Not on file documented as of this encounter Plan of Treatment Upcoming Encounters Date Type Department Care Team (Late st Contact Info) Description 05/27/2025 1:45 PM CDT Office Visit [facility] Gastroenterology [address] [place] [address] Arpan Hernandez MD [address] [place] [address] documented as of this encounter Visit Diagnoses Diagnosis Ventricular flutter (CMS/HCC)- Primary Ventricular flutter documented in this encounter Additional Health Concerns Infection Onset Date Last Indicated Resolved Time R/O GI Pathogen 01/23/2025 01/23/2025 01/24/2025 3 :30 PM CDT documented as of this encounter Care Teams It Infrastructure Consultant Relationship Specialty Start Date End Date Jacinda Beck MD [address] [place] [address] PCP - General Internal Medicine 01/23/25 documented as of this encounter
--- OUTSIDE RECORDS SUMMARY | 2025-04-08 12:57 | XMS_ITS | Clinical Summary ---
Author Organization [facility] Address [address] [place] [address] Phone Care Team Providers Care Puppet Master Name Role Phone Jacinda Beck MD Primary [...] mg) 2 times daily. 144 Tablet 01/24/2025 08/19/20 25 Active Problems Problem Noted Date Diagnosed Date Acute diverticulitis 01/24/2025 Hematochezia 01/24/2025 Sigmoid diverticulitis 01/23/2025 Portal vein thrombosis 01/23/2025 Primary hypertension 01/23/2025 JULIANNE (obstructive sleep apnea) 01/23/2025 Encounters Date Type Department Care Team Description 04/01/2025 External Device Data STL ABSTRACTION Provider, Abstract 03/31/2025 External Device Data STL ABSTRACTION Provider, Abstract 03/31/2025 External Device Data STL ABSTRACTION Provider, Abstract 03/27/2025 5:30 PM CDT - 03/27/2025 7:[address] [facility] Emergency Department [address] [place] [phone] John Paul Lizama MD Lackey, Daniel J, MD Encounter for blood typing (Primary Dx); Chronic anemia; Anticoagulated Discharge Disposition: Home or Self Care 03/27/2025 Travel 03/27/2025 Telephone [facility] Gastroenterology [facility] [address] [facility] [address] [place] [address] Quinten Edwards Lindsay Provider Call; Anemia 03/24/2025 External Device Data STL ABSTRACTION Provider, Abstract 03/10/2025 Abstract [facility] Gastroenterology [facility] [address] [place] [address] Antonella Underwood RN 02/10/2025 External Device Data STL ABSTRACTION Provider, Abstract 02/10/2025 External Device Data STL ABSTRACTION Provider, Abstract 01/28/2025 External Device Data STL ABSTRACTION Provider, Abstract 01/27/2025 External Device Data STL ABSTRACTION Provider, Abstract 01/27/2025 External Device Data STL ABSTRACTION Provider, Abstract 01/23/2025 2:13 AM CDT - 01/24/2025 2:45 PM CDT Hospital Encounter [facility] Medicine [address]B [address] [place] [phone] Conrado Ramos, Miah Gracia MD Collins, Samantha, DO Sigmoid diverticulitis Discharge Disposition: Home or Self Care 01/23/2025 Travel from Last 3 Months Family History Medical History Relation Name Comments Heart Disease Father Stroke Mother Relation Name Status Comments Father Mother Social History Tobacco Use Types Packs/Day Years Used Date Smoking Tobacco: Never Tobacco Cessation:Counseling Given: Not Answered Feeling Safe Answer Date Recorded Are you in a relationship wi th someone who hurts you emotionally and/or physically? 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 Gender Identity Not on file Sexual Orientation Not on file Last Filed Vital Signs Vital Sign Reading Time Taken Comments Blood Pressure 141/74 03/27/2025 7:40 PM CDT Pulse 53 03/27/2025 7:40 PM CDT Temperature 36.8 C (98.2 F) 03/27/2025 7:40 PM CDT Respiratory Rate 16 03/27/2025 7:40 PM CDT Oxygen Saturation 100% 03/27/2025 7:40 PM CDT Inhaled Oxygen Concentration - - Weight 90.3 kg (199 lb) 01/23/2025 2:17 AM CDT Height 156.2 cm (5' 1.5) 01/23/2025 2:17 AM CDT Body Mass Index 36.99 01/23/2025 2:17 AM CDT Plan of Treatment Upcoming Encounters Date Type Department Care Team (Late st Contact Info) Description 05/27/2025 1:45 PM CDT Office Visit [facility] Gastroenterology Freddie [address] [place] [address] Arpan Hernandez MD [email or web address] [facility] [address] [place] [address] Health Maintenance Due Date Last Done Comments DTAP/TDAP/TD VACCINES (1 - Tdap) 1961 ZOSTER VACCINE (1 of 2) 1992 OSTEOPOROSIS SCREENING 2007 PNEUMOCOCCAL VACCINE 50+ YEA RS (2 of 2 - PCV20 or PCV21) 04/15/2016 04/15/2015 RSV VACCINE (60+ or ) (1 - 1-dose 75+ series) 2017 COVID-19 Vaccine (2023-2 5 season) 2024 04/24/2024, 06/01/2023, 04/23/2022, Additional history exists INFLUENZA VACCINE (#1) 2025 , 05/15/2023, 05/02/2022, Additional history exists Procedures Procedure Name Priority Date/Time Associated Diagnosis Comments VERIFICATION BLOOD GROUP Stat 03/27/2025 7:38 PM CDT Encounter for blood typing TYPE AND SCREEN Stat 03/27/2025 6:24 PM CDT TSH REFLEXIVE Stat 03/27/2025 6:24 PM CDT COMPREHENSIVE METABOLIC PANEL Stat 03/27/2025 6:24 PM CDT PROTIME-INR Stat 03/27/2025 6:24 PM CDT CBC WITH DIFFERENTIAL Stat 03/27/2025 6:24 PM CDT EKG 12-LEAD Stat 03/27/2025 4:18 PM CDT US ABDOMEN LIMITED Routine 01/24/2025 8: 55 AM CDT CBC WITH DIFFERENTIAL Routine 01/24/2025 4:06 AM CDT EKG 12-LEAD Routine 01/23/2025 10:22 AM CDT C-REACTIVE PROTEIN Routine 01/23/2025 4: 59 AM CDT BASIC METABOLIC PANEL Timed Study 01/23/2025 4:59 AM CDT CBC WITH DIFFERENTIAL Routine 01/23/2025 4:59 AM CDT from Last 3 Months Results * VERIFICATION BLOOD GROUP (03/27/2025 7:38 PM CDT) ABO GROUP O 03/27/2025 9:30 PM CDT [facility] RH (D) TYPE Positive 03/27/2025 9:30 PM CDT [facility] Blood Venipuncture / Unknown 03/27/2025 7:38 PM CDT 03/27/2025 7:41 PM CDT Misael Naranjo MD BLOOD BANK ORDERABLES Final Result [facility]# [id number] [address] [place] [address] * TSH REFLEXIVE (03/27/2025 6:24 PM CDT) Pathologist [facility] TSH 1.26 0.27 - 4.20 uIU/mL 03/27/2025 7:59 PM CDT [facility] Blood Venipuncture / Unknown 03/27/2025 6:24 PM CDT 03/27/2025 6:31 PM CDT John Paul Lizama MD CHEMISTRY ORDERABLES Final Res ult [facility]# [id number] [address] [place] [address] * (ABNORMAL) CBC WITH DIFFERENTIAL (03/27/2025 6:24 PM CDT) Only the most recent of3 resultswithin the time period is included. Pathologist [facility] WBC 10.2(H) 4.0 - 9.8 K/uL 03/27/2025 6:41 PM CDT [facility] RBC 3.81(L) 3.90 - 4.90 M/uL 03/27/2025 6:41 PM CDT [facility] HEMOGLOBIN 10.4(L) 11.8 - 14.8 g/dL 03/27/2025 6:41 PM CDT [facility] HEMATOCRIT 33.6(L) 35.5 - 44.0 % 03/27/2025 6:41 PM CDT [facility] MCV 88.2 82.0 - 99.0 fL 03/27/2025 6:41 PM CDT [facility] MCH 27.3 27.2 - 32.6 pg 03/27/2025 6:41 PM CDT [facility] MCHC 31.0(L) 31.5 - 35.5 g/dL 03/27/2025 6:41 PM CDT [facility] RDW 14.5 11.5 - 14.5 % 03/27/2025 6:41 PM CDT [facility] RDW-STDEV 46.7 37.1 - 48.7 fL 03/27/2025 6:41 PM CDT [facility] PLATELETS 371(H) 140 - 350 K/uL 03/27/2025 6:41 PM CDT [facility] MPV 9.2(L) 9.3 - 12.4 fL 03/27/2025 6:41 PM CDT [facility] NEUTROPHILS 56 % 03/27/2025 6:41 PM CDT [facility] LYMPHOCYTES 32 % 03/27/2025 6:41 PM CDT [facility] MONOCYTES 8 % 03/27/2025 6:41 PM CDT [facility] EOSINOPHILS 3 % 03/27/2025 6:41 PM CDT [facility] BASOPHILS 1 % 03/27/2025 6:41 PM CDT [facility] IMMATURE GRANULOCYTES 0 % 03/27/2025 6:41 PM CDT [facility] NEUTROPHIL ABSOLUTE 5.74 1.90 - 7.00 K/uL 03/27/2025 6:41 PM CDT [facility] LYMPHOCYTE ABSOLUTE 3.29 0.70 - 4.50 K/uL 03/27/2025 6:41 PM CDT [facility]ORY SERVICES - [facility] MONOCYTE ABSOLUTE 0.81 0.10 - 1.30 K/uL 03/27/2025 6:41 PM CDT [facility]ORY SERVICES - [facility] EOSINOPHIL ABSOLUTE 0.27 0.00 - 0.70 K/uL 03/27/2025 6:41 PM CDT [facility] LABORATORY SERVICES - . [facility] BASOPHILS ABSOLUTE 0.05 0.00 - 0.20 K/uL 03/27/2025 6:41 PM CDT [facility]ORY SERVICES - [facility] IMMATURE GRANULOCYTES ABSOLUTE 0.03 0.00 - 0.03 K/uL 03/27/2025 6:41 PM CDT [facility] Blood Venipuncture / Unknown 03/27/2025 6:24 PM CDT 03/27/2025 6:31 PM CDT John Paul Lizama MD HEMATOLOGY ORDERABLES Final Re sult [facility]# [id number] [address] [place] [address] * (ABNORMAL) PROTIME-INR (03/27/2025 6:24 PM CDT) PROTIME 14.8 12.7 - 15.1 Seconds 03/27/2025 6:52 PM CDT [facility] INR 1.2(H) 0.9 - 1.1 03/27/2025 6:52 PM CDT [facility] Blood Venipuncture / Unknown 03/27/2025 6:24 PM CDT 03/27/2025 6:31 PM CDT Narrative [facility] LABORATORY SERVICES [facility] - 03/27/2025 6:52 PM CDT INR Therapeutic Range: Adult: 2.0 - 3.0 for pulmonary embolism or prophylaxis against venous thrombosis or systemic embolization. 2.0 - 3.0 for patients with tissue heart valves. 2.5 - 3.5 for patients with mechanical heart valves or post IA. Pediatric (12 years and under): 1.5 - 3.0 Although the target range in children is not well established, INR values of 1.5 - 3.0 are recommended for most patients. Higher values have been used in children with prosthetic cardiac valves and hereditary clotting disorders. (<3 days) therapeutic ranges have not been established. John Paul Lizama MD HEMATOLOGY ORDERABLES Final Re sult Performing Organization Address [facility] Co de Phone Number [facility]ORATORY SERVICES - [facility]# [id number] [address] [place] [address] * TYPE AND SCREEN (03/27/2025 6:24 PM CDT) Pathologist [facility] ABO GROUP O 03/27/2025 7:59 PM CDT [facility] LABORATORY SERVICES -- [facility] RH (D) TYPE Positive 03/27/2025 7:59 PM CDT [facility]ATORY SERVICES -- [facility] ANTIBODY SCREEN Negative 03/27/2025 7:59 PM CDT [facility]ATORY SERVICES -- [facility] Blood Venipuncture / Unknown 03/27/2025 6:24 PM CDT 03/27/2025 6:31 PM CDT John Paul Lizama MD BLOOD BANK ORDERABLES Edited R esult - Final Performing Organization Address [facility] Co de Phone Number [facility] LABORATORY SERVICES -- [facility]# [id number] [address] [place] [address] * COMPREHENSIVE METABOLIC PANEL (03/27/2025 6:24 PM CDT) SODIUM 142 136 - 145 mmol/L 03/27/2025 7:45 PM CDT [facility] LABORATORY SERVICES - [facility] POTASSIUM 4.2 3.5 - 5.0 mmol/L 03/27/2025 7:45 PM CDT [facility] LABORATORY SERVICES - [facility] CHLORIDE 106 98 - 107 mmol/L 03/27/2025 7:45 PM CDT [facility]ATORY SERVICES - [facility] CO2 24 22 - 29 mmol/L 03/27/2025 7:45 PM [facility] LABORATORY SERVICES - [facility] CALCIUM 9.7 8.6 - 10.2 mg/dL 03/27/2025 7:45 PM [facility] LABORATORY SERVICES - [facility] BUN 14 8 - 23 mg/dL 03/27/2025 7:45 PM [facility] LABORATORY SERVICES - [facility] CREATININE 0.86 0.51 - 0.95 mg/dL 03/27/2025 7:45 PM [facility] LABORATORY SERVICES - [facility] Comment:The GFR result is no t clinically significant on patients <18 or >70 years of age. GLUCOSE 93 74 - 99 mg/dL 03/27/2025 7:45 PM [facility] LABORATORY SERVICES [facility] TOTAL PROTEIN 7.5 6.7 - 8.6 g/dL 03/27/2025 7:45 PM [facility] LABORATORY [facility] ALBUMIN 4.1 3.5 - 5.2 g/dL 03/27/2025 7:45 PM [facility] LABORATORY SERVICES - [facility] BILIRUBIN TOTAL 0.2 0.0 - 1.1 mg/dL 03/27/2025 7:45 PM [facility] LABORATORY [facility] ALKALINE PHOSPHATASE 93 35 - 104 U/L 03/27/2025 7:45 PM [facility] LABORATORY SERVICES [facility] AST 20 <33 U/L 03/27/2025 7:45 PM [facility] LABORATORY SERVICES [facility] ALT 14 <34 U/L 03/27/2025 7:45 PM [facility] LABORATORY SERVICES [facility] GFR >60 mL/min/1.7 3 sq meter 03/27/2025 7:45 PM [facility]ORY SERVICES - [facility] Comment:eGFR calculated with 2020 CKD-EPI equation. Vegetarian diet, extremely high or low muscle mass, and may affect results. Cystatin C with Glomerular Filtration Rate is a suitable alternative for these patients. ANION GAP 12 8 - 16 mmol/L 03/27/2025 7:45 PM [facility] LABORATORY SERVICES [facility] Blood Venipuncture / Unknown 03/27/2025 6:24 PM CDT 03/27/2025 6:31 PM CDT Narrative [facility] LABORATORY [facility] - 03/27/2025 7:45 PM CDT Samples containing indocyanine green cause interferences on Total and/or Direct Bilirubin and must not be measured. us John Paul Lizama MD CHEMISTRY ORDERABLES Final Res ult [facility] CLIA# [id number] [address] [facility] [place] [address] * EKG 12-LEAD (03/27/2025 4:18 PM CDT) Only the most recent of2 resultswithin the time period is included. 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: [id number] : 1940 Requested By: Order Number: [id number] Reading : Noble Subramanian Measurements Intervals [place] Rate: 56 P: 9 FL: 141 QRS: 24 QRSD: 79 T: 32 QT: 437 QTc: 422 Interpretive Statements Sinus rhythm Abnormal R-wave progression, early transition Electronically Signed On 03-27-2025 17:13:59 CDT by Noble Subramanian Procedure Note Noble Subramanian MD - 03/27/2025 [facility] [address] [place] [address] Test Date: 2025-03-27 Pat Name: NAYELY MATHEW Department: 37 Room: Gender: Female Human Resources Talent Manager: [id number] : 1940 Requested By: Order Number: [id number] [place] PARHAM: Noble Subramanian Measurements Intervals [place] Rate: 56 P: 9 FL: 141 QRS: 24 QRSD: 79 T: 32 QT: 437 QTc: 422 Interpretive Statements Sinus rhythm Abnormal R-wave progression, early transition Electronically Signed On 03-27-2025 17:13:59 CDT by Noble Subramanian us Protocol [facility] Emergency MD ECG ORDERABLES Viry lissa Result INTERFACE SYSTEM Refer to clinic/hospital department * US ABDOMEN LIMITED (01/24/2025 8:55 AM [...] hepatic parenchymal disease. DICTATION LOCATION: [facility] 01/24/2025 9:05 AM CDT EXAMINATION: US ABDOMEN [...] or other hepatic parenchymal disease. DICTATION LOCATION: [facility] Luisa Cortes DO US ORDERABLES Final Result * (ABNORMAL) C-REACTIVE PROTEIN (01/23/2025 4:59 AM CDT) CRP 32.5(H) <5.0 mg/L 01/23/2025 6:15 AM CDT [facility] Blood Venipuncture / Unknown 01/23/2025 4:59 AM CDT 01/23/2025 5:27 AM CDT Miah Orlando MD CHEMISTRY ORDERABLES Final Resul t [facility] CLIA# [id number] [address] [facility] [place] [place] [address] * (ABNORMAL) BASIC METABOLIC PANEL (01/23/2025 4:59 AM CDT) SODIUM 139 136 - 145 mmol/L 01/23/2025 6:15 AM T [facility] LABORATORY [facility] POTASSIUM 3.7 3.5 - 5.0 mmol/L 01/23/2025 6:15 AM [facility]CLC [facility] CHLORIDE 107 98 - 107 mmol/L 01/23/2025 6:15 AM [facility] CO2 22 22 - 29 mmol/L 01/23/2025 6:15 AM [facility] CALCIUM 8.4(L) 8.6 - 10.2 mg/dL 01/23/2025 6:15 AM [facility] BUN 11 8 - 23 mg/dL 01/23/2025 6:15 AM [facility] CREATININE 0.94 0.51 - 0.95 mg/dL 01/23/2025 6:15 AM [facility] LABORATORY [facility] Comment:The GFR result is no t clinically significant on patients <18 or >70 years of age. GLUCOSE 133(H) 74 - 99 mg/dL 01/23/2025 6:15 AM [facility] GFR >60 mL/min/1.7 3 sq meter 01/23/2025 6:15 AM [facility] Comment:eGFR calculated with 2020 CKD-EPI equation. Vegetarian diet, extremely high or low muscle mass, and may affect results. Cystatin C with Glomerular Filtration Rate is a suitable alternative for these patients. ANION GAP 10 8 - 16 mmol/L 01/23/2025 6:15 AM CDT [facility] LABORATORY [facility] Blood Venipuncture / Unknown 01/23/2025 4:59 AM CDT 01/23/2025 5:27 AM CDT us Miah Orlando MD CHEMISTRY ORDERABLES Final Resul t [facility] LABORATORY [facility] CLIA# [id number] [address] [place] [address] from Last 3 Months Insurance [employer] PPO [facility] RX [employer] Medicare Part D RX [employer] Commercial Advance Directives For more information, please contact: [phone] * Full Code (Latest Code Status on File) Date Activated Date Inactivated Comments 01/23/2025 3:50 AM 01/24/2025 4:45 PM Care Teams Puppet Master Relationship Specialty Start Date End Date Jacinda Beck MD [address] [place] [phone] PCP - General Internal Medicine 01/23/25
[2025-04-08 13:01] LABS: Hematocrit 33.5 % (35.0-42.0); Hemoglobin 10.3 g/dL (11.7-13.8); Mean Corpuscular HGB Conc 30.7 g/dL (32-36); Mean Corpuscular Hemoglobin 28.3 pg (27.0-31.0); Mean Corpuscular Volume 92.0 fL (78.0-102.0); Platelet Count Result 349 K/mm3 (150-420); Red Blood Count 3.64 M/mm3 (4.20-5.40); White Blood Count 8.4 K/mm3 (4.8-10.8)
[2025-04-08 13:32] LABS: Alanine Aminotransferase 11 U/L (6-35); Albumin Level 4.0 g/dL (3.5-5.1); Alkaline Phosphatase 76 U/L (38-126); Anion Gap 11 mmol/L (4-12); Aspartate Amino Transferase 20 U/L (14-36); Bilirubin,Total 0.4 mg/dL (0.2-1.3); Blood Urea Nitrogen 11 mg/dL (7-17); Calcium 9.6 mg/dL (8.4-10.2); Carbon Dioxide 26 mmol/L (22-30); Chloride 106 mmol/L (98-107); Estimated Glomerular Filt Rate > 60; Glucose 104 mg/dL (65-110); Osmolality Calculated 295 mOsm/kg (285-295); Potassium 4.6 mmol/L (3.4-5.0); Sodium 143 mmol/L (137-145); Total Protein 6.5 g/dL (6.3-8.2)
== END 2025-04-08 12:46 | disposition home or self-care (01) ==
PROVIDERS: PCP Internal Medicine; Visit Provider Internal Medicine
DX: K92.2 Gastrointestinal hemorrhage, unspecified (principal); D64.9 Anemia, unspecified
CPT/HCPCS: 36415; 80053; 85027

== ENCOUNTER 2025-04-23 11:09 | Outpatient (CLI) | payer MEDICARE, SELFPAY ==
[2025-04-23 11:19] LABS: Hematocrit 34.0 % (35.0-42.0); Hemoglobin 10.6 g/dL (11.7-13.8); Mean Corpuscular HGB Conc 31.2 g/dL (32-36); Mean Corpuscular Hemoglobin 28.5 pg (27.0-31.0); Mean Corpuscular Volume 91.4 fL (78.0-102.0); Platelet Count Result 348 K/mm3 (150-420); Red Blood Count 3.72 M/mm3 (4.20-5.40); White Blood Count 9.0 K/mm3 (4.8-10.8)
[2025-04-23 12:57] LABS: Alanine Aminotransferase 15 U/L (6-35); Albumin Level 4.1 g/dL (3.5-5.1); Alkaline Phosphatase 77 U/L (38-126); Anion Gap 13 mmol/L (4-12); Aspartate Amino Transferase 21 U/L (14-36); Bilirubin,Total 0.4 mg/dL (0.2-1.3); Blood Urea Nitrogen 15 mg/dL (7-17); Calcium 9.6 mg/dL (8.4-10.2); Carbon Dioxide 24 mmol/L (22-30); Chloride 106 mmol/L (98-107); Estimated Glomerular Filt Rate 58; Glucose 131 mg/dL (65-110); Osmolality Calculated 298 mOsm/kg (285-295); Potassium 4.7 mmol/L (3.4-5.0); Sodium 143 mmol/L (137-145); Total Protein 6.6 g/dL (6.3-8.2)
== END 2025-04-23 11:10 | disposition home or self-care (01) ==
LOC: CHSLAB 11:11
PROVIDERS: PCP Internal Medicine; Visit Provider Nurse Practitioner Family
DX: D64.9 Anemia, unspecified (principal); E86.0 Dehydration
CPT/HCPCS: 36415; 80053; 85027

== ENCOUNTER 2025-05-07 15:49 | Outpatient (CLI) | payer MEDICARE, SELFPAY ==
[2025-05-07 16:00] LABS: Hematocrit 34.3 % (35.0-42.0); Hemoglobin 10.6 g/dL (11.7-13.8)
--- OUTSIDE RECORDS SUMMARY | 2025-05-07 17:39 | XMS_ITS | Clinical Summary ---
Author Organization [facility] Address [address] [place] [address] Care Team Providers Care Winery Cellar Hand Name Role Phone Jacinda Beck MD Primary Care Provider [phone] Chay Burnett MD Unavailable Unavailable Allergies Active [...] COVID-19 Vaccine ( - 2023-2 5 season) 2025 Meningococcal B Vaccine Aged Out No l onger eligible based on patient's age to complete this topic Meningococcal Vaccine Aged Out No cynthia josiah eligible based on patient's age to complete this topic RSV Immunizations Under 20 Months Aged Out No longer eligible based on patient's age to complete this topic Insurance MED REPLACE [facility] MEDICARE SOLUTIONS Care Teams Winery Cellar Hand Relationship Specialty Start Date End Date Jacinda Beck MD [address] [place] [phone] PCP - General INTERNAL MEDICINE 02/15/17 Chay Burnett MD [facility] [place] [address] [place] [address] [place] Manager Budget INTERVENTIONAL CARDIOLOGY 02/15/17
--- OUTSIDE RECORDS SUMMARY | 2025-05-07 17:39 | XMS_ITS | Clinical Summary ---
Author Organization [facility] Address [address] [place] [address] Phone Care Team Providers Care Postdoctoral Research Fellow Name Role Phone Jacinda Beck MD Primary [...] Take 25 mg by mouth daily. Active Active Problems Problem Noted Date Diagnosed Date Acute diverticulitis 01/24/2025 Hematochezia 01/24/2025 Sigmoid diverticulitis 01/23/2025 Portal vein thrombosis 01/23/2025 Primary hypertension 01/23/2025 JULIANNE (obstructive sleep apnea) 01/23/2025 Encounters Date Type Department Care Team Description 04/29/2025 External Device Data ST[facility] ABSTRACTION Provider, Abstract 04/28/2025 External Device Data STL ABSTRACTION Provider, Abstract 04/28/2025 External Device Data ST[facility] ABSTRACTION Provider, Abstract 04/14/2025 External Device Data STL ABSTRACTION Provider, Abstract 04/01/2025 External Device Data STL ABSTRACTION Provider, Abstract 03/31/2025 External Device Data STL ABSTRACTION Provider, Abstract 03/31/2025 External Device Data STL ABSTRACTION Provider, Abstract 03/27/2025 5:30 PM CDT - 03/27/2025 7:52 PM CDT Emergency [facility] [address] [place] [phone] John Paul Lizama MD Lackey, Daniel J, MD Encounter for blood typing (Primary Dx); Chronic anemia; Anticoagulated Discharge Disposition: Home or Self Care 03/27/2025 Travel 03/27/2025 Telephone [facility] G[facility] [address] [facility] [address] [place] [address] Quinten Edwards RMA Provider Call; Anemia 03/24/2025 External Device Data STL ABSTRACTION Provider, Abstract 03/10/2025 Abstract [facility] [address] [facility] [address] [place] [address] Antonella Underwood RN 02/10/2025 External Device Data STL ABSTRACTION Provider, Abstract 02/10/2025 External Device Data STL ABSTRACTION Provider, Abstract from Last 3 Months Family History Medical [...] on file 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 Gender Identity Not on file Sexual Orientation [...] Description 05/27/2025 1:45 PM CDT Office Visit [facility]enter[facility] [address] [place] [address] Arpan Hernandez MD [address] [facility] [address] [place] [address] Health Maintenance Due Date Last Done Comments DTAP/TDAP/TD VACCINES (1 - Tdap) 1961 ZOSTER VACCINE (1 of 2) 1992 OSTEOPOROSIS SCREENING 2007 PNEUMOCOCCAL VACCINE 50+ YEA RS (2 of 2 - PCV20 or PCV21) 04/15/2016 04/15/2015 RSV VACCINE (60+ or ) (1 - 1-dose 75+ series) 2017 INFLUENZA VACCINE (#1) 2025 , 05/15/2023, 05/02/2022, Additional history exists COVID-19 Vaccine (2023-2 5 season) 2025 04/24/2024, 06/01/2023, 04/23/2022, Additional history exists Procedures Procedure Name Priority [...] EKG 12-LEAD Stat 03/27/2025 4:18 PM CDT from Last 3 Months Results * VERIFICATION BLOOD GROUP (03/27/2025 7:38 PM CDT) ABO GROUP O 03/27/2025 9:30 PM CDT [facility] -- [facility] RH (D) TYPE Positive 03/27/2025 9:30 PM CDT [facility] Blood Venipuncture / Unknown 03/27/2025 7:38 PM CDT 03/27/2025 7:41 PM CDT Misael Naranjo MD BLOOD BANK ORDERABLES Final Result [facility] -- [facility]# [id number] [address] [facility] [address] * TSH REFLEXIVE (03/27/2025 6:24 PM CDT) TSH 1.26 0.27 - 4.20 uIU/mL 03/27/2025 7:59 PM CDT [facility] - [facility] Blood Venipuncture / Unknown 03/27/2025 6:24 PM CDT 03/27/2025 6:31 PM CDT us John Paul Lizama MD CHEMISTRY ORDERABLES Final Res ult [facility] - [facility] CLIA# [id number] [address] [place] [address] * (ABNORMAL) CBC WITH DIFFERENTIAL (03/27/2025 6:24 PM CDT) Pathologist [facility] WBC 10.2(H) 4.0 - 9.8 K/uL 03/27/2025 6:41 PM CDT [facility] RBC 3.81(L) 3.90 - 4.90 M/uL 03/27/2025 6:41 PM CDT [facility] HEMOGLOBIN 10.4(L) 11.8 - 14.8 g/dL 03/27/2025 6:41 PM CDT [facility] HEMATOCRIT 33.6(L) 35.5 - 44.0 % 03/27/2025 6:41 PM CDT [facility] MCV 88.2 82.0 - 99.0 fL 03/27/2025 6:41 PM CDT [facility] MCH 27.3 27.2 - 32.6 pg 03/27/2025 6:41 PM CDT [facility] MCHC 31.0(L) 31.5 - 35.5 g/dL 03/27/2025 6:41 PM CDT [facility] RDW 14.5 11.5 - 14.5 % 03/27/2025 6:41 PM CDT [facility] RDW-STDEV 46.7 37.1 - 48.7 fL 03/27/2025 6:41 PM CDT [facility] - [facility] PLATELETS 371(H) 140 - 350 K/uL 03/27/2025 6:41 PM CDT [facility] MPV 9.2(L) 9.3 - 12.4 fL 03/27/2025 6:41 PM CDT [facility] NEUTROPHILS 56 % 03/27/2025 6:41 PM CDT [facility] - [facility] LYMPHOCYTES 32 % 03/27/2025 6:41 PM CDT [facility] MONOCYTES 8 % 03/27/2025 6:41 PM CDT [facility] - . [facility] EOSINOPHILS 3 % 03/27/2025 6:41 PM CDT [facility] - . [facility] BASOPHILS 1 % 03/27/2025 6:41 PM CDT [facility] - . [facility] IMMATURE GRANULOCYTES 0 % 03/27/2025 6:41 PM CDT [facility] - . [facility] NEUTROPHIL ABSOLUTE 5.74 1.90 - 7.00 K/uL 03/27/2025 6:41 PM CDT [facility] - . [facility] LYMPHOCYTE ABSOLUTE 3.29 0.70 - 4.50 K/uL 03/27/2025 6:41 PM CDT [facility] - . [facility] MONOCYTE ABSOLUTE 0.81 0.10 - 1.30 K/uL 03/27/2025 6:41 PM CDT [facility] - . [facility] EOSINOPHIL ABSOLUTE 0.27 0.00 - 0.70 K/uL 03/27/2025 6:41 PM CDT [facility] - . [facility] BASOPHILS ABSOLUTE 0.05 0.00 - 0.20 K/uL 03/27/2025 6:41 PM CDT [facility] - . [facility] IMMATURE GRANULOCYTES ABSOLUTE 0.03 0.00 - 0.03 K/uL 03/27/2025 6:41 PM CDT [facility] - . [facility] Blood Venipuncture / Unknown 03/27/2025 6:24 PM CDT 03/27/2025 6:31 PM CDT us John Paul Lizama MD HEMATOLOGY ORDERABLES Final Re sult [facility] CLIA# [id number] [address] [place], [place] [address] * (ABNORMAL) PROTIME-INR (03/27/2025 6:24 PM CDT) [facility] PROTIME 14.8 12.7 - 15.1 Seconds 03/27/2025 6:52 PM CDT [facility] INR 1.2(H) 0.9 - 1.1 03/27/2025 6:52 PM CDT [facility] - [facility] Blood Venipuncture / Unknown 03/27/2025 6:24 PM CDT 03/27/2025 6:31 PM CDT Narrative [facility] - [facility] - 03/27/2025 6:52 PM CDT INR Therapeutic Range: Adult: 2.0 - 3.0 for pulmonary embolism or prophylaxis against venous thrombosis or systemic embolization. 2.0 - 3.0 for patients with tissue heart valves. 2.5 - 3.5 for patients with mechanical heart valves or post DC. Pediatric (12 years and under): 1.5 - 3.0 Although the target range in children is not well established, INR values of 1.5 - 3.0 are recommended for most patients. Higher values have been used in children with prosthetic cardiac valves and hereditary clotting disorders. [place] (<3 days) therapeutic ranges have not been established. John Paul Lizama MD HEMATOLOGY ORDERABLES Final Re sult [facility] Organization Address City/State/ZIP Co de Phone Number [facility]# [id number] [address] [facility] [place] [address] * TYPE AND SCREEN (03/27/2025 6:24 PM CDT) Pathologist [facility] ABO GROUP O 03/27/2025 7:59 PM CDT [facility] -- [facility] RH (D) TYPE Positive 03/27/2025 7:59 PM CDT [facility] -- [facility] ANTIBODY SCREEN Negative 03/27/2025 7:59 PM CDT [facility] -- [facility] Blood Venipuncture / Unknown 03/27/2025 6:24 PM CDT 03/27/2025 6:31 PM CDT John Paul Lizama MD BLOOD BANK ORDERABLES Edited R vaniault - Final [facility] -- [facility] CLIA# [id number] [address] [place] [address] * COMPREHENSIVE METABOLIC PANEL (03/27/2025 6:24 PM CDT) SODIUM 142 136 - 145 mmol/L 03/27/2025 7:45 PM CDT [facility] - [facility] POTASSIUM 4.2 3.5 - 5.0 mmol/L 03/27/2025 7:45 PM CDT [facility] - [facility] CHLORIDE 106 98 - 107 mmol/L 03/27/2025 7:45 PM CDT [facility] - [facility] CO2 24 22 - 29 mmol/L 03/27/2025 7:45 PM CDT [facility] - . [facility] CALCIUM 9.7 8.6 - 10.2 mg/dL 03/27/2025 7:45 PM CDT [facility] - [facility] BUN 14 8 - 23 mg/dL 03/27/2025 7:45 PM CDT [facility] - . [facility] CREATININE 0.86 0.51 - 0.95 mg/dL 03/27/2025 7:45 PM CDT [facility] - . [facility] Comment:The GFR result is no t clinically significant on patients <18 or >70 years of age. GLUCOSE 93 74 - 99 mg/dL 03/27/2025 7:45 PM CDT [facility] - [facility] TOTAL PROTEIN 7.5 6.7 - 8.6 g/dL 03/27/2025 7:45 PM CDT [facility] - [facility] ALBUMIN 4.1 3.5 - 5.2 g/dL 03/27/2025 7:45 PM CDT [facility] - . [facility] BILIRUBIN TOTAL 0.2 0.0 - 1.1 mg/dL 03/27/2025 7:45 PM CDT [facility] - . [facility] ALKALINE PHOSPHATASE 93 35 - 104 U/L 03/27/2025 7:45 PM CDT [facility] - . [facility] AST 20 <33 U/L 03/27/2025 7:45 PM CDT [facility] ALT 14 <34 U/L 03/27/2025 7:45 PM CDT [facility] GFR >60 mL/min/1.7 3 sq meter 03/27/2025 7:45 PM CDT [facility] Comment:eGFR calculated with 2020 CKD-EPI equation. Vegetarian diet, extremely high or low muscle mass, and may affect results. Cystatin C with Glomerular Filtration Rate is a suitable alternative for these patients. ANION GAP 12 8 - 16 mmol/L 03/27/2025 7:45 PM CDT [facility] Blood Venipuncture / Unknown 03/27/2025 6:24 PM CDT 03/27/2025 6:31 PM CDT Narrative [facility] - 03/27/2025 7:45 PM CDT Samples containing indocyanine green cause interferences on Total and/or Direct Bilirubin and must not be measured. 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 Manager: [id number] : 1940 Requested By: Order Number: [id number] [place] MD: Noble Subramanian Measurements Intervals [place] Rate: 56 P: 9 WY: 141 QRS: 24 QRSD: 79 T: 32 QT: 437 QTc: 422 Interpretive Statements Sinus rhythm Abnormal R-wave progression, early transition Electronically Signed On 03-27-2025 17:13:59 CDT by Noble Subramanian Procedure Note Noble Subramanian MD - 03/27/2025 [facility] [address] , [place] [address] Test Date: 2025-03-27 Pat Name: NAYELY MTZ Department: 37 Room: Gender: Female Global Engineering Manager: [id number] : 1940 Requested By: Order Number: [id number] Reading MD: oNble Subramanian Measurements Intervals [place] Rate: 56 P: 9 WY: 141 QRS: 24 QRSD: 79 T: 32 QT: 437 QTc: 422 Interpretive Statements Sinus rhythm Abnormal R-wave progression, early transition Electronically Signed On 03-27-2025 17:13:59 CDT by Noble Subramanian us Protocol [facility] Emergency MD ECG ORDERABLES Viry l Result Performing Organization Address City/State/[facility] Co de Phone Number INTERFACE SYSTEM Refer to clinic/hospital department from Last 3 Months Insurance AETNA PPO [facility] RX AETNA Medicare Part D RX [employer] Commercial Advance Directives For more information, please contact: [phone] * Full Code (Latest Code Status on File) Date Activated Date Inactivated Comments 01/23/2025 3:50 AM 01/24/2025 4:45 PM Care Teams Postdoctoral Research Fellow Relationship Specialty Start Date End Date Jacinda Beck MD [address] [place] [address] PCP - General Internal Medicine 01/23/25
--- OUTSIDE RECORDS SUMMARY | 2025-05-07 17:39 | XMS_ITS | Encounter Summary ---
Author Organization [facility] Address [address] [place] [address] Care Team Providers Care Territory Sales Executive Name Role Phone Jacinda Beck MD Primary Care Provider + Encounter Details Date Type Department Care Team (Late st Contact Info) Description 11/11/1998 Outpatient Historical [facility] NUCLEAR MEDIC[facility] Winifred Monteiro MD [address] [place] [address] Ventricular flutter (CMS/HCC) (Primary Dx) Social History Tobacco Use Types Packs/Day Years Used Date Smoking Tobacco: Never Assessed Comments Unknown Sex and Gender Information Value Date Recorded Sex Assigned at Not on file 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 Gender Identity Not on file Sexual Orientation Not on file documented as of this encounter Plan of Treatment Upcoming Encounters Date Type Department Care Team (Late Contact Info) Description 05/27/2025 1:45 PM CDT Office Visit [facility] Gastroenterology [address] [place] [address] Arpan Hernandez MD [address] [place] [address] documented as of this encounter Visit Diagnoses Diagnosis Ventricular flutter (CMS/HCC)- Primary Ventricular flutter documented in this encounter Additional Health Concerns Infection Onset Date Last Indicated Resolved Time R/O GI Pathogen 01/23/2025 01/23/2025 01/24/2025 3 :30 PM CDT documented as of this encounter Care Teams Territory Sales Executive Relationship Specialty Start Date End Date Jacinda Beck MD [address] [place] [address] PCP - General Internal Medicine 01/23/25 documented as of this encounter
--- OUTSIDE RECORDS SUMMARY | 2025-05-07 17:39 | XMS_ITS | Clinical Summary ---
Author Organization [facility] Address [address] [place] [address] Care Team Providers Care Crnp Name Role Phone Michael Beck MD Primary Care Provider [phone] Source Comments [facility],non-owned Affiliates and Associated Physician Practices is amultiple site organization consisting of ambulatory clinics and hospital sitesin [place], [place], [place] and [place]. This disclosure is being madepursuant to the Care Everywhere program and may not contain all information available regarding this patient. Last updated 18.[facility] Allergies Active Allergy Reactions Criticality Noted Date Comments Penicillins Swelling Low 01/16/2017 Sulfa Drugs Other Low 01/16/2017 Flu like symptoms Medications * Be aware that medications may not be up to date on this document. Alwaysverify current medications with the patient. metoprolol succinate XL 24hr (TOPROL XL) 25 MG tablet Take 25 mg by mouth DAILY. 01/16/2017 Active DULoxetine (CYMBALTA) 20 MG capsule Take by mouth. 01/16/2017 Active rosuvastatin (CRESTOR) 5 MG tablet Take by mouth. 01/16/2017 Active traMADol (ULTRAM) 50 MG tablet Take by mouth. 01/16/2017 Active tiZANidine HCl 4 MG Take 4 mg by mouth TID. 01/16/2017 Active losartan (Cozaar) 100 MG tablet Take 1 (one) tablet by mouth once daily Active allopurinol (Zyloprim) 100 MG tablet Take 1 (one) tablet by mouth once daily Active pantoprazole EC (Protonix) 40 MG tablet Take 1 (one) tablet by mouth once daily 09/25/2024 Active levothyroxine (Synthroid) 100 MCG tablet Take 1 (one) tablet by mouth once daily 12/10/2024 Active oxyBUTYnin CR 24hr (Ditropan-XL) 10 MG tablet Take 1 (one) tablet by mouth once daily 12/06/2024 Active spironolactone (Aldactone) 25 MG tablet Take 1 (one) tablet by mouth once daily Active bisoprolol (Zebeta) 10 MG tablet Take 1 (one) tablet by mouth once daily Active apixaban (Eliquis) 5 MG tablet Take 1 (one) tablet by mouth 2 times daily 01/24/2025 Active lidocaine (Lidoderm) 5 % patch Apply 1 (one) patch to skin as needed Active nystatin (Mycostatin) 729015 UNIT/ML suspension Take 5 mL by mouth 4 times daily 01/28/2025 Active FIBER GUMMIES PO Take 5 g by mouth 3 times daily Active medical marijuana Take 1 Dose by mouth at bedtime Active CBD product (various) Take 1 Each by mouth at bedtime Active dimenhyDRINATE (Dramamine) 50 MG tablet Take 1 (one) tablet by mouth as needed for Nausea/Vomit ing Active Active Problems Problem Noted Date Diagnosed [...] Encounters Date Type Department Care Team Description 02/23/2025 1:00 PM CDT Office Visit [facility] - ENT [address] [place] [address] [phone] Wei Hart, DMD Dry mouth (Primary Dx); Geographic tongue; Coated tongue; Tongue, fissured; Tongue thrusting 02/23/2025 Travel from Last 3 Months Immunizations Immunization Administration Dates Next Due COVID [employer] 12+YR 30MCG/0.3mL 04/24/2024,2022 COVID PFIZER BIVALENT 12Y+ 30mcg/0.3ML 04/23/2022 Covid Pfizer primary Monoval ent 12+ yr 0.3ml 11/16/2021 Covid Pfizer primary monoval ent 12+ yr 0.3mL Purple cap 05/20/2021,10/06/2020,09/15/2020 INFLUENZA VACCINE, HIGH-DOSE , TRIV. (FLUZONE HIGH-DOSE TRIVALENT; 65Y+) (HD-IIV3) 04/24/2024,08/22/2013,08/23/2012 INFLUENZA VACCINE, QUADR. (A FLURIA, FLUZONE QUADRIVALENT; 6MO+) (IIV4) 07/24/2017,06/23/2016,05/29/2014 INFLUENZA VACCINE, QUADR. (F LUZONE; FLULAVAL; FLUARIX; AFLURIA QUADRIVALENT; 6MO+), 0.5 ML (IIV4) 05/15/2023,05/02/2022,04/14/2021,2019,05/12/2019,07/16/2018 INFLUENZA VACCINE, TRIV. (FL UZONE; FLULAVAL; FLUARIX; AFLURIA TRIVALENT; 6MO+), 0.5 ML (IIV3) 04/15/2015 Pneumococcal Pcv13 Conj 04/15/2015 RSV AREXVY 60YR+ 0.5ML 06/01/2023 Family History Medical History Relation Name Comments CAD (Coronary Artery Disease) Father High Cholesterol Father Hypertension Father CVA Mother Hearing Loss - Unspecified Mother Cancer - Skin, Melanoma Sister Stat us: Alive Cancer - Skin, Melanoma Son Stat us: Alive Relation Name Status Comments Father Mother Sister Son Social History Tobacco Use Types Packs/Day Years Used Date Smoking Tobacco: Former Cigarettes Smokeless Tobacco: Never Tobacco Cessation:Counseling Given: Not Answered Comments:Smoked 1 pack a day for 15yrs. 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 Gender Identity Not on file Sexual Orientation Not on file Last Filed Vital Signs Vital Sign Reading Time Taken Comments Blood Pressure 130/74 02/23/2025 12:52 PM CDT Pulse 62 02/23/2025 12:52 PM CDT Temperature - - Respiratory Rate - - Oxygen Saturation - - Inhaled Oxygen Concentration - - Weight 89.6 kg (197 lb 9.6 oz) 02/23/2025 12:52 PM CDT Height 156.2 cm (5' 1.5) 02/23/2025 12:52 PM CD T Body Mass Index 36.73 02/23/2025 12:52 PM CDT Plan of Treatment Upcoming Encounters Date Type Department Care Team (Late st Contact Info) Description 06/22/2025 1:00 PM 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, [place] [address] Wei Hart, DMD [address] [place] [address] Health Maintenance Due Date Last Done Comments BONE DENSITY TESTING 1940 DTAP/TDAP/TD VACCINES (1 - Tdap) 1961 ZOSTER VACCINE (1 of 2) 1992 PNEUMOCOCCAL VACCINE 50+ (2 of 2 - PCV20 or PCV21) 04/15/2016 04/15/2015 DEPRESSION SCREENING 08/13/2024 MEDICARE AWV CALENDAR YEAR 2024 COVID-19 VACCINE ( season) 2025 04/24/2024, 06/01/2023, 04/23/2022, Additional history exists INFLUENZA VACCINE (#1) 2025 , 05/15/2023, 05/02/2022, Additional history exists Respiratory Syncytial Virus (RSV) Vaccine Pt: or over 60 yrs Completed 06/01/2023 HEPATITIS B VACCINE Aged Out No longe r eligible based on patient's age to complete this topic HIB VACCINE Aged Out No longer eligi ble based on patient's age to complete this topic HPV VACCINE Aged Out No longer eligi ble based on patient's age to complete this topic MENINGOCOCCAL (Group B) VACCINE SHARED DECISION-MAKING Aged Out No longer eligible based on patient's age to complete this topic MENINGOCOCCAL GROUPS A/C/Y/W VACCINE Aged Out No longer eligible based on patient's age to complete this topic Insurance AETNA MEDICARE ADV AETNA MEDICARE ADV Care Teams Crnp Relationship Specialty Start Date End Date Michael Beck MD [address] [place] [address] PCP - General Cardiovascular Disease 02/23/25
== END 2025-05-07 15:50 | disposition home or self-care (01) ==
LOC: CHSLAB 15:50
PROVIDERS: PCP Internal Medicine; Visit Provider Nurse Practitioner Family
DX: D64.9 Anemia, unspecified (principal)
CPT/HCPCS: 36415; 85014; 85018

== ENCOUNTER 2025-05-25 13:50 | Outpatient (CLI) | payer MEDICARE, SELFPAY ==
[2025-05-25 14:00] LABS: Hematocrit 38.1 % (35.0-42.0); Hemoglobin 11.7 g/dL (11.7-13.8); Mean Corpuscular HGB Conc 30.7 g/dL (32-36); Mean Corpuscular Hemoglobin 28.0 pg (27.0-31.0); Mean Corpuscular Volume 91.1 fL (78.0-102.0); Platelet Count Result 369 K/mm3 (150-420); Red Blood Count 4.18 M/mm3 (4.20-5.40); White Blood Count 8.9 K/mm3 (4.8-10.8)
--- OUTSIDE RECORDS SUMMARY | 2025-05-25 15:03 | XMS_ITS | Clinical Summary ---
Author Organization [facility] Address [address] [place] [address] Phone Care Team Providers Care Wire Bender Hand Name Role Phone Jacinda Beck MD [...] Encounters Date Type Department Care Team Description 05/19/2025 External Device Data STL ABSTRACTION Provider, Abstract 04/29/2025 External Device Data STL ABSTRACTION Provider, [...] CDT - 03/27/2025 7:52 PM CDT Emergency [facility] Emergency Department [address] [place] [address] John Paul Lizama MD Lackey, Daniel J, MD Encounter for blood typing (Primary Dx); Chronic anemia; Anticoagulated Discharge Disposition: Home or Self Care 03/27/2025 Travel 03/27/2025 Telephone [facility] G[facility] [address] [facility] [address] [place] [address] Quinten Edwards RMA Provider Call; Anemia 03/24/2025 External Device Data STL ABSTRACTION Provider, Abstract 03/10/2025 Abstract [facility] G[facility]enterology [facility] [address] [facility] [address] [place] [address] Antonella Underwood RN from Last 3 Months Family History Medical [...] on file Legal Sex Female 5:02 AM 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 Gender Identity Not on file Sexual Orientation [...] Description 05/27/2025 1:45 PM CDT Office Visit [facility] G[facility] [address] [facility] [address] [place] [address] Arpan Hernandez MD [address] [facility] [address] [place] [address] Health Maintenance Due Date Last [...] ABO GROUP O 03/27/2025 9:30 PM [facility]T [facility] RH (D) TYPE Positive 03/27/2025 9:30 PM CDT [facility] -- [facility] Blood Venipuncture / Unknown 03/27/2025 7:38 PM CDT 03/27/2025 7:41 PM CDT Misael Naranjo MD BLOOD BANK ORDERABLES Final Result [facility] -- [facility]# [id number] [address] [facility] [place] [address] * TSH REFLEXIVE (03/27/2025 6:24 PM CDT) TSH 1.26 0.27 - 4.20 uIU/mL 03/27/2025 7:59 PM CDT [facility] - [facility] Blood Venipuncture / Unknown 03/27/2025 6:24 PM CDT 03/27/2025 6:31 PM CDT us John Paul Lizama MD CHEMISTRY ORDERABLES Final Res ult [facility] - [facility] JEANMARIE# [id number] [address] [place] [address] * (ABNORMAL) CBC WITH DIFFERENTIAL (03/27/2025 6:24 PM CDT) WBC 10.2(H) 4.0 - 9.8 K/uL 03/27/2025 6:41 PM CDT [facility] - [facility] RBC 3.81(L) 3.90 - 4.90 M/uL 03/27/2025 6:41 PM CDT [facility] LABORATORY SERVICES - [facility] HEMOGLOBIN 10.4(L) 11.8 - 14.8 g/dL 03/27/2025 6:41 PM CDT [facility] - [facility] HEMATOCRIT 33.6(L) 35.5 - 44.0 % 03/27/2025 6:41 PM CDT [facility] - [facility] MCV 88.2 82.0 - 99.0 fL 03/27/2025 6:41 PM CDT [facility] - [facility] MCH 27.3 27.2 - 32.6 pg 03/27/2025 6:41 PM CDT [facility] - [facility] MCHC 31.0(L) 31.5 - 35.5 g/dL 03/27/2025 6:41 PM CDT [facility] - [facility] RDW 14.5 11.5 - 14.5 % 03/27/2025 6:41 PM CDT [facility]ORY SERVICES - [facility] RDW-STDEV 46.7 37.1 - 48.7 fL 03/27/2025 6:41 PM CDT [facility] - [facility] PLATELETS 371(H) 140 - 350 K/uL 03/27/2025 6:41 PM CDT [facility] - [facility] MPV 9.2(L) 9.3 - 12.4 fL 03/27/2025 6:41 PM CDT [facility] - [facility] NEUTROPHILS 56 % 03/27/2025 6:41 PM CDT [facility] LABORATORY SERVICES - . [facility] LYMPHOCYTES 32 % 03/27/2025 6:41 PM CDT [facility] MONOCYTES 8 % 03/27/2025 6:41 PM CDT [facility] EOSINOPHILS 3 % 03/27/2025 6:41 PM CDT [facility] BASOPHILS 1 % 03/27/2025 6:41 PM CDT [facility] - . [facility] IMMATURE GRANULOCYTES 0 % 03/27/2025 6:41 PM CDT [facility] NEUTROPHIL ABSOLUTE 5.74 1.90 - 7.00 K/uL 03/27/2025 6:41 PM CDT [facility] - . [facility] LYMPHOCYTE ABSOLUTE 3.29 0.70 - 4.50 K/uL 03/27/2025 6:41 PM CDT [facility] - . [facility] MONOCYTE ABSOLUTE 0.81 0.10 - 1.30 K/uL 03/27/2025 6:41 PM CDT [facility] - . [facility] EOSINOPHIL ABSOLUTE 0.27 0.00 - 0.70 K/uL 03/27/2025 6:41 PM CDT [facility] BASOPHILS ABSOLUTE 0.05 0.00 - 0.20 K/uL 03/27/2025 6:41 PM CDT [facility]ATORY SERVICES - . [facility] IMMATURE GRANULOCYTES ABSOLUTE 0.03 0.00 - 0.03 K/uL 03/27/2025 6:41 PM CDT [facility] Blood Venipuncture / Unknown 03/27/2025 6:24 PM CDT 03/27/2025 6:31 PM CDT us John Paul Lizama MD HEMATOLOGY ORDERABLES Final Re sult [facility] LABORATORY SERVICES [facility] CLIA# [id number] [address] [facility] [place] [address] [address] * (ABNORMAL) PROTIME-INR (03/27/2025 6:24 PM CDT) PROTIME 14.8 12.7 - 15.1 Seconds 03/27/2025 6:52 PM CDT [facility] INR 1.2(H) 0.9 - 1.1 03/27/2025 6:52 PM CDT [facility] Blood Venipuncture / Unknown 03/27/2025 6:24 PM CDT 03/27/2025 6:31 PM CDT Narrative [facility] - [facility] - 03/27/2025 6:52 PM CDT INR Therapeutic Range: Adult: 2.0 - 3.0 for pulmonary embolism or prophylaxis against venous thrombosis or systemic embolization. 2.0 - 3.0 for patients with tissue heart valves. 2.5 - 3.5 for patients with mechanical heart valves or post [place]. Pediatric (12 years and under): 1.5 - 3.0 Although the target range in children is not well established, INR values of 1.5 - 3.0 are recommended for most patients. Higher values have been used in children with prosthetic cardiac valves and hereditary clotting disorders. [place] (<3 days) therapeutic ranges have not been established. John Paul Lizama MD HEMATOLOGY ORDERABLES Final Re sult [facility]# [id number] [address] [facility] [place] [address] * TYPE AND SCREEN (03/27/2025 6:24 PM CDT) ABO GROUP O 03/27/2025 7:59 PM CDT [facility] SERVICES -- [facility] RH (D) TYPE Positive 03/27/2025 7:59 PM CDT [facility] -- [facility] ANTIBODY SCREEN Negative 03/27/2025 7:59 PM CDT [facility] SERVICES -- [facility] Blood Venipuncture / Unknown 03/27/2025 6:24 PM CDT 03/27/2025 6:31 PM CDT John Paul Lizama MD BLOOD BANK ORDERABLES Edited R esult - Final [facility] CLIA# [id number] [address] [place] [address] * COMPREHENSIVE METABOLIC PANEL (03/27/2025 6:24 PM CDT) SODIUM 142 136 - 145 mmol/L 03/27/2025 7:45 PM CDT [facility]ATORY SERVICES - [facility] POTASSIUM 4.2 3.5 - 5.0 mmol/L 03/27/2025 7:45 PM CDT [facility] - [facility] CHLORIDE 106 98 - 107 mmol/L 03/27/2025 7:45 PM CDT [facility] CO2 24 22 - 29 mmol/L 03/27/2025 7:45 PM CDT [facility] - [facility] CALCIUM 9.7 8.6 - 10.2 mg/dL 03/27/2025 7:45 PM CDT [facility] BUN 14 8 - 23 mg/dL 03/27/2025 7:45 PM CDT [facility] - [facility] CREATININE 0.86 0.51 - 0.95 mg/dL 03/27/2025 7:45 PM CDT [facility] - [facility] Comment:The GFR result is no t clinically significant on patients <18 or >70 years of age. GLUCOSE 93 74 - 99 mg/dL 03/27/2025 7:45 PM CDT [facility] - [facility] TOTAL PROTEIN 7.5 6.7 - 8.6 g/dL 03/27/2025 7:45 PM CDT [facility] - [facility] ALBUMIN 4.1 3.5 - 5.2 g/dL 03/27/2025 7:45 PM CDT [facility] - [facility] BILIRUBIN TOTAL 0.2 0.0 - 1.1 mg/dL 03/27/2025 7:45 PM CDT [facility] - [facility] ALKALINE PHOSPHATASE 93 35 - 104 U/L 03/27/2025 7:45 PM CDT [facility] AST 20 <33 U/L 03/27/2025 7:45 PM CDT [facility] ALT 14 <34 U/L 03/27/2025 7:45 PM CDT [facility] GFR >60 mL/min/1.7 3 sq meter 03/27/2025 7:45 PM CDT [facility] Comment:eGFR calculated with 2020 CKD-EPI equation. Vegetarian diet, extremely high or low muscle mass, and may affect results. Cystatin C with Glomerular Filtration Rate is a suitable alternative for these patients. ANION GAP 12 8 - 16 mmol/L 03/27/2025 7:45 PM CDT [facility] Blood Venipuncture / Unknown 03/27/2025 6:24 PM CDT 03/27/2025 6:31 PM CDT Narrative [facility] - 03/27/2025 7:45 PM CDT Samples containing indocyanine green cause interferences on Total and/or Direct Bilirubin and must not be measured. us John Paul Lizama MD CHEMISTRY ORDERABLES Final Res ult [facility] CLIA# [id number] [address] [place] [address] * EKG 12-LEAD (03/27/2025 4:18 PM CDT) 03/27/2025 4:18 PM CDT Narrative INTERFACE SYSTEM - 03/27/2025 5:13 PM CDT [facility] [address] [place] [address] Test Date: 2025-03-27 Pat Name: NAYELY MTZ Department: 37 Room: Gender: Female Protein Chemist: [id number] : 1940 Requested By: Order Number: [id number] Holland MD: Noble Subramanian Measurements Intervals [place] Rate: 56 P: 9 NJ: 141 QRS: 24 QRSD: 79 T: 32 QT: 437 QTc: 422 Interpretive Statements Sinus rhythm Abnormal R-wave progression, early transition Electronically Signed On 03-27-2025 17:13:59 CDT by Noble Subramanian Procedure Note Noble Subramanian MD - 03/27/2025 [facility] [address] , [place] [address] Test Date: 2025-03-27 Pat Name: NYAELY MTZ Department: 37 Room: Gender: Female Protein Chemist: [id number] : 1940 Requested By: Order Number: [id number] Reading MD: Noble Subramanian Measurements Intervals [place] Rate: 56 P: 9 NJ: 141 QRS: 24 QRSD: 79 T: 32 QT: 437 QTc: 422 Interpretive Statements Sinus rhythm Abnormal R-wave progression, early transition Electronically Signed On 03-27-2025 17:13:59 CDT by Noble Subramanian us Protocol [facility] MD ECG ORDERABLES Viry l Result INTERFACE SYSTEM Refer to clinic/hospital department from Last 3 Months Insurance [employer]ET[employer] PPO [facility] RX AET[employer] Medicare Part D RX [employer] Commercial Advance Directives For more information, please contact: [phone] * Full Code (Latest Code Status on File) Date Activated Date Inactivated Comments 01/23/2025 3:50 AM 01/24/2025 4:45 PM Care Teams Wire Bender Hand Relationship Specialty Start Date End Date Jacinda Beck MD [address] [place] [phone] PCP - General Internal Medicine 01/23/25
--- OUTSIDE RECORDS SUMMARY | 2025-05-25 15:03 | XMS_ITS | Clinical Summary ---
Author Organization [facility] Address [address] [place] [address] Care Team Providers Care Hog Ringer Name Role Phone Jacinda Beck MD Primary Care Provider [phone] Chay Burnett MD Unavailable Unavailable Allergies Active [...] Date Diagnosed Date Paroxysmal SVT (supraventricular tachycardia) Primary hypercholesterolemia 03/23/2017 Hypertension, essential Resolved Problems [...] Vaccine ( - 2023-2 5 season) 2025 Influenza Adult (#1) 2025 Meningococcal B Vaccine Aged Out No l onger eligible based on patient's age to complete this topic Meningococcal Vaccine Aged Out No cynthia josiah eligible based on patient's age to complete this topic RSV Immunizations Under 20 Months Aged Out No longer eligible based on patient's age to complete this topic Insurance MED REPLACE [facility] MEDICARE SOLUTIONS Care Teams Hog Ringer Relationship Specialty Start Date End Date Jacinda Beck MD [address] [place] [id number] PCP - General INTERNAL MEDICINE 02/15/17 Chay Burnett MD [address] [place] [address] Jackson Passenger Service Manager INTERVENTIONAL CARDIOLOGY 02/15/17
--- OUTSIDE RECORDS SUMMARY | 2025-05-25 15:03 | XMS_ITS | Clinical Summary ---
Author Organization [facility] Address [address] [place] [address] Care Team Providers Care Counseling Program Leader Name Role Phone Michael Beck MD Primary Care Provider [phone] Source Comments [facility],non-owned Affiliates and Associated Physician Practices is amultiple site organization consisting of ambulatory clinics and hospital sitesin [place], [place], [place] and [place]. This disclosure is being madepursuant to the Care Everywhere program and may not contain all information available regarding this patient. Last updated 18.[facility] Allergies Active Allergy Reactions Criticality Noted Date [...] to skin as needed Active nystatin (Mycostatin) 068648 UNIT/ML suspension Take 5 mL by mouth [...] Office Visit [facility] - ENT [address] [place] [phone] Wei Hart, DMD Dry mouth (Primary Dx); Geographic tongue; Coated tongue; Tongue, fissured; Tongue thrusting 02/23/2025 Travel from Last 3 Months Immunizations Immunization Administration Dates Next Due COVID Quizrr 12+YR 30MCG/0.3mL 04/24/2024,2022 COVID PFIZER BIVALENT 12Y+ [...] on file Legal Sex Female 5:36 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 [place] [address] PCP - General Cardiovascular Disease 02/23/25
--- OUTSIDE RECORDS SUMMARY | 2025-05-25 15:03 | XMS_ITS | Encounter Summary ---
Author Organization [facility] Address [address] [place] [address] Care Team Providers Care Milling Machine Tender Name Role Phone Jacinda Beck MD Primary Care Provider + Encounter Details Date Type Department Care Team (Late st Contact Info) Description 11/11/1998 Outpatient Historical [facility]UCLE[facility] Winifred Monteiro MD [address] [place] [address] Ventricular flutter (CMS/HCC) (Primary Dx) Social History Tobacco Use Types Packs/Day Years Used Date Smoking Tobacco: Never Assessed Comments Unknown Sex and Gender Information Value Date Recorded Sex Assigned at Not on file Legal Sex Female 5:02 AM LPN Gender Identity Not on file Sexual Orientation Not on file documented as of this encounter Plan of Treatment Upcoming Encounters Date Type Department Care Team (Late st Contact Info) Description 05/27/2025 1:45 PM CDT Office Visit [facility] [address] [place] [address] Arpan Hernandez MD [address] [place] [address] documented as of this encounter Visit Diagnoses Diagnosis Ventricular flutter (CMS/HCC)- Primary Ventricular flutter documented in this encounter Additional Health Concerns Infection Onset Date Last Indicated Resolved Time R/O GI Pathogen 01/23/2025 01/23/2025 01/24/2025 3 :30 PM CDT documented as of this encounter Care Teams Milling Machine Tender Relationship Specialty Start Date End Date Jacinda Beck MD [address] [place] [phone] PCP - General Internal Medicine 01/23/25 documented as of this encounter
--- OUTSIDE RECORDS SUMMARY | 2025-05-25 15:03 | XMS_ITS | Data Portability ---
Author Organization [place] [facility] [employer] [facility], Main Office Address [address] [place] [address] Care Team Providers Care Groover And Turner Name Role Phone MARBELLA CONLEY Primary Care [...] treatment patient more than half of this [id number] conversation Not available 01/10/2023 16:48:03 02/07/2023 02/07/2023 [...] patient more than half of this in [id number] conversation mack Not available 02/07/2023 14:35:29 04/04/2023 04/04/2023 HPI: [...] more than half the time spent in [id number] care. Not available 08/06/2023 15:08:23 Plan of [...] DO Not Attach Compendium, Do Not Delete/merge, [id number] 3 15:24:21 Surgeries None recorded. Imaging XR, knee 2022 023 [email or web address] [facility] [place], [address], [place], [address], 3 17:25:16 XR, knee 2022 023 [email or web address] [facility] [place], [address], [place], [address], 3 17:25:16 Medication Orders Medrol (William) 4 mg tablets in a dose pack 2022 023 [email or web address] [facility], [address] [place], [address], 3 15:10:12 meloxicam 15 mg tablet 2022 023 [facility], [address] [place], [address], 3 17:02:21 tizanidine 4 mg tablet 2022 023 [facility], [address], [place], [address], 3 17:02:21 Kenalog 10 mg/mL suspension for injection 2022 023 [email or web address] [facility], [address], [place], [address], 3 15:10:01 ropivacaine (PF) 5 mg/mL (0.5 %) injection solution 2022 023 [facility], [address] [place], [address], 3 15:10:19 Patient TargetsNo targets recorded. Patient Instructions Encounter Date Encounter Id Patient Instructions Last Modified By Organization Details Last Modified Time 01/10/2023 [id number] physical therapy* [email or web address] Not availab le 01/10/2023 15:34:59 Reason for Referral None Reported. Results Created Date Observation Date Name Description Value Unit Range Abnormal Flag Note LastModifiedBy Organization Detail LastModifiedTime 01/11/20 XR, knee No observ ation record ed. [facility] [place] [address], [place], [address], 01/10/2023 16:43:17 01/11/20 XR, knee No observ ation record ed. [facility] [place] [address], [place], [address], 01/10/2023 16:42:58 04/01/20 23 04/01/2023 MRI, lumba r spine , w/o contr ast No observ ation record ed. [email or web address] [facility] [address], [place], [address], 04/02/2023 09:06:50 Result Notes None recorded. Problems Name Problem SNOMED Code Status Onset Date Resolution Date Notes Provider Name and Address Organization Details Recorded Time Osteoarthr itis 854064684 Active 2021 Not Available [facility] 3 22:43:58 Osteoarthr itis of left knee joint 6112611243781 09 Active 2021 Not Available [facility] 3 22:43:58 Low back pain 036802469 Active 2022 Oralia Melgoza, SALTY null, [place] [facility] [place] [employer] [facility] 3 15:32:44 Problem Notes None recorded. Procedures Surgical History Date Name Laterality Status Provider Name and Address Organization Details Recorded Time procedure on urinary bladder completed Not Available [facility] 10/11/2022 22:42:41 Hysterectomy, Partial completed Not Available [facility] 10/11/2022 22:42:41 Tonsillectomy completed Camille Peterson [place] [facility] [place] [facility] 01/10/2023 14:40:59 Imaging Results None recorded. Procedure Notes None recorded. Medical Equipment None Reported. Allergies Allergen ID Allergen Name Allergen Category Reaction Reaction Severity Criticality Documentation Date Start Date Code Code System Note Provider Name and Address Organization Details Recorded Time 20066 Substance with sulfonami de structure and antibacte rial mechanism of action (substanc e) medicatio n Not available Not available Not available 10/11/2022 87806 8003 SNOMED Not Available [facility] 3 22:45:25 01301 Product containin g penicilli n (product) medicatio n facial swelling Not available Not available 10/11/2022 19931 8001 SNOMED Not Available [facility] 3 22:45:25 Medications Name Sig Start Date [...] , administe red by provider 07/30 completed ND: 0003- [id number]- 20 Not Available Not Available [...] [facility] 16718 -064- [phone] Not Available Not Available Not Available Eliquis 2.5 mg tablet 01/11 completed Not Available Not Available Not Available lidocaine 5 % medicated patch and dimethicone 5 % topical cream active Not Available Not Available Not Available Vitals Date Recorded Body height Provider Name an d Address Organization Details Last Updated DateTime 10/04/2022 154.94 cm Not Available [facility] 22:43:01 Date Recorded Body height Body mass index (BMI) Body weight Provider Name and Address Organization Details Last Updated DateTime 01/10/2023 154.94 cm 37.6 kg/m2 15634.88 g Camille Thapas [facility] [facility] 01/10/2023 14:45:37 Date Recorded Body height Provider Name an d Address Organization Details Last Updated DateTime 02/07/2023 154.94 cm CARLOS Harmon [facility] [employer] [facility] 02/07/2023 14:02:14 Date Recorded Body height Provider Name an d Address Organization Details Last Updated DateTime 04/04/2023 154.94 cm CARLOS Harmon [place] [employer] [facility] 04/04/2023 14:08:02 Date Recorded Body height Body mass index (BMI) Body weight Provider Name and Address Organization Details Last Updated DateTime 07/30/2023 154.94 cm 36.3 kg/m2 88422.74 g CARLOS Harmon [employer] [facility] 07/30/2023 15:18:19 Social History Question Answer Notes LastModified by [email or web address] Details LastModified Time Tobacco Smoking Status Former Smoker quit 1985 Not Available [facility] 10/11/2022 22:42:22 What Was The Date Of Your Most Recent Tobacco Screening? 11/15/2020 [id number] Information not available 10/11/2022 Sex: Unknown Functional Status Question Answer Note LastModified by [email or web address] Details LastModified Time What is your level of alcohol consumption? Occasional [id number] Information not available 10/11/2022 Mental Status None recorded. Family History Relationship Description Onset Age of this Age Resolved Age Notes LastModified by Organization Details LastModified Time Father Heart disease [id number] Not available 10/11/2022 22:42:42 Father Diabetes mellitus [id number] Not available 10/11/2022 22:42:42 Mother Heart disease [id number].008 [id number] Not available 10/11/2022 22:42:42 Mother Family history of stroke [id number].021 [id number] Not available 10/11/2022 22:42:42 Sister Complication of anesthesia nausea [id number] Not available 10/11/2022 22:42:42 Medical History Condition Response BLINDNESS N KIDNEY STONES N MRSA N CARPAL TUNNEL SYNDROME N LUNG DISEASE/DISORDER N HISTORY OF DRUG ABUSE N COPD N RADIATION / CHEMOTHERAPY N SPORTS INJURY N ANKLE PAIN N BLOOD DISEASES N SCHIZOPHRENIA N SHINGLES N BOWEL PROBLEMS N SHOULDER PAIN N DEPRESSION (INCLUDING POST ) N STROKE/TIA N ULCERS N KNEE PAIN N BENIGN PROSTATIC HYPERPLASIA N OBESITY N [...] HAVE YOU BEEN HOSPITALIZED OR SEEN IN [facility] ER IN THE PAST YEAR ? N [...] Diagnosis SNOMED-CT Code Diagnosis ICD10 Code Diagnosis IMO Codes Diagnosis Note [id number] Luis Alberto Carter MD [facility] [place] [address] [place] [address] 11/15/2020 00:00:00 11/15/2020 16:57:30 [id number] Luis Alberto Carter MD [facility] [place] [address] [place] [address] 02/09/2021 00:00:00 02/20/2021 12:36:50 [id number] Luis Alberto Carter MD [facility] [place] [address] [place] [address] 03/16/2021 00:00:00 03/20/2021 17:04:20 [id number] Luis Alberto Carter MD [facility] [place] [address] [place] [address] 05/30/2021 00:00:00 05/30/2021 14:52:01 [id number] Luis Alberto Carter MD [facility] [place] [address] [place] [address] 2021 00:00:00 2021 14:44:22 [id number] MD [facility]NAM [facility] [place] [address] [place] [address] 10/31/2021 00:00:00 10/31/2021 16:09:18 [id number] MD [facility] [place] [address] [place] [address] 12/26/2021 00:00:00 12/26/2021 14:43:43 [id number] MD [facility] [place] [address] [place] [address] 01/11/2022 00:00:00 01/16/2022 13:02:21 [id number] MD [facility] [place] [address] [place] [address] 01/25/2022 00:00:00 01/25/2022 11:18:51 [id number] Luis Alberto Carter MD [facility] [place] [address] [place] [address] 03/08/2022 00:00:00 03/08/2022 11:30:38 [id number] MD [facility] [place] [address] [place] [address] 06/21/2022 00:00:00 06/21/2022 16:26:19 [id number] Luis Alberto Carter MD [facility] [place] [address] [place] [address] 10/04/2022 00:00:00 10/04/2022 15:40:47 [id number] MD [facility] [place] [address] [place] [address] 01/10/2023 14:20:46 01/10/2023 17:25:15 Osteoarthritis of left knee joint 0243750145 16410 M17.12 History of right total knee replacement 9410891106 621226 Z96.651 Low back pain 672926260 M54.50 [id number] Luis Alberto Carter MD [facility] [place] [address] [place] [address] 02/07/2023 13:59:05 02/07/2023 14:52:03 Low back pain 449826402 M54.50 [id number] Luis Alberto Carter MD [facility] [place] [address] [place] [address] 04/04/2023 14:03:52 04/04/2023 14:57:57 Low back pain 628958647 M54.50 [id number] Luis Alberto Carter MD [facility] [place] [address] [place] [address] 07/30/2023 15:04:17 08/08/2023 15:20:06 Osteoarthritis of left knee joint 7846804568 90686 M17.12 Health Concerns Section Related Observation LastModified by Organization Detai ls LastModified Time None Recorded Concern Status LastModified by Organization Details LastModified Time None Recorded Advance Directives Directive None Recorded Payers Insurance Date Sequence Insurance Name Policy Number Policy Meek Covered Member ID Meek Member ID Guarantor Name 08/09/2023 1 [id number] (MEDICARE REPLACEMENT/ ADVANTAGE - PPO) [id number] 1 Nayely Mtz [id number] Nayely Mtz Notes Date Note Type Note Provider Name and Address Organization Details Recorded Time 07/30/2023 text/html patient returns. She has decided that she would like to proceed with left total knee replacement. Her back pain has improved. She continues to take meloxicam 15 mg daily. X-rays of her left knee from January demonstrate [id number] medial compartment osteoarthritis in the left knee [...] that in with her. She saw her business affairs manager Dr. Rankin 2 months ago and he said that she should be stable from a cardiac standpoint to undergo knee replacement. Luis Alberto Carter MD [address] [place] [address], [place], [address], [place] [facility] 08/06/2023 15:08:47 OBGyn Episode No OBEpisode recorded.
== END 2025-05-25 13:51 | disposition home or self-care (01) ==
LOC: CHSLAB 13:51
PROVIDERS: PCP Internal Medicine; Visit Provider Nurse Practitioner Family
DX: D64.9 Anemia, unspecified (principal)
CPT/HCPCS: 36415; 85027

== ENCOUNTER 2025-06-15 17:37 | Emergency (ER) | payer MEDICARE, SELFPAY ==
--- NOTE | ~2025-06-15 | CT_ITS ---
CT abdomen pelvis w con INDICATION:Left lower quadrant pain . COMPARISON: None. TECHNIQUE: Axial images of the abdomen and pelvis were obtained following infusion of 100 mL Isovue 300. Dose optimization technique was utilized. FINDINGS: The lung bases are clear. Fatty infiltration of the liver is noted. No intrahepatic mass or ductal dilatation is evident. There is increased density within the gallbladder may represent gallstones. The pancreas and spleen are normal in appearance. The adrenal glands are symmetric in size. The kidneys demonstrate symmetric uptake and excretion of contrast. Right renal cyst measures 1.2 cm. There is no solid mass. There is no hydronephrosis. Evaluation of the stomach and bowel loops are limited due to lack of oral contrast. There are no bowel obstruction. There is circumferential thickening of the cecum represent a mass. Follow-up colonoscopy is recommended. Diffuse thickening of the descending and sigmoid colon is noted. This may be related to postinflammatory changes. There is The bladder and rectum are normal. No free intraperitoneal fluid or air is evident. There is no significant retroperitoneal lymphadenopathy. The aorta, visceral vessels and renal arteries demonstrate normal caliber and patency. The lower thoracic and lumbar vertebrae are in normal alignment. IMPRESSION: Circumferential thickening of the cecal wall may represent a mass. Follow-up colonoscopy is recommended. Diffuse thickening of the descending colon and sigmoid colon is again noted. There is no significant adjacent induration. There are colonic diverticulosis without evidence of acute diverticulitis. All CT scans at this facility are performed using low dose modulation techniques as appropriate to perform exam including the following: automated exposure control; use of iterative reconstruction technique; adjustment of the mA and/or kV according to patient size (this includes techniques or standardized protocols for targeted exams where dose is matched to indication/reason for exam). Reviewed, dictated and finalized at location S. ET MANAGER IMPRESSION: Circumferential thickening of the cecal wall may represent a mass. Follow-up co lonoscopy is recommended. Diffuse thickening of the descending colon and sigmoid colon is again noted. Th ere is no significant adjacent induration. There are colonic diverticulosis wit hout evidence of acute diverticulitis. All CT scans at this facility are performed using low dose modulation techniqu es as appropriate to perform exam including the following: automated exposure c ontrol; use of iterative reconstruction technique; adjustment of the mA and/or kV according to patient size (this includes techniques or standardized protocol s for targeted exams where dose is matched to indication/reason for exam).
[2025-06-15 17:37] VITALS: BP 130/55; PULSE 77; RESP 18; TEMP 36.7; O2SAT 96
--- NOTE | 2025-06-15 18:01 | ED.GENADULT ---
HPI - General Adult General Chief complaint: GI Bleed Stated complaint: blood in stool Time Seen by Provider: 06/15/25 17:59 Source: patient Mode of arrival: ambulatory Limitations: no limitations History of Present Illness HPI narrative: 84 years old white female came to the ED by private car from home complaining of abdominal pain mainly left lower quadrant associated with bloody diarrhea maximum 8 episodes since yesterday afternoon. Pain and diarrhea worse with p.o. intake, no relieving factors. Patient currently on Eliquis for portal vein thrombosis. Last intake was last night. History of hypertension hyperlipidemia hypothyroidism appendectomy hysterectomy. Patient does not smoke or drink, uses marijuana daily Related Data Home Medications ?Medication ?Instructions ?Recorded ?Confirmed ?Last Taken ?Type allopurinol 100 mg tablet 100 mg PO QAM 12/02/21 06/11/25 06/04/23 History duloxetine 20 mg capsule,delayed 20 mg PO BID 12/02/21 06/11/25 12/24/23 05:00 History release levothyroxine 100 mcg tablet 100 mcg PO QAM 12/02/21 06/11/25 12/24/23 05:00 History pantoprazole 40 mg tablet,delayed 40 mg PO QAM 12/02/21 06/11/25 06/05/23 History release rosuvastatin 10 mg tablet 10 mg PO HS 12/02/21 06/11/25 06/04/23 History Thc, Cbd, Cbn 0.5 gummy PO HS 12/07/23 06/11/25 Unknown History oxybutynin chloride 5 mg tablet 5 mg PO DAILY 12/07/23 06/11/25 Unknown History bisoprolol fumarate 10 mg tablet 10 mg PO 11/27/24 06/11/25 Unknown History apixaban 5 mg tablet (Eliquis) 5 mg PO DAILY 06/11/25 06/11/25 Unknown History omega 2-akc-xtf-fish oil 1,000 mg 1 cap PO DAILY 06/11/25 06/11/25 Unknown History (120 mg-180 mg) capsule (Fish Oil) Allergies Allergy/AdvReac Type Severity Reaction Status Date / Time Penicillins Allergy Severe LIPS AND Verified 01/22/25 20:50 MOUTH SWELLED Sulfa (Sulfonamide Allergy Severe Rash, Verified 01/22/25 20:50 Antibiotics) ITCHING Review of Systems Review of Systems: All systems reviewed & are unremarkable except as noted in HPI and below PMFSH Past Medical History Medical History Supraventricular tachycardia (2000) Hypothyroidism Obstructive sleep apnea on CPAP Tortuous colon Diverticulosis Hypertension Hyperlipidemia Fibromyalgia Arthritis Surgical History Surgical History 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 History of tonsillectomy Family History Family History Father CHF (congestive heart failure) Diabetes mellitus Mother Cerebrovascular accident Son Melanoma Diabetes mellitus Sibling No problems noted. Social History Social History Social History: Surrogate medical decision maker: Jos Mtz, spouse. Code status: Full code. Smoking packs per day: 1 Smoking cigarettes per day: 20.0 Years smoked: 15 Smoking pack-years: 15.00 Smoking status: Former smoker Second hand tobacco smoke exposure: No Alcohol intake: current Alcohol use details: 1 to 2 drinks a month. Substance use: current Substance use type: marijuana Other substance usage details: gummies Do You Feel Safe in your Home?: Yes Lack of Transportation: No Lack of Food: Never True Current Housing: I Have Housing Concerned About Future Housing: No Difficulty Paying Gas/Electric Bills: No Difficulty Paying for Meds: No Currently Unemployed: No Education: Master's Degree or Higher Difficulty w/ Childcare or Family Care: No Living arrangements: with family Additional living arrangements comments: Lives with spouse in [place]. Occupation/Education: retired Additional occupation/education comments: [employer] Gender identity (if verbalized by the patient): Female Spiritual care concerns: No Exam Narrative: General appearance: Well-developed, well-nourished Skin: Normal color Head: Normocephalic, nontraumatic Eyes: Clear conjunctiva ENT: Oropharynx normal, ears normal, nose normal Neck: Supple, nontender Chest and respiratory: Airway patent, no respiratory distress, no accessory muscle use Heart: Regular rate/rhythm Abdomen: Soft, left lower quadrant tenderness, no guarding or rebound, no organomegaly, quiet bowel sounds Vascular: Normal peripheral pulses, normal capillary refill. 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 PROCESS is normal as tested, no gross motor deficit Course Vital Signs Vital signs: Vital Signs Temperature 36.7 C 06/15/25 17:37 Pulse Rate 77 06/15/25 17:37 Respiratory Rate 18 06/15/25 17:37 Blood Pressure 130/55 L 06/15/25 17:37 Pulse Oximetry 96 06/15/25 17:37 Oxygen Delivery Room Air 06/15/25 17:37 Temperature 36.8 C 06/16/25 01:15 Pulse Rate 65 06/16/25 01:15 Respiratory Rate 18 06/16/25 01:15 Blood Pressure 97/67 L 06/16/25 01:15 Pulse Oximetry 93 06/16/25 01:15 Oxygen Delivery Room Air 06/16/25 01:15 Medical Decision Making [facility] Narrative Medical decision making narrative: Patient came with rectal bleeding and abdominal pain started yesterday patient currently on Eliquis last dose was last night Vital signs showing blood pressure 130/55 otherwise within normal limit Physical examination showing diffuse abdominal tenderness mainly left lower quadrant, dark red rectal blood, guaiac positive, no tenderness Differential diagnosis GI bleed, diverticulitis, ischemic colitis, colon cancer, diverticulosis with GI bleed Blood workup today includes CBC, CMP, lipase, coags, lactic acid showed hemoglobin 9.9 compared to 11.720 days ago, creatinine 1.1, BUN 23 otherwise within normal limit CT abdomen and pelvis with IV contrast showed questionable cecal mass, thick wall of the descending and sigmoid colon which was seen before. No diverticulitis. Patient is scheduled for colonoscopy in 4 days for regular checkup REPEATED H&H SHOWING HEMOGLOBIN 9.4 COMPARED TO 9.93 HOURS 3 HOURS AGO. THE DROP PROBABLY SECONDARY TO IV FLUID WHICH PATIENT RECEIVED IN THE ED ON ARRIVAL PATIENT USE THE BATHROOM ONCE WITH SMALL AMOUNT OF BLOODY DIARRHEA. PATIENT IS ACCEPTED FOR TRANSFERRED TO [facility], WAITING FOR A BED PATIENT CARE TURNED OVER TO DR. Carter AT SHIFT CHANGE, AWAITING LABS, IMAGING, DISPOSITION. PATIENT BEEN RESTING QUIETLY IN THE EMERGENCY ROOM WITHOUT ANY ISSUES OR PROBLEMS. Differential Diagnosis Differential Diagnosis: as above Vital Signs Vital Signs: Vital Signs Temperature 36.7 C 06/15/25 17:37 Pulse Rate 77 06/15/25 17:37 Respiratory Rate 18 06/15/25 17:37 Blood Pressure 130/55 L 06/15/25 17:37 Pulse Oximetry 96 06/15/25 17:37 Oxygen Delivery Room Air 06/15/25 17:37 Temperature 36.8 C 06/16/25 01:15 Pulse Rate 65 06/16/25 01:15 Respiratory Rate 18 06/16/25 01:15 Blood Pressure 97/67 L 06/16/25 01:15 Pulse Oximetry 93 06/16/25 01:15 Oxygen Delivery Room Air 06/16/25 01:15 Lab Data 06/15/25 22:47 06/15/25 18:11 Labs: Lab Results 06/15/25 06/15/25 Range/Units 18:11 22:47 WBC 8.2 8.0 (4.8-10.8) K/mm3 RBC 3.52 L 3.34 L (4.20-5.40) M/mm3 Hgb 9.9 L 9.4 L (11.7-13.8) g/dL Hct 32.4 L 30.7 L (35.0-42.0) % MCV 92.0 91.9 (78.0-102.0) fL MCH 28.1 28.1 (27.0-31.0) pg MCHC 30.6 L 30.6 L (32-36) g/dL RDW 15.4 H 15.4 H (11.6-14.4) % Plt Count 366 335 (150-420) K/mm3 MPV 8.5 L 8.6 L (9.2-11.8) fl Immature Gran % (Auto) 0.4 H (0.0-0.0) % Neut % (Auto) 54.7 (50.0-70.0) % Lymph % (Auto) 32.9 (18.0-42.0) % Whiteside % (Auto) 8.1 (2.0-11.0) % Eos % (Auto) 3.7 (1.0-6.0) % Baso % (Auto) 0.2 (0.0-1.0) % Lymph # (Auto) 2.68 (1.10-4.50) K/mm3 Whiteside # (Auto) 0.66 (0.10-0.90) K/mm3 Eos # (Auto) 0.30 (0.02-0.50) K/mm3 Baso # (Auto) 0.02 (0.00-0.10) K/mm3 Abs Immat Gran (auto) 0.03 H (0.00-0.00) K/mm3 Absolute Neuts (auto) 4.46 (1.70-7.20) K/mm3 Absolute Nucleated RBC 0.00 (0.00-0.00) K/mm3 Nucleated RBC % 0.0 (0-0.0) % PT 11.4 (9.50-12.1) Seconds INR 1.0 APTT 28.3 (23.9-30.70) Sec Sodium 139 (137-145) mmol/L Potassium 4.2 (3.4-5.0) mmol/L Chloride 106 (98-107) mmol/L Carbon Dioxide 25 (22-30) mmol/L Anion Gap 8 (4-12) mmol/L BUN 23 H (7-17) mg/dL Creatinine 1.19 H (0.7-1.0) mg/dL Estim Creat Clear Calc 33 ml/min Estimated GFR 43 L (59 - ) Glucose 90 (65-110) mg/dL Calculated Osmolality 291 (285-295) mOsm/kg Lactic Acid 1.2 (0.4-2.0) mmol/L Calcium 8.9 (8.4-10.2) mg/dL Magnesium 2.0 (1.6-2.3) mg/dL Total Bilirubin 1.4 H (0.2-1.3) mg/dL AST 25 (14-36) U/L ALT 13 (6-35) U/L Alkaline Phosphatase 68 (38-126) U/L Total Protein 7.1 (6.3-8.2) g/dL Albumin 4.4 (3.5-5.1) g/dL Lipase 30 (23-300) U/L Blood Type O Positive Antibody Screen Negative Imaging Data Radiologist's impression: Impressions Abdomen/Pelvis CT 06/15/25 18:59 IMPRESSION: Circumferential thickening of the cecal wall may represent a mass. Follow-up colonoscopy is recommended. Diffuse thickening of the descending colon and sigmoid colon is again noted. There is no significant adjacent induration. There are colonic diverticulosis without evidence of acute diverticulitis. All CT scans at this facility are performed using low dose modulation techniques as appropriate to perform exam including the following: automated exposure control; use of iterative reconstruction technique; adjustment of the mA and/or kV according to patient size (this includes techniques or standardized protocols for targeted exams where dose is matched to indication/reason for exam). Critical Care Time Critical Care Time Critical Care Time: Yes Total Critical Care Time: 30 Discharge Plan Discharge Clinical Impression: GI (gastrointestinal bleed), Mass of cecum, Anemia Patient Disposition: Acute Care Hospital Condition: Stable Additional Instructions: TRANSFERRE TO [facility] Patient Language: Setswana Prescriptions: No Action bisoprolol fumarate 10 mg tablet 10 mg PO Eliquis 5 mg tablet 5 mg PO DAILY omega 6-vwc-loc-fish oil [Fish Oil] 1,000 (120-180) mg capsule 1 cap PO DAILY allopurinol 100 mg Tablet 100 mg PO QAM levothyroxine 100 mcg Tablet 100 mcg PO QAM pantoprazole 40 mg Tablet,Delayed Release (Dr/Ec) 40 mg PO QAM rosuvastatin 10 mg Tablet 10 mg PO HS duloxetine 20 mg Capsule,Delayed Release(Dr/Ec) 20 mg PO BID oxybutynin chloride 5 mg Tablet 5 mg PO DAILY Thc, Cbd, Cbn 0.5 gummy PO HS losartan 50 mg tablet 50 mg PO DAILY Qty: 60 0RF spironolactone 25 mg tablet See Rx Instructions .ROUTE .COMPLEX Qty: 30 5RF Dose Instruction: TAKE ONE TABLET BY MOUTH DAILY Rx Instructions: TAKE ONE TABLET BY MOUTH DAILY Follow-up/Referrals: Jacinda Beck MD [Primary Care Provider, Internal Medicine]
--- OUTSIDE RECORDS SUMMARY | 2025-06-15 18:15 | XMS_ITS | Data Portability ---
Author Organization [place] [facility] [employer], Main Office Address [address] [place] [address] Care Team Providers Care Lead Auditor Name Role Phone MARBELLA CONLEY Primary Care Provider [phone] MARBELLA CONLEY Referring Provider [phone] Assessment Encounter Date Assessment Date Assessment LastModified [...] treatment patient more than half of this xoet-iy-xlxf conversation Not available 01/10/2023 16:48:03 02/07/2023 02/07/2023 [...] patient more than half of this in puez-ce-ysly conversation mack Not available 02/07/2023 14:35:29 04/04/2023 [...] more than half the time spent in edzz-nm-kghg care. Not available 08/06/2023 15:08:23 Plan of [...] DO Not Attach Compendium, Do Not Delete/merge, [id number] 3 15:24:21 Surgeries None recorded. Imaging XR, knee 2022 023 [email or web address] [facility] [place], [address], [place], [address], 3 17:25:16 XR, knee 2022 023 [email or web address] [facility] [place], [address], [place], [address], 3 17:25:16 Medication Orders Medrol (William) 4 mg tablets in a dose pack 2022 023 [email or web address] [facility], [address] [place], [address], 3 15:10:12 meloxicam 15 mg tablet 2022 023 [facility], [address] [place], [address], 3 17:02:21 tizanidine 4 mg tablet 2022 023 [facility], [address], [place], [address], 3 17:02:21 Kenalog 10 mg/mL suspension for injection 2022 023 [email or web address] [facility], [address], [place], [address], 3 15:10:01 ropivacaine (PF) 5 mg/mL (0.5 %) injection solution 2022 023 [email or web address] [facility], [address] [place], [address], 3 15:10:19 Patient TargetsNo targets recorded. Patient Instructions Encounter Date Encounter Id Patient Instructions Last Modified By Organization Details Last Modified Time 01/10/2023 [id number] physical therapy* [email or web address] Not availab le 01/10/2023 15:34:59 Reason for Referral None Reported. Results Created Date Observation Date Name Description Value Unit Range Abnormal Flag Note LastModifiedBy Organization Detail LastModifiedTime 01/11/20 XR, knee No observ ation record ed. [facility] [place] [address], [place], [address], 01/10/2023 16:43:17 01/11/20 XR, knee No observ ation record ed. [facility] [place] [address], [place], [address], 01/10/2023 16:42:58 04/01/20 23 04/01/2023 MRI, lumba r spine , w/o contr ast No observ ation record ed. [email or web address] [facility] [address], [place], [address], 04/02/2023 09:06:50 Result Notes None recorded. Problems Name Problem SNOMED Code Status Onset Date Resolution Date Notes Provider Name and Address Organization Details Recorded Time Osteoarthr itis 084957949 Active 2021 Not Available [facility] 3 22:43:58 Osteoarthr itis of left knee joint 2467648666039 09 Active 2021 Not Available [facility] 3 22:43:58 Low back pain 894666584 Active 2022 Oralia Melgoza, SALTY null, [place] [employer] [facility] 3 15:32:44 Problem Notes None recorded. Procedures Surgical History Date Name Laterality Status Provider Name and Address Organization Details Recorded Time procedure on urinary bladder completed Not Available [facility] 10/11/2022 22:42:41 Hysterectomy, Partial completed Not Available [facility] 10/11/2022 22:42:41 Tonsillectomy completed Camille Peterson [place] [facility] 01/10/2023 14:40:59 Imaging Results None recorded. Procedure Notes None recorded. Medical Equipment None Reported. Allergies Allergen ID Allergen Name Allergen Category Reaction Reaction Severity Criticality Documentation Date Start Date Code Code System Note Provider Name and Address Organization Details Recorded Time 47669 Substance with sulfonami de structure and antibacte rial mechanism of action (substanc e) medicatio n Not available Not available Not available 10/11/2022 31885 8003 SNOMED Not Available [facility] 3 22:45:25 65557 Product containin g penicilli n (product) medicatio n facial swelling Not available Not available 10/11/2022 29512 8001 SNOMED Not Available [facility] 3 22:45:25 Medications Name Sig Start Date [...] administe red by the provider 10/31 completed [facility]: 0409- 4276- 17 Not Available Not Available Not Available lidocaine (PF) 5 mg/mL (0.5 %) injection solution In office injection administe red by the provider 01/10 completed Not Available Not Available Not Available ropivacaine (PF) 5 mg/mL (0.5 %) injection solution in office procedure , administe red by provider 07/30 completed [facility] 19626 -[phone]- [phone] Not Available Not Available Not Available Eliquis 2.5 mg tablet 01/11 completed Not Available Not Available Not Available lidocaine 5 % medicated patch and dimethicone 5 % topical cream active Not Available Not Available Not Available Vitals Date Recorded Body height Provider Name an d Address Organization Details Last Updated DateTime 10/04/2022 154.94 cm Not Available [facility] 22:43:01 Date Recorded Body height Body mass index (BMI) Body weight Provider Name and Address Organization Details Last Updated DateTime 01/10/2023 154.94 cm 37.6 kg/m2 63225.88 g Camille Thapas [facility] [employer] [facility] 01/10/2023 14:45:37 Date Recorded Body height Provider Name an d Address Organization Details Last Updated DateTime 02/07/2023 154.94 cm CARLOS Harmon [facility] [employer] [facility] 02/07/2023 14:02:14 Date Recorded Body height Provider Name an d Address Organization Details Last Updated DateTime 04/04/2023 154.94 cm CARLOS Harmon [place] [employer] [facility] 04/04/2023 14:08:02 Date Recorded Body height Body mass index (BMI) Body weight Provider Name and Address Organization Details Last Updated DateTime 07/30/2023 154.94 cm 36.3 kg/m2 24093.74 g CARLOS Harmon [employer] [facility] 07/30/2023 15:18:19 Social History Question Answer Notes LastModified by [employer] Details LastModified Time Tobacco Smoking Status Former Smoker quit 1985 Not Available [facility] 10/11/2022 22:42:22 What Was The Date Of Your Most Recent Tobacco Screening? 11/15/2020 [id number] Information not available 10/11/2022 Sex: Unknown Functional Status Question Answer Note LastModified by [employer] Details LastModified Time What is your level of alcohol consumption? Occasional [id number] Information not available 10/11/2022 Mental Status None recorded. Family History Relationship Description Onset Age of this Age Resolved Age Notes LastModified by Organization Details LastModified Time Father Heart disease [id number] [id number] Not available 10/11/2022 22:42:42 Father Diabetes mellitus [id number] [id number] Not available 10/11/2022 22:42:42 Mother Heart disease [email or web address].372 [id number] Not available 10/11/2022 22:42:42 Mother Family history of stroke [email or web address].257 [id number] Not available 10/11/2022 22:42:42 Sister Complication of anesthesia nausea [id number] Not available 10/11/2022 22:42:42 Medical History Condition Response BLINDNESS N KIDNEY STONES N CARPAL TUNNEL SYNDROME N MRSA N LUNG DISEASE/DISORDER N HISTORY OF DRUG ABUSE N RADIATION / CHEMOTHERAPY N COPD N ANKLE PAIN N SPORTS INJURY N BLOOD DISEASES N SCHIZOPHRENIA N SHINGLES N BOWEL PROBLEMS N DEPRESSION (INCLUDING POST ) N SHOULDER PAIN N STROKE/TIA N ULCERS N KNEE PAIN [...] N NEUROPATHY N AIDS/HIV N FRACTURES N HYPERTENSION Y ELBOW PAIN N TOURETTE'S N Metal allergy N ANXIETY DISORDER N BLOOD TRANSFUSION N ANEMIA/BLOOD DISORDER N BIPOLAR DISORDER N BRONCHITIS N OSTEOARTHRITIS N TUBERCULOSIS N FOOT PROBLEM N HEART VALVE DISORDERS N ALLERGIES/HAYFEVER N SOFT TISSUE INJURY N INFECTIOUS DISEASE N HEART ARRHYTHMIA N INSOMNIA N HIGH CHOLESTEROL / HYPERLIPIDEMIA N RHEUMATOID ARTHRITIS N EDEMA N CHRONIC PAIN SYNDROME N CAROTID BLOCKAGE N BACK / NECK PROBLEMS N HAVE YOU BEEN HOSPITALIZED OR SEEN IN [facility] IN THE PAST YEAR ? N BURSITIS N HERNIATED DISC N DIALYSIS N FIBROMYALGIA N OSTEOPOROSIS N ARTHRITIS Y NO SIGNIFICANT PAST MEDICAL HISTORY N PERIPHERAL NEUROPATHY N DIABETES, TYPE N HEARTBURN / REFLUX N HEPATITIS / LIVER DISEASE N GOUT Y ALZHEIMER'S DISEASE N SLEEP DISORDER N HERPES N HEADACHES/MIGRAINES N SEIZURES/EPILEPSY N VASCULAR DISEASE N Blood Disorder N HIP PAIN N DIZZINESS N HEAD TRAUMA OR INJURY N HEART DISEASE/HEART PROBLEMS N MULTIPLE SCLEROSIS N CANCER: SPECIFY Y CARDIAC ARRHYTHMIA N ANESTHESIA COMPLICATIONS N ATRIAL FIBRILLATION N AUTOIMMUNE DISEASE N Gynecological HistoryNo gynecological history recorded. Obstetrics History GPAL:G 0 P 0 0 0 0 Past Encounters Encounter ID Performer Location Encounter Start Date Encounter Closed Date Diagnosis/Indication Diagnosis SNOMED-CT Code Diagnosis ICD10 Code Diagnosis IMO Codes Diagnosis Note [id number] Luis Alberto Carter MD [facility] [place] [address] [place] [address] 11/15/2020 00:00:00 11/15/2020 16:57:30 [id number] Luis Alberto Carter MD [facility] [place] [address] [facility] [address] [place] [address] 02/09/2021 00:00:00 02/20/2021 12:36:50 [id number] Luis Alberto Carter MD [facility] [place] [address] [place] [address] 03/16/2021 00:00:00 03/20/2021 17:04:20 [id number] Luis Alberto Carter MD [facility] [place] [address] [facility] [address] [place] [address] 05/30/2021 00:00:00 05/30/2021 14:52:01 [id number] Luis Alberto Carter MD [facility] [place] [address] [place] [address] 2021 00:00:00 2021 14:44:22 [id number] MD SATNAM [facility] [place] [address] [place] [address] 10/31/2021 00:00:00 10/31/2021 16:09:18 [id number] MD [facility] [place] [address] [place] [address] 12/26/2021 00:00:00 12/26/2021 14:43:43 [id number] MD [facility] [place] [address] [place] [address] 01/11/2022 00:00:00 01/16/2022 13:02:21 [id number] MD [facility]NAM [facility] [place] [address] [place] [address] 01/25/2022 00:00:00 01/25/2022 11:18:51 [id number] Luis Alberto Carter MD [facility] [place] [address] [place] [address] 03/08/2022 00:00:00 03/08/2022 11:30:38 [id number] MD [facility] [place] [address] [place] [address] 06/21/2022 00:00:00 06/21/2022 16:26:19 [id number] Luis Alberto Carter MD [facility] [place] [address] [place] [address] 10/04/2022 00:00:00 10/04/2022 15:40:47 [id number] MD SATNAM [facility] [place] [address] [place] [address] 01/10/2023 14:20:46 01/10/2023 17:25:15 Osteoarthritis of left knee joint 2205189896 31635 M17.12 History of right total knee replacement 4354767984 210153 Z96.651 Low back pain 183661915 M54.50 [id number] Luis Alberto Carter MD [facility] [place] [address] [place] [address] 02/07/2023 13:59:05 02/07/2023 14:52:03 Low back pain 663980265 M54.50 [id number] Luis Alberto Carter MD [facility] [place] [address] [place] [address] 04/04/2023 14:03:52 04/04/2023 14:57:57 Low back pain 410207864 M54.50 [id number] Luis Alberto Carter MD [facility] [place] [address] [place] [address] 07/30/2023 15:04:17 08/08/2023 15:20:06 Osteoarthritis of left knee joint 7243822659 84993 M17.12 Health Concerns Section Related Observation LastModified by Organization Detai ls LastModified Time None Recorded Concern Status LastModified by Organization Details LastModified Time None Recorded Advance Directives Directive None Recorded Payers Insurance Date Sequence Insurance Name Policy Number Policy Meek Covered Member ID Meek Member ID Guarantor Name 08/09/2023 1 [id number] (MEDICARE REPLACEMENT/ ADVANTAGE - PPO) [id number] Nayely Mtz [id number] Nayely Mtz Notes Date Note Type Note Provider Name and Address Organization Details Recorded Time 07/30/2023 text/html patient returns. She has decided that she would like to proceed with left total knee replacement. Her back pain has improved. She continues to take meloxicam 15 mg daily. X-rays of her left knee from January demonstrate gjgb-vi-ibsj medial compartment osteoarthritis in the left knee [...] that in with her. She saw her time study statistician Dr. Rankin 2 months ago and he said that she should be stable from a cardiac standpoint to undergo knee replacement. Luis Alberto Carter MD [address] [place] [address], [place], [address], [place] [facility] 08/06/2023 15:08:47 OBGyn Episode No OBEpisode recorded.
--- OUTSIDE RECORDS SUMMARY | 2025-06-15 18:15 | XMS_ITS | Clinical Summary ---
Author Organization [facility] Address [address] [place] [address] Care Team Providers Care Wool Shearer Name Role Phone Michael Beck MD Primary Care Provider [phone] Source Comments [facility],non-owned Affiliates and Associated Physician Practices is amultiple site organization consisting of ambulatory clinics and hospital sitesin [place], [place], [place] and [place]. This disclosure is being madepursuant to the Care Everywhere program and may not contain all information available regarding this patient. 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 [place] [address] PCP - General Cardiovascular Disease 02/23/25
--- OUTSIDE RECORDS SUMMARY | 2025-06-15 18:15 | XMS_ITS | Encounter Summary ---
Author Organization [facility] Address [address] [place] [address] Care Team Providers Care Pourer Metal Name Role Phone Jacinda Beck MD Primary Care Provider + Reason for Visit * Reason Onset Date Comments Advice Only 06/15/2025 Encounter Details Date Type Department Care Team (Late st Contact Info) Description 06/15/2025 Telephone [facility] G[facility] [address] [place] [address] Arpan Hernandez MD [address] [place] [address] Advice Only Social History Tobacco Use Types Packs/Day Years Used Date Smoking Tobacco: Former Cigarettes 0.5 42.8 S tarted: 1968 Smokeless Tobacco: Never Alcohol Use Standard Drinks/Week Comments Not Currently 0 (1 standard drink = 0.6 oz pur e alcohol) Feeling Safe Answer Date Recorded Are you in a relationship wi th someone who hurts you emotionally and/or physically? No 06/12/2025 Food Insecurity Answer Date Recorded Patient needs follow up regardin 01/23/2025 Transportation Needs Answer Date Record ed Patient needs follow up regardin 01/23/2025 Utility Needs Answer Date Recorded Patient needs follow up regardin 01/23/2025 Comments Unknown Sex and Gender Information Value Date Recorded Sex Assigned at Not on file Legal Sex Female 5:02 AM REMARKETING MANAGER Gender Identity Not on file Sexual Orientation Not on file documented as of this encounter Miscellaneous Notes * Telephone Encounter - Arpan Hernandez MD - 06/15/2025 4:44 PM CST Reviewed with patient. She has not gone to ER. She bled for about 12 hours, but seems to have stopped. She feels a little week, but no chest pain, shortness of breath. After discussion, it seems she might go to the ER to get CBC. Otherwise she plans to contact her doctor to check a CBC tomorrow in [place]. Advised her ER is best. She has upcoming appointment with nephrology. She is holding eliquis for now. RKETING MANAGER * Telephone Encounter - Divya Layne RN - 06/15/2025 9:14 AM CST Received call from pt. Pt states she is experiencing bright red blood mixed with stool 6 times since last night 2:00 Am.Pt last dose of Eliquis was at 8:00 pm last night ,patient is scheduled for colonoscopy on 06/19.Pt requesting provider recommendation on her colonoscopy and her present symptoms.JOCELYN-05/27 for Hematochezia Directed pt to ER. Routing message to the provider. RKETING MANAGER documented in this encounter Plan of Treatment Upcoming Encounters Date Type Department Care Team (Late st Contact Info) Description 06/19/2025 2:20 PM REMARKETING MANAGER Hospital [facility] [address] [place] [address] Arpan Hernandez MD [address] [place] [address] Hematochezia 06/19/2025 2:20 PM REMARKETING MANAGER - 06/19/2025 3:00 PM REMARKETING MANAGER Surgery [facility] [address] [place] [address] Arpan Hernandez MD [address] [place] [address] CHECKOUT COLONOSCOPY 07/20/2025 8:15 AM REMARKETING MANAGER Office Visit [facility] [place] [address] [place] [address] Roxana Nielsen MD [address] [facility] [address] [place] [address] 10/08/2025 2:15 PM REMARKETING MANAGER Office Visit [facility] Oncology and Hematology [facility] [address] [place] [address] Sophie Leong MD [address] [facility] [place] [address] Scheduled Procedures Name Priority Associated Diagnoses Date/Ti me COLONOSCOPY Hematochezia Diverticulitis Portal vein thrombosis 06/19/2025 2:20 PM REMARKETING MANAGER documented as of this encounter Goals Goal Patient Goal Type Associated Problems Recent Progress Patient-Stated? Author Autogenerat ed Goal Care Plan Autogenerated Problem No Francisca Beebe, Stas Mayfield documented as of this encounter Visit Diagnoses Not on filedocumented in this encounter Additional Health Concerns Active Problems Noted Date Diagnosed Date Autogenerated Problem 05/27/2025 documented as of this encounter Care Teams Pourer Metal Relationship Specialty Start Date End Date Jacinda Beck MD [address] [place] [address] PCP - General Internal Medicine 01/23/25 documented as of this encounter
--- OUTSIDE RECORDS SUMMARY | 2025-06-15 18:15 | XMS_ITS | Clinical Summary ---
Author Organization [facility] Address [address] [place] [address] Care Team Providers Care Health Aide Name Role Phone Jacinda Beck MD Primary Care Provider [phone] Chay Burnett MD Unavailable Unavailable Allergies Active [...] 75+ series) 2017 COVID-19 Vaccine ( - 2024-2 6 season) 2025 Influenza Adult (#1) 2025 Hepatitis A Vaccines Aged Out No long er eligible based on patient's age to complete this topic Meningococcal B Vaccine Aged Out No l onger eligible based on patient's age to complete this topic Meningococcal Vaccine Aged Out No cynthia josiah eligible based on patient's age to complete this topic RSV Immunizations Under 20 Months Aged Out No longer eligible based on patient's age to complete this topic Insurance MED MERGED WITH [facility] MEDICARE SOLUTIONS Care Teams Health Aide Relationship Specialty Start Date End Date Jacinda Beck MD [address] [place] [id number] PCP - General INTERNAL MEDICINE 02/15/17 Chay Burnett MD [address] [place] [address] [place] Extrusion Line Operator INTERVENTIONAL CARDIOLOGY 02/15/17
--- OUTSIDE RECORDS SUMMARY | 2025-06-15 18:15 | XMS_ITS | Encounter Summary ---
Author Organization [facility] Address [address] [place] [address] Care Team Providers Care Directory Clerk Name Role Phone Jacinda Beck MD Primary Care Provider + Encounter Details Date Type Department Care Team (Late st Contact Info) Description 11/11/1998 Outpatient Historical [facility] Winifred Monteiro MD [address] [place] [address] Ventricular flutter (CMS/HCC) (Primary Dx) Social History Tobacco Use Types Packs/Day Years Used Date Smoking Tobacco: Never Assessed Comments Unknown Sex and Gender Information Value Date Recorded Sex Assigned at Not on file Legal Sex Female 5:02 AM MITER CUTTER Gender Identity Not on file Sexual Orientation Not on file documented as of this encounter Plan of Treatment Upcoming Encounters Date Type Department Care Team (Late st Contact Info) Description 06/19/2025 2:20 PM MITER CUTTER Hospital Encounter [facility] [address] [place] [address] Arpan Hernandez MD [address] [place] [address] Hematochezia 06/19/2025 2:20 PM MITER CUTTER - 06/19/2025 3:00 PM MITER CUTTER Surgery [facility] [address] [place] [address] Arpan Hernandez MD [address] [place] [address] CHECKOUT COLONOSCOPY 07/20/2025 8:15 AM MITER CUTTER Office Visit [facility] [place] [address] [place] [address] Roxana Nielsen MD [address] [facility] [address] [place] [address] 10/08/2025 2:15 PM MITER CUTTER Office Visit [facility] Oncology and Hematology [facility] [address] [place] [address] Sophie Leong MD [address] [facility] [place] [address] Scheduled Procedures Name Priority Associated Diagnoses Date/Ti me COLONOSCOPY Hematochezia Diverticulitis Portal vein thrombosis 06/19/2025 2:20 PM MITER CUTTER documented as of this encounter Visit Diagnoses Diagnosis Ventricular flutter (CMS/HCC)- Primary Ventricular flutter Hematochezia Blood in stool Diverticulitis Diverticulitis of colon (without mention of hemorrhage) Portal vein thrombosis documented in this encounter Additional Health Concerns Infection Onset Date Last Indicated Resolved Time R/O GI Pathogen 01/23/2025 01/23/2025 01/24/2025 3 :30 PM CDT documented as of this encounter Care Teams Directory Clerk Relationship Specialty Start Date End Date Jacinda Beck MD [address] [place] [address] PCP - General Internal Medicine 01/23/25 documented as of this encounter
--- OUTSIDE RECORDS SUMMARY | 2025-06-15 18:15 | XMS_ITS | Encounter Summary ---
Author Organization [facility] Address [address] [place] [address] Care Team Providers Care Concrete Spreader Name Role Phone Jacinda Beck MD Primary Care Provider + Encounter Details Date Type Department Care Team (Late st Contact Info) Description 06/11/2025 Telephone [facility] Gastroenterology [facility] [address] [facility] [address] [place] [address] Arpan Hernandez MD [address] [place] [address] Social History Tobacco Use Types Packs/Day Years Used Date Smoking Tobacco: Never Alcohol Use Standard Drinks/Week Comments Never 0 (1 standard drink = 0.6 oz [...] on file Legal Sex Female 5:02 AM GEM CUTTER Gender Identity Not on file Sexual Orientation Not on file documented as of this encounter Plan of Treatment Upcoming Encounters Date Type Department Care Team (Late st Contact Info) Description 06/19/2025 2:20 PM GEM CUTTER Hospital Encounter [facility] [address] [place] [id number] Arpan Hernandez MD [address] [facility] [address] [place] [address] Hematochezia 06/19/2025 2:20 PM GEM CUTTER - 06/19/2025 3:00 PM GEM CUTTER Surgery [facility] GI Lab [facility] [address] [place] [address] Arpan Hernandez MD [address] [facility] [address] [place] [address] CHECKOUT COLONOSCOPY 07/20/2025 8:15 AM GEM CUTTER Office Visit [facility] [place] [address] [facility] [address] [place] [address] Roxana Nielsen MD [address] [facility] [address] [place] [address] 10/08/2025 2:15 PM GEM CUTTER Office Visit [facility] Oncology and Hematology [facility] [address] [facility] [address] [place] [address] Sophie Leong MD [address] [place] [address] Scheduled Procedures Name Priority Associated Diagnoses Date/Ti me COLONOSCOPY Hematochezia Diverticulitis Portal vein thrombosis 06/19/2025 2:20 PM GEM CUTTER documented as of this encounter Goals Goal Patient Goal Type Associated Problems Recent Progress Patient-Stated? Author Autogenerat ed Goal Care Plan Autogenerated Problem No Francisca Beebe, Stas Mayfield documented as of this encounter Visit Diagnoses Not on filedocumented in this encounter Additional Health Concerns Active Problems Noted Date Diagnosed Date Autogenerated Problem 05/27/2025 documented as of this encounter Care Teams Concrete Spreader Relationship Specialty Start Date End Date Jacinda Beck MD [address] [place] [phone] PCP - General Internal Medicine 01/23/25 documented as of this encounter
--- OUTSIDE RECORDS SUMMARY | 2025-06-15 18:15 | XMS_ITS | Clinical Summary ---
Author Organization [facility] Address [address] [place] [address] Phone Care Team Providers Care Fur Stretcher Name Role Phone Jacinda Beck MD Primary [...] Take 25 mg by mouth daily. Active APIXABAN ORAL Take by mouth. A ctive sodium, potassium and magnesium SULFATES (Suprep Bowel Prep Kit) 17.5-3.13-1.6 gram Recon Soln Take 177 mL by mouth see administration instructions. Follow prescribing physician's instructions ONLY. These were sent by mail or email. 354 mL Active Additional Information Patient not taking.Reported on 06/12/2025 Active Problems Problem Noted Date Diagnosed Date Right renal mass 06/11/2025 Overview (06/11/2025): 06/04/25 - CTA A/P: Interval resolution of thrombus in the inferior mesenteric vein and a small branch to the descending colon. Veins now appear diminutive, but patent. No evidence of bowel ischemia. Enhancing 1.6 cm mass in the upper right kidney, concerning for renal cell carcinoma. Indeterminate 1.1 cm mass in the upper left kidney. Continued follow-up is recommended. Normocytic anemia 06/10/2025 Overview (06/10/2025): Patient has had mild normocytic anemia starting at least in January 2025 when he had hematochezia and was felt to have sigmoid colon diverticulitis. 03/27/25 - WBC 10.2, RBC 3.8, hemoglobin 10.4 g, hematocrit 33.6, MCV 88, platelets 371. Scheduled to have colonoscopy in June 2025. 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 Veins now appear diminutive, but patent. No evidence of bowel ischemia. Enhancing 1.6 cm mass in the upper right kidney, concerning for renal cell carcinoma. Indeterminate 1.1 cm mass in the upper left kidney. Continued follow-up is recommended. Primary hypertension 01/23/2025 JULIANNE (obstructive sleep apnea) 01/23/2025 Encounters Date Type Department Care Team Description 06/15/2025 Telephone [facility] Gastroenterology [facility] [address] [facility] [address] [place] [phone] Arpan Hernandez MD Advice Only 06/12/2025 12:02 PM CDT - 06/12/2025 11:59 PM CDT Hospital Encounter [facility] Laboratory Services [facility] [address], [address] [place] [address] Sophie Leong MD Discharge Disposition: Home or Self Care 06/12/2025 11:30 AM CDT Office Visit [facility] Oncology and Hematology [facility] [address] [place] [address] Sophie Leong MD Mesenteric vein thrombosis (Primary Dx); Normocytic anemia; Right renal mass 06/11/2025 Telephone [facility] Gastroenterology [address] [place] [address] Arpan Hernandez MD 06/05/2025 Telephone [facility] Gastroenterology [address] [place] [address] Arpan Hernandez MD Results 06/04/2025 9:07 AM CDT - 06/04/2025 11:59 PM CDT Hospital Encounter [facility] Imaging Services [address] [address] Arpan Hernandez MD Discharge Disposition: Home or Self Care 05/27/2025 1:45 PM CDT Office Visit [facility] Gastroenterology [address] [place] [address] Arpan Hernandez MD Hematochezia (Primary Dx); Diverticulitis; Portal vein thrombosis 05/26/2025 External Device Data ST[facility] ABSTRACTION Provider, Abstract 05/26/2025 External Device Data [place] ABSTRACTION Provider, Abstract 05/26/2025 External Device Data [place] ABSTRACTION Provider, Abstract 05/19/2025 External Device Data [facility] ABSTRACTION Provider, [...] [facility] [address] [place] [phone] John Paul Lizama MD Lackey, Daniel J, MD Encounter for blood typing (Primary Dx); Chronic anemia; Anticoagulated Discharge Disposition: Home or Self Care 03/27/2025 Travel 03/27/2025 Telephone [facility] Gastroenterology [facility] [address] [facility] [address] [place] [address] Quinten Edwards RMA Provider Call; Anemia 03/24/2025 External Device Data ST[facility] ABSTRACTION Provider, Abstract from Last 3 Months Family History Medical History Relation Name Comments Heart Disease Father Stroke Mother Colon Cancer Neg Hx Relation Name Status Comments Father Mother Social [...] on file 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 Gender Identity Not on file Sexual Orientation Not on file Last Filed Vital Signs Vital Sign Reading Time Taken Comments Blood Pressure 110/58 06/12/2025 11:09 AM CDT Pulse 75 06/12/2025 11:09 AM CDT Temperature 36.3 C (97.4 F) 06/12/2025 11:09 AM CDT Respiratory Rate 16 03/27/2025 7:40 PM CDT Oxygen Saturation 95% 06/12/2025 11: 09 AM CDT Inhaled Oxygen Concentration - - Weight 89.7 kg (197 lb 12.8 oz) 025 11:09 AM CDT Height 154.9 cm (5' 1) 06/12/2025 11:0 9 AM CDT Body Mass Index 37.37 06/12/2025 11:09 AM CDT Plan of Treatment Upcoming Encounters Date Type Department Care Team (Late st Contact Info) Description 06/19/2025 2:20 PM ROCK ROOM WORKER Hospital Encounter [facility] GI Lab [facility] [address] [place] [address] Arpan Hernandez MD [address] [facility] [address] [place] [address] Hematochezia 06/19/2025 2:20 PM ROCK ROOM WORKER - 06/19/2025 3:00 PM ROCK ROOM WORKER Surgery [facility] GI Lab S [facility] [address] [place] [address] Arpan Hernandez MD [address] [facility] [address] [place] [address] CHECKOUT COLONOSCOPY 07/20/2025 8:15 AM ROCK ROOM WORKER Office Visit [facility] [address] [facility] [address] [place] [address] Roxana Nielsen MD [address] [facility] [address] [place] [address] 10/08/2025 2:15 PM ROCK ROOM WORKER Office Visit [facility] Oncology and Hematology [facility] [address] [facility] [address] [place] [address] Sophie Leong MD [address] [place] [address] Scheduled Procedures Name Priority Associated Diagnoses Date/Ti me COLONOSCOPY Hematochezia Diverticulitis Portal vein thrombosis 06/19/2025 2:20 PM ROCK ROOM WORKER Health Maintenance Due Date Last Done Comments DTAP/TDAP/TD VACCINES (1 - Tdap) 1961 ZOSTER VACCINE (1 of 2) 1992 OSTEOPOROSIS SCREENING 2007 PNEUMOCOCCAL VACCINE 50+ YEA RS (2 of 2 - PCV20 or PCV21) 04/15/2016 04/15/2015 RSV VACCINE (60+ or ) (1 - 1-dose 75+ series) 2017 INFLUENZA VACCINE (#1) 2025 , 05/15/2023, 05/02/2022, Additional history exists COVID-19 Vaccine ( - 2023-2 5 season) 2025 04/24/2024, 06/01/2023, 04/23/2022, Additional history exists Goals Goal Patient Goal Type Associated Problems Recent Progress Patient-Stated? Author Autogenerat ed Goal Care Plan Autogenerated Problem No Stas Espinosa Jr. Procedures Procedure Name Priority Date/Time Associated Diagnosis Comments EXTRA TUBE Routine 06/12/2025 12:09 PM CDT CBC WITH DIFFERENTIAL Routine 06/12/2025 12:09 PM CDT Normocytic anemia IRON, TIBC, AND PERCENT SATURATION Routine 06/12/2025 12:09 PM CDT Normocytic anemia FERRITIN Routine 06/12/2025 12:09 PM CDT Normocytic anemia VITAMIN B12 AND FOLATE Routine 12:09 PM CDT Normocytic anemia RETICULOCYTES Routine 06/12/2025 12:09 PM CDT Normocytic anemia LUPUS ANTICOAGULANT W/REFLEX CONFIRMATION Routine 06/12/2025 12:09 PM CDT Mesenteric vein thrombosis CARDIOLIPIN IGG/IGM Routine 06/12/2025 1 2:09 PM CDT Mesenteric vein thrombosis CARDIOLIPIN ANTIBODY IGA Routine 06/12/2025 12:09 PM CDT Mesenteric vein thrombosis CTA ABD PELVIS W AND/OR WO CONTRAST Routine 06/04/2025 10:18 AM CDT Hematochezia Diverticulitis Portal vein thrombosis POC CREATININE Routine 06/04/2025 9:24 AM CDT VERIFICATION BLOOD GROUP Stat 03/27/2025 7:38 PM CDT Encounter for blood typing TYPE AND SCREEN Stat 03/27/2025 6:24 PM CDT TSH REFLEXIVE Stat 03/27/2025 6:24 PM CDT COMPREHENSIVE METABOLIC PANEL Stat 03/27/2025 6:24 PM CDT PROTIME-INR Stat 03/27/2025 6:24 PM CDT CBC WITH DIFFERENTIAL Stat 03/27/2025 6:24 PM CDT EKG 12-LEAD Stat 03/27/2025 4:18 PM CDT from Last 3 Months Results * EXTRA TUBE (06/12/2025 12:09 PM CDT) EXTRA TUBE RECEIVED Jose Alfredo [facility] Comment: An extra tube was received without a test specified. We will hold this specimen in our cold storage in the event additional testing is requested. Please contact your local client business manager for further assistance. SPECIMEN TYPE LB Jose Alfredo [facility] Comment: Test Performed at: [place] [address] [address] [place] [address] Fred Thi Vo 06/12/2025 12:0 9 PM CDT 06/12/2025 12:29 PM CDT Sophie Leong MD CHEMISTRY ORDERABLES Final Result [facility] [phone] [place] [address] [address] [place] [address] * CARDIOLIPIN ANTIBODY IGA (06/12/2025 12:09 PM CDT) Pathologist [facility] CARDIOLIPIN IGA AB <2.0 APL-U/mL Q Rep blaise Lazaro Comment: Value Interpretation ----- < 20.0 Antibody not detected > or = 20.0 Antibody detected The antiphospholipid antibody syndrome (APS) is a clinical-pathologic correlation that includes a clinical event (e.g. arterial or venous thrombosis, morbidity) and persistent positive antiphospholipid antibodies (IgM, IgG Cardiolipin or b2GPI antibodies greater than the 99th percentile; or a lupus anticoagulant). International consensus guidelines for APS suggest waiting at least 12 weeks before retesting to confirm antibody persistence. The Systemic Lupus International Collabor[facility] immunological classification criteria for systemic lupus erythematosus (SLE) include testing for isotype IgA, which has yet to be incorporated into APS criteria. Low level antiphospholipid antibodies may sometimes be detected in the setting of infection, drug therapy or aging. For additional information, please refer to http://education.[employer]/faq/WVL343 (This link is being provided for informational/ educational purposes only.) Test Performed at: [facility] [address] [facility] Blood 06/12/2025 12:0 9 PM CDT 06/12/2025 12:29 PM CDT Sophie Leong MD CHEMISTRY ORDERABLES Final Result [facility] [phone] [facility] [address] [place] [address] * CARDIOLIPIN IGG/IGM (06/12/2025 12:09 PM CDT) [facility] CARDIOLIPIN IGG AB <2.0 GPL-U/mL Q Rep- blaise Lazaro Comment: Value Interpretation ----- < 20.0 Antibody not detected > or = 20.0 Antibody detected CARDIOLIPIN IGM AB <2.0 MPL-U/mL Q [facility] L[facility] Comment: Value Interpretation ----- < 20.0 Antibody not detected > or = 20.0 Antibody detected The antiphospholipid antibody syndrome (APS) is a clinical-pathologic correlation that includes a clinical event (e.g. arterial or venous thrombosis, morbidity) and persistent positive antiphospholipid antibodies (IgM, IgG Cardiolipin or b2GPI antibodies greater than the 99th percentile; or a lupus anticoagulant). International consensus guidelines for APS suggest waiting at least 12 weeks before retesting to confirm antibody persistence. The Systemic Lupus International Collabor[facility] immunological classification criteria for systemic lupus erythematosus (SLE) include testing for isotype IgA, which has yet to be incorporated into APS criteria. Low level antiphospholipid antibodies may sometimes be detected in the setting of infection, drug therapy or aging. For additional information, please refer to http://education.[employer]/faq/JIY803 (This link is being provided for informational/ educational purposes only.) Test Performed at: [facility] [address] [facility] Blood 06/12/2025 12:0 9 PM CDT 06/12/2025 12:29 PM CDT Sophie Leong MD CHEMISTRY ORDERABLES Final Result [facility] [phone] [address] * VITAMIN B12 AND FOLATE (06/12/2025 12:09 PM CDT) VITAMIN B12 318 200 - 1100 pg/mL [facility] Comment: Please Note: Although the reference range for vitamin B12 is 200-1100 pg/mL, it has been reported that between 5 and 10% of patients with values between 200 and 400 pg/mL may experience neuropsychiatric and hematologic abnormalities due to occult B12 deficiency; less than 1% of patients with values above 400 pg/mL will have symptoms. FOLATE, SERUM 6.0 ng/mL [facility] Comment: Reference Range Low: <3.4 Borderline: 3.4-5.4 Normal: >5.4 Test Performed at: [place] [place] [address] Fred Meeks MD Blood 06/12/2025 12:0 9 PM CDT 06/12/2025 12:29 PM CDT Sophie Leong MD CHEMISTRY ORDERABLES Final Result Performing Organization Address [facility] de Phone Number [facility] [phone] [facility] [place] [address] * (ABNORMAL) IRON, TIBC, AND PERCENT SATURATION (06/12/2025 12:09 PM CDT) IRON 42(L) 45 - 160 mcg/dL [facility] TIBC 446 250 - 450 mcg/dL (calc) [facility] IRON % SATURATION 9(L) 16 - 45 % (calc) [facility] Comment: Test Performed at: [place] [address] Fred Meeks MD Blood 06/12/2025 12:0 9 PM CDT 06/12/2025 12:29 PM CDT Sophie Leong MD CHEMISTRY ORDERABLES Final Result Performing Organization Address [facility] Co de Phone Number [facility] [phone] [facility] [address] * (ABNORMAL) CBC WITH DIFFERENTIAL (06/12/2025 12:09 PM CDT) Only the most recent of2 resultswithin the time period is included. WBC 10.5 3.8 - 10.8 Thousand/ uL [facility] RBC 3.76(L) 3.80 - 5.10 Million/u L [facility] HEMOGLOBIN 10.7(L) 11.7 - 15.5 g/dL [facility] HEMATOCRIT 34.2(L) 35.0 - 45.0 % [facility] MCV 91.0 80.0 - 100.0 fL [facility] MCH 28.5 27.0 - 33.0 pg [facility] MCHC 31.3(L) 32.0 - 36.0 g/dL [facility] Comment: For adults, a slight decrease in the calculated MCHC value (in the range of 30 to 32 g/dL) is most likely not clinically significant; however, it should be interpreted with caution in correlation with other red cell parameters and the patient's clinical condition. RDW 14.8 11.0 - 15.0 % [facility] PLATELETS 381 140 - 400 Thousand/ uL [facility] MPV 9.5 7.5 - 12.5 fL [facility] NEUTROPHIL ABSOLUTE 6,615 1,500 - 7,800 cells/uL [facility] LYMPHOCYTE ABSOLUTE 2,772 850 - 3,900 cells/uL [facility] MONOCYTE ABSOLUTE 735 200 - 950 cells/uL [facility] EOSINOPHIL ABSOLUTE 326 15 - 500 cells/uL [facility] BASOPHILS ABSOLUTE 53 0 - 200 cells/uL [facility] NEUTROPHIL 63 % [facility] LYMPHOCYTES 26.4 % [facility] MONOCYTE 7.0 % [facility] EOSINOPHILS 3.1 % [facility] BASOPHILS 0.5 % [facility] Comment: Test Performed at: [place] [address] [place] [address] Fred Harkins Vo Blood 06/12/2025 12:0 9 PM CDT 06/12/2025 12:28 PM CDT us Sophie Leong MD HEMATOLOGY ORDERABLES Viry alcaraz Result [facility] [phone] [facility] [place] [address] [address] [place] [address] * (ABNORMAL) LUPUS ANTICOAGULANT W/REFLEX CONFIRMATION (06/12/2025 12:09 PM CDT) LUPUS ANTICOAGULANT NOT DETECTED [facility] Comment: A Lupus Anticoagulant is not detected. Common causes for a prolonged screen and negative confirmatory test include factor deficiencies or anticoagulant therapy. For more information on this test, go to: http://education.[employer]/faq/DKL90r1 (This link is being provided for informational/ educational purposes only.) This interpretation is based on the following test results: PTT-LA 60(H) < OR = 40 sec [facility] DRVVT SCREEN 55(H) < OR = 45 sec [facility] DRVVT CONFIRM NEGATIVE NEGATIVE [facility] HEXAGONAL PHASE CONFIRM NEGATIVE NEGATIVE [facility] Comment: Test Performed at: [facility] [address] [place] [address] [facility] Blood 06/12/2025 12:0 9 PM CDT 06/12/2025 12:29 PM CDT Sophie Leong MD HEMATOLOGY ORDERABLES Viry l Result [facility] [phone] [facility] [address] [place] [address] * (ABNORMAL) RETICULOCYTES (06/12/2025 12:09 PM CDT) RETICULOCYTES 2.5 % [facility] RETICULOCYTE, ABSOLUTE 93,250(H) 20,000 - 80,000 cells/uL [facility] Comment: Test Performed at: [facility] [address] [address] [place] [address] Fred Meeks Blood 06/12/2025 12:0 9 PM CDT 06/12/2025 12:29 PM CDT Sophie Leong MD HEMATOLOGY ORDERABLES Viry l Result [facility] [phone] [facility] [address] [place] [address] * FERRITIN (06/12/2025 12:09 PM CDT) FERRITIN 22 16 - 288 ng/mL [facility] Comment: Test Performed at: [place] [place] [address] [place] [address] Fred Meeks MD Blood 06/12/2025 12:0 9 PM CDT 06/12/2025 12:29 PM CDT Sophie Leong MD CHEMISTRY ORDERABLES Final Result Performing Organization Address City/State/ZIP Co oh Phone Number [facility] [phone] [facility] [address] [place] [address] * CTA ABD PELVIS W AND/OR WO CONTRAST (06/04/2025 10:18 AM CDT) Anatomical Region Laterality Modality Abdomen Computed Tomogra phy 06/04/2025 9:27 AM CDT Impressions 06/04/2025 2:58 PM CDT IMPRESSION: 1. Interval resolution of thrombus in the inferior mesenteric vein and a small branch to the descending colon. Veins now appear diminutive, but patent. No evidence of bowel ischemia. 2. Enhancing 1.6 cm mass in the upper right kidney, concerning for renal cell carcinoma. 3. Indeterminate 1.1 cm mass in the upper left kidney. Continued follow-up is recommended. DICTATION LOCATION: 2 Narrative 06/04/2025 2:58 PM CDT EXAMINATION: CT Angiography of the Abdomen and Pelvis W/WO Contrast HISTORY: Portal vein thrombosis TECHNIQUE: CT angiography of the abdomen and pelvis was performed following the uneventful administration of intravenous contrast. Volume Rendered (VR) images, Maximum Intensity Projection (MIP) images and curved-plane reformatted images were created on a 3-D Postprocessing workstation. The examination was performed with the adjustment of mA according to the patient size and/or the use of Iterative Reconstruction Technique. CONTRAST: IOPAMIDOL 61 % INTRAVENOUS SOLUTION (SINGLE USE VIAL) Given:100 mL DLP: 4045.59 mGy-cm. FINDINGS: Comparison is made to an outside hospital abdomen and pelvis CT from 01/22/2025. Vascular findings: Celiac: Patent SMA: Patent Right renal artery: Patent Left artery: Patent DIAMOND: Patent The inferior mesenteric vein appears diminutive, but patent. The previously thrombosed descending colonic branch of the inferior mesenteric vein also appears diminutive, but patent. The hepatic veins, inferior vena cava and iliac veins are patent. Nonvascular findings: Lung bases: Normal Liver: Enlarged, measuring 19 cm craniocaudal Gallbladder: Cholelithiasis Pancreas: Normal. A small node anterior to the pancreatic neck is similar to prior. Spleen: Normal Adrenal glands: Normal Kidneys: Enhancing 1.6 cm partially exophytic mass in the posterior medial upper right kidney. There is an additional indeterminate 1.1 cm dominantly endophytic mass in the anterior upper left kidney. Stomach: Small hiatal hernia Small bowel: Normal Colon: Diverticulosis Bladder: Decompressed Bones: Degenerative changes throughout the spine Other: There is no pelvic or retroperitoneal lymphadenopathy. Procedure Note Reno Moreno MD - 06/04/2025 EXAMINATION: CT Angiography of the Abdomen and Pelvis W/WO Contrast HISTORY: Portal vein thrombosis TECHNIQUE: CT angiography of the abdomen and pelvis was performed following the uneventful administration of intravenous contrast. Volume Rendered (VR) images, Maximum Intensity Projection (MIP) images and curved-plane reformatted images were created on a 3-D Postprocessing workstation. The examination was performed with the adjustment of mA according to the patient size and/or the use of Iterative Reconstruction Technique. CONTRAST: IOPAMIDOL 61 % INTRAVENOUS SOLUTION (SINGLE USE VIAL) Given:100 mL DLP: 4045.59 mGy-cm. FINDINGS: Comparison is made to an outside hospital abdomen and pelvis CT from 01/22/2025. Vascular findings: Celiac: Patent SMA: Patent Right renal artery: Patent Left artery: Patent DIAMOND: Patent The inferior mesenteric vein appears diminutive, but patent. The previously thrombosed descending colonic branch of the inferior mesenteric vein also appears diminutive, but patent. The hepatic veins, inferior vena cava and iliac veins are patent. Nonvascular findings: Lung bases: Normal Liver: Enlarged, measuring 19 cm craniocaudal Gallbladder: Cholelithiasis Pancreas: Normal. A small node anterior to the pancreatic neck is similar to prior. Spleen: Normal Adrenal glands: Normal Kidneys: Enhancing 1.6 cm partially exophytic mass in the posterior medial upper right kidney. There is an additional indeterminate 1.1 cm dominantly endophytic mass in the anterior upper left kidney. Stomach: Small hiatal hernia Small bowel: Normal Colon: Diverticulosis Bladder: Decompressed Bones: Degenerative changes throughout the spine Other: There is no pelvic or retroperitoneal lymphadenopathy. IMPRESSION: 1. Interval resolution of thrombus in the inferior mesenteric vein and a small branch to the descending colon. Veins now appear diminutive, but patent. No evidence of bowel ischemia. 2. Enhancing 1.6 cm mass in the upper right kidney, concerning for renal cell carcinoma. 3. Indeterminate 1.1 cm mass in the upper left kidney. Continued follow-up is recommended. DICTATION LOCATION: [address] ORDERABLES Final Result * POC CREATININE (06/04/2025 9:24 AM CDT) CREATININE POC 1.10 0.60 - 1.30 mg/dL 06/04/2025 9:[address] Comment:The GFR result is no t clinically significant on patients <18 or >70 years of age. GFR POC 50 mL/min/1.7 3 sq meter 06/04/2025 9:[address] Comment:eGFR calculated with 2020 CKD-EPI equation. Vegetarian diet, extremely high or low muscle mass, and may affect results. Cystatin C with Glomerular Filtration Rate is a suitable alternative for these patients. Blood, whole 06/04/2025 9:24 AM CDT 06/04/2025 9:27 AM CDT Arpan Hernandez MD POINT OF CARE TESTING Final Re sult [facility] CT [address] CLIA# [id number] [address] [place] [address] * VERIFICATION BLOOD GROUP (03/27/2025 7:38 PM CDT) ABO GROUP O 03/27/2025 9:30 PM CDT [facility] RH (D) TYPE Positive 03/27/2025 9:30 PM CDT [facility] Blood Venipuncture / Unknown 03/27/2025 7:38 PM CDT 03/27/2025 7:41 PM CDT Misael Naranjo MD BLOOD BANK ORDERABLES Final Result Performing Organization Address [facility]/ZIP Co de Phone Number [facility] Stand In [facility] CLIA# [id number] [address] [place] [address] * TSH REFLEXIVE (03/27/2025 6:24 PM CDT) Pathologist [facility] TSH 1.26 0.27 - 4.20 uIU/mL 03/27/2025 7:59 PM CDT [facility] LABORATORY [facility] Blood Venipuncture / Unknown 03/27/2025 6:24 PM CDT 03/27/2025 6:31 PM CDT John Paul Lizama MD CHEMISTRY ORDERABLES Final Res ult [facility] Stand In [facility] CLIA# [id number] [address] [place] [address] * (ABNORMAL) PROTIME-INR (03/27/2025 6:24 PM CDT) PROTIME 14.8 12.7 - 15.1 Seconds 03/27/2025 6:52 PM CDT [facility] INR 1.2(H) 0.9 - 1.1 03/27/2025 6:52 PM CDT [facility] LABORATORY SERVICES - [facility] Blood Venipuncture / Unknown 03/27/2025 6:24 PM CDT 03/27/2025 6:31 PM CDT Narrative [facility] LABORATORY SERVICES - [facility] - 03/27/2025 6:52 PM CDT INR Therapeutic Range: Adult: 2.0 - 3.0 for pulmonary embolism or prophylaxis against venous thrombosis or systemic embolization. 2.0 - 3.0 for patients with tissue heart valves. 2.5 - 3.5 for patients with mechanical heart valves or post [place]. Pediatric (12 years and under): 1.5 - 3.0 Although the target range in children is not well established, INR values of 1.5 - 3.0 are recommended for most patients. Higher values have been used in children with prosthetic cardiac valves and hereditary clotting disorders. (<3 days) therapeutic ranges have not been established. John Paul Lizama MD HEMATOLOGY ORDERABLES Final Re sult [facility] Stand In SERVICES - [facility] CLIA# [id number] [address] [place] [address] * TYPE AND SCREEN (03/27/2025 6:24 PM CDT) ABO GROUP O 03/27/2025 7:59 PM CDT [facility] LABORATORY SERVICES -- [facility] RH (D) TYPE Positive 03/27/2025 7:59 PM CDT [facility] LABORATORY SERVICES -- [facility] ANTIBODY SCREEN Negative 03/27/2025 7:59 PM CDT [facility] LABORATORY SERVICES -- [facility] Blood Venipuncture / Unknown 03/27/2025 6:24 PM CDT 03/27/2025 6:31 PM CDT John Paul Lizama MD BLOOD BANK ORDERABLES Edited R esult - Final [facility] LABORATORY SERVICES -- [facility] CLIA# [id number] [address] [place] [address] [address] [address] * COMPREHENSIVE METABOLIC PANEL (03/27/2025 6:24 PM CDT) [facility] SODIUM 142 136 - 145 mmol/L 03/27/2025 7:45 PM CDT [facility]ORAT[facility] SERVICES - [facility] POTASSIUM 4.2 3.5 - 5.0 mmol/L 03/27/2025 7:45 PM CDT [facility] - [facility] CHLORIDE 106 98 - 107 mmol/L 03/27/2025 7:45 PM CDT [facility] - [facility] CO2 24 22 - 29 mmol/L 03/27/2025 7:45 PM CDT [facility] - [facility] CALCIUM 9.7 8.6 - 10.2 mg/dL 03/27/2025 7:45 PM CDT [facility] LABORATORY SERVICES - . [facility] BUN 14 8 - 23 mg/dL 03/27/2025 7:45 PM CDT [facility] LABORATORY SERVICES - . [facility] CREATININE 0.86 0.51 - 0.95 mg/dL 03/27/2025 7:45 PM CDT [facility] LABORATORY SERVICES - . [facility] Comment:The GFR result is no t clinically significant on patients <18 or >70 years of age. GLUCOSE 93 74 - 99 mg/dL 03/27/2025 7:45 PM CDT [facility] LABORATORY SERVICES - . [facility] TOTAL PROTEIN 7.5 6.7 - 8.6 g/dL 03/27/2025 7:45 PM CDT [facility]ORATORY SERVICES - . [facility] ALBUMIN 4.1 3.5 - 5.2 g/dL 03/27/2025 7:45 PM CDT [facility]ORATORY SERVICES - . [facility] BILIRUBIN TOTAL 0.2 0.0 - 1.1 mg/dL 03/27/2025 7:45 PM CDT [facility] LABORATORY SERVICES - . [facility] ALKALINE PHOSPHATASE 93 35 - 104 U/L 03/27/2025 7:45 PM CDT [facility] LABORATORY SERVICES - . [facility] AST 20 <33 U/L 03/27/2025 7:45 PM CDT [facility]ORY SERVICES - . [facility] ALT 14 <34 U/L 03/27/2025 7:45 PM CDT [facility] SERVICES - . [facility] GFR >60 mL/min/1.7 3 sq meter 03/27/2025 7:[address] [facility] Comment:eGFR calculated with 2020 CKD-EPI equation. Vegetarian diet, extremely high or low muscle mass, and may affect results. Cystatin C with Glomerular Filtration Rate is a suitable alternative for these patients. ANION GAP 12 8 - 16 mmol/L 03/27/2025 7:[address] [facility] Blood Venipuncture / Unknown 03/27/2025 6:24 PM CDT 03/27/2025 6:31 PM CD[address]ative [facility] - 03/27/2025 7:45 PM CDT Samples containing indocyanine green cause interferences on Total and/or Direct Bilirubin and must not be measured. us John Paul Lizama MD CHEMISTRY ORDERABLES Final Res ult [facility] CLIA# [id number] [address] [place] [address] * EKG 12-LEAD (03/27/2025 4:18 PM CDT) 03/27/2025 4:18 PM CDT Narrative INTERFACE SYSTEM - 03/27/2025 5:13 PM CDT [facility] [address] [place] [address] Test Date: 2025-03-27 Pat Name: NAYELY MTZ Department: 37 Room: Gender: Female Merchandise Director: [id number] : 1940 Requested By: Order Number: [id number] Holland MD: Noble Subramanian Measurements Intervals [place] Rate: 56 P: 9 NE: 141 QRS: 24 QRSD: 79 T: 32 QT: 437 QTc: 422 Interpretive Statements Sinus rhythm Abnormal R-wave progression, early transition Electronically Signed On 03-27-2025 17:13:59 CDT by Noble Subramanian Procedure Note Noble Subramanian MD - 03/27/2025 [facility] [address] , [place] [address] Test Date: 2025-03-27 Pat Name: NAYELY MTZ Department: 37 Room: Gender: Female Merchandise Director: [id number] : 1940 Requested By: Order Number: [id number] Reading MD: Noble Subramanian Measurements Intervals [place] Rate: 56 P: 9 NE: 141 QRS: 24 QRSD: 79 T: 32 QT: 437 QTc: 422 Interpretive Statements Sinus rhythm Abnormal R-wave progression, early transition Electronically Signed On 03-27-2025 17:13:59 CDT by Noble Subramanian us Protocol [facility] Emergency MD ECG ORDERABLES Viry l Result INTERFACE SYSTEM Refer to clinic/hospital department from Last 3 Months Additional Health Concerns Active Problems Noted Date Diagnosed Date Autogenerated Problem 05/27/2025 Insurance [employer] PPO [facility] RX AET[employer] Medicare Part D RX [employer] Commercial Advance Directives For more information, please contact: [phone] * Full Code (Latest Code Status on File) Date Activated Date Inactivated Comments 01/23/2025 3:50 AM 01/24/2025 4:45 PM Care Teams Fur Stretcher Relationship Specialty Start Date End Date Jacinda Beck MD [address] [place] [address] PCP - General Internal Medicine 01/23/25
[2025-06-15 18:16] LABS: Hematocrit 32.4 % (35.0-42.0); Hemoglobin 9.9 g/dL (11.7-13.8); Immature Granulocyte Percent A 0.4 % (0.0-0.0); Lymphocytes Absolute Auto 2.68 K/mm3 (1.10-4.50); Mean Corpuscular HGB Conc 30.6 g/dL (32-36); Mean Corpuscular Hemoglobin 28.1 pg (27.0-31.0); Mean Corpuscular Volume 92.0 fL (78.0-102.0); Nucleated Red Blood Cells Absolute Auto 0.00 K/mm3 (0.00-0.00); Nucleated Red Blood Cells Perc 0.0 % (0-0.0); Platelet Count Result 366 K/mm3 (150-420); Red Blood Count 3.52 M/mm3 (4.20-5.40); White Blood Count 8.2 K/mm3 (4.8-10.8)
[2025-06-15] MEDS: SODIUM CHLORIDE 0.9% IV 1,000 ML 999 ML IV CONT (18:23)
[2025-06-15 18:28] VITALS: BP 110/69; PULSE 60; RESP 17; O2SAT 97
[2025-06-15 18:35] LABS: Alanine Aminotransferase 13 U/L (6-35); Albumin Level 4.4 g/dL (3.5-5.1); Alkaline Phosphatase 68 U/L (38-126); Anion Gap 8 mmol/L (4-12); Aspartate Amino Transferase 25 U/L (14-36); Bilirubin,Total 1.4 mg/dL (0.2-1.3); Blood Urea Nitrogen 23 mg/dL (7-17); Calcium 8.9 mg/dL (8.4-10.2); Carbon Dioxide 25 mmol/L (22-30); Chloride 106 mmol/L (98-107); Estimated CRCL calculation 33 ml/min; Estimated Glomerular Filt Rate 43; Glucose 90 mg/dL (65-110); Lipase 30 U/L (23-300); Magnesium 2.0 mg/dL (1.6-2.3); Osmolality Calculated 291 mOsm/kg (285-295); Potassium 4.2 mmol/L (3.4-5.0); Sodium 139 mmol/L (137-145); Total Protein 7.1 g/dL (6.3-8.2)
[2025-06-15 18:38] LABS: INR 1.0; Partial Thromboplastin Time 28.3 Sec (23.9-30.70); Prothrombin Time 11.4 Seconds (9.50-12.1)
--- NOTE | 2025-06-15 19:05 | PC.NURSE ---
Pt report received from MAYLIN Lynch for continuation of care on weight shifter.
--- NOTE | 2025-06-15 19:33 | PC.NURSE ---
pt resting on stretcher in ED 1 without distress, IVF infusing and patient given 2 more pillows for comfort. update provided, pt awaiting results of CT scan. call light within reach.
--- NOTE | 2025-06-15 19:51 | PC.NURSE ---
ERP speaking with patient regarding results of imaging and plan of care.
--- NOTE | 2025-06-15 20:15 | PC.NURSE ---
PT UP TO BATHROOM AT THIS TIME.
--- NOTE | 2025-06-15 22:08 | PC.NURSE ---
PT AMBULATORY TO BATHROOM AT THIS TIME WITHOUT COMPLAINTS. UPDATE PROVIDED. ERP AWAITING HEARING BACK FROM PATIENT GI PROVIDER AT [facility]
[2025-06-15 22:16] VITALS: BP 131/61; PULSE 62; RESP 18; TEMP 36.3; O2SAT 97
--- NOTE | 2025-06-15 22:40 | PC.NURSE ---
PT SON AT BEDSIDE. UPDATE PROVIDED INCLUDING REQUEST FROM TRANSFER FACILITY TO HAVE PT REPEAT H/H DRAWN. LAB PHONED TO NOTIFY OF NEW ORDER. PT DENIES COMPLAINTS. CALL LIGHT WITHIN REACH.
[2025-06-15 22:50] LABS: Hematocrit 30.7 % (35.0-42.0); Hemoglobin 9.4 g/dL (11.7-13.8); Mean Corpuscular HGB Conc 30.6 g/dL (32-36); Mean Corpuscular Hemoglobin 28.1 pg (27.0-31.0); Mean Corpuscular Volume 91.9 fL (78.0-102.0); Platelet Count Result 335 K/mm3 (150-420); Red Blood Count 3.34 M/mm3 (4.20-5.40); White Blood Count 8.0 K/mm3 (4.8-10.8)
[2025-06-16] VITALS (10 sets, daily range): BP systolic 97–149; BP diastolic 36–76; PULSE 54–69; RESP 17–18; TEMP 36.4–36.9; O2SAT 93–99
--- NOTE | 2025-06-16 00:02 | PC.NURSE ---
RACKMAN AT BEDSIDE. PT RESTING ON STRETCHER. NO CURRENT NEEDS. CALL LIGHT WITHIN REACH.
--- NOTE | 2025-06-16 01:31 | PC.NURSE ---
PT CHANGED INTO HOSPITAL BED AND FRESH WARM BLANKETS GIVEN. PT UP TO BATHROOM, AMBULATED WITH STEADY GAIT. PT GIVEN ICE WATER AND ICE CHIPS PER REQUEST AND ERP OKAY FOR CLEAR LIQUID DIET. CPAP CONNECTED PER PT HOME DEVICE. PT AWAITING BED AT THE [facility]. DENIES FURTHER NEEDS AT THIS TIME. CALL LIGHT REMAINS IN PLACE.
--- NOTE | 2025-06-16 04:20 | PC.NURSE ---
PT AWAKE AND ALERT, AMBULATORY TO BATHROOM AT THIS TIME.
[2025-06-16] MEDS: SODIUM CHLORIDE 0.9% IV 1,000 ML 100 ML IV CONT (05:36)
--- NOTE | 2025-06-16 05:37 | PC.NURSE ---
AUDRA FERMIN, SEE MAR. VSS. CALL LIGHT WITHIN REACH. UPDATE PROVIDED.
--- NOTE | 2025-06-16 07:01 | PC.NURSE ---
PT REPORT GIVEN TO MAYLIN CRUZ FOR CONTINUATION OF CARE ON DAY SHIFT. PT RESTING ON HOSPITAL BED IN ED 1 AWAITING BED AT [facility]. PER [facility] PT WILL GET BED ASSIGNMENT WITH PENDING DISCHARGES TODAY.
--- NOTE | 2025-06-16 13:42 | PC.NURSE ---
PATIENT REQUESTING SOMETHING FOR MOTION SICKNESS FOR HER TRANSFER. MECLIZINE ORDERED PER ERP DR. CROOKS
[2025-06-16] MEDS: MECLIZINE HCL 25 MG TABLET PO (13:54)
== END 2025-06-16 15:48 | disposition short-term general hospital (02) ==
PROVIDERS: Emergency Provider Emergency Medicine; PCP Internal Medicine
DX: K92.2 Gastrointestinal hemorrhage, unspecified (principal); K63.89 Other specified diseases of intestine; D64.9 Anemia, unspecified; I10 Essential (primary) hypertension; E78.5 Hyperlipidemia, unspecified; E03.9 Hypothyroidism, unspecified; Z79.01 Long term (current) use of anticoagulants; Z79.899 Other long term (current) drug therapy; Z87.891 Personal history of nicotine dependence
CPT/HCPCS: 36415; 74177; 80053; 83605; 83690; 83735; 85025; 85027; 85610; 85730; 86850; 86900; 86901; 96360; 96361; 99285; A9270; J7030; Q9967

== ENCOUNTER 2025-06-25 14:24 | Outpatient (CLI) | payer MEDICARE, SELFPAY ==
[2025-06-25 14:46] LABS: Hematocrit 33.5 % (35.0-42.0); Hemoglobin 10.2 g/dL (11.7-13.8); Mean Corpuscular HGB Conc 30.4 g/dL (32-36); Mean Corpuscular Hemoglobin 28.2 pg (27.0-31.0); Mean Corpuscular Volume 92.5 fL (78.0-102.0); Platelet Count Result 412 K/mm3 (150-420); Red Blood Count 3.62 M/mm3 (4.20-5.40); White Blood Count 7.2 K/mm3 (4.8-10.8)
--- OUTSIDE RECORDS SUMMARY | 2025-06-25 14:49 | XMS_ITS | Clinical Summary ---
Author Organization [facility] Address [address] [place] [address] Care Team Providers Care Teacher Drama Name Role Phone Michael Beck MD Primary Care Provider [phone] Source Comments [facility],non-owned Affiliates and Associated Physician Practices is amultiple site organization consisting of ambulatory clinics and hospital sitesin [place], [place], [place] and [place]. This disclosure is being madepursuant to the Care Everywhere program and may not contain all information available regarding this patient. 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 Gender Identity Not on file Sexual Orientation [...] 02/23/2025 12:52 PM CDT Plan of Treatment Health Maintenance Due [...] complete this topic Insurance [employer] MEDICARE ADV Member Subscriber Plan / Payer (Ef fective 2015-Present) Name:Nayely Mtz Relation to Subscriber:Self Name:Nayely Mtz Payer ID:Not on file Group ID:Not on file Type:Medicare-Managed Care Address: [address] [place] [address] [employer] MEDICARE ADV Member Subscriber Plan / Payer (Ef fective 2015-Present) Name:Nayely Mtz Relation to Subscriber:Self Name:Isabel Mtzanel Alvarez Payer ID:Not on file Group ID:Not on file Type:Medicare-Managed Care Address: [address] [place] [address] Care Teams Teacher Drama Relationship Specialty Start Date End Date Michael Beck MD [address] [place] [address] PCP - General Cardiovascular Disease 02/23/25
--- OUTSIDE RECORDS SUMMARY | 2025-06-25 14:49 | XMS_ITS | Data Portability ---
Author Organization [place] [facility] [employer], Main Office Address [address] [place] [address] Care Team Providers Care Oracle Endeca Consultant Name Role Phone MARBELLA CONLEY Primary Care Provider [phone] MARBELLA CONLEY Referring Provider Assessment Encounter Date [...] treatment patient more than half of this qszo-oy-xjpl conversation Not available 01/10/2023 16:48:03 02/07/2023 02/07/2023 [...] patient more than half of this in onlk-et-wgiy conversation mack Not available 02/07/2023 14:35:29 04/04/2023 [...] more than half the time spent in axqq-rg-uvzz care. Not available 08/06/2023 15:08:23 Plan of [...] DO Not Attach Compendium, Do Not Delete/merge, [address] 3 15:24:21 Surgeries None recorded. Imaging XR, knee 2022 023 [email or web address] [facility] [place], [address], [place], [address], 3 17:25:16 XR, knee 2022 023 [email or web address] [facility] [place], [address], [place], [address], 3 17:25:16 Medication Orders Medrol (William) 4 mg tablets in a dose pack 2022 023 [email or web address] [facility], [address] [place], [address], 3 15:10:12 meloxicam 15 mg tablet 2022 023 [facility], [address] [place], [address], 3 17:02:21 tizanidine 4 mg tablet 2022 023 [facility], [address], [place], [address], 3 17:02:21 Kenalog 10 mg/mL suspension for injection 2022 023 [email or web address] [facility], [address], [place], [address], 3 15:10:01 ropivacaine (PF) 5 mg/mL (0.5 %) injection solution 2022 023 [email or web address] [facility], [address] [place], [address], 3 15:10:19 Patient TargetsNo targets recorded. Patient Instructions Encounter Date Encounter Id Patient Instructions Last Modified By Organization Details Last Modified Time 01/10/2023 [id number] physical therapy* [email or web address] Not availab le 01/10/2023 15:34:59 Reason for Referral None Reported. Results Created Date Observation Date Name Description Value Unit Range Abnormal Flag Note LastModifiedBy Organization Detail LastModifiedTime 01/11/20 XR, knee No observ ation record ed. [facility] [place] [address], [place], [address], 01/10/2023 16:43:17 01/11/20 XR, knee No observ ation record ed. [facility] [place] [address] [facility] [address], [place], [address], 01/10/2023 16:42:58 04/01/20 23 04/01/2023 MRI, lumba r spine , w/o contr ast No observ ation record ed. [email or web address] [facility] [address], [place], [address], 04/02/2023 09:06:50 Result Notes None recorded. Problems Name Problem SNOMED Code Status Onset Date Resolution Date Notes Provider Name and Address Organization Details Recorded Time Osteoarthr itis 302571231 Active 2021 Not Available [facility] 3 22:43:58 Osteoarthr itis of left knee joint 3535325608859 09 Active 2021 Not Available [facility] 3 22:43:58 Low back pain 616963325 Active 2022 Oralia Melgoza, SALTY null, [place] [employer] [facility] 3 15:32:44 Problem Notes None recorded. Procedures Surgical History Date Name Laterality Status Provider Name and Address Organization Details Recorded Time procedure on urinary bladder completed Not Available [facility] 10/11/2022 22:42:41 Hysterectomy, Partial completed Not Available [facility] 10/11/2022 22:42:41 Tonsillectomy completed Camille Peterson [place] [facility] 01/10/2023 14:40:59 Imaging Results None recorded. Procedure Notes None recorded. Medical Equipment None Reported. Allergies Allergen ID Allergen Name Allergen Category Reaction Reaction Severity Criticality Documentation Date Start Date Code Code System Note Provider Name and Address Organization Details Recorded Time 80775 Substance with sulfonami de structure and antibacte rial mechanism of action (substanc e) medicatio n Not available Not available Not available 10/11/2022 75211 8003 SNOMED Not Available [facility] 3 22:45:25 69628 Product containin g penicilli n (product) medicatio n facial swelling Not available Not available 10/11/2022 34859 8001 SNOMED Not Available [facility] 3 22:45:25 Medications Name Sig Start Date [...] administe red by the provider 10/[address] [facility]: 0409- 4276- 17 Not Available Not Available Not Available lidocaine (PF) 5 mg/mL (0.5 %) injection solution In office injection administe red by the provider 01/10 completed Not Available Not Available Not Available ropivacaine (PF) 5 mg/mL (0.5 %) injection solution in office procedure , administe red by provider 07/[address] [facility] [phone] -[phone] Not Available Not Available Not Available Eliquis 2.5 mg tablet 01/11 completed Not Available Not Available Not Available lidocaine 5 % medicated patch and dimethicone 5 % topical cream active Not Available Not Available Not Available Vitals Date Recorded Body height Provider Name an d Address Organization Details Last Updated DateTime 10/04/2022 154.94 cm Not Available [facility] 22:43:01 Date Recorded Body height Body mass index (BMI) Body weight Provider Name and Address Organization Details Last Updated DateTime 01/10/2023 154.94 cm 37.6 kg/m2 37942.88 g Camille Thapas [facility] [employer] [facility] 01/10/2023 14:45:37 Date Recorded Body height Provider Name an d Address Organization Details Last Updated DateTime 02/07/2023 154.94 cm CARLOS Harmon [facility] [employer] [facility] 02/07/2023 14:02:14 Date Recorded Body height Provider Name an d Address Organization Details Last Updated DateTime 04/04/2023 154.94 cm CARLOS Harmon [place] [employer] 04/04/2023 14:08:02 Date Recorded Body height Body mass index (BMI) Body weight Provider Name and Address Organization Details Last Updated DateTime 07/30/2023 154.94 cm 36.3 kg/m2 15923.74 g CARLOS Harmon [employer] 07/30/2023 15:18:19 Social History Question Answer Notes LastModified by [employer] Details LastModified Time Tobacco Smoking Status Former Smoker quit 1985 [facility] Available [facility] 10/11/2022 22:42:22 What Was The Date Of Your Most Recent Tobacco Screening? 11/15/2020 [id number] Information not available 10/11/2022 Sex: Unknown Functional Status Question Answer Note LastModified by [employer] Details LastModified Time What is your level of alcohol consumption? Occasional [id number] Information not available 10/11/2022 Mental Status None recorded. Family History Relationship Description Onset Age of this Age Resolved Age Notes LastModified by Organization Details LastModified Time Father Heart disease [id number] [id number] Not available 10/11/2022 22:42:42 Father Diabetes mellitus [id number].778 [id number] Not available 10/11/2022 22:42:42 Mother Heart disease [id number].999 [id number] Not available 10/11/2022 22:42:42 Mother Family history of stroke MIGRATION.124 [id number] Not available 10/11/2022 22:42:42 Sister Complication of anesthesia nausea MIGRATION.699 [id number] Not available 10/11/2022 22:42:42 Medical History Condition [...] HAVE YOU BEEN HOSPITALIZED OR SEEN IN [facility] IN THE PAST YEAR ? N [...] ICD10 Code Diagnosis IMO Codes Diagnosis Note [id number] Luis Alberto Carter MD [facility] [place] [address] [facility] [address] 11/15/2020 00:00:00 11/15/2020 16:57:30 [id number] Luis Alberto Carter MD [facility] [place] [address] [facility] [address] [place] [address] 02/09/2021 00:00:00 02/20/2021 12:36:50 [id number] Luis Alberto Carter MD [facility] [place] [address] [facility] [address] [place] [address] 03/16/2021 00:00:00 03/20/2021 17:04:20 [id number] Luis Alberto Carter MD [employer] [place] [address] [facility] [address] [place] [address] 05/30/2021 00:00:00 05/30/2021 14:52:01 [id number] Luis Alberto Carter MD [facility] [place] [address] [place] [address] 2021 00:00:00 2021 14:44:22 [id number] MD SATNAM [facility] [place] [address] [place] [address] 10/31/2021 00:00:00 10/31/2021 16:09:18 [id number] MD [facility] [place] [address] [place] [address] 12/26/2021 00:00:00 12/26/2021 14:43:43 [id number] MD [facility] [place] [address] [place] [address] 01/11/2022 00:00:00 01/16/2022 13:02:21 [id number] MD [facility] [place] [address] [place] [address] 01/25/2022 00:00:00 01/25/2022 11:18:51 [id number] Luis Alberto Carter MD [facility] [place] [address] [place] [address] 03/08/2022 00:00:00 03/08/2022 11:30:38 [id number] MD [facility] [place] [address] [place] [address] 06/21/2022 00:00:00 06/21/2022 16:26:19 [id number] Luis Alberto Carter MD [facility] [place] [address] [place] [address] 10/04/2022 00:00:00 10/04/2022 15:40:47 [id number] MD [facility] [place] [address] [place] [address] 01/10/2023 14:20:46 01/10/2023 17:25:15 Osteoarthritis of left knee joint 9796566386 21527 M17.12 History of right total knee replacement 1599198461 141186 Z96.651 Low back pain 324794487 M54.50 [id number] Luis Alberto Carter MD [facility] [place] [address] [place] [address] 02/07/2023 13:59:05 02/07/2023 14:52:03 Low back pain 201424546 M54.50 [id number] Luis Alberto Carter MD [facility] [place] [address] [place] [address] 04/04/2023 14:03:52 04/04/2023 14:57:57 Low back pain 149302476 M54.50 [id number] Luis Alberto Carter MD [facility] [place] [address] [place] [address] 07/30/2023 15:04:17 08/08/2023 15:20:06 Osteoarthritis of left knee joint 1667319874 83584 M17.12 Health Concerns Section Related Observation LastModified by Organization Detai ls LastModified Time None Recorded Concern Status LastModified by Organization Details LastModified Time None Recorded Advance Directives Directive None Recorded Payers Insurance Date Sequence Insurance Name Policy Number Policy Meek Covered Member ID Meek Member ID Guarantor Name 08/09/2023 1 [id number] (MEDICARE REPLACEMENT/ ADVANTAGE - PPO) [id number] 1 Nayely Mtz [id number] Nayely Mtz Notes Date Note Type Note Provider Name and Address Organization Details Recorded Time 07/30/2023 text/html patient returns. She has decided that she would like to proceed with left total knee replacement. Her back pain has improved. She continues to take meloxicam 15 mg daily. X-rays of her left knee from January demonstrate uadx-zw-leyx medial compartment osteoarthritis in the left knee [...] that in with her. She saw her robotics engineer Dr. Rankin 2 months ago and he said that she should be stable from a cardiac standpoint to undergo knee replacement. Luis Alberto Carter MD [address] [place] [address], [place], [address], [place] [facility] [employer] 08/06/2023 15:08:47 OBGyn Episode No OBEpisode recorded.
--- OUTSIDE RECORDS SUMMARY | 2025-06-25 14:49 | XMS_ITS | Clinical Summary ---
Author Organization [facility] Address [address] [place] [address] Care Team Providers Care Gathering Machine Feeder Name Role Phone Jacinda Beck MD Primary Care Provider [phone] Chay Burnett MD Unavailable Unavailable Allergies Active [...] age to complete this topic Insurance [facility] MEDICARE SOLUTIONS Care Teams Gathering Machine Feeder Relationship Specialty Start Date End Date Jacinda Beck MD [address] [place] [id number] PCP - General INTERNAL MEDICINE 02/15/17 Chay Burnett MD [address] [place] [address] [place] [employer] INTERVENTIONAL CARDIOLOGY 02/15/17
[2025-06-25 15:02] LABS: Alanine Aminotransferase 14 U/L (6-35); Albumin Level 4.2 g/dL (3.5-5.1); Alkaline Phosphatase 74 U/L (38-126); Anion Gap 13 mmol/L (4-12); Aspartate Amino Transferase 19 U/L (14-36); Blood Urea Nitrogen 17 mg/dL (7-17); Calcium 9.1 mg/dL (8.4-10.2); Carbon Dioxide 27 mmol/L (22-30); Chloride 104 mmol/L (98-107); Estimated Glomerular Filt Rate 51; Glucose 103 mg/dL (65-110); Iron 50 ug/dL (37-170); Osmolality Calculated 299 mOsm/kg (285-295); Potassium 4.3 mmol/L (3.4-5.0); Sodium 144 mmol/L (137-145); Total Protein 6.8 g/dL (6.3-8.2)
[2025-06-25 15:37] LABS: Ferritin 58.40 ng/mL (11.1-264)
[2025-06-26 07:39] LABS: Carcinoembryonic Antigen 5.38
[2025-06-30 13:34] LABS: Bilirubin,Total 0.2 mg/dL (0.2-1.3)
== END 2025-06-25 14:25 | disposition home or self-care (01) ==
LOC: CHSLAB 14:25
PROVIDERS: PCP Internal Medicine; Visit Provider Internal Medicine
DX: D37.4 Neoplasm of uncertain behavior of colon (principal); D64.9 Anemia, unspecified
CPT/HCPCS: 36415; 80053; 82378; 82728; 83540; 85027